=== PATIENT | male | born 1945 | race Caucasian/White ===

== ENCOUNTER → 2019-03-06 | Outpatient (CLI) | payer MEDICARE, OTHER ==
--- NOTE | 2019-03-06 10:05 | Diagnostic Imaging Report ---
INDICATION: Right lower quadrant pain. Exam compared 02/18/2015. FINDINGS: There is some gaseous dilatation of small bowel showing differential air-fluid levels in upright views. Air-containing small bowel caliber measuring 3.9 cm maximal. Much of the small bowel is airless, likely lumen is occupied by fluid. The colon is imperceptible and presumed decompressed. IMPRESSION: 1. Small bowel dilatation with differential air-fluid levels and absence of identifiable stool or air within the colon. Findings are suspicious for small bowel obstruction. If clinically indicated, abdominal pelvic CT may provide additional utility. 2. No free air. Dictated by: Dictated on workstation # [id number]
== END ==
LOC: RAD FS 09:24
PROVIDERS: ATTEND Family Medicine
DX: K63.89 Other specified diseases of intestine (principal); R10.31 Right lower quadrant pain
CPT/HCPCS: 74019

== ENCOUNTER → 2019-05-11 | Outpatient (CLI) | payer MEDICARE, OTHER ==
--- NOTE | 2019-05-11 14:11 | Diagnostic Imaging Report ---
PROCEDURE: CT thoracic and lumbar spine without contrast. TECHNIQUE: Multiple contiguous axial images were obtained through the thoracic and lumbar spine without the use of intravenous contrast. Sagittal and coronal reformations were then performed. INDICATION: Back pain. FINDINGS: There is some mild right convexity thoracic scoliosis. The vertebral body heights are well-maintained. There are confluent osteophytes along the anterior aspect of the thoracic spine throughout. There is no fracture or traumatic subluxation. No bony encroachment on the spinal canal. There are a few calcified granulomas in the lungs bilaterally. There are also calcified granulomas in the mediastinum, compatible with prior granulomatous disease. There is a small right pleural effusion. There are mild age indeterminate compression fractures of L4 and L5. There is no spondylolysis or spondylolisthesis. There is lower lumbar degenerative disc disease. There are nonobstructing stones in the right kidney. There is atherotic calcification which is nonaneurysmal. There is a filter in the IVC. IMPRESSION: Moderate diffuse thoracolumbar spondylosis. Age indeterminate compression fractures of L4 and L5. If there is high clinical concern these may be acute, further evaluation with MRI may be helpful. Old granulomatous disease in the lungs bilaterally as well as right pleural effusion. Nonobstructing right renal calculi Dictated by: Dictated on workstation # [id number]
== END ==
LOC: RAD FS 09:38
PROVIDERS: ATTEND Nurse Practitioner Family
DX: S22.040A Wedge compression fracture of fourth thoracic vertebra, initial encounter for closed fracture (principal); S22.050A Wedge compression fracture of T5-T6 vertebra, initial encounter for closed fracture; J90 Pleural effusion, not elsewhere classified; J84.10 Pulmonary fibrosis, unspecified; N20.0 Calculus of kidney; M47.815 Spondylosis without myelopathy or radiculopathy, thoracolumbar region
CPT/HCPCS: 72128; 72131

== ENCOUNTER → 2019-05-25 | Outpatient (CLI) | payer MEDICARE, OTHER ==
--- NOTE | 2019-05-25 10:17 | Diagnostic Imaging Report ---
PROCEDURE: CT abdomen and pelvis without contrast. TECHNIQUE: Multiple contiguous axial images were obtained through the abdomen and pelvis without the use of intravenous contrast. Auto Exposure Controls were utilized during the CT exam to meet ALARA standards for radiation dose reduction. INDICATION: Bilateral flank pain for 3 weeks with microhematuria. Patient does have a history of right renal cell carcinoma and metastatic lung cancer. No prior CT studies available for comparison. FINDINGS: There are calcified nodules in the left lower lobe suggestive of granulomas. There appeared to be areas of scarring in the right middle lobe and right lower lobe with associated pleural thickening/minimal right pleural fluid. No discrete liver mass is seen. Gallbladder is surgically absent. No biliary ductal dilatation is seen. Pancreas is unremarkable. Spleen contains multiple calcified granulomas. No adrenal mass is seen. There appeared to be postsurgical changes involving the upper pole of the right kidney. No discrete renal mass is seen. There is no calculi or hydronephrosis. Aorta is nonaneurysmal. There is a filter in the inferior vena cava. No definite central retroperitoneal or mesenteric lymphadenopathy is seen. The bowel loops appear to be normal caliber. There is an ostomy in the right lower quadrant. No obstruction is seen. There is no free fluid. There is a large amount of streak artifact through the pelvis from patient's bilateral hip prostheses. This does limit evaluation of the pelvis. Bony structures are unremarkable. IMPRESSION: 1. Right-sided pleural thickening/minimal pleural fluid with associated right basilar scarring. 2. Postsurgical changes involving the upper pole of the right kidney. No definite discrete renal mass or hydronephrosis is seen. 3. No evidence of abdominal or pelvic lymphadenopathy. No acute feature is identified. Dictated by: Dictated on workstation # [id number]
== END ==
LOC: RAD FS 09:07
PROVIDERS: ATTEND Urology
DX: R10.9 Unspecified abdominal pain (principal); R31.29 Other microscopic hematuria; Z90.49 Acquired absence of other specified parts of digestive tract; Z85.53 Personal history of malignant neoplasm of renal pelvis; Z85.118 Personal history of other malignant neoplasm of bronchus and lung; Z87.442 Personal history of urinary calculi
CPT/HCPCS: 74176

== ENCOUNTER → 2019-12-24 | Outpatient (CLI) | payer MEDICARE, OTHER ==
[~2019-12-24] MED LIST: ACET-2267 PO; AMLO10TA7 PO; ENOX80DI7 SC; FERR325T18 PO; HYDR-3820 PO; HYDR200T46 PO; MELA10TA2 PO; MULT1TAB69 PO; PRED5TAB PO; SODI650T PO; TEMA15CA PO; WARF3TAB56 PO; WARF5TAB PO
[2019-12-24 18:36] LABS: INR 1.9 (0.8-1.4); PROTHROMBIN TIME PATIENT 22.3 SEC (12.2-14.7)
== END ==
LOC: LAB FS 18:07
PROVIDERS: ATTEND Family Medicine
DX: Z51.81 Encounter for therapeutic drug level monitoring (principal); Z79.01 Long term (current) use of anticoagulants
CPT/HCPCS: 36415; 85610

== ENCOUNTER 2020-01-05 03:33 | Emergency (ER) | payer MEDICARE, OTHER ==
[~2020-01-05] VITALS: Ht 185.4 cm; Wt 79.0 kg
--- NOTE | 2020-01-05 04:03 | NUR ---
AFTER THE DRESSING WAS REMOVED THE PT STATED HIS SKIN TEAR FELT BETTER.
--- NOTE | 2020-01-05 04:15 | ED Integumentary General ---
General Chief Complaint: Skin/Wound Problems Stated Complaint: SKIN TEAR INFECTION Nursing Triage Note: PT. HAS A SKIN TEAR ON THE RIGHT CHEST THAT WAS COVERED WITH A DRESSING THAT HAD A VERY SMALL AMOUNT OF SS DRAINAGE. PT. CONCERNED HE HAD AN INFECTION AND THE SITE WAS ITCHING SO HE CAME TO THE ER TO GET CHECKED OUT. HOME HEALTH NURSE TOLD THE PT TO COME TO THE ER. Source: patient History of Present Illness Date Seen by Provider: Jan 05, 2020 Time Seen by Provider: 04:14 Initial Comments 74-year-old male presenting with irritation to wound on the right chest wall. He had a skin tear with infection on the right chest wall after spinal surgery in November. This was healing but after the dressing change with home health yesterday he had a lot of itching and drainage from it. The home health nurse was to call Dr. Ferguson about getting antibiotics for the patient but he states that nothing had been called to [facility] when he checked last night. He was having a lot of itching and some drainage from the wound last night. He denies any fever or chills. He's had no pus draining from the wound. Allergies and Home Medications Allergies Coded Allergies: Penicillins (Verified Allergy, Intermediate, 12/15/19) EYES SWELLED SHUT Home Medications Acetaminophen 500 Mg Tablet, 500 MG PO Q6H PRN for PAIN-MILD (1-4), (Reported) Amlodipine Besylate 10 Mg Tablet, 10 MG PO HS, (Reported) Enoxaparin Sodium 80 Mg/0.8 Ml Syringe, 80 MG SC BID@0630,1830 Prescribed by: RUBI VASQUEZ on 12/16/19937 Ferrous Sulfate 325 Mg Tablet, 325 MG PO BID, (Reported) Hydrocodone/Acetaminophen 1 Each Tablet, 2 EA PO Q4H PRN for PAIN-MODERATE (5-7) Prescribed by: RUBI VASQUEZ on 12/16/19937 Hydroxychloroquine Sulfate 200 Mg Tablet, 200 MG PO BID, (Reported) Melatonin 10 Mg Tablet, 10 MG PO HS PRN for SLEEP, (Reported) Multivitamin 1 Each Tablet, 1 TAB PO DAILY, (Reported) Prednisone 5 Mg Tablet, 15 MG PO Q48H, (Reported) TAKES 3 (5MG) TABLETS Sodium Bicarbonate 650 Mg Tablet, 650 MG PO HS PRN for LOOSE STOOLS, (Reported) Temazepam 15 Mg Capsule, 15 MG PO HS PRN for SLEEP, (Reported) Warfarin Sodium 5 Mg Tablet, 5 MG PO DAILY@1800 Prescribed by: RUBI VASQUEZ on 12/16/19 9703 Patient Home Medication List Home Medication List Reviewed: Yes Review of Systems Review of Systems Constitutional: No chills, No fever EENTM: no symptoms reported Respiratory: no symptoms reported Cardiovascular: no symptoms reported Gastrointestinal: no symptoms reported Genitourinary: no symptoms reported Musculoskeletal: no symptoms reported Skin: change in color (erythema around the skin tear on the right anterior chest); No rash; other (healing skin tear to the right anterior chest wall no purulent drainage noted.) Past Aivrebe-Hzjadh-Atjmgf Hx Past Med/Social Hx: Reviewed Nursing Past Med/Soc Hx Patient Social History Recent Foreign Travel: No Contact w/Someone Who Travel: No Recent Infectious Disease Expo: No Recent Hopitalizations: Yes (S/P SPINAL FUSION) Physical Abuse: No Sexual Abuse: No Mistreated: No Fear: No Immunizations Up To Date Date of Influenza Vaccine: Sep 09, 2019 Seasonal Allergies Seasonal Allergies: No Past Medical History Surgeries: Yes (COLECTOMY WITH ILEOSTOMY 1973) Respiratory: Yes Pulmonary Embolism Cardiac: Yes Deep Vein Thrombosis Neurological: Yes Neuropathy Sexually Transmitted Disease: No HIV/AIDS: No Genitourinary: Yes (RENAL INSUFF.) Benign Prostatic Hyperpl, Renal Failure Gastrointestinal: Yes (COLECTOMY WITH ILEOSTOMY) Polyps Musculoskeletal: Yes Degenerate Disk Disease, Rheumatoid Arthritis, Chronic Back Pain Endocrine: No HEENT: Yes Loss of Vision: Denies Hearing Impairment: Hard of Hearing Cancer: Yes Lung, Colon, Kidney Did You Recieve Any Treatments: Yes What Type of Treatment Did You: Chemotherapy Psychosocial: No Blood Disorders: No Adverse Reaction/Blood Tranf: No Family Medical History Patient reports no known family medical history. Physical Exam Vital Signs Vital Signs - First Documented 01/05/20 03:47 Temp 36.8 Pulse 80 Resp 16 B/P (MAP) 147/84 (105) Pulse Ox 99 O2 Delivery Room Air Capillary Refill : Less Than 3 Seconds General Appearance: WD/WN, no apparent distress Neck: non-tender, full range of motion, supple, normal inspection Cardiovascular: normal peripheral pulses, regular rate, rhythm Respiratory: chest non-tender, lungs clear, normal breath sounds Skin: warm/dry, other (erythema around the healing skin tear on the right anterior chest wall. There is some increased warmth. No purulent drainage noted there is no fluctuance.) Progress/Results/Core Measures Results/Orders Vital Signs/I&O 01/05/20 01/05/20 03:47 05:04 Temp 36.8 36.8 Pulse 80 80 Resp 16 16 B/P (MAP) 147/84 (105) 147/84 (105) Pulse Ox 99 99 O2 Delivery Room Air Room Air Blood Pressure Mean: 105 Progress Progress Note : Progress Note Will treat topically with antibiotic ointment and have patient check with Dr. Ferguson at least over the phone to see if they will call him in oral antibiotics or not. If he is having oral antibiotic treatment didn't at least the clinic with no and get help manage his pro time and Coumadin dosing. Departure Impression Primary Impression: Cellulitis of chest wall Additional Impression: Allergic contact dermatitis Qualified Codes: L23.1 - Allergic contact dermatitis due to adhesives Disposition: HOME, SELF-CARE Condition: Stable Departure-Patient Inst. Decision time for Depature: 05:04 Referrals: ALIRIO FERGUSON MD (PCP/Family) Primary Care Physician Patient Instructions: Contact Dermatitis (DC), Cellulitis (Skin Infection), Adult (DC) Add. Discharge Instructions: Check with Dr. Ferguson's office about the wound on your chest. See if he wants to have you take an antibiotic by mouth or just use antibiotic ointment and change dressings to one that does not have as much adhesive. All discharge instructions reviewed with patient and/or family. Voiced understanding. Images Torso/Trunk 1 - Cellulitis (redness and increased warmth around healing skin tear) BETO CALI MD Jan 05, 2020 04:15
[2020-01-05 05:04] VITALS: BP 147/84
== END 2020-01-05 05:06 | disposition home or self-care (01) ==
LOC: EDUNIT# 03:33 → ER FS 03:35
DX: L03.313 Cellulitis of chest wall (principal); L23.1 Allergic contact dermatitis due to adhesives; Z88.0 Allergy status to penicillin; Z79.52 Long term (current) use of systemic steroids; Z79.01 Long term (current) use of anticoagulants; Z86.711 Personal history of pulmonary embolism; Z85.118 Personal history of other malignant neoplasm of bronchus and lung; Z85.528 Personal history of other malignant neoplasm of kidney; Z85.038 Personal history of other malignant neoplasm of large intestine; Z86.718 Personal history of other venous thrombosis and embolism

== ENCOUNTER 2020-01-26 14:45 | Emergency (ER) | payer MEDICARE, OTHER ==
[~2020-01-26] VITALS: Ht 185.4 cm; Wt 82.8 kg
[~2020-01-26 14:45] MED LIST changes: +ACHYD1T PO; -HYDR-3820 PO
--- NOTE | 2020-01-26 15:08 | ED General ---
General Stated Complaint: HEMATURIA; BACK PAIN History of Present Illness Date Seen by Provider: Jan 26, 2020 Time Seen by Provider: 15:08 Initial Comments Patient presenting to emergency department for evaluation of right flank pain that started yesterday and has persisted. Patient says that he has a history of kidney stones and this feels exactly the same as prior kidney stones. He was initially very upset with me and did not want to have any tests done rather he wanted to be sent with antibiotics and pain medicines but I told him I recommended getting further tests as he sounds as if he is explaining that he had prior kidney cancer on the right and he has decreased renal function. He says he has followed with the urologist Dr. Aguirre but has always passed his stones on his own and has not required intervention. He said he is prescribed a dilating medicine that I assume is Flomax but he did not remember the name. He denies fevers chills vomiting but he does have some nausea. He appears uncomfortable but is nontoxic with normal vital signs. Allergies and Home Medications Allergies Coded Allergies: Penicillins (Verified Allergy, Intermediate, 12/15/19) EYES SWELLED SHUT Home Medications Acetaminophen 500 Mg Tablet, 500 MG PO Q6H PRN for PAIN-MILD (1-4), (Reported) Amlodipine Besylate 10 Mg Tablet, 10 MG PO HS, (Reported) Enoxaparin Sodium 80 Mg/0.8 Ml Syringe, 80 MG SC BID@0630,1830 Prescribed by: RUBI VASQUEZ on 12/16/19 09 Ferrous Sulfate 325 Mg Tablet, 325 MG PO BID, (Reported) Hydrocodone Bit/Acetaminophen 1 Each Tablet, 2 EA PO Q4H PRN for PAIN-MODERATE (5-7) Prescribed by: RUBI VASQUEZ on 12/16/19 09 Hydroxychloroquine Sulfate 200 Mg Tablet, 200 MG PO BID, (Reported) Melatonin 10 Mg Tablet, 10 MG PO HS PRN for SLEEP, (Reported) Multivitamin 1 Each Tablet, 1 TAB PO DAILY, (Reported) Prednisone 5 Mg Tablet, 15 MG PO Q48H, (Reported) TAKES 3 (5MG) TABLETS Sodium Bicarbonate 650 Mg Tablet, 650 MG PO HS PRN for LOOSE STOOLS, (Reported) Temazepam 15 Mg Capsule, 15 MG PO HS PRN for SLEEP, (Reported) Warfarin Sodium 5 Mg Tablet, 5 MG PO DAILY@1800 Prescribed by: RUBI VASQUEZ on 12/16/19 0938 Patient Home Medication List Home Medication List Reviewed: Yes Review of Systems Review of Systems Constitutional: no symptoms reported EENTM: no symptoms reported Respiratory: no symptoms reported Cardiovascular: no symptoms reported Gastrointestinal: nausea Genitourinary: no symptoms reported Musculoskeletal: back pain Skin: no symptoms reported Psychiatric/Neurological: No Symptoms Reported All Other Systems Reviewed Negative Unless Noted: Yes Past Izhtllk-Gufejv-Dkrski Hx Patient Social History Recent Foreign Travel: No Contact w/Someone Who Travel: No Recent Hopitalizations: Yes (S/P SPINAL FUSION) Immunizations Up To Date Date of Influenza Vaccine: Sep 09, 2019 Seasonal Allergies Seasonal Allergies: No Past Medical History Surgeries: Yes (COLECTOMY WITH ILEOSTOMY 1973) Respiratory: Yes Pulmonary Embolism Cardiac: Yes Deep Vein Thrombosis Neurological: Yes Neuropathy Sexually Transmitted Disease: No HIV/AIDS: No Genitourinary: Yes (RENAL INSUFF.) Benign Prostatic Hyperpl, Renal Failure Gastrointestinal: Yes (COLECTOMY WITH ILEOSTOMY) Polyps Musculoskeletal: Yes Degenerate Disk Disease, Rheumatoid Arthritis, Chronic Back Pain Endocrine: No HEENT: Yes Loss of Vision: Denies Hearing Impairment: Hard of Hearing Cancer: Yes Lung, Colon, Kidney Did You Recieve Any Treatments: Yes What Type of Treatment Did You: Chemotherapy Psychosocial: No Blood Disorders: No Adverse Reaction/Blood Tranf: No Family Medical History Patient reports no known family medical history. Physical Exam Vital Signs Vital Signs - First Documented 01/26/20 15:00 Temp 36.3 Pulse 69 Resp 16 B/P (MAP) 165/77 (106) Pulse Ox 69 O2 Delivery Room Air Capillary Refill : Height, Weight, BMI Height: '" Weight: lbs. oz. kg; 22.00 BMI Method: General Appearance: No Apparent Distress, WD/WN HEENT: PERRL/EOMI Neck: Supple Respiratory: Lungs Clear, No Respiratory Distress Cardiovascular: Regular Rate, Rhythm Gastrointestinal: Non Tender, Soft Back: CVA Tenderness (R) Extremity: Normal Capillary Refill Neurologic/Psychiatric: Alert, Oriented x3 Skin: Warm/Dry Progress/Results/Core Measures Suspected Sepsis SIRS Temperature: Pulse: Respiratory Rate: Laboratory Tests 01/26/20 16:48: Blood Pressure / Mean: Laboratory Tests 01/26/20 16:48: Creatinine 2.13H, INR Comment 1.8H, Total Bilirubin 0.3 Results/Orders Lab Results Laboratory Tests Test 01/26/20 16:48 Range/Units Prothrombin Time 21.2 H 12.2-14.7 SEC INR Comment 1.8 H 0.8-1.4 Activated Partial Thromboplast Time 34 24-35 SEC Sodium Level 141 135-145 MMOL/L Potassium Level 5.0 3.6-5.0 MMOL/L Chloride Level 110 H 98-107 MMOL/L Carbon Dioxide Level 16 L 21-32 MMOL/L Anion Gap 15 H 5-14 MMOL/L Blood Urea Nitrogen 32 H 7-18 MG/DL Creatinine 2.13 H 0.60-1.30 MG/DL Estimat Glomerular Filtration Rate 30 BUN/Creatinine Ratio 15 Glucose Level 112 H 70-105 MG/DL Calcium Level 8.7 8.5-10.1 MG/DL Corrected Calcium 8.9 8.5-10.1 MG/DL Total Bilirubin 0.3 0.1-1.0 MG/DL Aspartate Amino Transf (AST/SGOT) 32 5-34 U/L Alanine Aminotransferase (ALT/SGPT) 23 0-55 U/L Alkaline Phosphatase 158 H 40-136 U/L Total Protein 6.3 L 6.4-8.2 GM/DL Albumin 3.8 3.2-4.5 GM/DL My Orders Orders - MATILDA KNIGHT DO Comprehensive Metabolic Panel (01/26/20 15:11) Drug Screen Stat (Urine) (01/26/20 15:11) Ua Culture If Indicated (01/26/20 15:11) Ketorolac Injection (Toradol Injection) (01/26/20 15:15) Ns Iv 1000 Ml (Sodium Chloride 0.9%) (01/26/20 15:15) Fentanyl Injection (Sublimaze Injection (01/26/20 15:15) Ondansetron Injection (Zofran Injectio (01/26/20 15:15) Ct Abdomen/Pelvis Wo (01/26/20 15:11) Partial Thromboplastin Time (01/26/20 17:07) Protime With Inr (01/26/20 17:07) Cbc With Automated Diff (01/26/20 17:09) Medications Given in ED Current Medications Medications Dose Ordered Sig/Darin Route Start Time Stop Time Status Last Admin Dose Admin Fentanyl Citrate 50 mcg ONCE ONCE IVP 01/26/20 15:15 01/26/20 15:16 DC 01/26/20 16:53 50 MCG Ondansetron HCl 4 mg ONCE ONCE IVP 01/26/20 15:15 01/26/20 15:16 DC 01/26/20 16:52 4 MG Vital Signs/I&O 01/26/20 15:00 Temp 36.3 Pulse 69 Resp 16 B/P (MAP) 165/77 (106) Pulse Ox 69 O2 Delivery Room Air Capillary Refill : Progress Note : Progress Note Patient has 6 mm proximal stone with [id number] hydronephrosis. I told him based off the location and size there is a greater than 50% chance this will not pass however he is welcome to try and pass at home but I recommended admission to the hospital so we could try and his creatinine and treat his likely further pain that is to come in to have him be seen by the urologist. Patient is waiting his options at this time as he said due to the coronavirus he really does not want to stay in the hospital if possible and I told them that that is a legitimate concern and discussed the risks and benefits of outpatient versus inpatient treatment but the final decision will have to be made by him. His renal insufficiency is not worse than his baseline but given his already declining renal function I reiterated to him that I would recommend staying in the hospital but he refused stating that he really wants to try and pass the stone at home on its own. I told him he can try that he needs a follow with his urologist either tomorrow or the next day and he has to come back to emergency [facility] immediately. I told him to drink plenty of fluids take the Flomax before he goes to sleep at night as it can make him very dizzy and passed out. He is asking for a prescription for antibiotics and asked why and he says he was getting antibiotics for his kidney stones by told there is no evidence of infection but he insisted on getting antibiotics. He had a urinalysis done at the urgent care by do not have those results and he said he did not want to wait to give a urine sample here and wait for the results. Patient will be discharged in stable condition and told to return as above and patient and daughter are aware and agreeable with plan for discharge and verbalized understanding of the need for short-term follow-up and strict ED return precautions discussed as above. Departure Impression Primary Impression: Right ureteral calculus Additional Impressions: Hydronephrosis of right kidney Renal insufficiency Subtherapeutic international normalized ratio (INR) Disposition: 01 HOME, SELF-CARE Condition: Stable Departure-Patient Inst. Referrals: ALIRIO CACERES MD (PCP/Family) Primary Care Physician Patient Instructions: Kidney Stones (DC) Add. Discharge Instructions: Drink plenty of fluids and follow with Dr. Harris as soon as possible. Come back to the emergency department with worsening pain fevers vomiting or other general concerns. Scripts Tamsulosin HCl (Flomax) 0.4 Mg Cap 0.4 MG PO qhs, #10 CAP Prov: MATILDA KNIGHT DO 01/26/20 Nitrofurantoin Monohyd/M-Cryst (Macrobid 100 mg Capsule) 100 Mg Capsule 1 TAB PO BID, #14 CAP Prov: MATILDA KNIGHT DO 01/26/20 Ondansetron (Ondansetron Odt) 4 Mg Tab.rapdis 4 MG PO Q6H PRN for NAUSEA/VOMITING-1ST LINE, #14 TAB Prov: MATILDA KNIGHT DO 01/26/20 Hydrocodone/Acetaminophen (Hydrocodone/Acetaminophen 5 MG/325 MG TAB) 1 Each Tablet 1 TAB PO Q6H for Pain MDD 10 TABS for 7 Days, #20 TAB Prov: MATILDA KNIGHT DO 01/26/20 MATILDA KNIGHT DO Jan 26, 2020 15:08
[2020-01-26] MEDS ORDERED: ONDANSETRON 4 MG/2 ML (SDV) Z0FRAN IVP ONE (15:15)
[2020-01-26] MEDS ORDERED: NS IV 1000 ML 1,000 ML IV SCH (15:15)
[2020-01-26] MEDS ORDERED: KETOROLAC 30 MG/ML VIAL IVP ONE (15:15)
[2020-01-26] MEDS ORDERED: fentaNYL INJECTION 100 MCG/2 ML AMP IVP ONE (15:15)
--- NOTE | 2020-01-26 16:54 | Diagnostic Imaging Report ---
PROCEDURE: CT abdomen and pelvis without contrast. TECHNIQUE: Multiple contiguous axial images were obtained through the abdomen and pelvis without the use of intravenous contrast. Auto Exposure Controls were utilized during the CT exam to meet ALARA standards for radiation dose reduction. DATE: January 26, 2020. COMPARISON: CT abdomen/pelvis May 25, 2019. INDICATION: 74-year-old male, abdominal pain. FINDINGS: There are limitations for evaluation of the abdominal organs, neoplastic processes, abscess, and limited evaluation of the vasculature relating to the lack of intravenous contrast. There are benign calcified left lower lobe granulomas. There is a trace right pleural effusion. There is very mild right lower lobe atelectasis and/or scarring. The heart is not enlarged. There is no pericardial effusion. The liver is normal in size and contour. The gallbladder is surgically absent. There is no intrahepatic or extrahepatic bile duct dilation. The main pancreatic duct is not grossly dilated. Limited noncontrast evaluation of the pancreatic parenchyma is unremarkable. Multiple small splenic calcifications are most consistent with sequela of prior granulomatous disease. There is no splenomegaly. The adrenal glands are unremarkable. There are areas of abnormal fat attenuation adjacent to the right kidney. These are unchanged since May 25, 2019. There is [id number] right hydronephrosis. There is a stone in the right proximal ureter on axial image 56 measuring 6 mm in size. There is limited evaluation of the distal ureters and pelvis given streak artifact from bilateral hip prostheses. There is no left hydronephrosis. There is no identified left renal or ureteral stone. The urinary bladder is not well evaluated. There is a right lower quadrant ostomy. The colon appears surgically absent. There is some fecalization of contents within bowel, compatible with slow intestinal transit. There is no abnormal bowel distention. There is no free intraperitoneal air. There is no drainable fluid collection. There is no free pelvic fluid. There is an inferior vena cava filter. There are atherosclerotic calcifications. There is no identified abnormally enlarged lymph node in the abdomen or pelvis which meets CT size criteria for adenopathy. There are bilateral total hip prostheses. There are procedural-related changes of the lumbar spine. There are multilevel degenerative changes of the spine. There is no identified acute bony abnormality. IMPRESSION: 1. There is a 6 mm stone in the right proximal ureter with mild to moderate right hydronephrosis. 2. Unchanged fat attenuation lesions adjacent to the right kidney since the comparison exam. 3. Trace right pleural effusion. Dictated by: Dictated on workstation # [id number]
[2020-01-26 17:15] LABS: ALBUMIN 3.8 GM/DL (3.2-4.5); BILIRUBIN,TOTAL 0.3 MG/DL (0.1-1.0); CALCIUM 8.7 MG/DL (8.5-10.1); CREATININE SERUM 2.13 MG/DL (0.60-1.30); TOTAL PROTEIN 6.3 GM/DL (6.4-8.2)
[2020-01-26 17:20] LABS: INR 1.8 (0.8-1.4); PROTHROMBIN TIME PATIENT 21.2 SEC (12.2-14.7)
[2020-01-26 17:27] LABS: BASOPHILS % (AUTO) 0 % (0-10); EOSINOPHILS % (AUTO) 0 % (0-10); HEMATOCRIT 32 % (40-54); HEMOGLOBIN 10.1 G/DL (13.3-17.7); LYMPHOCYTES # (AUTO) 0.4 X 10^3 (1.0-4.0); LYMPHOCYTES % (AUTO) 8 % (12-44); MEAN CORPUSCULAR HEMOGLOBIN 30 PG (25-34); MEAN CORPUSCULAR HGB CONC 32 G/DL (32-36); MEAN CORPUSCULAR VOLUME 93 FL (80-99); MEAN PLATELET VOLUME 10.3 FL (7.4-10.4); MONOCYTES # (AUTO) 0.1 X 10^3 (0.0-1.0); MONOCYTES % (AUTO) 2 % (0-12); NEUTROPHILS # (AUTO) 4.6 X 10^3 (1.8-7.8); NEUTROPHILS % (AUTO) 89 % (42-75); PLATELET COUNT 95 10^3/uL (130-400); RED CELL DISTRIBUTION WIDTH 14.8 % (10.0-14.5); WHITE BLOOD COUNT 5.1 10^3/uL (4.3-11.0)
[2020-01-26] MEDS ORDERED: ONDA4TAB11 PO (17:31)
[2020-01-26] MEDS ORDERED: NITR-65 PO (17:31)
[2020-01-26] MEDS ORDERED: TMSL.4C PO (17:31)
[2020-01-26] MEDS ORDERED: HYDR-4226 PO (17:31)
--- OUTSIDE RECORDS SUMMARY | 2020-01-26 17:44 | XMS REPORT | Continuity of Care Document ---
Author Organization Unknown Address Unknown Phone Unavailable Allergies Active Description Code Type Severity Reaction Onset Reported/Identified Relationship to Patient Clinical Status Yes No Allergy Information Available [id number] Drug Allergy Unknown N/A 020 Yes Penicillins [id number] Drug Aller gy Moderate N/A 12/15/2019 Medications There is no data. 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 05/12/2019 YOVANI CALDWELL Ot N20.0 CALCULUS OF KIDNEY 05/12/2019 YOVANI CALDWELL Ot S22.04 0A WEDGE COMPRESSION FRACTURE OF FOURTH THO 05/12/2019 YOVANI CALDWELL Ot S22.05 0A WEDGE COMPRESSION FRACTURE OF T5-T6 VERT 05/28/2019 NAHUM ROMERO MD Ot R10.9 UNSPECIFIED ABDOMINAL PAIN 05/28/2019 NAHUM ROMERO MD Ot R31.2 9 OTHER MICROSCOPIC HEMATURIA 05/28/2019 NAHUM ROMERO MD, Ot Z85.1 18 PERSONAL HISTORY OF MALIGNANT NEOPLASM O 05/28/2019 NAHUM ROMERO MD Ot Z85.5 3 PERSONAL HISTORY OF MALIGNANT NEOPLASM O 05/28/2019 NAHUM ROMERO MD, Ot Z87.4 42 PERSONAL HISTORY OF URINARY CALCULI 05/28/2019 NAHUM ROMERO MD, Ot Z90.4 9 ACQUIRED ABSENCE OF OTHER SPECIFIED PART 06/04/2019 PAULETTE YOVANI FAMILY AND CONSUMER EDUCATION TEACHER Ot J84.10 PULMONARY FIBROSIS, UNSPECIFIED 06/04/2019 PAULETTE, YOVANI FAMILY [employer] CONSUMER EDUCATION TEACHER Ot J90 PLEURAL EFFUSION, NOT ELSEWHERE CLASSIFI 06/04/2019 PAULETTE, YOVANI FAMILY AND CONSUMER EDUCATION TEACHER Ot 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 06/04/2019 PAULETTE, YOVANI FAMILY AND CONSUMER EDUCATION TEACHER Ot N20.0 CALCULUS OF KIDNEY 06/04/2019 PAULETTE, YOVANI FAMILY AND CONSUMER EDUCATION TEACHER Ot S22.04 0A WEDGE COMPRESSION FRACTURE OF FOURTH THO 06/04/2019 PAULETTE, YOVANI FAMILY AND CONSUMER EDUCATION TEACHER Ot S22.05 0A WEDGE COMPRESSION FRACTURE OF T5-T6 VERT 06/05/2019 PAULETTE YOVANI FAMILY AND CONSUMER EDUCATION TEACHER Ot J84.10 PULMONARY FIBROSIS, UNSPECIFIED 06/05/2019 PAULETTE, YOVANI FAMILY AND CONSUMER EDUCATION TEACHER Ot J90 PLEURAL EFFUSION, NOT ELSEWHERE CLASSIFI 06/05/2019 PAULETTE YOVANI FAMILY AND CONSUMER EDUCATION TEACHER Ot 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 06/05/2019 PAULETTE, YOVANI FAMILY AND CONSUMER EDUCATION TEACHER Ot N20.0 CALCULUS OF KIDNEY 06/05/2019 PAULETTE YOVANI FAMILY AND CONSUMER EDUCATION TEACHER Ot S22.04 0A WEDGE COMPRESSION FRACTURE OF FOURTH THO 06/05/2019 PAULETTE, YOVANI FAMILY AND CONSUMER EDUCATION TEACHER Ot S22.05 0A WEDGE COMPRESSION FRACTURE OF T5-T6 VERT 06/19/2019 NAHUM ROMERO MD Ot R10.9 UNSPECIFIED ABDOMINAL PAIN 06/19/2019 NAHUM ROMERO MD Ot R31.2 9 OTHER MICROSCOPIC HEMATURIA 06/19/2019 NAHUM ROMERO MD, Ot Z85.1 18 PERSONAL HISTORY OF MALIGNANT NEOPLASM O 06/19/2019 NAHUM ROMERO MD, Ot Z85.5 3 PERSONAL HISTORY OF MALIGNANT NEOPLASM O 06/19/2019 NAHUM ROMERO MD, Ot Z87.4 42 PERSONAL HISTORY OF URINARY CALCULI 06/19/2019 NAHUM ROMERO MD, Ot Z90.4 9 ACQUIRED ABSENCE OF OTHER SPECIFIED PART 06/22/2019 NAHUM ROMERO MD Ot R10.9 UNSPECIFIED ABDOMINAL PAIN 06/22/2019 NAHUM ROMERO MD Ot R31.2 9 OTHER MICROSCOPIC HEMATURIA 06/22/2019 NAHUM ROMERO MD Ot Z85.1 18 PERSONAL HISTORY OF MALIGNANT NEOPLASM O 06/22/2019 NAHUM ROMERO MD Ot Z85.5 3 PERSONAL HISTORY OF MALIGNANT NEOPLASM O 06/22/2019 NAHUM ROMERO MD Ot Z87.4 42 PERSONAL HISTORY OF URINARY CALCULI 06/22/2019 NAHUM ROMERO MD Ot Z90.4 9 ACQUIRED ABSENCE OF OTHER SPECIFIED PART 12/15/2019 CHRISTINA PRASAD RUBI Ot 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 12/15/2019 RUBI VASQUEZ DO Ot G62.9 POLYNEUROPATHY, UNSPECIFIED 12/15/2019 CHRISTINA PRASAD RUBI Ot J44.9 CHRONIC OBSTRUCTIVE PULMONARY DISEASE, U 12/15/2019 CHRISTINA PRASAD RUBI Ot M06.9 RHEUMATOID ARTHRITIS, UNSPECIFIED 12/15/2019 CHRISTINA PRASAD RUBI Ot N18.9 CHRONIC KIDNEY DISEASE, UNSPECIFIED 12/15/2019 CHRISTINA PRASAD RUBI Ot N40.0 BENIGN PROSTATIC HYPERPLASIA WITHOUT LOW 12/15/2019 CHRISTINA PRASAD RUBI Ot S21.11 1A LAC W/O FB OF R FRNT WL OF THORAX W/O PE 12/15/2019 CHRISTINA PRASAD RUBI Ot S21.11 2A LAC W/O FB OF L FRNT WL OF THORAX W/O PE 12/15/2019 CHRISTINA PRASAD RUBI Ot Z47.89 ENCOUNTER FOR OTHER ORTHOPEDIC AFTERCARE 12/15/2019 FARSHAD VASQUEZ DOI Ot Z66 DO NOT RESUSCITATE 12/15/2019 CHRISTINA PRASAD RUBI Ot Z85.03 8 PERSONAL HISTORY OF MALIGNANT NEOPLASM O 12/15/2019 CHRISTINA PRASAD RUBI Ot Z85.52 8 PERSONAL HISTORY OF OTHER MALIGNANT NEOP 12/15/2019 CHRISTINA PRASAD RUBI Ot Z86.71 1 PERSONAL HISTORY OF PULMONARY EMBOLISM 12/15/2019 CHRISTINA PRASAD RUBI Ot Z86.71 8 PERSONAL HISTORY OF OTHER VENOUS THROMBO 12/15/2019 FARSHAD VASQUEZ DOI Ot Z93.2 ILEOSTOMY STATUS 12/16/2019 CHRISTINA PRASAD RUBI Ot 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 12/16/2019 CHRISTINA PRASAD RUBI Ot G62.9 POLYNEUROPATHY, UNSPECIFIED 12/16/2019 RUBI VASQUEZ DO Ot J44.9 CHRONIC OBSTRUCTIVE PULMONARY DISEASE, U 12/16/2019 RUBI VASQUEZ DO Ot M06.9 RHEUMATOID ARTHRITIS, UNSPECIFIED 12/16/2019 CHRISTINA PRASAD RUBI Ot N18.9 CHRONIC KIDNEY DISEASE, UNSPECIFIED 12/16/2019 RUBI VASQUEZ DO Ot N40.0 BENIGN PROSTATIC HYPERPLASIA WITHOUT LOW 12/16/2019 CHRISTINA PRASAD RUBI Ot S21.11 1A LAC W/O FB OF R FRNT WL OF THORAX W/O PE 12/16/2019 CHRISTINA PRASAD RUBI Ot S21.11 2A LAC W/O FB OF L FRNT WL OF THORAX W/O PE 12/16/2019 CHRISTINA PRASAD RUBI Ot Z47.89 ENCOUNTER FOR OTHER ORTHOPEDIC AFTERCARE 12/16/2019 FARSHAD VASQUEZ DOI Ot Z66 DO NOT RESUSCITATE 12/16/2019 RUBI VASQUEZ DO Ot Z85.03 8 PERSONAL HISTORY OF MALIGNANT NEOPLASM O 12/16/2019 CHRISTINA PRASAD RUBI Ot Z85.52 8 PERSONAL HISTORY OF OTHER MALIGNANT NEOP 12/16/2019 CHRISTINA PRASAD RUBI Ot Z86.71 1 PERSONAL HISTORY OF PULMONARY EMBOLISM 12/16/2019 RUBI VASQUEZ DO Ot Z86.71 8 PERSONAL HISTORY OF OTHER VENOUS THROMBO 12/16/2019 FARSHAD VASQUEZ DOI Ot Z93.2 ILEOSTOMY STATUS 12/25/2019 ALIRIO CACERES MD Ot Z51.81 ENCOUNTER FOR THERAPEUTIC DRUG LEVEL MON 12/25/2019 ALIRIO CACERES MD Ot Z79.01 CLEAN RICE GRADER AND REEL TENDER (CURRENT) USE OF ANTICOAGULANT 12/25/2019 ALIRIO CACERES MD Ot Z51.81 ENCOUNTER FOR THERAPEUTIC DRUG LEVEL MON 12/25/2019 ALIRIO CACERES MD Ot Z79.01 NURSING HOME (CURRENT) USE OF ANTICOAGULANT 01/05/2020 BETO CALI MD Ot L03.3 13 CELLULITIS OF CHEST WALL 01/05/2020 BETO CALI MD Ot L23.1 ALLERGIC CONTACT DERMATITIS DUE TO ADHES 01/05/2020 BETO CALI MD Ot Z79.0 1 CLE[employer] RICE GRADER AND REEL TENDER (CURRENT) USE OF ANTICOAGULANT 01/05/2020 BETO CALI MD Ot Z79.5 2 CLE[employer] RICE GRADER AND REEL TENDER (CURRENT) USE OF SYSTEMIC STER 01/05/2020 BETO CALI MD, Ot Z85.0 38 PERSONAL HISTORY OF MALIGNANT NEOPLASM O 01/05/2020 BETO CALI MD Ot Z85.1 18 PERSONAL HISTORY OF MALIGNANT NEOPLASM O 01/05/2020 BETO CALI MD, Ot Z85.5 28 PERSONAL HISTORY OF OTHER MALIGNANT NEOP 01/05/2020 BETO CALI MD Ot Z86.7 11 PERSONAL HISTORY OF PULMONARY EMBOLISM 01/05/2020 BETO CALI MD, Ot Z86.7 18 PERSONAL HISTORY OF OTHER VENOUS THROMBO 01/05/2020 BETO CALI MD Ot Z88.0 ALLERGY STATUS TO PENICILLIN 01/05/2020 NICKI FELTON, ALIRIO Dominguez Ot K63.89 OTHER SPECIFIED DISEASES OF INTESTINE 01/05/2020 ALIRIO CACERES MD Ot R10.31 RIGHT LOWER QUADRANT PAIN 01/05/2020 PAULETTE, YOVANI FAMILY AND CONSUMER EDUCATION TEACHER Ot J84.10 PULMONARY FIBROSIS, UNSPECIFIED 01/05/2020 PAULETTE, YOVANI FAMILY AND CONSUMER EDUCATION TEACHER Ot J90 PLEURAL EFFUSION, NOT ELSEWHERE CLASSIFI 01/05/2020 PAULETTE, YOVANI FAMILY AND CONSUMER EDUCATION TEACHER Ot 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 01/05/2020 PAULETTE, YOVANI FAMILY AND CONSUMER EDUCATION TEACHER Ot N20.0 CALCULUS OF KIDNEY 01/05/2020 PAULETTE, YOVANI FAMILY AND CONSUMER EDUCATION TEACHER Ot S22.04 0A WEDGE COMPRESSION FRACTURE OF FOURTH THO 01/05/2020 PAULETTE, YOVANI FAMILY AND CONSUMER EDUCATION TEACHER Ot S22.05 0A WEDGE COMPRESSION FRACTURE OF T5-T6 VERT 01/05/2020 NAHUM ROMERO MD Ot R10.9 UNSPECIFIED ABDOMINAL PAIN 01/05/2020 NAHUM ROMERO MD Ot R31.2 9 OTHER MICROSCOPIC HEMATURIA 01/05/2020 NAHUM ROMERO MD Ot Z85.1 18 PERSONAL HISTORY OF MALIGNANT NEOPLASM O 01/05/2020 NAHUM ROMERO MD Ot Z85.5 3 PERSONAL HISTORY OF MALIGNANT NEOPLASM O 01/05/2020 NAHUM ROMERO MD Ot Z87.4 42 PERSONAL HISTORY OF URINARY CALCULI 01/05/2020 NAHUM ROMERO MD Ot Z90.4 9 ACQUIRED ABSENCE OF OTHER SPECIFIED PART 01/05/2020 ALIRIO CACERES MD Ot Z51.81 ENCOUNTER FOR THERAPEUTIC DRUG LEVEL MON 01/05/2020 ALIRIO CACERES MD Ot Z79.01 CLE[employer] RICE GRADER AND REEL TENDER (CURRENT) USE OF ANTICOAGULANT 01/18/2020 ALIRIO CACERES MD Ot Z51.81 ENCOUNTER FOR THERAPEUTIC DRUG LEVEL MON 01/18/2020 ALIRIO CAECRES MD, Ot Z79.01 CLE[employer] R[employer] GRADER AND REEL TENDER (CURRENT) USE OF ANTICOAGULANT 01/26/2020 ALIRIO CACERES MD Ot K63.89 OTHER SPECIFIED DISEASES OF INTESTINE 01/26/2020 ALIRIO CACERES MD Ot R10.31 RIGHT LOWER QUADRANT PAIN 01/26/2020 PAULETTE, YOVANI FAMILY AND CONSUMER EDUCATION TEACHER Ot J84.10 PULMONARY FIBROSIS, UNSPECIFIED 01/26/2020 PAULETTE, YOVANI FAMILY AND CONSUMER EDUCATION TEACHER Ot J90 PLEURAL EFFUSION, NOT ELSEWHERE CLASSIFI 01/26/2020 PAULETTE YOVANI FAMILY AND CONSUMER EDUCATION TEACHER Ot 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 01/26/2020 PAULETTE, YOVANI FAMILY AND CONSUMER EDUCATION TEACHER Ot N20.0 CALCULUS OF KIDNEY 01/26/2020 PAULETTE, YOVANI FAMILY AND CONSUMER EDUCATION TEACHER Ot S22.04 0A WEDGE COMPRESSION FRACTURE OF FOURTH THO 01/26/2020 PAULETTE, YOVANI FAMILY AND CONSUMER EDUCATION TEACHER Ot S22.05 0A WEDGE COMPRESSION FRACTURE OF T5-T6 VERT 01/26/2020 NAHUM ROMERO MD Ot R10.9 UNSPECIFIED ABDOMINAL PAIN 01/26/2020 NAHUM ROMERO MD Ot R31.2 9 OTHER MICROSCOPIC HEMATURIA 01/26/2020 NAHUM ROMERO MD Ot Z85.1 18 PERSONAL HISTORY OF MALIGNANT NEOPLASM O 01/26/2020 NAHUM ROMERO MD Ot Z85.5 3 PERSONAL HISTORY OF MALIGNANT NEOPLASM O 01/26/2020 NAHUM ROMERO MD Ot Z87.4 42 PERSONAL HISTORY OF URINARY CALCULI 01/26/2020 NAHUM ROMERO MD Ot Z90.4 9 ACQUIRED ABSENCE OF OTHER SPECIFIED PART 01/26/2020 ALIRIO CACERES MD Ot Z51.81 ENCOUNTER FOR THERAPEUTIC DRUG LEVEL MON 01/26/2020 ALIRIO CACERES MD Ot Z79.01 NURSING HOME (CURRENT) USE OF ANTICOAGULANT 01/26/2020 ALIRIO CACERES MD Ot K63.89 OTHER SPECIFIED DISEASES OF INTESTINE 01/26/2020 ALIRIO CACERES MD Ot R10.31 RIGHT LOWER QUADRANT PAIN 01/26/2020 PAULETTE, YOVANI ROMERO Ot J84.10 PULMONARY FIBROSIS, UNSPECIFIED 01/26/2020 PAULETTE, YOVANI FAMILY AND CON[employer]ER EDUCATION TEACHER Ot J90 PLEURAL EFFUSION, NOT ELSEWHERE CLASSIFI 01/26/2020 PAULETTE, YOVANI FAMILY AND CONSUMER EDUCATION TEACHER Ot 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 01/26/2020 PAULETTE, YOVANI FAMILY AND CONSUMER EDUCATION TEACHER Ot N20.0 CALCULUS OF KIDNEY 01/26/2020 PAULETTE, YOVANI MATTHEWSP Ot S22.04 0A WEDGE COMPRESSION FRACTURE OF FOURTH THO 01/26/2020 PAULETTE, YOVANI MATTHEWSP Ot S22.05 0A WEDGE COMPRESSION FRACTURE OF T5-T6 VERT 01/26/2020 NAHUM ROMERO MD Ot R10.9 UNSPECIFIED ABDOMINAL PAIN 01/26/2020 NAHUM ROMERO MD Ot R31.2 9 OTHER MICROSCOPIC HEMATURIA 01/26/2020 NAHUM ROMERO MD, Ot Z85.1 18 PERSONAL HISTORY OF MALIGNANT NEOPLASM O 01/26/2020 NAHUM ROMERO MD, Ot Z85.5 3 PERSONAL HISTORY OF MALIGNANT NEOPLASM O 01/26/2020 NAHUM ROMERO MD, Ot Z87.4 42 PERSONAL HISTORY OF URINARY CALCULI 01/26/2020 NAHUM ROMERO MD, Ot Z90.4 9 ACQUIRED ABSENCE OF OTHER SPECIFIED PART 01/26/2020 ALIRIO CACERES MD Ot Z51.81 ENCOUNTER FOR THERAPEUTIC DRUG LEVEL MON 01/26/2020 ALIRIO CACERES MD, Ot Z79.01 CLE[employer]ICE GRADER AND REEL TENDER (CURRENT) USE OF ANTICOAGULANT Procedures There is no data. Results Test Result Range CBC - 01/09/19 09:10 WHITE BLOOD CELL COUNT 4.4 Thousand/uL 3 .8-10.8 RED BLOOD CELL COUNT 3.50 Million/uL 4.2 0-5.80 HEMOGLOBIN 10.4 g/dL 13.2-17.1 HEMATOCRIT 30.9 % 38.5-50.0 MCV 88.3 fL 80.0-100.0 MCH 29.7 pg 27.0-33.0 MCHC 33.7 g/dL 32.0-36.0 RDW 14.3 % 11.0-15.0 PLATELET COUNT 87 Thousand/uL 140-400 MPV 9.4 fL 7.5-12.5 ABSOLUTE NEUTROPHILS 2680 cells/uL 1500- 7800 ABSOLUTE LYMPHOCYTES 1060 cells/uL 850-3 900 ABSOLUTE MONOCYTES 444 cells/uL 200-950 ABSOLUTE EOSINOPHILS 194 cells/uL 15-500 ABSOLUTE BASOPHILS 22 cells/uL 0-200 NEUTROPHILS 60.9 % NRG LYMPHOCYTES 24.1 % NRG MONOCYTES 10.1 % NRG EOSINOPHILS 4.4 % NRG BASOPHILS 0.5 % NRG PT/INR - 01/09/19 09:10 INR 2.4 NRG PT 23.7 sec 9.0-11.5 CMP - 02/06/19 09:30 GLUCOSE 90 mg/dL 65-99 UREA NITROGEN (BUN) 52 mg/dL 7-25 CREATININE 2.14 mg/dL 0.70-1.18 eGFR NON-AFR. TUVALUAN 29 mL/min/1.73m2 > OR = 60 eGFR 34 mL/min/1.73m2 > OR = 60 BUN/CREATININE RATIO 24 (calc) 6-22 SODIUM 137 mmol/L 135-146 POTASSIUM 4.3 mmol/L 3.5-5.3 CHLORIDE 112 mmol/L 98-110 CARBON DIOXIDE 18 mmol/L 20-32 CALCIUM 8.2 mg/dL 8.6-10.3 PROTEIN, TOTAL 5.4 g/dL 6.1-8.1 ALBUMIN 3.5 g/dL 3.6-5.1 GLOBULIN 1.9 g/dL (calc) 1.9-3.7 ALBUMIN/GLOBULIN RATIO 1.8 (calc) 1.0-2. 5 BILIRUBIN, TOTAL 0.4 mg/dL 0.2-1.2 ALKALINE PHOSPHATASE 108 U/L 40-115 AST 17 U/L 10-35 ALT 15 U/L 9-46 CBC - 02/06/19 09:30 WHITE BLOOD CELL COUNT 4.7 Thousand/uL 3 .8-10.8 RED BLOOD CELL COUNT 3.37 Million/uL 4.2 0-5.80 HEMOGLOBIN 10.0 g/dL 13.2-17.1 HEMATOCRIT 29.8 % 38.5-50.0 MCV 88.4 fL 80.0-100.0 MCH 29.7 pg 27.0-33.0 MCHC 33.6 g/dL 32.0-36.0 RDW 13.9 % 11.0-15.0 PLATELET COUNT 100 Thousand/uL 140-400 MPV 9.8 fL 7.5-12.5 ABSOLUTE NEUTROPHILS 2966 cells/uL 1500- 7800 ABSOLUTE LYMPHOCYTES 1100 cells/uL 850-3 900 ABSOLUTE MONOCYTES 503 cells/uL 200-950 ABSOLUTE EOSINOPHILS 113 cells/uL 15-500 ABSOLUTE BASOPHILS 19 cells/uL 0-200 NEUTROPHILS 63.1 % NRG LYMPHOCYTES 23.4 % NRG MONOCYTES 10.7 % NRG EOSINOPHILS 2.4 % NRG BASOPHILS 0.4 % NRG PT/INR - 08/03/19 10:22 INR 2.6 NRG PT 25.0 sec 9.0-11.5 LIPID PANEL - 10/26/19 12:02 CHOLESTEROL, TOTAL 185 mg/dL <200 HDL CHOLESTEROL 48 mg/dL >40 TRIGLYCERIDES 170 mg/dL <150 LDL-CHOLESTEROL 108 mg/dL (calc) NRG CHOL/HDLC RATIO 3.9 (calc) <5.0 NON HDL CHOLESTEROL 137 mg/dL (calc) <13 0 CMP - 10/26/19 12:02 GLUCOSE 85 mg/dL 65-99 UREA NITROGEN (BUN) 37 mg/dL 7-25 CREATININE 2.14 mg/dL 0.70-1.18 eGFR NON-AFR. TUVALUAN 29 mL/min/1.73m2 > OR = 60 eGFR 34 mL/min/1.73m2 > OR = 60 BUN/CREATININE RATIO 17 (calc) 6-22 SODIUM 144 mmol/L 135-146 POTASSIUM 4.2 mmol/L 3.5-5.3 CHLORIDE 116 mmol/L 98-110 CARBON DIOXIDE 19 mmol/L 20-32 CALCIUM 8.3 mg/dL 8.6-10.3 PROTEIN, TOTAL 5.6 g/dL 6.1-8.1 ALBUMIN 3.6 g/dL 3.6-5.1 GLOBULIN 2.0 g/dL (calc) 1.9-3.7 ALBUMIN/GLOBULIN RATIO 1.8 (calc) 1.0-2. 5 BILIRUBIN, TOTAL 0.5 mg/dL 0.2-1.2 ALKALINE PHOSPHATASE 110 U/L 40-115 AST 22 U/L 10-35 ALT 22 U/L 9-46 CBC w/MANUAL DIFF - 10/26/19 12:02 WHITE BLOOD CELL COUNT TNP Thousand/uL N RG Complete blood count (CBC) with automate d white blood cell (WBC) differential - 12/11/19 07:30 Blood leukocytes automated count (number/volume) 9.1 10*3/uL 4.3-11.0 Blood erythrocytes automated count (number/volume) 3.10 10*6/uL 4.35-5.85 Venous blood hemoglobin measurement (mass/volume) 9.1 g/dL 13.3-17.7 Blood hematocrit (volume fraction) 29 % 40-54 Automated erythrocyte mean corpuscular volume 94 [ foz_us] 80-99 Automated erythrocyte mean corpuscular h emoglobin (mass per erythrocyte) 29 pg 25-34 Automated erythrocyte mean corpuscular h emoglobin concentration measurement (mass/volume) 31 g/dL 32-36 Automated erythrocyte distribution width ratio 15. 2 % 10.0- 14.5 Automated blood platelet count (count/volume) 107 10*3/uL 130-400 Automated blood platelet mean volume measurement 8.9 [foz_us] 7.4-10.4 Automated blood neutrophils/100 leukocytes 73 % 42-75 Automated blood lymphocytes/100 leukocytes 18 % 12-44 Blood monocytes/100 leukocytes 8 % 0-12 Automated blood eosinophils/100 leukocytes 1 % 0-10 Automated blood basophils/100 leukocytes 0 % 0-10 Blood neutrophils automated count (number/volume) 6.6 10*3 1.8-7.8 Blood lymphocytes automated count (number/volume) 1.7 10*3 1.0-4.0 Blood monocytes automated count (number/volume) 0. 8 10*3 0.0-1.0 Automated eosinophil count 0.1 10*3/uL 0 .0-0.3 Automated blood basophil count (count/volume) 0.0 10*3/uL 0.0-0.1 Comprehensive metabolic panel - 12/11/19 07:30 Serum or plasma sodium measurement (moles/volume) 141 mmol/L 135-145 Serum or plasma potassium measurement (moles/volume) 4.1 mmol/L 3.6-5.0 Serum or plasma chloride measurement (moles/volume) 115 mmol/L 98-107 Carbon dioxide 19 mmol/L 21-32 Serum or plasma anion gap determination (moles/volume) 7 mmol/L 5-14 Serum or plasma urea nitrogen measurement (mass/volume ) 43 mg/dL 7-18 Serum or plasma creatinine measurement (mass/volume) 2.39 mg/dL 0.60-1.30 Serum or plasma urea nitrogen/creatinine mass ratio 18 NRG Serum or plasma creatinine measurement w ith calculation of estimated glomerular filtration rate 27 NRG Serum or plasma glucose measurement (mass/volume) 122 mg/dL 70-105 Serum or plasma calcium measurement (mass/volume) 8.2 mg/dL 8.5-10.1 Serum or plasma total bilirubin measurement (mass/volu me) 0.8 mg/dL 0.1-1.0 Serum or plasma alkaline phosphatase bety surement (enzymatic activity/volume) 99 U/L 40-136 Serum or plasma aspartate aminotransfera se measurement (enzymatic activity/volume) 29 U/L 5-34 Serum or plasma alanine aminotransferase measurement (enzymatic activity/volume) 28 U/L 0-55 Serum or plasma protein measurement (mass/volume) 5.8 g/dL 6.4-8.2 Serum or plasma albumin measurement (mass/volume) 3.5 g/dL 3.2-4.5 CALCIUM CORRECTED 8.6 mg/dL 8.5-10.1 Complete blood count (CBC) with automate d white blood cell (WBC) differential - 12/14/19 05:45 Blood leukocytes automated count (number/volume) 5.2 10*3/uL 4.3-11.0 Blood erythrocytes automated count (number/volume) 2.48 10*6/uL 4.35-5.85 Venous blood hemoglobin measurement (mass/volume) 7.5 g/dL 13.3-17.7 Blood hematocrit (volume fraction) 23 % 40-54 Automated erythrocyte mean corpuscular volume 93 [ foz_us] 80-99 Automated erythrocyte mean corpuscular h emoglobin (mass per erythrocyte) 30 pg 25-34 Automated erythrocyte mean corpuscular h emoglobin concentration measurement (mass/volume) 33 g/dL 32-36 Automated erythrocyte distribution width ratio 14. 6 % 10.0- 14.5 Automated blood platelet count (count/volume) 105 10*3/uL 130-400 Automated blood platelet mean volume measurement 10.1 [foz_us] 7.4-10.4 Automated blood neutrophils/100 leukocytes 73 % 42-75 Automated blood lymphocytes/100 leukocytes 15 % 12-44 Blood monocytes/100 leukocytes 9 % 0-12 Automated blood eosinophils/100 leukocytes 2 % 0-10 Automated blood basophils/100 leukocytes 0 % 0-10 Blood neutrophils automated count (number/volume) 3.8 10*3 1.8-7.8 Blood lymphocytes automated count (number/volume) 0.8 10*3 1.0-4.0 Blood monocytes automated count (number/volume) 0. 5 10*3 0.0-1.0 Automated eosinophil count 0.1 10*3/uL 0 .0-0.3 Automated blood basophil count (count/volume) 0.0 10*3/uL 0.0-0.1 PT panel in platelet poor plasma by coag ulation assay - 12/14/19 05:45 Prothrombin time (PT) in platelet poor plasma by coagu lation assay 13.8 s 12.2-14.7 INR in platelet poor plasma or blood by coagulation as say 1.0 0.8-1.4 Comprehensive metabolic panel - 12/14/19 05:45 Serum or plasma sodium measurement (moles/volume) 140 mmol/L 135-145 Serum or plasma potassium measurement (moles/volume) 3.9 mmol/L 3.6-5.0 Serum or plasma chloride measurement (moles/volume) 115 mmol/L 98-107 Carbon dioxide 15 mmol/L 21-32 Serum or plasma anion gap determination (moles/volume) 10 mmol/L 5-14 Serum or plasma urea nitrogen measurement (mass/volume ) 56 mg/dL 7-18 Serum or plasma creatinine measurement (mass/volume) 2.80 mg/dL 0.60-1.30 Serum or plasma urea nitrogen/creatinine mass ratio 20 NRG Serum or plasma creatinine measurement w ith calculation of estimated glomerular filtration rate 22 NRG Serum or plasma glucose measurement (mass/volume) 103 mg/dL 70-105 Serum or plasma calcium measurement (mass/volume) 8.1 mg/dL 8.5-10.1 Serum or plasma total bilirubin measurement (mass/volu me) 0.3 mg/dL 0.1-1.0 Serum or plasma alkaline phosphatase bety surement (enzymatic activity/volume) 101 U/L 40-136 Serum or plasma aspartate aminotransfera se measurement (enzymatic activity/volume) 29 U/L 5-34 Serum or plasma alanine aminotransferase measurement (enzymatic activity/volume) 28 U/L 0-55 Serum or plasma protein measurement (mass/volume) 5.5 g/dL 6.4-8.2 Serum or plasma albumin measurement (mass/volume) 3.3 g/dL 3.2-4.5 CALCIUM CORRECTED 8.7 mg/dL 8.5-10.1 Complete blood count (CBC) with automate d white blood cell (WBC) differential - 12/16/19 05:19 Blood leukocytes automated count (number/volume) 4.8 10*3/uL 4.3-11.0 Blood erythrocytes automated count (number/volume) 2.61 10*6/uL 4.35-5.85 Venous blood hemoglobin measurement (mass/volume) 7.8 g/dL 13.3-17.7 Blood hematocrit (volume fraction) 24 % 40-54 Automated erythrocyte mean corpuscular volume 93 [ foz_us] 80-99 Automated erythrocyte mean corpuscular h emoglobin (mass per erythrocyte) 30 pg 25-34 Automated erythrocyte mean corpuscular h emoglobin concentration measurement (mass/volume) 32 g/dL 32-36 Automated erythrocyte distribution width ratio 14. 7 % 10.0- 14.5 Automated blood platelet count (count/volume) 130 10*3/uL 130-400 Automated blood platelet mean volume measurement 9.2 [foz_us] 7.4-10.4 Automated blood neutrophils/100 leukocytes 70 % 42-75 Automated blood lymphocytes/100 leukocytes 19 % 12-44 Blood monocytes/100 leukocytes 10 % 0-12 Automated blood eosinophils/100 leukocytes 2 % 0-10 Automated blood basophils/100 leukocytes 0 % 0-10 Blood neutrophils automated count (number/volume) 3.3 10*3 1.8-7.8 Blood lymphocytes automated count (number/volume) 0.9 10*3 1.0-4.0 Blood monocytes automated count (number/volume) 0. 5 10*3 0.0-1.0 Automated eosinophil count 0.1 10*3/uL 0 .0-0.3 Automated blood basophil count (count/volume) 0.0 10*3/uL 0.0-0.1 PT panel in platelet poor plasma by coag ulation assay - 12/16/19 05:19 Prothrombin time (PT) in platelet poor plasma by coagu lation assay 14.5 s 12.2-14.7 INR in platelet poor plasma or blood by coagulation as say 1.1 0.8-1.4 Comprehensive metabolic panel - 12/16/19 05:19 Serum or plasma sodium measurement (moles/volume) 142 mmol/L 135-145 Serum or plasma potassium measurement (moles/volume) 3.9 mmol/L 3.6-5.0 Serum or plasma chloride measurement (moles/volume) 117 mmol/L 98-107 Carbon dioxide 18 mmol/L 21-32 Serum or plasma anion gap determination (moles/volume) 7 mmol/L 5-14 Serum or plasma urea nitrogen measurement (mass/volume ) 42 mg/dL 7-18 Serum or plasma creatinine measurement (mass/volume) 2.25 mg/dL 0.60-1.30 Serum or plasma urea nitrogen/creatinine mass ratio 19 NRG Serum or plasma creatinine measurement w ith calculation of estimated glomerular filtration rate 28 NRG Serum or plasma glucose measurement (mass/volume) 100 mg/dL 70-105 Serum or plasma calcium measurement (mass/volume) 8.2 mg/dL 8.5-10.1 Serum or plasma total bilirubin measurement (mass/volu me) 0.4 mg/dL 0.1-1.0 Serum or plasma alkaline phosphatase bety surement (enzymatic activity/volume) 95 U/L 40-136 Serum or plasma aspartate aminotransfera se measurement (enzymatic activity/volume) 28 U/L 5-34 Serum or plasma alanine aminotransferase measurement (enzymatic activity/volume) 34 U/L 0-55 Serum or plasma protein measurement (mass/volume) 5.6 g/dL 6.4-8.2 Serum or plasma albumin measurement (mass/volume) 3.3 g/dL 3.2-4.5 CALCIUM CORRECTED 8.8 mg/dL 8.5-10.1 PT panel in platelet poor plasma by coag ulation assay - 12/24/19 16:22 Prothrombin time (PT) in platelet poor plasma by coagu lation assay 22.3 s 12.2-14.7 INR in platelet poor plasma or blood by coagulation as say 1.9 0.8-1.4 CULTURE, ANAEROBIC AND AEROBIC - 0 14:23 CULTURE, ANAEROBIC BACTERIA W/GRAM STAIN SEE NOTE NRG CULTURE, AEROBIC BACTERIA SEE NOTE NRG Encounters ACCT No. Visit Date/Time Discharge Status Pt. Type Provider Facility Loc./Unit Complaint [id number] 01/05/2020 15:30:00 01/05/2020 23:59: 59 CLS Outpatient ALIRIO CACERES [facility] [id number] 01/05/2020 15:30:00 Document Registration [id number] 10/26/2019 13:15:00 Document Registration [id number] 08/03/2019 09:00:00 Document Registration [id number] 02/06/2019 09:15:00 Document Registration [id number] 01/09/2019 09:00:00 Document Registration [id number] 01/05/2020 03:35:00 05:06:00 DIS Emergency KARELY FELTON, BETO Tabor [facility] ER FS SKIN TEAR INFECTION [id number] 12/24/2019 18:07:00 23:59:59 CLS Outpatient ALIRIO CACERES MD [facility] LAB FS Z79.01 [id number] 12/10/2019 13:35:00 15:00:00 DIS Inpatient RUBI VASQUEZ DO, [facility] IRF SPINAL STENOSIS [id number] 05/25/2019 09:07:00 23:59:59 CLS Outpatient NAHUM ROMERO MD [facility] RAD FS MICROHEMATURIA [id number] 05/11/2019 09:38:00 019 23:59:59 CLS Outpatient YOVANI CALDWELL [facility] RAD FS BILATERAL LOW BACK PAIN WITHOUT SCIATICA [id number] 03/06/2019 09:24:00 019 23:59:59 CLS Outpatient ALIRIO CACERES MD [facility] RAD FS R10.31 [id number] 02/18/2014 13:49:00 014 23:59:59 CLS Outpatient NAHUM ROMERO MD [facility] RAD STONE [id number] 02/08/2014 15:04:00 014 23:59:59 CLS Outpatient HEATHER FELTON, NAHUM Williamson [facility] RAD STONE [id number] 01/26/2020 14:47:[address] Emergency MATILDA KNIGHT DO [facility] ER FS HEMATURIA; BACK PAIN
[2020-01-26 18:00] VITALS: BP 148/72
== END 2020-01-26 18:00 | disposition home or self-care (01) ==
LOC: EDUNIT# 14:45 → ER FS 14:47
DX: N13.2 Hydronephrosis with renal and ureteral calculous obstruction (principal); N28.9 Disorder of kidney and ureter, unspecified; R79.1 Abnormal coagulation profile; Z88.0 Allergy status to penicillin; Z79.52 Long term (current) use of systemic steroids; Z79.01 Long term (current) use of anticoagulants; Z86.711 Personal history of pulmonary embolism; Z86.718 Personal history of other venous thrombosis and embolism; Z85.038 Personal history of other malignant neoplasm of large intestine; Z85.528 Personal history of other malignant neoplasm of kidney; Z85.118 Personal history of other malignant neoplasm of bronchus and lung
CPT/HCPCS: 36415; 74176; 80053; 85025; 85610; 85730

== ENCOUNTER → 2020-01-28 | Outpatient (CLI) | payer MEDICARE, OTHER ==
[~2020-01-28] MED LIST changes: +HYDR-4226 PO; +NITR-65 PO; +ONDA4TAB11 PO; +TMSL.4C PO
--- NOTE | 2020-01-28 15:46 | Diagnostic Imaging Report ---
EXAM: Abdomen/KUB 1view. INDICATION: Right ureteral stone. COMPARISON: CT abdomen and pelvis 01/26/2020. FINDINGS: The 6 mm calcification corresponding to the previously seen renal stone has progressed less than 1 cm compared to the prior exam. Surgical clips. Postoperative findings at L5-S1 and both hips. No acute osseous findings. Nonspecific bowel gas pattern. IMPRESSION: A 6 mm calcification in the right ureter appears to have progressed less than 1 cm compared to the prior outside CT. Dictated by: Dictated on workstation # [id number]
== END ==
LOC: RAD 14:33
PROVIDERS: ATTEND Urology
DX: N20.1 Calculus of ureter (principal)
CPT/HCPCS: 74018

== ENCOUNTER → 2020-02-01 | Outpatient (CLI) | payer MEDICARE, OTHER ==
--- NOTE | 2020-02-01 16:03 | Diagnostic Imaging Report ---
CLINICAL INDICATION: Followup right ureteral stone. EXAM: KUB x-ray. COMPARISON: KUB x-ray dated 01/28/2020. FINDINGS/ IMPRESSION: 1. The previously seen subtle amorphous calcification to the right of the L4 vertebra is not visualized on this exam and possibly resolved. There are no other definite renal stones seen. If necessary, a CT scan would better evaluate. 2. A nonobstructed bowel gas pattern is noted. Surgical clips are seen overlying the right upper quadrant which could be related to cholecystectomy changes. 3. There are hypertrophic spurs involving the lumbar spine again noted. There is L5-S1 posterior spinal fusion hardware again seen. Bilateral hip arthroplasties are noted. Dictated by: Dictated on workstation # [id number]
== END ==
LOC: RAD FS 15:23
PROVIDERS: ATTEND Urology
DX: N20.1 Calculus of ureter (principal); M46.06 Spinal enthesopathy, lumbar region; Z98.1 Arthrodesis status; Z96.643 Presence of artificial hip joint, bilateral
CPT/HCPCS: 74018

== ENCOUNTER → 2020-02-01 | Outpatient (CLI) | payer MEDICARE, OTHER | END | disposition home or self-care (01) | LOC: PREOP 05:37 | PROVIDERS: ATTEND Urology | DX: Z01.818 Encounter for other preprocedural examination (principal) ==

== ENCOUNTER → 2020-04-08 | Outpatient (CLI) | payer MEDICARE, OTHER ==
--- NOTE | 2020-04-08 13:11 | Diagnostic Imaging Report ---
INDICATION: Right-sided abdominal pain. Patient does have history of kidney stones. TIME OF EXAM: 12:27 p.m. FINDINGS: There are surgical clips in the right upper quadrant. There is an IVC filter in place. Postoperative changes in lower lumbar spine are noted. There are numerous calcified granulomas within the spleen. No definite radiopaque urinary tract calculi are seen. There are vascular calcifications in the pelvis. There are postoperative changes involving bilateral hips. Bowel gas pattern is unremarkable. IMPRESSION: No acute feature. No definite radiopaque urinary tract calculi are detected. Dictated by: Dictated on workstation # [id number]
--- NOTE | 2020-04-08 14:16 | Diagnostic Imaging Report ---
PROCEDURE: CT urinary tract, rule out kidney stone. TECHNIQUE: Multiple contiguous axial images were obtained through the abdomen and pelvis without the use of intravenous contrast. Auto Exposure Controls were utilized during the CT exam to meet ALARA standards for radiation dose reduction. INDICATION: Right-sided abdominal pain for one month. Patient does have history of kidney stones. Correlation is made with prior CT from 01/26/2020. Lung bases are clear of acute infiltrates. No discrete liver mass is detected. Gallbladder is surgically absent. No biliary duct dilatation is seen. Pancreas unremarkable. Spleen contains multiple calcified granulomas. No adrenal mass is identified. Fat attenuation lesions along the upper aspect of the right kidney as well as lateral to the right kidney appears stable. There is a stone in the right renal pelvis measuring approximately 6-7 mm in diameter. No significant hydronephrosis is identified. Remainder of the right ureter is unremarkable. No left-sided renal calculi are seen. Aorta is calcified but non-aneurysmal. There is a filter within the inferior vena cava. There are postsurgical changes of colectomy. An ostomy in the right lower quadrant is seen. Small bowel loops appear to be normal caliber. There is no ascites. There is a large amount of streak artifact through the pelvis from patient's bilateral hip prostheses. This obscures the urinary bladder. Bony structures demonstrate postoperative changes in the lower lumbar spine. IMPRESSION: 1. A 7 mm calculus right renal pelvis. No hydronephrosis is seen. No other additional urinary tract calculi are detected. Dictated by: Dictated on workstation # [id number]
== END ==
LOC: RAD FS 11:58
PROVIDERS: ATTEND Urology
DX: N20.0 Calculus of kidney (principal)
CPT/HCPCS: 74018; 74176

== ENCOUNTER → 2020-04-15 | Outpatient (CLI) | payer MEDICARE, OTHER ==
[~2020-04-15] MED LIST changes: +WARF3TAB PO; +WARF6TAB PO
--- NOTE | 2020-04-15 10:50 | Diagnostic Imaging Report ---
INDICATION: Right renal stone. COMPARISON: 04/08/2020 TECHNIQUE: Single radiograph of the abdomen dated 04/15/2020. FINDINGS: Inferior vena cava filter is again noted. Post surgical changes within the lower lumbar spine, bilateral hips, and right upper quadrant abdomen are again identified. Multiple splenic calcified granuloma. Previously identified stone within the right renal pelvis on recent CT examination is not definitively identified, however it was also not definitively identified on radiographs of abdomen on 04/08/2020 either. No new calcifications overlying the left renal shadow or extensive course of the bilateral ureters. Nonobstructive bowel gas pattern. Mild vascular calcifications. Scattered osseous degenerative changes without acute osseous abnormality. IMPRESSION: No definite renal or ureteral calculi identified on this examination. However, previously noted right renal pelvis calculus was also not seen on the prior radiographs of abdomen when the subsequent CT demonstrated calculus present. Therefore, if there remains clinical concern, further evaluation with either CT or ultrasound could be obtained. Evidence of chronic granulomatous disease. Postsurgical changes as above. Dictated by: Dictated on workstation # [id number]
== END ==
LOC: RAD 10:14
PROVIDERS: ATTEND Urology
DX: N20.0 Calculus of kidney (principal); D71 Functional disorders of polymorphonuclear neutrophils; D73.89 Other diseases of spleen; I99.8 Other disorder of circulatory system; M19.90 Unspecified osteoarthritis, unspecified site; Z98.890 Other specified postprocedural states
CPT/HCPCS: 74018

== ENCOUNTER 2020-04-20 05:31 | Outpatient (RCR) | payer MEDICARE, OTHER ==
[~2020-04-20] VITALS: Ht 185 cm; Wt 78.0 kg
[~2020-04-20 05:31] MED LIST changes: -WARF3TAB PO; -WARF6TAB PO
[2020-04-20] MEDS ORDERED: WARF6TAB PO (13:21)
[2020-04-20] MEDS ORDERED: WARF3TAB PO (13:21)
== END 2020-04-20 13:27 | disposition home or self-care (01) ==
LOC: PREOP 05:31
PROVIDERS: ATTEND Urology
DX: Z01.818 Encounter for other preprocedural examination (principal)

== ENCOUNTER → 2020-04-25 | Outpatient (CLI) | payer MEDICARE, OTHER ==
[~2020-04-25] MED LIST changes: +WARF3TAB PO; +WARF6TAB PO
== END ==
LOC: LAB FS 08:11
PROVIDERS: ATTEND Urology
DX: Z01.818 Encounter for other preprocedural examination (principal)
CPT/HCPCS: 87635

== ENCOUNTER 2020-04-27 08:42 | Day surgery (SDC) | payer MEDICARE, OTHER ==
[~2020-04-27] VITALS: Ht 185 cm; Wt 78.0 kg
[2020-04-27] VITALS (9 sets, daily range): BP systolic 129–159; BP diastolic 65–74
--- NOTE | 2020-04-27 07:40 | Progress Note-Pre Operative ---
Pre-Operative Progress Note H&P Reviewed The H&P was reviewed, patient examined and no changes noted. Date Seen by Provider: Apr 27, 2020 Time Seen by Provider: 08:49 Date H&P Reviewed: Apr 27, 2020 Time H&P Reviewed: 08:49 Pre-Operative Diagnosis: RT URETERAL STONE NAHUM ROMERO MD Apr 27, 2020 07:40
[2020-04-27] MEDS ORDERED: LACTATED RINGERS 1,000 ML IV PRN (08:47)
[2020-04-27] MEDS ORDERED: LEVOFLOXACIN 250 MG/50 ML IVPB 50 ML IV ONE (09:00)
[2020-04-27] MEDS ORDERED: CATHETER FLUSH 10 ML SYR IV PRN (09:00)
--- OUTSIDE RECORDS SUMMARY | 2020-04-27 09:22 | XMS REPORT ---
Author Author Cuauhtemoc CACERES Organization [facility] Address [address] [place] [address] Care Team Providers Care Certified Medical Technician Name Role Phone ALIRIO CACERES Unavailable PROBLEMS Type Condition ICD9-CM Code UTH06-UM Code Onset Dates Condition S tatus SNOMED Code Problem Renal cell carcinoma of right kidney C64.1 Jul, Active 496890163 Problem Chronic deep vein thrombosis (DVT) of femoral vein of both lower extremities I82.513 Active 840971576334730 Problem FDC current use of anticoagulant Z79.01 Active 600953809 Problem Malignant neoplasm of colon, unspecified part of colon C18.9 Active 379616848 Problem Ileostomy in place Z93.2 Active 3 95154144 Problem Seasonal allergic rhinitis due to pollen J30.1 Active 08477899 Problem Rheumatoid arthritis, involv ing unspecified site, unspecified rheumatoid factor presence M06.9 Active 59367231 Problem Malignant neoplasm of lung, unspecified laterality, unspecified part of lung C34.90 Active 186412508 Problem Chronic kidney disease, stage 4 (severe) N18.4 Active 844314200 Problem HTN (hypertension), benign I10 Act felix 08001392 Problem Chronic obstructive pulmonary disease, unspecified COPD ty pe J44.9 Active 14797630 Problem 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 Active 302911117 Problem Other pancytopenia D61.818 Active 1 59827719 Problem manager terminal (current) use of anticoagulants Z79.01 Active 505334219 ALLERGIES No Information ENCOUNTERS Encounter Location Date Diagnosis [address] [id number], [place] [address] Jan, FDC (current) use of a nticoagulants Z79.[address] [id number] [place] [address] Jan, [address] [id number] [place] [address] Jan, manager terminal (current) use of a nticoagulants Z79.[address] [id number] [place] [address] Jan, Dressing change Z48.00 [facility] [address] [facility] [id number] [address] [place] [address] Jan, [facility] [address] [id number] [place] [address] 17 Jan, 2020 Lower back pain M54.5 and UT I symptoms R39.[address] [id number], [place] [address] 05 Jan, 2020 manager terminal (current) use of a nticoagulants Z79.[address] [id number], [place] [address] Jan, Dressing change Z48.[address] [id number], [place] [address] Dec, Dressing change Z48.[address] [id number], [place] [address] Dec, Cellulitis of trunk, unspeci fied site of trunk L03.[address] [id number], [place] [address] Dec, [address] [id number], [place] [address] Dec, [address] [id number], [place] [address] Dec, manager terminal (current) use of a nticoagulants Z79.[address] [id number], [place] [address] Dec, FDC current use of ant icoagulant Z79.[address] [id number] [place] [address] 14 Dec, 2019 Herpes zoster without compli cation B02.9 ; manager terminal current use of anticoagulant Z79.01 ; Ileostomy in place Z93.2 ; Malignant neoplasm of colon, unspecified part of colon C18.9 and Chronic kidney disease, stage 4 (severe) N18.[address] [id number] [place] [address] 13 Dec, [address] [id number] [place] [address] 11 Dec, 2019 manager terminal (current) use of a nticoagulants Z79.[address] [id number] [place] [address] 10 Dec, [address] [id number], [place] [address] 07 Dec, 2019 [facility] [address] [facility] [id number] [address] [place] [address] 07 Dec, [address] [id number], [place] [address] 06 Dec, [address] [id number] [place] [address] Dec, [address] [id number], [place] [address] Nov, [address] [id number] [place] [address] Nov, [address] [id number], [place] [address] Nov, manager terminal (current) use of a nticoagulants Z79.[address] [id number] [place] [address] 14 Nov, 2019 Other pancytopenia D61.[address] [id number] [place] [address] Nov, Other pancytopenia D61.818 ; 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 ; Ileostomy in place Z93.2 ; Rheumatoid arthritis, involving unspecified site, unspecified rheumatoid factor presence M06.9 ; Chronic obstructive pulmonary disease, unspecified COPD type J44.9 and Chronic deep vein thrombosis (DVT) of femoral vein of both lower extremities I82.[address] [id number] [place] [address] Nov, FDC (current) use of a nticoagulants Z79.[address] [id number] [place] [address] Nov, [address] [id number] [place] [address] Nov, manager terminal current use of ant icoagulant Z79.01 ; Chronic deep vein thrombosis (DVT) of femoral vein of both lower extremities I82.513 and A-fib I48.[address] [id number] [place] [address] Oct, [address] [id number] [place] [address] Oct, [address] [id number] [place] [address] Oct, FDC current use of ant icoagulant Z79.[address] [id number] [place] [address] Oct, Chronic obstructive pulmonar y disease, unspecified COPD type J44.9 ; 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 ; Other pancytopenia D61.818 ; Acute right-sided low back pain without sciatica M54.5 ; HTN (hypertension), benign I10 and manager terminal current use of anticoagulant Z79.[address] [id number] [place] [address] Oct, manager terminal current use of ant icoagulant Z79.01 and A-fib I48.91 [facility] [address] [id number] [place] [address] Oct, HTN (hypertension), benign I 10 and manager terminal current use of anticoagulant Z79.01 [facility] [address] [id number] [place] [address] Oct, [facility]DC (current) use of a nticoagulants Z79.01 [facility] [address] [id number] [place] [address] Sep, [facility] [place] [address] [id number] [place] [address] Sep, [facility]DC (current) use of a nticoagulants Z79.01 [facility] [address] [id number] [place] [address] Sep, [facility] [place] [address] [id number] [place] [address] Sep, manager terminal (current) use of a nticoagulants Z79.01 [facility] [place] [address] [id number] [place] [address] Aug, [facility] [place] [address] [id number] [place] [address] Aug, [facility] [address] [id number] [place] [address] Aug, [facility] [place] [address] [id number] [place] [address] Aug, manager terminal (current) use of a nticoagulants Z79.01 [facility] [place] [address] [id number] [place] [address] Aug, [facility] [place] [address] [id number] [place] [address] Aug, FDC (current) use of a nticoagulants Z79.01 [facility] [place] [address] [id number] [place] [address] Aug, FDC (current) use of a nticoagulants Z79.01 [facility] [place] [address] [id number] [place] [address] 15 Aug, 2019 Back pain M54.9 [facility] [address] [id number] [place] [address] 30 Jul, 2019 Seasonal allergic rhinitis d ue to pollen J30.1 [facility] [address] [id number] [place] [address] Jul, [facility] [place] [address] [id number] [place] [address] Jul, [facility] [address] [id number] [place] [address] Jul, manager terminal (current) use of a nticoagulants Z79.01 [facility] [place] [address] [id number] [place] [address] Jun, manager terminal (current) use of a nticoagulants Z79.01 [facility] [address] [id number] [place] [address] Jun, manager terminal (current) use of a nticoagulants Z79.01 [facility] [address] [id number] [place] [address] Jun, [facility] [place] [address] [id number] [place] [address] Jun, [facility] [place] [address] [id number] [place] [address] Jun, [facility]DC (current) use of a nticoagulants Z79.01 [facility] [address] [id number] [place] [address] Jun, HTN (hypertension), benign I 10 ; Encounter for Medicare annual wellness exam Z00.00 ; FDC (current) use of anticoagulants Z79.01 ; Ileostomy in place Z93.2 and Back pain at L4-L5 level M54.5 [facility] [address] [id number] [place] [address] May, Encounter for Medicare annua l wellness exam Z00.00 ; HTN (hypertension), benign I10 ; manager terminal (current) use of anticoagulants Z79.01 ; Ileostomy in place Z93.2 and Back pain at L4-L5 level M54.5 [facility] [address] [id number] [place] [address] May, FDC (current) use of a nticoagulants Z79.01 [facility] [address] [id number] [place] [address] May, FDC (current) use of a nticoagulants Z79.01 [facility] [address] [id number] [place] [address] May, Back pain M54.9 [facility] O[facility] [address] [id number] [place] [address] May, FDC (current) use of a nticoagulants Z79.01 [facility] [address] [id number] [place] [address] May, [facility] OBEI [address] [id number] [place] [address] May, Acute bilateral thoracic ginny k pain M54.6 and Back pain M54.9 [facility] [address] [facility] [id number] [address] [place] [address] Apr, Back pain, unspecified back location, unspecified back pain laterality, unspecified chronicity M54.9 [facility] [address] [id number] [address] [place] [address] Apr, [facility] O[place] [address] [id number] [place] [address] Apr, Bilateral low back pain with out sciatica, unspecified chronicity M54.5 [facility] [address] [id number] [place] [address] Apr, [place] [address] [id number] [place] [address] Apr, [facility]DC (current) use of a nticoagulants Z79.01 [facility] [address] [facility] [address] [id number] [place] [address] Apr, Back pain M54.9 [facility] [address] [id number] [place] [address] Apr, Back pain M54.9 [facility] [address] [id number] [place] [address] March, [facility] [address] [id number] [place] [address] March, Back pain M54.9 ; Chronic de ep vein thrombosis (DVT) of femoral vein of both lower extremities I82.513 ; Malignant neoplasm of colon, unspecified part of colon C18.9 ; Malignant neoplasm of lung, unspecified laterality, unspecified part of lung C34.[address] Z93.2 [facility] [address] [id number] [place] [address] March, [facility] [address] [id number] [place] [address] March, FDC (current) use of a nticoagulants Z79.01 [facility] [address] [id number] [place] [address] March, [facility] [address] [id number] [place] [address] March, manager terminal (current) use of a nticoagulants Z79.01 [facility] [address] [id number] [place] [address] Feb, [address] 340 [id number] [place] [address] Feb, Malignant neoplasm of colon, unspecified part of colon C18.9 ; Right lower quadrant abdominal pain R10.31 ; Ileostomy in place Z93.2 ; Chronic deep vein thrombosis (DVT) of femoral vein of both lower extremities I82.513 and Malignant neoplasm of lung, unspecified laterality, unspecified part of lung C34.[address] 340 [id number] [place] [address] Feb, manager terminal (current) use of a nticoagulants Z79.[address] [id number] [place] [address] Feb, manager terminal (current) use of a nticoagulants Z79.[address] [id number] [place] [address] Feb, [address] [id number] [place] [address] Feb, manager terminal (current) use of a nticoagulants Z79.[address] [id number] [place] [address] Feb, [facility]DC (current) use of a nticoagulants Z79.[address] [id number] [place] [address] Feb, [address] [id number] [place] [address] Jan, HTN (hypertension), benign I 10 [facility] O[facility] [address] [id number] [place] [address] Jan, FDC (current) use of a nticoagulants Z79.01 ; HTN (hypertension), benign I10 ; Chronic deep vein thrombosis (DVT) of femoral vein of both lower extremities I82.513 ; Malignant neoplasm of colon, unspecified part of colon C18.9 and Malignant neoplasm of lung, unspecified laterality, unspecified part of lung C34.[address] 340 [id number] [place] [address] Jan, FDC (current) use of a nticoagulants Z79.01 [facility] [address] [facility] [id number] [address] [place] [address] Jan, HTN (hypertension), benign I [address] 340 [id number], [place] [address] Jan, HTN (hypertension), benign I 10 and FDC (current) use of anticoagulants Z79.[address] [id number], [place] [address] Dec, manager terminal current use of ant icoagulant Z79.01 [place] [address] [facility] [id number] [address] [place] [address] 14 Dec, 2018 manager terminal current use of ant icoagulant Z79.[address] [id number], [place] [address] Dec, manager terminal (current) use of a nticoagulants Z79.01 [place] [address] [facility] [id number] [address] [place] [address] 13 Dec, 2018 [facility] (current) use of a nticoagulants Z79.[address] [id number], [place] [address] Dec, manager terminal current use of ant icoagulant Z79.01 ; HTN (hypertension), benign I10 ; Chronic deep vein thrombosis (DVT) of femoral vein of both lower extremities I82.513 ; Malignant neoplasm of colon, unspecified part of colon C18.9 and Malignant neoplasm of lung, unspecified laterality, unspecified part of lung C34.[address] 340 [id number], [place] [address] Dec, [facility] [address] [id number] [place] [address] Dec, [facility]DC current use of ant icoagulant Z79.01 IMMUNIZATIONS No Known Immunizations SOCIAL HISTORY Never Assessed REASON FOR VISIT INR appt? PLAN OF CARE VITAL SIGNS MEDICATIONS Unknown Medications RESULTS No Results PROCEDURES No Known procedures INSTRUCTIONS MEDICATIONS ADMINISTERED No Known Medications MEDICAL (GENERAL) HISTORY Type Description Date Medical History DVT chronic 1970s Medical History Colon CA Medical History Anemia Medical History Rheumatoid Arthritis Medical History Insomnia Medical History Kidney Cancer Medical History Lung Cancer Medical History Pulmonary emboli Surgical History Colon CA 11/1973 Surgical History Hip Replacement 09/1997 Surgical History Kidney Surgery-Cancer Removal 12/2014 Surgical History Lap Nahomy 11/1979 Surgical History Laminectomy-Dr Cedillo at [facility] 12/09/2019 Hospitalization History Hip Replacement 11/2014
--- OUTSIDE RECORDS SUMMARY | 2020-04-27 09:23 | XMS REPORT | Continuity of Care Document ---
Author Organization Unknown Address Unknown Phone Unavailable Allergies Active Description Code Type Severity Reaction Onset Reported/Identified Relationship to Patient Clinical Status Yes No Allergy Information Available [id number] Drug Allergy Unknown N/A 020 Yes Penicillins [id number] Drug Aller gy Moderate N/A 04/20/2020 Medications There is no data. Problems Date Dx Coded Attending Type Code Diagnosis Diagnosed By 10/10/1326 NAHUM ROMERO MD, Ot Z01.8 18 ENCOUNTER FOR OTHER PREPROCEDURAL EXAMIN 03/06/2019 NAHUM ROMERO MD Ot 592.0 CALCULUS OF KIDNEY 03/06/2019 NAHUM ROMERO MD, Ot 592.1 CALCULUS OF URETER 03/30/2019 NICKI FELTON, ALIRIO Dominguez Ot K63.89 OTHER [...] NEOPLASM O 05/28/2019 NAHUM ROMERO MD Ot Z87.4 42 PERSONAL HISTORY OF URINARY CALCULI 05/28/2019 NAHUM ROMERO MD Ot Z90.4 9 ACQUIRED ABSENCE OF OTHER SPECIFIED PART 06/04/2019 PAULETTE YOVANI BLACK BELT Ot J84.10 PULMONARY FIBROSIS, UNSPECIFIED 06/04/2019 PAULETTE, YOVANI BLACK BELT Ot J90 PLEURAL EFFUSION, NOT ELSEWHERE CLASSIFI 06/04/2019 PAULETTE, YOVANI BLACK BELT Ot 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 06/04/2019 PAULETTE, YOVANI BLACK BELT Ot N20.0 CALCULUS OF KIDNEY 06/04/2019 PAULETTE, YOVANI BLACK BELT Ot S22.04 0A WEDGE COMPRESSION FRACTURE OF FOURTH THO 06/04/2019 PAULETTE, YOVANI BLACK BELT Ot S22.05 0A WEDGE COMPRESSION FRACTURE OF T5-T6 VERT 06/05/2019 PAULETTE YOVANI BLACK BELT Ot J84.10 PULMONARY FIBROSIS, UNSPECIFIED 06/05/2019 PALUETTE, YOAVNI BLACK BELT Ot J90 PLEURAL EFFUSION, NOT ELSEWHERE CLASSIFI 06/05/2019 PAULETTE, YOVANI BLACK BELT Ot 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 06/05/2019 PAULETTE, YOVANI BLACK BELT Ot N20.0 CALCULUS OF KIDNEY 06/05/2019 PAULETTE, YOVANI BLACK BELT Ot S22.04 0A WEDGE COMPRESSION FRACTURE OF FOURTH THO 06/05/2019 PAULETTE, YOVANI BLACK BELT Ot S22.05 0A WEDGE COMPRESSION FRACTURE OF T5-T6 VERT 06/19/2019 NAHUM ROMERO MD Ot R10.9 UNSPECIFIED ABDOMINAL PAIN 06/19/2019 NAHUM ROMERO MD Ot R31.2 9 OTHER MICROSCOPIC HEMATURIA 06/19/2019 NAHUM ROMERO MD Ot Z85.1 18 PERSONAL HISTORY OF MALIGNANT NEOPLASM O 06/19/2019 NAHUM ROMERO MD Ot Z85.5 3 PERSONAL HISTORY OF MALIGNANT NEOPLASM O 06/19/2019 NAHUM ROMERO MD Ot Z87.4 42 PERSONAL [...] HISTORY OF URINARY CALCULI 06/22/2019 NAHUM ROMERO MD, Ot Z90.4 9 ACQUIRED ABSENCE OF OTHER SPECIFIED PART 12/15/2019 RUBI VASQUEZ DO Ot 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 12/15/2019 RUBI VASQUEZ DO Ot G62.9 POLYNEUROPATHY, UNSPECIFIED 12/15/2019 RUBI VASQUEZ DO Ot J44.9 CHRONIC OBSTRUCTIVE PULMONARY DISEASE, U 12/15/2019 RUBI VASQUEZ DO Ot M06.9 RHEUMATOID ARTHRITIS, UNSPECIFIED 12/15/2019 FARSHAD VASQUEZ DOI Ot N18.9 CHRONIC KIDNEY DISEASE, UNSPECIFIED 12/15/2019 FARSHAD VASQUEZ DOI Ot N40.0 BENIGN PROSTATIC HYPERPLASIA WITHOUT LOW 12/15/2019 CHRISTINA PRASAD RUBI Ot S21.11 1A LAC W/O FB OF R FRNT WL OF THORAX W/O PE 12/15/2019 CHRISTINA PRASAD RUBI Ot S21.11 2A LAC W/O FB OF L FRNT WL OF THORAX W/O PE 12/15/2019 RUBI VASQUEZ DO Ot Z47.89 ENCOUNTER FOR OTHER ORTHOPEDIC AFTERCARE 12/15/2019 FARSHAD VASQUEZ DOI Ot Z66 DO NOT RESUSCITATE 12/15/2019 RUBI VASQUEZ DO Ot Z85.03 8 PERSONAL HISTORY OF MALIGNANT NEOPLASM O 12/15/2019 RUBI VASQUEZ DO Ot Z85.52 8 PERSONAL HISTORY OF OTHER MALIGNANT NEOP 12/15/2019 RUBI VASQUEZ DO Ot Z86.71 1 PERSONAL HISTORY OF PULMONARY EMBOLISM 12/15/2019 RUBI VASQUEZ DO Ot Z86.71 8 PERSONAL HISTORY OF OTHER VENOUS THROMBO 12/15/2019 RUBI VASQUEZ DO Ot Z93.2 ILEOSTOMY STATUS 12/16/2019 RUBI VASQUEZ DO Ot 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 12/16/2019 RUBI VASQUEZ DO Ot G62.9 POLYNEUROPATHY, UNSPECIFIED 12/16/2019 RUBI VASQUEZ DO Ot J44.9 CHRONIC OBSTRUCTIVE PULMONARY DISEASE, U 12/16/2019 RUBI VASQUEZ DO Ot M06.9 RHEUMATOID ARTHRITIS, UNSPECIFIED 12/16/2019 RUBI VASQUEZ DO Ot N18.9 CHRONIC KIDNEY DISEASE, UNSPECIFIED 12/16/2019 RUBI VASQUEZ DO Ot N40.0 BENIGN PROSTATIC HYPERPLASIA WITHOUT LOW 12/16/2019 CHRISTINA PRASAD RUBI Ot S21.11 1A LAC W/O FB OF R FRNT WL OF THORAX W/O PE 12/16/2019 RUBI VASQUEZ DO Ot S21.11 2A LAC W/O FB OF L FRNT WL OF THORAX W/O PE 12/16/2019 RUBI VASQUEZ DO Ot Z47.89 ENCOUNTER FOR OTHER ORTHOPEDIC AFTERCARE 12/16/2019 RUBI VASQUEZ DO Ot Z66 DO NOT RESUSCITATE 12/16/2019 RUBI VASQUEZ DO Ot Z85.03 8 PERSONAL HISTORY OF MALIGNANT NEOPLASM O 12/16/2019 RUBI VASQUEZ DO Ot Z85.52 8 PERSONAL HISTORY OF OTHER MALIGNANT NEOP 12/16/2019 RUBI VASQUEZ DO Ot Z86.71 1 PERSONAL HISTORY OF PULMONARY EMBOLISM 12/16/2019 RUBI VASQUEZ DO Ot Z86.71 8 PERSONAL HISTORY OF OTHER VENOUS THROMBO 12/16/2019 RUBI VASQUEZ DO Ot Z93.2 ILEOSTOMY STATUS 12/25/2019 ALIRIO CACERES MD Ot Z51.81 ENCOUNTER FOR THERAPEUTIC DRUG LEVEL MON 12/25/2019 ALIRIO CACERES MD Ot Z79.01 CURATORIAL SPECIALIST (CURRENT) USE OF ANTICOAGULANT 12/25/2019 ALIRIO CACERES MD Ot Z51.81 ENCOUNTER FOR THERAPEUTIC DRUG LEVEL MON 12/25/2019 ALIRIO CACERES MD Ot Z79.01 SENIOR LIVING (CURRENT) USE OF ANTICOAGULANT 01/05/2020 BETO CALI MD Ot L03.3 13 CELLULITIS OF CHEST WALL 01/05/2020 BETO CALI MD Ot L23.1 ALLERGIC CONTACT DERMATITIS DUE TO ADHES 01/05/2020 BETO CALI MD Ot Z79.0 1 SENIOR LIVING (CURRENT) USE OF ANTICOAGULANT 01/05/2020 BETO CALI MD Ot Z79.5 2 SENIOR LIVING (CURRENT) USE OF SYSTEMIC STER 01/05/2020 BETO CALI MD Ot Z85.0 38 PERSONAL HISTORY OF MALIGNANT NEOPLASM O 01/05/2020 BETO CALI MD Ot Z85.1 18 PERSONAL HISTORY OF MALIGNANT NEOPLASM O 01/05/2020 BETO CALI MD Ot Z85.5 28 PERSONAL HISTORY OF OTHER MALIGNANT NEOP 01/05/2020 BETO CALI MD Ot Z86.7 11 PERSONAL HISTORY OF PULMONARY EMBOLISM 01/05/2020 BETO CALI MD Ot Z86.7 18 PERSONAL HISTORY OF OTHER VENOUS THROMBO 01/05/2020 BETO CALI MD Ot Z88.0 ALLERGY STATUS TO PENICILLIN 01/05/2020 ALIRIO CACERES MD Ot K63.89 OTHER SPECIFIED DISEASES OF INTESTINE 01/05/2020 ALIRIO CACERES MD Ot R10.31 RIGHT LOWER QUADRANT PAIN 01/05/2020 PAULETTE, YOVANI BLACK BELT Ot J84.10 PULMONARY FIBROSIS, UNSPECIFIED 01/05/2020 PAULETTE, YOVANI BLACK BELT Ot J90 PLEURAL EFFUSION, NOT ELSEWHERE CLASSIFI 01/05/2020 PAULETTE, YOVANI BLACK BELT Ot 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 01/05/2020 PAULETTE, YOVANI BLACK BELT Ot N20.0 CALCULUS OF KIDNEY 01/05/2020 PAULETTE, YOVANI BLACK BELT Ot S22.04 0A WEDGE COMPRESSION FRACTURE OF FOURTH THO 01/05/2020 PAULETTE, YOVANI BLACK BELT Ot S22.05 0A WEDGE COMPRESSION FRACTURE OF T5-T6 VERT 01/05/2020 NAHUM ROMERO MD Ot R10.9 UNSPECIFIED ABDOMINAL PAIN 01/05/2020 NAHUM ROMERO MD Ot R31.2 9 OTHER MICROSCOPIC HEMATURIA 01/05/2020 NAHUM ROMERO MD Ot Z85.1 18 PERSONAL HISTORY OF MALIGNANT NEOPLASM O 01/05/2020 NAHUM ROMERO MD Ot Z85.5 3 PERSONAL HISTORY OF MALIGNANT NEOPLASM O 01/05/2020 HEATHERNAHUM SUN MD, Ot Z87.4 42 PERSONAL HISTORY OF URINARY CALCULI 01/05/2020 NAHUM ROMERO MD, Ot Z90.4 9 ACQUIRED ABSENCE OF OTHER SPECIFIED PART 01/05/2020 ALIRIO CACERES MD, Ot Z51.81 ENCOUNTER FOR THERAPEUTIC DRUG LEVEL MON 01/05/2020 ALIRIO CACERES MD, Ot Z79.01 SENIOR LIVING (CURRENT) USE OF ANTICOAGULANT 01/18/2020 ALIRIO CACERES MD, Ot Z51.81 ENCOUNTER FOR THERAPEUTIC DRUG LEVEL MON 01/18/2020 ALIRIO CACERES MD, Ot Z79.01 SENIOR LIVING (CURRENT) USE OF ANTICOAGULANT 01/26/2020 ALIRIO CACERES MD Ot K63.89 OTHER SPECIFIED DISEASES OF INTESTINE 01/26/2020 ALIRIO CACERES MD Ot R10.31 RIGHT LOWER QUADRANT PAIN 01/26/2020 PAULETTE YOVANI BLACK BELT Ot J84.10 PULMONARY FIBROSIS, UNSPECIFIED 01/26/2020 PAULETTE YOVANI BLACK BELT Ot J90 PLEURAL EFFUSION, NOT ELSEWHERE CLASSIFI 01/26/2020 PAULETTE, YOVANI BLACK BELT Ot 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 01/26/2020 PAULETTE YOVANI BLACK BELT Ot N20.0 CALCULUS OF KIDNEY 01/26/2020 PAULETTE YOVANI BLACK BELT Ot S22.04 0A WEDGE COMPRESSION FRACTURE OF FOURTH THO 01/26/2020 PAULETTE, YOVANI BLACK BELT Ot S22.05 0A WEDGE COMPRESSION FRACTURE OF [...] ABSENCE OF OTHER SPECIFIED PART 01/26/2020 ALIRIO CACREES MD Ot Z51.81 ENCOUNTER FOR THERAPEUTIC DRUG LEVEL MON 01/26/2020 ALIRIO CACERES MD, Ot Z79.01 SENIOR LIVING (CURRENT) USE OF ANTICOAGULANT 01/26/2020 ALIRIO CACERES MD Ot K63.89 OTHER SPECIFIED DISEASES OF INTESTINE 01/26/2020 ALIRIO CACERES MD Ot R10.31 RIGHT LOWER QUADRANT PAIN 01/26/2020 PAULETTE, YOVANI BLACK BELT Ot J84.10 PULMONARY FIBROSIS, UNSPECIFIED 01/26/2020 PAULETTE, YOVANI BLACK BELT Ot J90 PLEURAL EFFUSION, NOT ELSEWHERE CLASSIFI 01/26/2020 PAULETTE, YOVANI BLACK BELT Ot 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 01/26/2020 PAULETTE, YOVANI BLACK BELT Ot N20.0 CALCULUS OF KIDNEY 01/26/2020 PAULETTE, YOVANI BLACK BELT Ot S22.04 0A WEDGE COMPRESSION FRACTURE OF FOURTH THO 01/26/2020 PAULETTE, YOVANI BLACK BELT Ot S22.05 0A WEDGE COMPRESSION FRACTURE OF [...] OF OTHER SPECIFIED PART 01/26/2020 ALIRIO CACERES MD, Ot Z51.81 ENCOUNTER FOR THERAPEUTIC DRUG LEVEL MON 01/26/2020 ALIRIO CACERES MD, Ot Z79.01 CURATORIAL SPECIALIST (CURRENT) USE OF ANTICOAGULANT 01/26/2020 ALIRIO CACERES MD, Ot K63.89 OTHER SPECIFIED DISEASES OF INTESTINE 01/26/2020 ALIRIO CACERES MD Ot R10.31 RIGHT LOWER QUADRANT PAIN 01/26/2020 PAULETTE, YOVANI BLACK BELT Ot J84.10 PULMONARY FIBROSIS, UNSPECIFIED 01/26/2020 PAULETTE, YOVANI ROMERO Ot J90 PLEURAL EFFUSION, NOT ELSEWHERE CLASSIFI 01/26/2020 PAULETTE, YOVANI MATTHEWSP Ot 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 01/26/2020 YOVANI CALDWELL BLACK BELT Ot N20.0 CALCULUS OF KIDNEY 01/26/2020 PAULETTE, YOVANI BLACK BELT Ot S22.04 0A WEDGE COMPRESSION FRACTURE OF FOURTH THO 01/26/2020 PAULETTE, YOVANI BLACK BELT Ot S22.05 0A WEDGE COMPRESSION FRACTURE OF T5-T6 VERT 01/26/2020 HEATHER FELTON, NAHUM Williamson Ot R10.9 UNSPECIFIED ABDOMINAL PAIN 01/26/2020 NAHUM [...] ACQUIRED ABSENCE OF OTHER SPECIFIED PART 01/26/2020 NICKI FELTON, ALIRIO Dominguez Ot Z51.81 ENCOUNTER FOR THERAPEUTIC DRUG LEVEL MON 01/26/2020 NICKI FELTON, ALIRIO Dominguez Ot Z79.01 CURATORIAL SPECIALIST (CURRENT) USE OF ANTICOAGULANT 01/26/2020 MATILDA KNIGHT DO Ot N13 .2 HYDRONEPHROSIS WITH RENAL AND URETERAL C 01/26/2020 MATILDA KNIGHT DO Ot N28 .9 DISORDER OF KIDNEY AND URETER, UNSPECIFI 01/26/2020 MATILDA KNIGHT DO Ot R79 .1 ABNORMAL COAGULATION PROFILE 01/26/2020 MATILDA KNIGHT DO, Ot Z79.01 CURATORIAL SPECIALIST (CURRENT) USE OF ANTICOAGULANT 01/26/2020 MATILDA KNIGHT DO, Ot Z79.52 CURATORIAL SPECIALIST (CURRENT) USE OF SYSTEMIC STER 01/26/2020 MATILDA KNIGHT DO, Ot Z85.038 PERSONAL HISTORY OF MALIGNANT NEOPLASM O 01/26/2020 MATILDA KNIGHT DO, Ot Z85.118 PERSONAL HISTORY OF MALIGNANT NEOPLASM O 01/26/2020 MATILDA KNIGHT DO, Ot Z85.528 PERSONAL HISTORY OF OTHER MALIGNANT NEOP 01/26/2020 MATILDA KNIGHT DO Ot Z86.711 PERSONAL HISTORY OF PULMONARY EMBOLISM 01/26/2020 MATILDA KNIGHT DO Ot Z86.718 PERSONAL HISTORY OF OTHER VENOUS THROMBO 01/26/2020 MATILDA KNIGHT DO Ot Z88 .0 ALLERGY STATUS TO PENICILLIN 01/26/2020 ALIRIO CACERES MD Ot K63.89 OTHER SPECIFIED DISEASES OF INTESTINE 01/26/2020 ALIRIO CACERES MD Ot R10.31 RIGHT LOWER QUADRANT PAIN 01/26/2020 PAULETTE, YOVANI BLACK BELT Ot J84.10 PULMONARY FIBROSIS, UNSPECIFIED 01/26/2020 PAULETTE, YOVANI BLACK BELT Ot J90 PLEURAL EFFUSION, NOT ELSEWHERE CLASSIFI 01/26/2020 PAULETTE, YOVANI BLACK BELT Ot 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 01/26/2020 PAULETTE, YOVANI BLACK BELT Ot N20.0 CALCULUS OF KIDNEY 01/26/2020 PAULETTE, YOVANI BLACK BELT Ot S22.04 0A WEDGE COMPRESSION FRACTURE OF FOURTH THO 01/26/2020 PAULETTE, YOVANI BLACK BELT Ot S22.05 0A WEDGE COMPRESSION FRACTURE OF [...] MON 01/26/2020 ALIRIO CACERES MD, Ot Z79.01 SENIOR LIVING (CURRENT) USE OF ANTICOAGULANT 01/28/2020 MATILDA KNIGHT DO Ot N13 .2 HYDRONEPHROSIS WITH RENAL AND URETERAL C 01/28/2020 MATILDA KNIGHT DO M Ot N28 .9 DISORDER OF KIDNEY AND URETER, UNSPECIFI 01/28/2020 [facility] ABNORMAL COAGULATION PROFILE 01/28/2020 [facility] Z79.01 [facility] (CURRENT) USE OF ANTICOAGULANT 01/28/2020 [facility] Z79.52 CURATORIAL SPECIALIST (CURRENT) USE OF SYSTEMIC STER 01/28/2020 [facility], MATILDA Hyatt Ot Z85.038 PERSONAL HISTORY OF MALIGNANT NEOPLASM O 01/28/2020 [facility], MATILDA Hyatt Ot Z85.118 PERSONAL HISTORY OF MALIGNANT NEOPLASM O 01/28/2020 [facility], MATILDA Hyatt Ot Z85.528 PERSONAL HISTORY OF OTHER MALIGNANT NEOP 01/28/2020 [facility] Ot Z86.711 PERSONAL HISTORY OF PULMONARY EMBOLISM 01/28/2020 [facility] Ot Z86.718 PERSONAL HISTORY OF OTHER VENOUS THROMBO 01/28/2020 [facility] Ot Z88 .0 ALLERGY STATUS TO PENICILLIN 01/28/2020 NICKI FELTON, ALIRIO Dominguez Ot K63.89 OTHER SPECIFIED DISEASES OF INTESTINE 01/28/2020 NICKI FELTON, ALIRIO Dominguez Ot R10.31 RIGHT LOWER QUADRANT PAIN 01/28/2020 YOVANI CALDWELLP Ot J84.10 PULMONARY FIBROSIS, UNSPECIFIED 01/28/2020 PAULETTE YOVANI BLACK BELT Ot J90 PLEURAL EFFUSION, NOT ELSEWHERE CLASSIFI 01/28/2020 PAULETTE YOVANI BLACK BELT Ot 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 01/28/2020 YOVANI CALDWELL BLACK BELT Ot N20.0 CALCULUS OF KIDNEY 01/28/2020 PAULETTE YOVANI BLACK BELT Ot S22.04 0A WEDGE COMPRESSION FRACTURE OF FOURTH THO 01/28/2020 PAULETTE YOVANI BLACK BELT Ot S22.05 0A WEDGE COMPRESSION FRACTURE OF T5-T6 VERT 01/28/2020 NAHUM ROMERO MD Ot R10.9 UNSPECIFIED ABDOMINAL PAIN 01/28/2020 NAHUM ROMERO MD Ot R31.2 9 OTHER MICROSCOPIC HEMATURIA 01/28/2020 NAHUM ROMERO MD Ot Z85.1 18 PERSONAL HISTORY OF MALIGNANT NEOPLASM O 01/28/2020 NAHUM ROMERO MD Ot Z85.5 3 PERSONAL HISTORY OF MALIGNANT NEOPLASM O 01/28/2020 NAHUM ROMERO MD Ot Z87.4 42 PERSONAL HISTORY OF URINARY CALCULI 01/28/2020 NAHUM ROMERO MD Ot Z90.4 9 ACQUIRED ABSENCE OF OTHER SPECIFIED PART 01/28/2020 ALIRIO CACERES MD Ot Z51.81 ENCOUNTER FOR THERAPEUTIC DRUG LEVEL MON 01/28/2020 ALIRIO CACERES MD Ot Z79.01 CURATORIAL SPECIALIST (CURRENT) USE OF ANTICOAGULANT 02/02/2020 NAHUM ROMERO MD Ot Z01.8 18 ENCOUNTER FOR OTHER PREPROCEDURAL EXAMIN 02/04/2020 NAHUM ROMERO MD Ot M46.0 6 SPINAL ENTHESOPATHY, LUMBAR REGION 02/04/2020 NAHUM ROMERO MD Ot N20.1 CALCULUS OF URETER 02/04/2020 NAHUM ROMERO MD Ot 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, BILATE 02/04/2020 NAHUM ROMERO MD Ot Z98.1 ARTHRODESIS STATUS 02/05/2020 NAHUM ROMERO MD Ot N20.1 CALCULUS OF URETER 02/06/2020 NAHUM ROMERO MD Ot N20.1 CALCULUS OF URETER 02/20/2020 NAHUM ROMERO MD Ot N20.1 CALCULUS OF URETER 02/25/2020 NAHUM ROMERO MD Ot M46.0 6 SPINAL ENTHESOPATHY, LUMBAR REGION 02/25/2020 NAHUM ROMERO MD Ot N20.1 CALCULUS OF URETER 02/25/2020 NAHUM ROMERO MD Ot 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, BILATE 02/25/2020 NAHUM ROMERO MD Ot Z98.1 ARTHRODESIS STATUS 02/25/2020 NAHUM ROMERO MD Ot N20.1 CALCULUS OF URETER 03/01/2020 NAHUM ROMERO MD Ot M46.0 6 SPINAL ENTHESOPATHY, LUMBAR REGION 03/01/2020 NAHUM ROMERO MD Ot N20.1 CALCULUS OF URETER 03/01/2020 NAHUM ROMERO MD Ot 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, BILATE 03/01/2020 NAHUM ROMERO MD Ot Z98.1 ARTHRODESIS STATUS 04/08/2020 ALIRIO CACERES MD Ot K63.89 OTHER SPECIFIED DISEASES OF INTESTINE 04/08/2020 AILRIO CACERES MD Ot R10.31 RIGHT LOWER QUADRANT PAIN 04/08/2020 PAULETTE, YOVANI MATTHEWSP Ot J84.10 PULMONARY FIBROSIS, UNSPECIFIED 04/08/2020 PAULETTE, YOVANI BLACK BELT Ot J90 PLEURAL EFFUSION, NOT ELSEWHERE CLASSIFI 04/08/2020 PAULETTE, YOVANI BLACK BELT Ot 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 04/08/2020 PAULETTE, YOVANI BLACK BELT Ot N20.0 CALCULUS OF KIDNEY 04/08/2020 PAULETTE, YOVANI MATTHEWSP Ot S22.04 0A WEDGE COMPRESSION FRACTURE OF FOURTH THO 04/08/2020 PAULETTE, YOVANI MATTHEWSP Ot S22.05 0A WEDGE COMPRESSION FRACTURE OF T5-T6 VERT 04/08/2020 NAHUM ROMERO MD Ot R10.9 UNSPECIFIED ABDOMINAL PAIN 04/08/2020 NAHUM ROMERO MD Ot R31.2 9 OTHER MICROSCOPIC HEMATURIA 04/08/2020 NAHUM ROMERO MD Ot Z85.1 18 PERSONAL HISTORY OF MALIGNANT NEOPLASM O 04/08/2020 NAHUM ROMERO MD Ot Z85.5 3 PERSONAL HISTORY OF MALIGNANT NEOPLASM O 04/08/2020 NAHUM ROMERO MD Ot Z87.4 42 PERSONAL HISTORY OF URINARY CALCULI 04/08/2020 NAHUM ROMERO MD Ot Z90.4 9 ACQUIRED ABSENCE OF OTHER SPECIFIED PART 04/08/2020 ALIRIO CACERES MD Ot Z51.81 ENCOUNTER FOR THERAPEUTIC DRUG LEVEL MON 04/08/2020 ALIRIO CACERES MD Ot Z79.01 SENIOR LIVING (CURRENT) USE OF ANTICOAGULANT 04/08/2020 NAHUM ROMERO MD Ot N20.1 CALCULUS OF URETER 04/08/2020 NAHUM ROMERO MD Ot Z01.8 18 ENCOUNTER FOR OTHER PREPROCEDURAL EXAMIN 04/08/2020 NAHUM ROMERO MD Ot M46.0 6 SPINAL ENTHESOPATHY, LUMBAR REGION 04/08/2020 NAHUM ROMERO MD Ot N20.1 CALCULUS OF URETER 04/08/2020 NAHUM ROMERO MD, Ot 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, BILATE 04/08/2020 NAHUM ROMERO MD Ot Z98.1 ARTHRODESIS STATUS 04/08/2020 ALIRIO CACERES MD Ot K63.89 OTHER SPECIFIED DISEASES OF INTESTINE 04/08/2020 ALIRIO CACERES MD Ot R10.31 RIGHT LOWER QUADRANT PAIN 04/08/2020 PAULETTE, YOVANI BLACK BELT Ot J84.10 PULMONARY FIBROSIS, UNSPECIFIED 04/08/2020 PAULETTE, YOVANI BLACK BELT Ot J90 PLEURAL EFFUSION, NOT ELSEWHERE CLASSIFI 04/08/2020 PAULETTE, YOVANI BLACK BELT Ot 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 04/08/2020 PAULETTE, YOVANI BLACK BELT Ot N20.0 CALCULUS OF KIDNEY 04/08/2020 PAULETTE, YOVANI BLACK BELT Ot S22.04 0A WEDGE COMPRESSION FRACTURE OF FOURTH THO 04/08/2020 PAULETTE, YOVANI BLACK BELT Ot S22.05 0A WEDGE COMPRESSION FRACTURE OF T5-T6 VERT 04/08/2020 NAHUM ROMERO MD Ot R10.9 UNSPECIFIED ABDOMINAL PAIN 04/08/2020 NAHUM ROMERO MD Ot R31.2 9 OTHER MICROSCOPIC HEMATURIA 04/08/2020 NAHUM ROMERO MD Ot Z85.1 18 PERSONAL HISTORY OF MALIGNANT NEOPLASM O 04/08/2020 NAHUM ROMERO MD Ot Z85.5 3 PERSONAL HISTORY OF MALIGNANT NEOPLASM O 04/08/2020 NAHUM ROMERO MD Ot Z87.4 42 PERSONAL HISTORY OF URINARY CALCULI 04/08/2020 NAHUM ROMERO MD Ot Z90.4 9 ACQUIRED ABSENCE OF OTHER SPECIFIED PART 04/08/2020 ALIRIO CACERES MD Ot Z51.81 ENCOUNTER FOR THERAPEUTIC DRUG LEVEL MON 04/08/2020 ALIRIO CACERES MD Ot Z79.01 SENIOR LIVING (CURRENT) USE OF ANTICOAGULANT 04/08/2020 NAHUM ROMERO MD Ot N20.1 CALCULUS OF URETER 04/08/2020 NAHUM ROMERO MD Ot Z01.8 18 ENCOUNTER FOR OTHER PREPROCEDURAL EXAMIN 04/08/2020 NAHUM ROMERO MD Ot M46.0 6 SPINAL ENTHESOPATHY, LUMBAR REGION 04/08/2020 NAHUM ROMERO MD Ot N20.1 CALCULUS OF URETER 04/08/2020 NAHUM ROMERO MD, Ot 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, BILATE 04/08/2020 NAHUM ROMERO MD, Ot Z98.1 ARTHRODESIS STATUS 04/11/2020 NAHUM ROMERO MD Ot N20.0 CALCULUS OF KIDNEY 04/11/2020 ALIRIO CACERES MD Ot K63.89 OTHER SPECIFIED DISEASES OF INTESTINE 04/11/2020 ALIRIO CACERES MD Ot R10.31 RIGHT LOWER QUADRANT PAIN 04/11/2020 PAULETTE, YOVANI BLACK BELT Ot J84.10 PULMONARY FIBROSIS, UNSPECIFIED 04/11/2020 PAULETTE, YOVANI BLACK BELT Ot J90 PLEURAL EFFUSION, NOT ELSEWHERE CLASSIFI 04/11/2020 PAULETTE, YOVANI BLACK BELT Ot 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 04/11/2020 PAULETTE, YOVANI BLACK BELT Ot N20.0 CALCULUS OF KIDNEY 04/11/2020 PAULETTE, YOVANI BLACK BELT Ot S22.04 0A WEDGE COMPRESSION FRACTURE OF FOURTH THO 04/11/2020 PAULETTE, YOVANI BLACK BELT Ot S22.05 0A WEDGE COMPRESSION FRACTURE OF T5-T6 VERT 04/11/2020 NAHUM ROMERO MD Ot R10.9 UNSPECIFIED ABDOMINAL PAIN 04/11/2020 NAHUM ROMERO MD Ot R31.2 9 OTHER MICROSCOPIC HEMATURIA 04/11/2020 NAHUM ROMERO MD, Ot Z85.1 18 PERSONAL HISTORY OF MALIGNANT NEOPLASM O 04/11/2020 NAHUM ROMERO MD, Ot Z85.5 3 PERSONAL HISTORY OF MALIGNANT NEOPLASM O 04/11/2020 NAHUM ROMERO MD, Ot Z87.4 42 PERSONAL HISTORY OF URINARY CALCULI 04/11/2020 NAHUM ROMERO MD, Ot Z90.4 9 ACQUIRED ABSENCE OF OTHER SPECIFIED PART 04/11/2020 ALIRIO CACERES MD Ot Z51.81 ENCOUNTER FOR THERAPEUTIC DRUG LEVEL MON 04/11/2020 ALIRIO CACERES MD Ot Z79.01 CURATORIAL SPECIALIST (CURRENT) USE OF ANTICOAGULANT 04/11/2020 NAHUM ROMERO MD Ot N20.1 CALCULUS OF URETER 04/11/2020 NAHUM ROMERO MD, Ot Z01.8 18 ENCOUNTER FOR OTHER PREPROCEDURAL EXAMIN 04/11/2020 NAHUM ROMERO MD, Ot M46.0 6 SPINAL ENTHESOPATHY, LUMBAR REGION 04/11/2020 NAHUM ROMERO MD, Ot N20.1 CALCULUS OF URETER 04/11/2020 NAHUM ROMERO MD, Ot 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, BILATE 04/11/2020 NAHUM ROMERO MD, Ot Z98.1 ARTHRODESIS STATUS 04/11/2020 NAHUM ROMERO MD, Ot N20.0 CALCULUS OF KIDNEY 04/15/2020 ALIRIO CACERES MD Ot K63.89 OTHER SPECIFIED DISEASES OF INTESTINE 04/15/2020 ALIRIO CACERES MD Ot R10.31 RIGHT LOWER QUADRANT PAIN 04/15/2020 PAULETTE, YOVANI BLACK BELT Ot J84.10 PULMONARY FIBROSIS, UNSPECIFIED 04/15/2020 PAULETTE, YOVANI BLACK BELT Ot J90 PLEURAL EFFUSION, NOT ELSEWHERE CLASSIFI 04/15/2020 PAULETTE, YOVANI BLACK BELT Ot 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 04/15/2020 PAULETTE, YOVANI BLACK BELT Ot N20.0 CALCULUS OF KIDNEY 04/15/2020 PAULETTEYOVANIP Ot S22.04 0A WEDGE COMPRESSION FRACTURE OF FOURTH THO 04/15/2020 PAULETTE, YOVANI BLACK BELT Ot S22.05 0A WEDGE COMPRESSION FRACTURE OF T5-T6 VERT 04/15/2020 NAHUM ROMERO MD Ot R10.9 UNSPECIFIED ABDOMINAL PAIN 04/15/2020 NAHUM ROMERO MD Ot R31.2 9 OTHER MICROSCOPIC HEMATURIA 04/15/2020 NAHUM ROMERO MD, Ot Z85.1 18 PERSONAL HISTORY OF MALIGNANT NEOPLASM O 04/15/2020 NAHUM ROMERO MD, Ot Z85.5 3 PERSONAL HISTORY OF MALIGNANT NEOPLASM O 04/15/2020 NAHUM ROMERO MD, Ot Z87.4 42 PERSONAL HISTORY OF URINARY CALCULI 04/15/2020 NAHUM ROMERO MD, Ot Z90.4 9 ACQUIRED ABSENCE OF OTHER SPECIFIED PART 04/15/2020 ALIRIO CACERES MD, Ot Z51.81 ENCOUNTER FOR THERAPEUTIC DRUG LEVEL MON 04/15/2020 ALIRIO CACERES MD, Ot Z79.01 SENIOR LIVING (CURRENT) USE OF ANTICOAGULANT 04/15/2020 NAHUM ROMERO MD, Ot N20.1 CALCULUS OF URETER 04/15/2020 NAHUM ROMERO MD, Ot Z01.8 18 ENCOUNTER FOR OTHER PREPROCEDURAL EXAMIN 04/15/2020 NAHUM ROMERO MD, Ot M46.0 6 SPINAL ENTHESOPATHY, LUMBAR REGION 04/15/2020 NAHUM ROMERO MD, Ot N20.1 CALCULUS OF URETER 04/15/2020 NAHUM ROMERO MD, Ot 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, BILATE 04/15/2020 NAHUM ROMERO MD, Ot Z98.1 ARTHRODESIS STATUS 04/15/2020 NAHUM ROMREO MD, Ot N20.0 CALCULUS OF KIDNEY 04/19/2020 ALIRIO CACERES MD Ot K63.89 OTHER SPECIFIED DISEASES OF INTESTINE 04/19/2020 ALIRIO CACERES MD Ot R10.31 RIGHT LOWER QUADRANT PAIN 04/19/2020 YOVANI CALDWELL Ot J84.10 PULMONARY FIBROSIS, UNSPECIFIED 04/19/2020 YOVANI CALDWELLP Ot J90 PLEURAL EFFUSION, NOT ELSEWHERE CLASSIFI 04/19/2020 YOVANI CALDWELL Ot 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 04/19/2020 YOVANI CALDWELL Ot N20.0 CALCULUS OF KIDNEY 04/19/2020 YOVANI CALDWELL Ot S22.04 0A WEDGE COMPRESSION FRACTURE OF FOURTH THO 04/19/2020 YOVANI CALDWELL Ot S22.05 0A WEDGE COMPRESSION FRACTURE OF T5-T6 VERT 04/19/2020 NAHUM ROMERO MD Ot R10.9 UNSPECIFIED ABDOMINAL PAIN 04/19/2020 NAHUM ROMERO MD, Ot R31.2 9 OTHER MICROSCOPIC HEMATURIA 04/19/2020 NAHUM ROMERO MD, Ot Z85.1 18 PERSONAL HISTORY OF MALIGNANT NEOPLASM O 04/19/2020 NAHUM ROMERO MD, Ot Z85.5 3 PERSONAL HISTORY OF MALIGNANT NEOPLASM O 04/19/2020 NAHUM ROMERO MD, Ot Z87.4 42 PERSONAL HISTORY OF URINARY CALCULI 04/19/2020 NAHUM ROMERO MD, Ot Z90.4 9 ACQUIRED ABSENCE OF OTHER SPECIFIED PART 04/19/2020 ALIRIO CACERES MD Ot Z51.81 ENCOUNTER FOR THERAPEUTIC DRUG LEVEL MON 04/19/2020 ALIRIO CACERES MD Ot Z79.01 SENIOR LIVING (CURRENT) USE OF ANTICOAGULANT 04/19/2020 NAHUM ROMERO MD, Ot N20.1 CALCULUS OF URETER 04/19/2020 NAHUM ROMERO MD, Ot Z01.8 18 ENCOUNTER FOR OTHER PREPROCEDURAL EXAMIN 04/19/2020 NAHUM ROMERO MD, Ot M46.0 6 SPINAL ENTHESOPATHY, LUMBAR REGION 04/19/2020 NAHUM ROMERO MD, Ot N20.1 CALCULUS OF URETER 04/19/2020 NAHUM ROMERO MD, Ot 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, BILATE 04/19/2020 NAHUM ROMERO MD, Ot Z98.1 ARTHRODESIS STATUS 04/19/2020 NAHUM ROMERO MD, Ot N20.0 CALCULUS OF KIDNEY 04/20/2020 ALIRIO CACERES MD Ot K63.89 OTHER SPECIFIED DISEASES OF INTESTINE 04/20/2020 ALIRIO CACERES MD Ot R10.31 RIGHT LOWER QUADRANT PAIN 04/20/2020 YOVANI CALDWELLP Ot J84.10 PULMONARY FIBROSIS, UNSPECIFIED 04/20/2020 PAULETTE YOVANI BLACK BELT Ot J90 PLEURAL EFFUSION, NOT ELSEWHERE CLASSIFI 04/20/2020 YOVANI CALDWELLP Ot 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 04/20/2020 YOVANI CALDWELL BLACK BELT Ot N20.0 CALCULUS OF KIDNEY 04/20/2020 YOVANI CALDWELL BLACK BELT Ot S22.04 0A WEDGE COMPRESSION FRACTURE OF FOURTH THO 04/20/2020 YOVANI CALDWELL BLACK BELT Ot S22.05 0A WEDGE COMPRESSION FRACTURE OF T5-T6 VERT 04/20/2020 NAHUM ROMERO MD Ot R10.9 UNSPECIFIED ABDOMINAL PAIN 04/20/2020 NAHUM ROMERO MD Ot R31.2 9 OTHER MICROSCOPIC HEMATURIA 04/20/2020 NAHUM ROMERO MD, Ot Z85.1 18 PERSONAL HISTORY OF MALIGNANT NEOPLASM O 04/20/2020 NAHUM ROMERO MD, Ot Z85.5 3 PERSONAL HISTORY OF MALIGNANT NEOPLASM O 04/20/2020 NAHUM ROMERO MD, Ot Z87.4 42 PERSONAL HISTORY OF URINARY CALCULI 04/20/2020 NAHUM ROMERO MD, Ot Z90.4 9 ACQUIRED ABSENCE OF OTHER SPECIFIED PART 04/20/2020 ALIRIO CACERES MD Ot Z51.81 ENCOUNTER FOR THERAPEUTIC DRUG LEVEL MON 04/20/2020 ALIRIO CACERES MD Ot Z79.01 CURATORIAL SPECIALIST (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) 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 OF ANTICOAGULANT 04/20/2020 NAHUM ROMERO MD Ot N20.1 CALCULUS OF URETER 04/20/2020 NAHUM ROMERO MD Ot Z01.8 18 ENCOUNTER FOR OTHER PREPROCEDURAL EXAMIN 04/20/2020 NAHUM ROMERO MD Ot M46.0 6 SPINAL ENTHESOPATHY, LUMBAR REGION 04/20/2020 NAHUM ROMERO MD, Ot N20.1 CALCULUS OF URETER 04/20/2020 NAHUM ROMERO MD Ot 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, BILATE 04/20/2020 NAHUM ROMERO MD Ot Z98.1 ARTHRODESIS STATUS 04/20/2020 NAHUM ROMERO MD, Ot N20.0 CALCULUS OF KIDNEY 04/20/2020 NAHUM ROMERO MD, Ot Z01.8 18 ENCOUNTER FOR OTHER PREPROCEDURAL EXAMIN 04/21/2020 NAHUM ROMERO MD Ot D71 FUNCTIONAL DISORDERS OF POLYMORPHONUCLEA 04/21/2020 NAHUM ROMERO MD, Ot D73.8 9 OTHER DISEASES OF SPLEEN 04/21/2020 NAHUM ROMERO MD Ot I99.8 OTHER DISORDER OF CIRCULATORY SYSTEM 04/21/2020 NAHUM ROMERO MD, Ot M19.9 0 UNSPECIFIED OSTEOARTHRITIS, UNSPECIFIED 04/21/2020 NAHUM ROMERO MD Ot N20.0 CALCULUS OF KIDNEY 04/21/2020 NAHUM ROMERO MD Ot Z98.8 90 OTHER SPECIFIED POSTPROCEDURAL STATES 04/23/2020 NAHUM ROMERO MD Ot D71 FUNCTIONAL DISORDERS OF POLYMORPHONUCLEA 04/23/2020 NAHUM ROMERO MD Ot D73.8 9 OTHER DISEASES OF SPLEEN 04/23/2020 NAHUM ROMERO MD Ot I99.8 OTHER DISORDER OF CIRCULATORY SYSTEM 04/23/2020 NAHUM ROMERO MD Ot M19.9 0 UNSPECIFIED OSTEOARTHRITIS, UNSPECIFIED 04/23/2020 NAHUM ROMERO MD Ot N20.0 CALCULUS OF KIDNEY 04/23/2020 NAHUM ROMERO MD Ot Z98.8 90 OTHER SPECIFIED POSTPROCEDURAL STATES 04/25/2020 ALIRIO CACERES MD Ot K63.89 OTHER SPECIFIED DISEASES OF INTESTINE 04/25/2020 ALIRIO CACERES MD Ot R10.31 RIGHT LOWER QUADRANT PAIN 04/25/2020 PAULETTE YOVANI BLACK BELT Ot J84.10 PULMONARY FIBROSIS, UNSPECIFIED 04/25/2020 PAULETTE, YOVANI BLACK BELT Ot J90 PLEURAL EFFUSION, NOT ELSEWHERE CLASSIFI 04/25/2020 PAULETTE, YOVANI BLACK BELT Ot 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 04/25/2020 PAULETTE YOVANI BLACK BELT Ot N20.0 CALCULUS OF KIDNEY 04/25/2020 PAULETTE YOVANI BLACK BELT Ot S22.04 0A WEDGE COMPRESSION FRACTURE OF FOURTH THO 04/25/2020 PAULETTE YOVANI BLACK BELT Ot S22.05 0A WEDGE COMPRESSION FRACTURE OF T5-T6 VERT 04/25/2020 NAHUM ROMERO MD Ot R10.9 UNSPECIFIED ABDOMINAL PAIN 04/25/2020 NAHUM ROMERO MD Ot R31.2 9 OTHER MICROSCOPIC HEMATURIA 04/25/2020 NAHUM ROMERO MD Ot Z85.1 18 PERSONAL HISTORY OF MALIGNANT NEOPLASM O 04/25/2020 NAHUM ROMERO MD Ot Z85.5 3 PERSONAL HISTORY OF MALIGNANT NEOPLASM O 04/25/2020 NAHUM ROMERO MD Ot Z87.4 42 PERSONAL HISTORY OF URINARY CALCULI 04/25/2020 NAHUM ROMERO MD Ot Z90.4 9 ACQUIRED ABSENCE OF OTHER SPECIFIED PART 04/25/2020 ALIRIO CACERES MD Ot Z51.81 ENCOUNTER FOR THERAPEUTIC DRUG LEVEL MON 04/25/2020 ALIRIO CACERES MD Ot Z79.01 CURATORIAL SPECIALIST (CURRENT) USE OF ANTICOAGULANT 04/25/2020 NAHUM ROMERO MD Ot N20.1 CALCULUS OF URETER 04/25/2020 NAHUM ROMERO MD Ot Z01.8 18 ENCOUNTER FOR OTHER PREPROCEDURAL EXAMIN 04/25/2020 NAHUM ROMERO MD Ot M46.0 6 SPINAL ENTHESOPATHY, LUMBAR REGION 04/25/2020 NAHUM ROMERO MD, Ot N20.1 CALCULUS OF URETER 04/25/2020 NAHUM ROMERO MD Ot 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, BILATE 04/25/2020 NAHUM ROMERO MD Ot Z98.1 ARTHRODESIS STATUS 04/25/2020 NAHUM ROMERO MD Ot N20.0 CALCULUS OF KIDNEY 04/25/2020 NAHUM ROMERO MD Ot D71 FUNCTIONAL DISORDERS OF POLYMORPHONUCLEA 04/25/2020 NAHUM ROMERO MD Ot D73.8 9 OTHER DISEASES OF SPLEEN 04/25/2020 NAHUM ROMERO MD Ot I99.8 OTHER DISORDER OF CIRCULATORY SYSTEM 04/25/2020 NAHUM ROMERO MD Ot M19.9 0 UNSPECIFIED OSTEOARTHRITIS, UNSPECIFIED 04/25/2020 NAHUM ROMERO MD Ot N20.0 CALCULUS OF KIDNEY 04/25/2020 NAHUM ROMERO MD Ot Z98.8 90 OTHER SPECIFIED POSTPROCEDURAL STATES 04/25/2020 ALIRIO CACERES MD Ot K63.89 OTHER SPECIFIED DISEASES OF INTESTINE 04/25/2020 ALIRIO CACERES MD Ot R10.31 RIGHT LOWER QUADRANT PAIN 04/25/2020 YOVANI CALDWELL Ot J84.10 PULMONARY FIBROSIS, UNSPECIFIED 04/25/2020 YOVANI CALDWELL Ot J90 PLEURAL EFFUSION, NOT ELSEWHERE CLASSIFI 04/25/2020 YOVANI CALDWELL Ot 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 04/25/2020 PAULETTEYOVANI FriedmanP Ot N20.0 CALCULUS OF KIDNEY 04/25/2020 PAULETTE, YOVANI MATTHEWSP Ot S22.04 0A WEDGE COMPRESSION FRACTURE OF FOURTH THO 04/25/2020 PAULETTE, YOVANI MATTHEWSP Ot S22.05 0A WEDGE COMPRESSION FRACTURE OF T5-T6 VERT 04/25/2020 NAHUM ROMERO MD, Ot R10.9 UNSPECIFIED ABDOMINAL PAIN 04/25/2020 NAHUM ROMERO MD, Ot R31.2 9 OTHER MICROSCOPIC HEMATURIA 04/25/2020 NAHUM ROMERO MD, Ot Z85.1 18 PERSONAL HISTORY OF MALIGNANT NEOPLASM O 04/25/2020 NAHUM ROMERO MD, Ot Z85.5 3 PERSONAL HISTORY OF MALIGNANT NEOPLASM O 04/25/2020 NAHUM ROMERO MD, Ot Z87.4 42 PERSONAL HISTORY OF URINARY CALCULI 04/25/2020 NAHUM ROMERO MD, Ot Z90.4 9 ACQUIRED ABSENCE OF OTHER SPECIFIED PART 04/25/2020 ALIRIO CACERES MD Ot Z51.81 ENCOUNTER FOR THERAPEUTIC DRUG LEVEL MON 04/25/2020 ALIRIO CACERES MD Ot Z79.01 SENIOR LIVING (CURRENT) USE OF ANTICOAGULANT 04/25/2020 NAHUM ROMERO MD Ot N20.1 CALCULUS OF URETER 04/25/2020 NAHUM ROMERO MD, Ot Z01.8 18 ENCOUNTER FOR OTHER PREPROCEDURAL EXAMIN 04/25/2020 NAHUM ROMERO MD, Ot M46.0 6 SPINAL ENTHESOPATHY, LUMBAR REGION 04/25/2020 NAHUM ROMERO MD, Ot N20.1 CALCULUS OF URETER 04/25/2020 NAHUM ROMERO MD, Ot 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, BILATE 04/25/2020 NAHUM ROMERO MD, Ot Z98.1 ARTHRODESIS STATUS 04/25/2020 NAHUM ROMERO MD, Ot N20.0 CALCULUS OF KIDNEY 04/25/2020 NAHUM ROMERO MD Ot D71 FUNCTIONAL DISORDERS OF POLYMORPHONUCLEA 04/25/2020 NAHUM ROMERO MD, Ot D73.8 9 OTHER DISEASES OF SPLEEN 04/25/2020 NAHUM ROMERO MD Ot I99.8 OTHER DISORDER OF CIRCULATORY SYSTEM 04/25/2020 NAHUM ROMERO MD Ot M19.9 0 UNSPECIFIED OSTEOARTHRITIS, UNSPECIFIED 04/25/2020 NAHUM ROMERO MD Ot N20.0 CALCULUS OF KIDNEY 04/25/2020 NAHUM ROMERO MD Ot Z98.8 90 OTHER SPECIFIED POSTPROCEDURAL STATES 04/25/2020 ALIRIO CACERES MD Ot K63.89 OTHER SPECIFIED DISEASES OF INTESTINE 04/25/2020 ALIRIO CACERES MD Ot R10.31 RIGHT LOWER QUADRANT PAIN 04/25/2020 PAULETTE, YOVANI BLACK BELT Ot J84.10 PULMONARY FIBROSIS, UNSPECIFIED 04/25/2020 PAULETTE, YOVANI BLACK BELT Ot J90 PLEURAL EFFUSION, NOT ELSEWHERE CLASSIFI 04/25/2020 PAULETTE, YOVANI BLACK BELT Ot 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 04/25/2020 PAULETTE, YOVANI BLACK BELT Ot N20.0 CALCULUS OF KIDNEY 04/25/2020 PAULETTE YOVANI BLACK BELT Ot S22.04 0A WEDGE COMPRESSION FRACTURE OF FOURTH THO 04/25/2020 PAULETTE, YOVANI BLACK BELT Ot S22.05 0A WEDGE COMPRESSION FRACTURE OF T5-T6 VERT 04/25/2020 NAHUM ROMERO MD Ot R10.9 UNSPECIFIED ABDOMINAL PAIN 04/25/2020 NAHUM ROMERO MD Ot R31.2 9 OTHER MICROSCOPIC HEMATURIA 04/25/2020 NAHUM ROMERO MD Ot Z85.1 18 PERSONAL HISTORY OF MALIGNANT NEOPLASM O 04/25/2020 NAHUM ROMERO MD Ot Z85.5 3 PERSONAL HISTORY OF MALIGNANT NEOPLASM O 04/25/2020 NAHUM ROMERO MD Ot Z87.4 42 PERSONAL HISTORY OF URINARY CALCULI 04/25/2020 NAHUM ROMERO MD Ot Z90.4 9 ACQUIRED ABSENCE OF OTHER SPECIFIED PART 04/25/2020 ALIRIO CACERES MD Ot Z51.81 ENCOUNTER FOR THERAPEUTIC DRUG LEVEL MON 04/25/2020 ALIRIO CACERES MD Ot Z79.01 SENIOR LIVING (CURRENT) USE OF ANTICOAGULANT 04/25/2020 NAHUM ROMERO MD, Ot N20.1 CALCULUS OF URETER 04/25/2020 NAHUM ROMERO MD Ot Z01.8 18 ENCOUNTER FOR OTHER PREPROCEDURAL EXAMIN 04/25/2020 NAHUM ROMERO MD Ot M46.0 6 SPINAL ENTHESOPATHY, LUMBAR REGION 04/25/2020 NAHUM ROMERO MD, Ot N20.1 CALCULUS OF URETER 04/25/2020 NAHUM ROMERO MD, Ot 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, BILATE 04/25/2020 NAHUM ROMERO MD, Ot Z98.1 ARTHRODESIS STATUS 04/25/2020 NAHUM ROMERO MD, Ot N20.0 CALCULUS OF KIDNEY 04/25/2020 NAHUM ROMERO MD, Ot D71 FUNCTIONAL DISORDERS OF POLYMORPHONUCLEA 04/25/2020 NAHUM ROMERO MD, Ot D73.8 9 OTHER DISEASES OF SPLEEN 04/25/2020 NAHUM ROMERO MD Ot I99.8 OTHER DISORDER OF CIRCULATORY SYSTEM 04/25/2020 NAHUM ROMERO MD Ot M19.9 0 UNSPECIFIED OSTEOARTHRITIS, UNSPECIFIED 04/25/2020 NAHUM ROMERO MD, Ot N20.0 CALCULUS OF KIDNEY 04/25/2020 NAHUM ROMERO MD, Ot Z98.8 90 OTHER SPECIFIED POSTPROCEDURAL STATES Procedures There is no data. Results Test [...] 7-25 CREATININE 2.14 mg/dL 0.70-1.18 eGFR NON-AFR. [place] 29 mL/min/1.73m2 > OR = 60 eGFR [...] 7-25 CREATININE 2.14 mg/dL 0.70-1.18 eGFR NON-AFR. [place] 29 mL/min/1.73m2 > OR = 60 eGFR [...] CULTURE, ANAEROBIC BACTERIA W/GRAM STAIN SEE NOTE [facility] CULTURE, AEROBIC BACTERIA SEE NOTE [facility] CULTURE, URINE - 01/26/20 00:00 CULTURE, URINE, ROUTINE SEE NOTE [facility] Comprehensive metabolic panel - 01/26/20 16:48 Serum or plasma sodium measurement (moles/volume) 141 mmol/L 135-145 Serum or plasma potassium measurement (moles/volume) 5.0 mmol/L 3.6-5.0 Serum or plasma chloride measurement (moles/volume) 110 mmol/L 98-107 Carbon dioxide 16 mmol/L 21-32 Serum or plasma anion gap determination (moles/volume) 15 mmol/L 5-14 Serum or plasma urea nitrogen measurement (mass/volume ) 32 mg/dL 7-18 Serum or plasma creatinine measurement (mass/volume) 2.13 mg/dL 0.60-1.30 Serum or plasma urea nitrogen/creatinine mass ratio 15 NRG Serum or plasma creatinine measurement w ith calculation of estimated glomerular filtration rate 30 NRG Serum or plasma glucose measurement (mass/volume) 112 mg/dL 70-105 Serum or plasma calcium measurement (mass/volume) 8.7 mg/dL 8.5-10.1 Serum or plasma total bilirubin measurement (mass/volu me) 0.3 mg/dL 0.1-1.0 Serum or plasma alkaline phosphatase bety surement (enzymatic activity/volume) 158 U/L 40-136 Serum or plasma aspartate aminotransfera se measurement (enzymatic activity/volume) 32 U/L 5-34 Serum or plasma alanine aminotransferase measurement (enzymatic activity/volume) 23 U/L 0-55 Serum or plasma protein measurement (mass/volume) 6.3 g/dL 6.4-8.2 Serum or plasma albumin measurement (mass/volume) 3.8 g/dL 3.2-4.5 CALCIUM CORRECTED 8.9 mg/dL 8.5-10.1 PT panel in platelet poor plasma by coag ulation assay - 01/26/20 16:48 Prothrombin time (PT) in platelet poor plasma by coagu lation assay 21.2 s 12.2-14.7 INR in platelet poor plasma or blood by coagulation as say 1.8 0.8-1.4 Activated partial thromboplastin time (a PTT) in platelet poor plasma bycoagulation assay - 01/26/20 16:48 Activated partial thromboplastin time (a PTT) in platelet poor plasma bycoagulation assay 34 s 24-35 Complete blood count (CBC) with automate d white blood cell (WBC) differential - 01/26/20 16:48 Blood leukocytes automated count (number/volume) 5.1 10*3/uL 4.3-11.0 Blood erythrocytes automated count (number/volume) 3.40 10*6/uL 4.35-5.85 Venous blood hemoglobin measurement (mass/volume) 10.1 g/dL 13.3-17.7 Blood hematocrit (volume fraction) 32 % 40-54 Automated erythrocyte mean corpuscular volume 93 [ foz_us] 80-99 Automated erythrocyte mean corpuscular h emoglobin (mass per erythrocyte) 30 pg 25-34 Automated erythrocyte mean corpuscular h emoglobin concentration measurement (mass/volume) 32 g/dL 32-36 Automated erythrocyte distribution width ratio 14. 8 % 10.0- 14.5 Automated blood platelet count (count/volume) 95 1 0*3/uL 130-400 Automated blood platelet mean volume measurement 10.3 [foz_us] 7.4-10.4 Automated blood neutrophils/100 leukocytes 89 % 42-75 Automated blood lymphocytes/100 leukocytes 8 % 12-44 Blood monocytes/100 leukocytes 2 % 0-12 Automated blood eosinophils/100 leukocytes 0 % 0-10 Automated blood basophils/100 leukocytes 0 % 0-10 Blood neutrophils automated count (number/volume) 4.6 10*3 1.8-7.8 Blood lymphocytes automated count (number/volume) 0.4 10*3 1.0-4.0 Blood monocytes automated count (number/volume) 0. 1 10*3 0.0-1.0 Automated eosinophil count 0.0 10*3/uL 0 .0-0.3 Automated blood basophil count (count/volume) 0.0 10*3/uL 0.0-0.1 Coronavirus SARS-CoV-2 SO 2018 0 08:22 Coronavirus Ab [Units/volume] in Serum Negative Negative Encounters ACCT No. Visit Date/Time Discharge Status Pt. Type Provider Facility Loc./Unit Complaint [id number] 03/21/2020 10:00:00 03/21/2020 23:59: 59 [facility] Out[facility] [id number] 01/26/2020 13:30:00 Document Registration [id number] 01/05/2020 15:30:00 Document Registration [id number] 10/26/2019 13:15:00 Document Registration [id number] 08/03/2019 09:00:00 Document Registration [id number] 02/06/2019 09:15:00 Document Registration [id number] 01/09/2019 09:00:00 Document Registration [id number] 04/20/2020 05:31:00 13:27:00 DIS Outpatient NAHUM ROMERO MD [facility] PREOP RIGHT RENAL STONE [id number] 04/15/2020 10:14:00 23:59:59 CLS Outpatient NAHUM ROMERO MD [facility] RAD RT RENAL STONES [id number] 04/08/2020 11:58:00 23:59:59 CLS Outpatient NAHUM ROMERO MD [facility] RAD FS Z87.442 R10.31 [id number] 02/03/2020 10:30:00 23:59:59 CLS Preadmit NAHUM ROMERO MD, V [facility] SDC RIGHT URETERAL STONE [id number] 02/01/2020 15:23:00 23:59:59 CLS Outpatient NAHUM ROMERO MD [facility] RAD FS RT ARETERAL STONE [id number] 02/01/2020 05:37:00 23:59:59 CLS Outpatient NAHUM ROMERO MD [facility] PREOP RIGHT URETERAL STONE [id number] 01/28/2020 14:33:00 23:59:59 CLS Outpatient NAHUM ROMERO MD [facility] RAD RT STONE [id number] 01/26/2020 14:47:00 18:00:00 DIS Emergency MATILDA KNIGHT DO [facility] ER FS HEMATURIA; BACK PAIN [id number] 01/05/2020 03:35:00 05:06:00 DIS Emergency BETO CALI MD [facility] ER FS SKIN TEAR INFECTION [id number] 12/24/2019 18:07:00 23:59:59 CLS Outpatient NICKI FELTON, ALIRIO Dominguez [facility] LAB FS Z79.01 [id number] 12/10/2019 13:35:00 15:00:00 DIS Inpatient CHRISTINA PRASAD, RUBI Fregoso [facility] IRF SPINAL STENOSIS [id number] 05/25/2019 09:07:00 23:59:59 CLS Outpatient NAHUM ROMERO MD [facility] RAD FS MICROHEMATURIA [id number] 05/11/2019 09:38:00 23:59:59 CLS Outpatient YOVANI CALDWELL [facility] RAD FS BILATERAL LOW BACK PAIN WITHOUT SCIATICA [id number] 03/06/2019 09:24:00 23:59:59 CLS Outpatient NICKI FELTON, ALIRIO Dominguez [facility] RAD FS R10.31 [id number] 02/18/2014 13:49:00 014 23:59:59 CLS Outpatient NAHUM ROMERO MD [facility] RAD STONE [id number] 02/08/2014 15:04:00 014 23:59:59 CLS Outpatient NAHUM ROMERO MD [facility] RAD STONE [id number] 04/27/2020 09:00:00 P EN NAHUM Duncan MD [facility] RIGHT RENAL STONE [id number] 04/25/2020 08:11:[address] Outpatient NAHUM ROMERO MD [facility] LAB FS PRE SURG REQUIREMENT
--- NOTE | 2020-04-27 09:24 | Diagnostic Imaging Report ---
EXAM: ABDOMEN/KUB 1VIEW. INDICATION: Right renal stone. COMPARISON: 04/15/2020. FINDINGS: No renal or ureteral stones are identified radiographically. Cholecystectomy clips. IVC filter. Post operative changes in the lower lumbar spine and both hips. Nonspecific bowel gas pattern. No acute osseous findings. IMPRESSION: No acute radiographic findings in the abdomen. No renal or ureteral stones are identified. Dictated by: Dictated on workstation # [id number]
[2020-04-27 09:48] LABS: INR 1.3 (0.8-1.4); PROTHROMBIN TIME PATIENT 17.1 SEC (12.2-14.7)
[2020-04-27] MEDS ORDERED: LACTATED RINGERS 1,000 ML IV ONE (09:58)
[2020-04-27] MEDS ORDERED: LIDOCAINE PF 2% 5 ML (XYLOCAINE) VIAL ONE (09:58)
[2020-04-27] MEDS ORDERED: ROCURONIUM 10 MG/ML 5 ML SYRINGE IV ONE (09:58)
[2020-04-27] MEDS ORDERED: ONDANSETRON 4 MG/2 ML (SDV) Z0FRAN ONE (09:58)
[2020-04-27] MEDS ORDERED: fentaNYL INJECTION 100 MCG/2 ML AMP ONE (09:58)
[2020-04-27] MEDS ORDERED: proPOfol 200 MG/20 ML (DIPRIVAN) VIAL IV ONE (09:58)
[2020-04-27] MEDS ORDERED: NEOSTIGMINE 3 MG/3 ML VIAL ONE ×2 (09:59→11:09)
[2020-04-27] MEDS ORDERED: DEXAMETHASONE 10 MG/ML (DECADRON) 1 ML VIAL ONE (09:59)
[2020-04-27] MEDS ORDERED: GLYCOPYRROLATE 0.2 MG/ML (ROBINUL) 2 ML VIAL ONE ×2 (09:59→11:09)
--- NOTE | 2020-04-27 10:05 | Progress Note-Post Operative ---
Post-Operative Progess Note Surgeon (s)/Waist Presser (s) Surgeon NAHUM ROMERO MD Waist Presser: NONE Pre-Operative Diagnosis RT URETERAL STONE Post-Operative Diagnosis SAME Procedure & Operative Findings Date of Procedure 04/27/20 Procedure Performed/Findings CYSTOSCOPY, RT RETROGRADE UROGRAM Anesthesia Type GENERAL Estimated Blood Loss Estimated blood loss (mL): NONE Specimens/Packing Specimens Removed NONE Packing: NONE NAHUM ROMERO MD Apr 27, 2020 10:05
--- NOTE | 2020-04-27 10:07 | Discharge Inst-Urology ---
Discharge Inst-Urology Reconcile Patient Problems Problems Reviewed?: Yes Final Diagnosis RT URETERAL STONE Patient Instructions/Follow Up Plan/Assessment/Instructions Please make appointment to been seen in office Wednesday 05/09. In 48 hours, if no bleeding, may resume warfarin Increase oral fluids for 48 hours and then as needed. Diet and Activity as tolerated. If questions or concerns contact your physician Or seek help at emergency department. NAHUM ROMERO MD Apr 27, 2020 10:07
[2020-04-27] MEDS ORDERED: SUGAMMADEX 500 MG/5 ML VIAL (BRIDION) IV ONE (11:23)
[2020-04-27] MEDS ORDERED: SEVOFLURANE (ULTANE) 15 ML INHAL SOLN ONE (11:27)
[2020-04-27] MEDS ORDERED: ONDANSETRON 4 MG/2 ML (SDV) Z0FRAN IVP PRN (11:30)
[2020-04-27] MEDS ORDERED: HYDROmorphone 2 MG/ML VIAL (DILAUDID) IV ONE (11:30)
--- NOTE | 2020-04-27 13:38 | OPERATIVE REPORT ---
DATE OF SERVICE: 04/27/2020 PREOPERATIVE DIAGNOSIS: Right ureteral stone. POSTOPERATIVE DIAGNOSIS: Right renal stone. OPERATION PERFORMED: Cystoscopy with right retrograde urogram. SURGEON: Tim Romero MD ANESTHESIA: General. COMPLICATIONS: None. DESCRIPTION OF PROCEDURE: Under satisfactory general anesthesia, the patient in lithotomy position, genitalia were prepped and draped in the usual sterile fashion. Cystoscope was introduced under vision. The anterior urethra was normal. The prostate was not really obstructing. The bladder neck was open. Bladder was inspected and was normal including the ureteral orifices. Using the foroblique lens, I passed a spiral tip 6-Czech ureteral catheter into the right ureteral orifice all the way up to the right kidney, guided fluoroscopically. I injected contrast and the only abnormality was a large filling defect in the renal pelvis as described by the CAT scan. I debated the next step. I emptied the bladder, removed the cystoscope, taped the ureteral catheter to the leg and then debated what to do next. The patient has only one functioning good kidney, which is the right side. He is on blood thinners. The stone is in the pelvis and is good size stone and is not going to drop down, may just cause intermittent discomfort as a ball valve mechanism. It is a radiolucent stone, cannot be seen by KUB, which make procedure tougher as well as later on if he passes fragments. I cannot put a stent now because I need the catheter to inject contrast to be able to see filling defect and that accordingly blasted. I decided not to perform and with the concern of lot of fragments and obstruction in a solitary kidney functioning. The patient will have one of two options that I will discuss with him and I had already discussed that with his daughter postoperatively either live with the stone as the stone is not going anywhere or send him to [facility] or else for percutaneous nephrolithotripsy. I will discuss that with him when he comes back at the office. Otherwise, the patient tolerated the procedure and anesthesia well and was sent to recovery room in stable condition. Job ID: [id number] DocumentID: [id number] Dictated Date: 04/27/2020 11:30:49 Production Supervisor Trainee Date: 04/27/2020 13:37:00 Dictated By: TIM ROMERO MD
--- NOTE | 2020-04-28 14:48 | Anesthesia-General Post-Op ---
General Patient Condition Mental Status/LOC: Same as Preop Cardiovascular: Satisfactory Nausea/Vomiting: Absent Respiratory: Satisfactory Pain: Controlled Complications: Absent Post Op Complications Complications None Follow Up Care/Instructions Patient Instructions None needed. Anesthesia/Patient Condition Patient Condition Patient is doing well, no complaints, stable vital signs, no apparent adverse anesthesia problems. No complications reported per nursing. D/C home per [facility] Criteria: Yes MELCHOR HUGHES CRNA Apr 28, 2020 14:48
== END 2020-04-27 13:00 | disposition home or self-care (01) ==
LOC: SDC 08:42
PROVIDERS: ATTEND Urology
DX: N20.2 Calculus of kidney with calculus of ureter (principal); M06.9 Rheumatoid arthritis, unspecified; Z88.0 Allergy status to penicillin; Z86.73 Personal history of transient ischemic attack (TIA), and cerebral infarction without residual deficits; Z86.718 Personal history of other venous thrombosis and embolism; Z85.038 Personal history of other malignant neoplasm of large intestine; Z79.899 Other long term (current) drug therapy; Z79.01 Long term (current) use of anticoagulants; Z87.891 Personal history of nicotine dependence; Z85.53 Personal history of malignant neoplasm of renal pelvis; Z90.49 Acquired absence of other specified parts of digestive tract
CPT/HCPCS: 36415; 74018; 76000; 85610; 87081

== ENCOUNTER 2020-05-20 16:24 | Emergency (ER) | payer MEDICARE, OTHER ==
[~2020-05-20 16:24] MED LIST changes: +MULT-567 PO; -MULT1TAB69 PO; +NF-SODBICA PO; -SODI650T PO; -WARF5TAB PO; +WARF5TAB2 PO
--- NOTE | 2020-05-20 16:33 | ED General ---
General Stated Complaint: VOMITING Source of Information: Patient History of Present Illness Date Seen by Provider: May 20, 2020 Time Seen by Provider: 16:28 Initial Comments 75-year-old male presents with vomiting. Patient reports started vomiting today and has vomited multiple times today. 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 Reports that his stools been a little looser than normal for the last couple weeks. He has some chills. He denies any cough, shortness of breath. He has some mild abdominal cramping. He also has a left great toe is very red and erythematous in which he took some pliers and pulled out part of the toenail. It does have an ulcer that has been there for a while he said. Patient denies any chest pain. Allergies and Home Medications Allergies Coded Allergies: Penicillins (Verified Allergy, Intermediate, 04/20/20) EYES SWELLED SHUT Home Medications Acetaminophen 500 Mg Tablet, 500 MG PO Q6H PRN for PAIN-MILD (1-4), (Reported) Amlodipine Besylate 10 Mg Tablet, 10 MG PO HS, (Reported) Ferrous Sulfate 325 Mg Tablet, 325 MG PO BID, (Reported) Hydroxychloroquine Sulfate 200 Mg Tablet, 200 MG PO BID, (Reported) Melatonin 10 Mg Tablet, 10 MG PO HS PRN for SLEEP, (Reported) Multivitamin 1 Each Tablet, 1 TAB PO DAILY, (Reported) Sodium Bicarbonate 650 Mg Tablet, 650 MG PO HS PRN for LOOSE STOOLS, (Reported) Temazepam 15 Mg Capsule, 15 MG PO HS PRN for SLEEP, (Reported) Patient Home Medication List Home Medication List Reviewed: Yes Review of Systems Review of Systems Constitutional: chills; No fever, No malaise, No weakness Respiratory: No cough, No short of breath Cardiovascular: No chest pain, No palpitations Gastrointestinal: abdominal pain, nausea, vomiting Genitourinary: No decreased output, No dysuria Musculoskeletal: No back pain Skin: see HPI Past Acwnclc-Mivfcc-Oyzajg Hx Past Med/Social Hx: Reviewed Nursing Past Med/Soc Hx Patient Social History Former Smoker, Quit: Apr 20, 2010 2nd Hand Smoke Exposure: Yes Recent Foreign Travel: No Contact w/Someone Who Travel: No Recent Hopitalizations: No Immunizations Up To Date Date of Influenza Vaccine: Sep 09, 2019 Seasonal Allergies Seasonal Allergies: No Past Medical History Surgeries: Yes (COLECTOMY WITH ILEOSTOMY 1973, SPINAL FUSION) Respiratory: Yes Pulmonary Embolism Cardiac: Yes Deep Vein Thrombosis Neurological: Yes Neuropathy Sexually Transmitted Disease: No HIV/AIDS: No Genitourinary: Yes (RENAL INSUFF.) Benign Prostatic Hyperpl, Renal Failure Gastrointestinal: Yes (COLECTOMY WITH ILEOSTOMY) Polyps Musculoskeletal: Yes Degenerate Disk Disease, Rheumatoid Arthritis, Chronic Back Pain Endocrine: No HEENT: Yes (GLASSES, DENTURES) Loss of Vision: Denies Hearing Impairment: Hard of Hearing Cancer: Yes Lung, Colon, Kidney Did You Recieve Any Treatments: Yes What Type of Treatment Did You: Chemotherapy Psychosocial: No Integumentary: Yes (VERY SENSITIVE SKIN) Blood Disorders: No Adverse Reaction/Blood Tranf: No (N/A) Family Medical History Patient reports no known family medical history. Physical Exam Vital Signs Vital Signs - First Documented 05/20/20 16:29 Temp 38.1 Pulse 90 Resp 18 B/P (MAP) 141/62 (88) Pulse Ox 96 Capillary Refill : Height, Weight, BMI Height: '" Weight: lbs. oz. kg; 22.79 BMI Method: General Appearance: No Apparent Distress HEENT: PERRL/EOMI Neck: Normal Inspection, Non Tender Respiratory: Lungs Clear, Normal Breath Sounds Cardiovascular: Regular Rate, Rhythm, No Edema Gastrointestinal: Soft; No Rebound; Tenderness (mild diffuse), Other (ileostomy ) Extremity: Swelling, Other (left great toe with some erythema, swelling, ulceration on the tip of the great toe) Neurologic/Psychiatric: Alert, Oriented x3, Normal Mood/Affect, compliance associate II-XII Norm as Tested Focused Exam Lactate Level 05/20/20 16:30: Lactic Acid Level 1.63 Lactic Acid Level Laboratory Tests Test 05/20/20 16:30 Lactic Acid Level 1.63 MMOL/L (0.50-2.00) Progress/Results/Core Measures Suspected Sepsis SIRS Temperature: Pulse: Respiratory Rate: Laboratory Tests 05/20/20 16:30: White Blood Count 10.8 Blood Pressure / Mean: 05/20/20 16:30: Lactic Acid Level 1.63 Laboratory Tests 05/20/20 16:30: Creatinine 2.31H, Platelet Count 99L, Total Bilirubin 0.7 Results/Orders Lab Results Laboratory Tests Test 05/20/20 16:30 Range/Units White Blood Count 10.8 4.3-11.0 10^3/uL Red Blood Count 3.10 L 4.35-5.85 10^6/uL Hemoglobin 9.2 L 13.3-17.7 G/DL Hematocrit 28 L 40-54 % Mean Corpuscular Volume 92 80-99 FL Mean Corpuscular Hemoglobin 30 25-34 PG Mean Corpuscular Hemoglobin Concent 32 32-36 G/DL Red Cell Distribution Width 14.3 10.0-14.5 % Platelet Count 99 L 130-400 10^3/uL Mean Platelet Volume 10.2 7.4-10.4 FL Neutrophils (%) (Auto) 91 H 42-75 % Lymphocytes (%) (Auto) 5 L 12-44 % Monocytes (%) (Auto) 4 0-12 % Eosinophils (%) (Auto) 0 0-10 % Basophils (%) (Auto) 0 0-10 % Neutrophils # (Auto) 9.8 H 1.8-7.8 X 10^3 Lymphocytes # (Auto) 0.5 L 1.0-4.0 X 10^3 Monocytes # (Auto) 0.4 0.0-1.0 X 10^3 Eosinophils # (Auto) 0.0 0.0-0.3 10^3/uL Basophils # (Auto) 0.0 0.0-0.1 10^3/uL Neutrophils % (Manual) 91 % Lymphocytes % (Manual) 3 % Monocytes % (Manual) 1 % Band Neutrophils 2 % Reactive Lymphocytes 3 % Sodium Level 137 135-145 MMOL/L Potassium Level 4.4 3.6-5.0 MMOL/L Chloride Level 107 98-107 MMOL/L Carbon Dioxide Level 18 L 21-32 MMOL/L Anion Gap 12 5-14 MMOL/L Blood Urea Nitrogen 41 H 7-18 MG/DL Creatinine 2.31 H 0.60-1.30 MG/DL Estimat Glomerular Filtration Rate 28 BUN/Creatinine Ratio 18 Glucose Level 135 H 70-105 MG/DL Lactic Acid Level 1.63 0.50-2.00 MMOL/L Calcium Level 8.4 L 8.5-10.1 MG/DL Corrected Calcium 9.0 8.5-10.1 MG/DL Magnesium Level 1.8 1.6-2.4 MG/DL Total Bilirubin 0.7 0.1-1.0 MG/DL Aspartate Amino Transf (AST/SGOT) 31 5-34 U/L Alanine Aminotransferase (ALT/SGPT) 27 0-55 U/L Alkaline Phosphatase 113 40-136 U/L Total Protein 5.8 L 6.4-8.2 GM/DL Albumin 3.3 3.2-4.5 GM/DL Lipase 19 8-78 U/L My Orders Orders - ASENCIO,ANGELA L DO Cbc With Automated Diff (05/20/20 16:35) Comprehensive Metabolic Panel (05/20/20 16:35) Lactic Acid Analyzer (05/20/20 16:35) Lipase (05/20/20 16:35) Magnesium (05/20/20 16:35) Ua Culture If Indicated (05/20/20 16:35) Ed Iv/Invasive Line Start (05/20/20 16:35) Ns Iv 500 Ml (Sodium Chloride 0.9%) (05/20/20 16:35) Ondansetron Injection (Zofran Injectio (05/20/20 16:45) Acute Abd Series (05/20/20 16:35) Manual Differential (05/20/20 16:30) Medications Given in ED Current Medications Medications Dose Ordered Sig/Darin Route Start Time Stop Time Status Last Admin Dose Admin Ondansetron HCl 4 mg ONCE ONCE IVP 05/20/20 16:45 05/20/20 16:46 DC 05/20/20 16:43 4 MG Sodium Chloride 500 ml @ 0 mls/hr Q0M ONCE IV 05/20/20 16:35 05/20/20 16:37 DC 05/20/20 16:42 999 MLS/HR Vital Signs/I&O 05/20/20 16:29 Temp 38.1 Pulse 90 Resp 18 B/P (MAP) 141/62 (88) Pulse Ox 96 Capillary Refill : Progress Note : Time: 17:43 Progress Note Patient reports that he is feeling great now. No more nausea patient has not vomited since he came to the ER. He does have a cellulitis of the left great toe. Patient was offered a CAT scan but at this time doesn't feel as needed. I will prescribe him some Zofran and Keflex. He has an appointment with his primary care provider in 3 days so we will have him keep that. Patient is stable and discharged home Diagnostic Imaging Diagonstic Imaging: Xray Plain Films/CT/US/NM/MRI: abdomen Comments NAME: [facility] REC#: [id number] PT STATUS: REG ER : 1945 PHYSICIAN: ANGELA ASENCIO DO ADMIT DATE: 05/20/20/ER FS Draft Date of Exam:05/20/20 ACUTE ABD SERIES HISTORY: Abdominal pain. COMPARISON: 04/27/2020. TECHNIQUE: Frontal view of the chest. Upright and supine frontal views of the abdomen. FINDINGS: Lung volumes are large. No focal consolidation is seen. The cardiac silhouette is mildly prominent. There is no pleural effusion or pneumothorax. Numerous calcified granulomas are seen in the lungs bilaterally and there are calcified lymph nodes in the tesha bilaterally, consistent with old granulomatous disease. No gaseous distention is seen of the bowel loops. No large collection of free air is seen. Overall, there is a paucity of bowel gas. 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 There is fusion at the lumbosacral junction. An IVC filter is noted. Surgical clips are noted in the right abdomen. There are degenerative changes in the spine. IMPRESSION: 1. No distended loops of small bowel are seen. There is no large collection of free air. 2. Large lung volumes with sequela from old granulomatous disease. No acute pulmonary abnormality is seen Departure Impression Primary Impression: Nausea and vomiting Qualified Codes: R11.2 - Nausea with vomiting, unspecified Additional Impression: Cellulitis of great toe, left Disposition: 01 HOME, SELF-CARE Condition: Stable Departure-Patient Inst. Referrals: ALIRIO CACERES MD (PCP/Family) Primary Care Physician Patient Instructions: Nausea and Vomiting, Adult, Cellulitis and Erysipelas (Skin Infections) Add. Discharge Instructions: Keep your appointment for next week with your primary care provider Return to the ER as needed Scripts Ondansetron (Ondansetron Odt) 4 Mg Tab.rapdis 4 MG PO Q6H PRN for NAUSEA/VOMITING, #20 TAB 0 Refills Prov: ANGELA ASENCIO DO 05/20/20 Cephalexin (Cephalexin) 500 Mg Tablet 500 MG PO QID, #20 TAB 0 Refills Prov: ANGELA ASENCIO DO 05/20/20 ANGELA ASENCIO DO May 20, 2020 16:33
[2020-05-20] MEDS ORDERED: NS IV 500 ML 500 ML IV ONE (16:35)
[2020-05-20] MEDS ORDERED: ONDANSETRON 4 MG/2 ML (SDV) Z0FRAN IVP ONE (16:45)
[2020-05-20 16:49] LABS: BASOPHILS % (AUTO) 0 % (0-10); EOSINOPHILS % (AUTO) 0 % (0-10); HEMATOCRIT 28 % (40-54); HEMOGLOBIN 9.2 G/DL (13.3-17.7); LYMPHOCYTES # (AUTO) 0.5 X 10^3 (1.0-4.0); LYMPHOCYTES % (AUTO) 5 % (12-44); MEAN CORPUSCULAR HEMOGLOBIN 30 PG (25-34); MEAN CORPUSCULAR HGB CONC 32 G/DL (32-36); MEAN CORPUSCULAR VOLUME 92 FL (80-99); MEAN PLATELET VOLUME 10.2 FL (7.4-10.4); MONOCYTES # (AUTO) 0.4 X 10^3 (0.0-1.0); MONOCYTES % (AUTO) 4 % (0-12); NEUTROPHILS # (AUTO) 9.8 X 10^3 (1.8-7.8); NEUTROPHILS % (AUTO) 91 % (42-75); PLATELET COUNT 99 10^3/uL (130-400); RED CELL DISTRIBUTION WIDTH 14.3 % (10.0-14.5); WHITE BLOOD COUNT 10.8 10^3/uL (4.3-11.0)
[2020-05-20 17:11] LABS: ALBUMIN 3.3 GM/DL (3.2-4.5); BILIRUBIN,TOTAL 0.7 MG/DL (0.1-1.0); CALCIUM 8.4 MG/DL (8.5-10.1); CREATININE SERUM 2.31 MG/DL (0.60-1.30); MAGNESIUM 1.8 MG/DL (1.6-2.4); POTASSIUM 4.4 MMOL/L (3.6-5.0); TOTAL PROTEIN 5.8 GM/DL (6.4-8.2)
--- NOTE | 2020-05-20 17:22 | Diagnostic Imaging Report ---
HISTORY: Abdominal pain. COMPARISON: 04/27/2020. TECHNIQUE: Frontal view of the chest. Upright and supine frontal views of the abdomen. FINDINGS: Lung volumes are large. No focal consolidation is seen. The cardiac silhouette is mildly prominent. There is no pleural effusion or pneumothorax. Numerous calcified granulomas are seen in the lungs bilaterally and there are calcified lymph nodes in the tesha bilaterally, consistent with old granulomatous disease. No gaseous distention is seen of the bowel loops. No large collection of free air is seen. Overall, there is a paucity of bowel gas. 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 There is fusion at the lumbosacral junction. An IVC filter is noted. Surgical clips are noted in the right abdomen. There are degenerative changes in the spine. IMPRESSION: 1. No distended loops of small bowel are seen. There is no large collection of free air. 2. Large lung volumes with sequela from old granulomatous disease. No acute pulmonary abnormality is seen. Dictated by: Dictated on workstation # [id number]
[2020-05-20 17:30] LABS: BAND NEUTROPHILS 2 %; LYMPHOCYTES % (MANUAL) 3 %; MONOCYTES % (MANUAL) 1 %; NEUTROPHILS % (MANUAL) 91 %; REACTIVE LYMPHOCYTES 3 %
[2020-05-20] MEDS ORDERED: ONDA4TAB11 PO (17:46)
[2020-05-20] MEDS ORDERED: CEPH500T PO (17:46)
[2020-05-20 17:48] VITALS: BP 108/44
--- OUTSIDE RECORDS SUMMARY | 2020-05-20 19:59 | XMS REPORT ---
Author Author Cuauhtemoc CACERES Organization [facility] Address [address] [place] [address] Care Team Providers Care Clinical Pharmacist Name Role Phone ALIRIO CACERES Unavailable PROBLEMS Type Condition ICD9-CM Code MWK52-ZF Code Onset Dates Condition S tatus SNOMED Code Problem Renal cell carcinoma of right kidney C64.1 Jul, Active 155201079 Problem Chronic deep vein thrombosis (DVT) of femoral vein of both lower extremities I82.513 Active 234134902315784 Problem skilled nursing current use of anticoagulant Z79.01 Active 304663728 Problem Malignant neoplasm of colon, unspecified part of colon C18.9 Active 540987356 Problem Ileostomy in place Z93.2 Active 3 29162940 Problem Seasonal allergic rhinitis due to pollen J30.1 Active 56226993 Problem Rheumatoid arthritis, involv ing unspecified site, unspecified rheumatoid factor presence M06.9 Active 24404926 Problem Malignant neoplasm of lung, unspecified laterality, unspecified part of lung C34.90 Active 589537538 Problem Chronic kidney disease, stage 4 (severe) N18.4 Active 254696798 Problem HTN (hypertension), benign I10 Act felix 91155867 Problem Chronic obstructive pulmonary disease, unspecified COPD ty pe J44.9 Active 10943846 Problem 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 Active 756089846 Problem Other pancytopenia D61.818 Active 1 14249773 Problem terminal gauger (current) use of anticoagulants Z79.01 Active 878211169 ALLERGIES Substance Reaction Event Type Date Status PCN Hives Non Drug Allergy Jan, Active ENCOUNTERS Encounter Location Date Diagnosis [address] 340[address] [id number] [place] [address] May, Encounter for Medicare annua l wellness exam Z00.[address] 340[address] [id number] [place] [address] Apr, skilled nursing (current) use of a nticoagulants Z79.01 [facility] [address] [id number] [place] [address] Apr, [facility] [address] 340B [id number] [place] [address] March, [facility] [address] [id number] [place] [address] March, skilled nursing (current) use of a nticoagulants Z79.01 [facility] [address] [id number] [place] [address] March, terminal gauger (current) use of a nticoagulants Z79.01 [facility] [address] [id number] [place] [address] March, skilled nursing (current) use of a nticoagulants Z79.01 [facility] [address] [id number] [place] [address] March, terminal gauger (current) use of a nticoagulants Z79.01 [facility] [address] [id number] [place] [address] Feb, terminal gauger (current) use of a nticoagulants Z79.01 [facility] [address] [id number] [place] [address] Feb, skilled nursing (current) use of a nticoagulants Z79.01 [facility] [address] 340B [id number] [place] [address] Feb, skilled nursing (current) use of a nticoagulants Z79.01 [facility] [address] 340B [id number] [place] [address] Feb, terminal gauger (current) use of a nticoagulants Z79.01 [facility] [address] [id number] [place] [address] Jan, skilled nursing (current) use of a nticoagulants Z79.01 [facility] [address] 340B [id number] [place] [address] Jan, [facility] [address] 340B [id number] [place] [address] Jan, skilled nursing (current) use of a nticoagulants Z79.01 [facility] [address] 340B [id number] [place] [address] Jan, Dressing change Z48.00 [facility] [address] [facility] [id number] [address] [place] [address] 18 Jan, 2020 [facility] [address] [id number] [place] [address] 17 Jan, 2020 Lower back pain M54.5 and UT I symptoms R39.9 [facility] [address] 340[address] [id number] [address] Jan, terminal gauger (current) use of a nticoagulants Z79.01 [facility] [address] 340B [id number] [place] [address] Jan, Dressing change Z48.[address] 340B [id number] [place] [address] Dec, Dressing change Z48.00 [facility] [address] 340B [id number] [place] [address] Dec, Cellulitis of trunk, unspeci fied site of trunk L03.319 [facility] [address] 340B [id number] [place] [address] Dec, [address] 340B [id number], [place] [address] Dec, [facility] [address] 340B [id number], [place] [address] Dec, skilled nursing (current) use of a nticoagulants Z79.01 [facility] [address] [id number] [place] [address] 20 Dec, 2019 terminal gauger current use of ant icoagulant Z79.01 [address] [id number] [place] [address] 14 Dec, 2019 Herpes zoster without compli cation B02.9 ; skilled nursing current use of anticoagulant Z79.01 ; Ileostomy in place Z93.2 ; Malignant neoplasm of colon, unspecified part of colon C18.9 and Chronic kidney disease, stage 4 (severe) N18.[address] 340B [id number] [place] [address] 13 Dec, [address] [id number] [place] [address] Dec, terminal gauger (current) use of a nticoagulants Z79.01 [address] [id number] [place] [address] 10 Dec, [address] 340B [id number] [place] [address] Dec, [facility] [address] [facility] [id number] [address] [place] [address] Dec, [address] 340B [id number] [place] [address] Dec, [address] [id number], [place] [address] Dec, [address] 340B [id number], [place] [address] Nov, [address] [id number] [place] [address] Nov, [address] [id number] [place] [address] Nov, terminal gauger (current) use of a nticoagulants Z79.[address] 340B [id number] [place] [address] 14 Nov, 2019 Other pancytopenia D61.[address] 340B [id number] [place] [address] 13 Nov, 2019 Other pancytopenia D61.818 ; 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 ; Ileostomy in place Z93.2 ; Rheumatoid arthritis, involving unspecified site, unspecified rheumatoid factor presence M06.9 ; Chronic obstructive pulmonary disease, unspecified COPD type J44.9 and Chronic deep vein thrombosis (DVT) of femoral vein of both lower extremities I82.[address] 340B [id number] [place] [address] 10 Nov, 2019 terminal gauger (current) use of a nticoagulants Z79.[address] 340B [id number] [place] [address] Nov, [address] 340B [id number] [place] [address] Nov, terminal gauger current use of ant icoagulant Z79.01 ; Chronic deep vein thrombosis (DVT) of femoral vein of both lower extremities I82.513 and A-fib I48.[address] 340B [id number] [place] [address] Oct, [address] 340B [id number] [place] [address] Oct, [address] 340B [id number] [place] [address] Oct, skilled nursing current use of ant icoagulant Z79.[address] 340B [id number] [place] [address] Oct, Chronic obstructive pulmonar y disease, unspecified COPD type J44.9 ; 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 ; Other pancytopenia D61.818 ; Acute right-sided low back pain without sciatica M54.5 ; HTN (hypertension), benign I10 and skilled nursing current use of anticoagulant Z79.01 [facility] [address] [id number] [place] [address] Oct, skilled nursing current use of ant icoagulant Z79.01 and A-fib I48.91 [facility] [address] [id number] [place] [address] Oct, HTN (hypertension), benign I 10 and skilled nursing current use of anticoagulant Z79.01 [facility] [address] [id number] [place] [address] Oct, terminal gauger (current) use of a nticoagulants Z79.01 [facility] [address] [id number] [place] [address] Sep, [facility] [address] [id number] [place] [address] Sep, skilled nursing (current) use of a nticoagulants Z79.01 [facility] [address] [id number] [place] [address] Sep, [facility] [address] [id number] [place] [address] Sep, skilled nursing (current) use of a nticoagulants Z79.01 [facility] [address] 340B [id number] [place] [address] Aug, [facility] [address] 340B [id number] [place] [address] Aug, [facility] [address] [id number] [place] [address] Aug, [facility] [address] 340B [id number] [place] [address] Aug, skilled nursing (current) use of a nticoagulants Z79.01 [facility] [address] [id number] [place] [address] Aug, [facility] [address] [id number] [place] [address] Aug, terminal gauger (current) use of a nticoagulants Z79.01 [facility] [address] [id number] [place] [address] Aug, skilled nursing (current) use of a nticoagulants Z79.01 [facility] [address] [id number] [place] [address] Aug, Back pain M54.9 [facility] [address] 340B [id number] [place] [address] Jul, Seasonal allergic rhinitis d ue to pollen J30.1 [facility] [address] [id number] [place] [address] Jul, [facility] [address] [id number] [place] [address] Jul, [facility] [address] [id number] [place] [address] Jul, skilled nursing (current) use of a nticoagulants Z79.01 [facility] [address] [id number] [place] [address] Jun, terminal gauger (current) use of a nticoagulants Z79.01 [facility] [address] [id number] [place] [address] Jun, skilled nursing (current) use of a nticoagulants Z79.01 [facility] [address] [id number] [place] [address] Jun, [facility] [address] [id number] [place] [address] Jun, [facility] [address] [id number] [place] [address] Jun, terminal gauger (current) use of a nticoagulants Z79.01 [facility] [address] 340B [id number] [place] [address] Jun, HTN (hypertension), benign I 10 ; Encounter for Medicare annual wellness exam Z00.00 ; skilled nursing (current) use of anticoagulants Z79.01 ; Ileostomy in place Z93.2 and Back pain at L4-L5 level M54.5 [facility] [address] 340B [id number] [place] [address] May, Encounter for Medicare annua l wellness exam Z00.00 ; HTN (hypertension), benign I10 ; skilled nursing (current) use of anticoagulants Z79.01 ; Ileostomy in place Z93.2 and Back pain at L4-L5 level M54.5 [facility] [address] 340B [id number] [place] [address] May, skilled nursing (current) use of a nticoagulants Z79.01 [facility] [address] 340B [id number], [place] [address] May, skilled nursing (current) use of a nticoagulants Z79.01 [facility] [address] 340B [id number] [place] [address] May, Back pain M54.9 [facility] [address] 340B [id number] [place] [address] May, skilled nursing (current) use of a nticoagulants Z79.01 [facility] [address] [id number] [address] May, [facility] [address] 340B [id number] [place] [address] May, Acute bilateral thoracic ginny k pain M54.6 and Back pain M54.9 [facility] [address] [id number] [address] [place] [address] Apr, Back pain, unspecified back location, unspecified back pain laterality, unspecified chronicity M54.9 [facility] [address] [facility] [id number] [address] [place] [address] Apr, [facility] [address] [id number] [place] [address] Apr, Bilateral low back pain with out sciatica, unspecified chronicity M54.5 [facility] [address] 340B [id number] [place] [address] Apr, [facility] [address] 340B [id number] [place] [address] Apr, skilled nursing (current) use of a nticoagulants Z79.01 [facility] [address] 340 [id number] [place] [address] Apr, Back pain M54.9 [facility] [address] 340B [id number] [place] [address] Apr, Back pain M54.9 [facility] [address] 340B [id number] [place] [address] March, [facility] [address] 340B [id number] [place] [address] March, Back pain M54.9 ; Chronic de ep vein thrombosis (DVT) of femoral vein of both lower extremities I82.513 ; Malignant neoplasm of colon, unspecified part of colon C18.9 ; Malignant neoplasm of lung, unspecified laterality, unspecified part of lung C34.[address] Z93.2 [facility] [address] 340B [id number] [place] [address] March, [facility] [address] 340B [id number] [place] [address] March, terminal gauger (current) use of a nticoagulants Z79.01 [facility] [address] [id number] [place] [address] March, [facility] [address] 340B [id number] [place] [address] March, terminal gauger (current) use of a nticoagulants Z79.01 [facility] [address] [id number] [place] [address] Feb, [facility] [address] 340B [id number] [place] [address] Feb, Malignant neoplasm of colon, unspecified part of colon C18.9 ; Right lower quadrant abdominal pain R10.31 ; Ileostomy in place Z93.2 ; Chronic deep vein thrombosis (DVT) of femoral vein of both lower extremities I82.513 and Malignant neoplasm of lung, unspecified laterality, unspecified part of lung C34.90 [facility] [address] 340B [id number] [place] [address] Feb, skilled nursing (current) use of a nticoagulants Z79.01 [facility] [address] [id number] [place] [address] Feb, terminal gauger (current) use of a nticoagulants Z79.01 [facility] [address] [id number] [place] [address] Feb, [facility] [address] [id number] [place] [address] Feb, terminal gauger (current) use of a nticoagulants Z79.01 [facility] [address] [id number] [place] [address] Feb, terminal gauger (current) use of a nticoagulants Z79.01 [facility] [address] [id number] [place] [address] Feb, [facility] [address] [id number] [place] [address] Jan, HTN (hypertension), benign I 10 [facility] [address] 340B [id number] [place] [address] Jan, terminal gauger (current) use of a nticoagulants Z79.01 ; HTN (hypertension), benign I10 ; Chronic deep vein thrombosis (DVT) of femoral vein of both lower extremities I82.513 ; Malignant neoplasm of colon, unspecified part of colon C18.9 and Malignant neoplasm of lung, unspecified laterality, unspecified part of lung C34.[address] 340 [id number] [place] [address] Jan, skilled nursing (current) use of a nticoagulants Z79.01 [facility] [address] [facility] [id number] [address] [place] [address] Jan, HTN (hypertension), benign I [address] 340[address] [id number], [place] [address] Jan, HTN (hypertension), benign I 10 and skilled nursing (current) use of anticoagulants Z79.[address] 340B [id number], [place] [address] Dec, skilled nursing current use of ant icoagulant Z79.01 [facility] [address] [facility] [id number] [address] [place] [address] 14 Dec, 2018 skilled nursing current use of ant icoagulant Z79.[address] 340[address] [id number] [place] [address] 13 Dec, 2018 skilled nursing (current) use of a nticoagulants Z79.01 [place] [address] [facility] [id number] [address] [place] [address] 13 Dec, 2018 skilled nursing (current) use of a nticoagulants Z79.[address] 340B [id number] [place] [address] 06 Dec, 2018 skilled nursing current use of ant icoagulant Z79.01 ; HTN (hypertension), benign I10 ; Chronic deep vein thrombosis (DVT) of femoral vein of both lower extremities I82.513 ; Malignant neoplasm of colon, unspecified part of colon C18.9 and Malignant neoplasm of lung, unspecified laterality, unspecified part of lung C34.[address] 340B [id number] [place] [address] Dec, [address] 340B [id number] [place] [address] Dec, terminal gauger current use of ant icoagulant Z79.01 IMMUNIZATIONS No Known Immunizations SOCIAL HISTORY Never Assessed REASON FOR VISIT 1 Month F/U- with Labs PLAN OF CARE VITAL SIGNS Height 6ft 1in in 2019-02-05 Weight 172 lbs 2019-02-05 BMI 22.69 kg/m2 2019-02-05 Blood pressure systolic 118 mmHg 2019-02-05 Blood pressure diastolic 64 mmHg 2019-02-05 MEDICATIONS Medication Instructions Dosage Frequency Start Date End Date Duration S tatus Amlodipine Besylate 10 MG Orally Once a day 1 tablet 24h 30 day(s) Active Melatonin 10 MG as directed Acti ve Hydroxychloroquine Sulfate 200 MG Orally 2 times a day 1 tab let with food or milk 12h 10 day(s) Active Temazepam 15 MG Orally Once a day 1 capsule at bedtime as needed 24h Active Iron (Ferrous Sulfate) 142 (45 Fe) MG Orally Once a day 1 tablet 24h 30 day(s) Active Coumadin 3 MG Orally Once a day 1 tablet 24h Dec, 30 day(s) Active Coumadin 3 MG Orally Once a day 1 tablet 24h 30 day( s) Active PredniSONE 10 MG Orally Every Other Day 1 tablet 30 day(s) Active Sodium Bicarbonate 650 MG as directed Active Multi Vitamin - Orally Once a day 1 tablet 24h 30 da y(s) Active RESULTS Name Result Date Reference Range INR (IN HOUSE) INR 1.8 1.10 - 3.30 PREVIOUS INR 3.2 CURRENT COUMADIN DOSE NEW COUMADIN DOSE Lot # [id number] Exp date 03/2020 PROCEDURES Procedure Date Ordered Result Body Site PROTHROMBIN TIME February 05, 2019 INSTRUCTIONS MEDICATIONS ADMINISTERED No Known Medications MEDICAL [...] Nahomy 11/1979 Surgical History Laminectomy-Dr Cedillo at [facility] 12/09/2019 Hospitalization History Hip Replacement 11/2014
--- OUTSIDE RECORDS SUMMARY | 2020-05-20 20:00 | XMS REPORT | Continuity of Care Document ---
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 06/04/2019 PAULETTE, YOVANI ORE TRIMMER Ot N20.0 CALCULUS OF KIDNEY 06/04/2019 PAULETTE, YOVANI ORE TRIMMER Ot S22.04 0A WEDGE COMPRESSION FRACTURE OF FOURTH THO 06/04/2019 PAULETTE, YOVANI ORE TRIMMER Ot S22.05 0A WEDGE COMPRESSION FRACTURE OF T5-T6 VERT 06/05/2019 PAULETTE YOVANI ORE TRIMMER Ot J84.10 PULMONARY FIBROSIS, UNSPECIFIED 06/05/2019 PAULETTE, YOVANI ORE TRIMMER Ot J90 PLEURAL EFFUSION, NOT ELSEWHERE CLASSIFI 06/05/2019 PAULETTE, YOVANI ORE TRIMMER Ot 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 06/05/2019 PAULETTE, YOVANI ORE TRIMMER Ot N20.0 CALCULUS OF KIDNEY 06/05/2019 PAULETTE, YOVANI ORE TRIMMER Ot S22.04 0A WEDGE COMPRESSION FRACTURE OF FOURTH THO 06/05/2019 PAULETTE, YOVANI ORE TRIMMER Ot S22.05 0A WEDGE COMPRESSION FRACTURE OF [...] MON 12/25/2019 ALIRIO CACERES MD Ot 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 12/25/2019 ALIRIO CACERES MD Ot Z51.81 ENCOUNTER FOR THERAPEUTIC DRUG LEVEL MON 12/25/2019 ALIRIO CACERES MD Ot Z79.01 ASSISTED (CURRENT) USE OF ANTICOAGULANT 01/05/2020 BETO CALI MD Ot L03.3 13 CELLULITIS OF CHEST WALL 01/05/2020 BETO CALI MD Ot L23.1 ALLERGIC CONTACT DERMATITIS DUE TO ADHES 01/05/2020 BETO CALI MD Ot Z79.0 1 ASSISTED (CURRENT) USE OF ANTICOAGULANT 01/05/2020 BETO CALI MD Ot Z79.5 2 ASSISTED (CURRENT) USE OF SYSTEMIC STER 01/05/2020 BETO [...] RIGHT LOWER QUADRANT PAIN 01/05/2020 PAULETTE, YOVANI ORE TRIMMER Ot J84.10 PULMONARY FIBROSIS, UNSPECIFIED 01/05/2020 PAULETTE, YOVANI ORE TRIMMER Ot J90 PLEURAL EFFUSION, NOT ELSEWHERE CLASSIFI 01/05/2020 PAULETTE, YOVANI ORE TRIMMER Ot 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 01/05/2020 PAULETTE, YOVANI ORE TRIMMER Ot N20.0 CALCULUS OF KIDNEY 01/05/2020 PAULETTE, YOVANI ORE TRIMMER Ot S22.04 0A WEDGE COMPRESSION FRACTURE OF FOURTH THO 01/05/2020 PAULETTE, YOVANI ORE TRIMMER Ot S22.05 0A WEDGE COMPRESSION FRACTURE OF [...] MON 01/05/2020 ALIRIO CACERES MD, Ot Z79.01 ASSISTED (CURRENT) USE OF ANTICOAGULANT 01/18/2020 ALIRIO CACERES MD, Ot Z51.81 ENCOUNTER FOR THERAPEUTIC DRUG LEVEL MON 01/18/2020 ALIRIO CACERES MD, Ot Z79.01 ASSISTED (CURRENT) USE OF ANTICOAGULANT 01/26/2020 ALIRIO CACERES MD Ot K63.89 OTHER SPECIFIED DISEASES OF INTESTINE 01/26/2020 ALIRIO CACERES MD Ot R10.31 RIGHT LOWER QUADRANT PAIN 01/26/2020 PAULETTE YOVANI ORE TRIMMER Ot J84.10 PULMONARY FIBROSIS, UNSPECIFIED 01/26/2020 PAULETTE YOVANI ORE TRIMMER Ot J90 PLEURAL EFFUSION, NOT ELSEWHERE CLASSIFI 01/26/2020 PAULETTE, YOVANI ORE TRIMMER Ot 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 01/26/2020 APULETTE YOVANI ORE TRIMMER Ot N20.0 CALCULUS OF KIDNEY 01/26/2020 PAULETTE YOVANI ORE TRIMMER Ot S22.04 0A WEDGE COMPRESSION FRACTURE OF FOURTH THO 01/26/2020 PAULETTE, YOVANI ORE TRIMMER Ot S22.05 0A WEDGE COMPRESSION FRACTURE OF [...] MON 01/26/2020 ALIRIO CACERES MD, Ot Z79.01 ASSISTED (CURRENT) USE OF ANTICOAGULANT 01/26/2020 ALIRIO CACERES MD Ot K63.89 OTHER SPECIFIED DISEASES OF INTESTINE 01/26/2020 ALIRIO CACERES MD Ot R10.31 RIGHT LOWER QUADRANT PAIN 01/26/2020 PAULETTE, YOVANI ORE TRIMMER Ot J84.10 PULMONARY FIBROSIS, UNSPECIFIED 01/26/2020 PAULETTE, YOVANI ORE TRIMMER Ot J90 PLEURAL EFFUSION, NOT ELSEWHERE CLASSIFI 01/26/2020 PAULETTE, YOVANI ORE TRIMMER Ot 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 01/26/2020 PAULETTE, YOVANI ORE TRIMMER Ot N20.0 CALCULUS OF KIDNEY 01/26/2020 PAULETTE, YOVANI ORE TRIMMER Ot S22.04 0A WEDGE COMPRESSION FRACTURE OF FOURTH THO 01/26/2020 PAULETTE, YOVANI ORE TRIMMER Ot S22.05 0A WEDGE COMPRESSION FRACTURE OF [...] MON 01/26/2020 ALIRIO CACERES MD, Ot 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 01/26/2020 ALIRIO CACERES MD, Ot K63.89 OTHER SPECIFIED DISEASES OF INTESTINE 01/26/2020 ALIRIO CACERES MD Ot R10.31 RIGHT LOWER QUADRANT PAIN 01/26/2020 PAULETTE, YOVANI ORE TRIMMER Ot J84.10 PULMONARY FIBROSIS, UNSPECIFIED 01/26/2020 PAULETTE, YVOANI ROMERO Ot J90 PLEURAL EFFUSION, NOT ELSEWHERE CLASSIFI 01/26/2020 PAULETTE, YOVANI MATTHEWSP Ot 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 01/26/2020 YOVANI CALDWELL ORE TRIMMER Ot N20.0 CALCULUS OF KIDNEY 01/26/2020 PAULETTE, YOVANI ORE TRIMMER Ot S22.04 0A WEDGE COMPRESSION FRACTURE OF FOURTH THO 01/26/2020 PAULETTE, YOVANI ORE TRIMMER Ot S22.05 0A WEDGE COMPRESSION FRACTURE OF [...] 01/26/2020 NICKI FELTON, ALIRIO Dominguez Ot 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 01/26/2020 MATILDA KNIGHT DO Ot N13 .2 HYDRONEPHROSIS WITH RENAL AND URETERAL C 01/26/2020 MATILDA KNIGHT DO Ot N28 .9 DISORDER OF KIDNEY AND URETER, UNSPECIFI 01/26/2020 MATILDA KNIGHT DO Ot R79 .1 ABNORMAL COAGULATION PROFILE 01/26/2020 MATILDA KNIGHT DO, Ot 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 01/26/2020 MATILDA KNIGHT DO, Ot Z79.52 BAR HOST/HOSTESS (CURRENT) USE OF SYSTEMIC STER 01/26/2020 MATILDA [...] RIGHT LOWER QUADRANT PAIN 01/26/2020 PAULETTE, YOVANI ORE TRIMMER Ot J84.10 PULMONARY FIBROSIS, UNSPECIFIED 01/26/2020 PAULETTE, YOVANI ORE TRIMMER Ot J90 PLEURAL EFFUSION, NOT ELSEWHERE CLASSIFI 01/26/2020 PAULETTE, YOVANI ORE TRIMMER Ot 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 01/26/2020 PAULETTE, YOVANI ORE TRIMMER Ot N20.0 CALCULUS OF KIDNEY 01/26/2020 PAULETTE, YOVANI ORE TRIMMER Ot S22.04 0A WEDGE COMPRESSION FRACTURE OF FOURTH THO 01/26/2020 PAULETTE, YOVANI ORE TRIMMER Ot S22.05 0A WEDGE COMPRESSION FRACTURE OF [...] MON 01/26/2020 ALIRIO CACERES MD, Ot Z79.01 ASSISTED (CURRENT) USE OF ANTICOAGULANT 01/28/2020 MATILDA KNIGHT DO Ot N13 .2 HYDRONEPHROSIS WITH RENAL AND URETERAL C 01/28/2020 MATILDA KNIGHT DO M Ot N28 .9 DISORDER OF KIDNEY AND URETER, UNSPECIFI 01/28/2020 [facility] .[facility] ABNORMAL COAGULATION PROFILE 01/28/2020 [facility] Z79.01 ASSISTED (CURRENT) USE OF ANTICOAGULANT 01/28/2020 [facility] Z79.52 BAR HOST/HOSTESS (CURRENT) USE OF SYSTEMIC STER 01/28/2020 [facility], MATILDA Hyatt Ot Z85.038 PERSONAL HISTORY OF MALIGNANT NEOPLASM O 01/28/2020 [facility], MATILDA Hyatt Ot Z85.118 PERSONAL HISTORY OF MALIGNANT NEOPLASM O 01/28/2020 [facility], MATILDA Hyatt Ot Z85.528 PERSONAL HISTORY OF OTHER MALIGNANT NEOP 01/28/2020 [facility] Ot Z86.711 PERSONAL HISTORY OF PULMONARY EMBOLISM 01/28/2020 [facility] Ot Z86.718 PERSONAL HISTORY OF OTHER VENOUS THROMBO 01/28/2020 [facility] Ot Z88 .0 ALLERGY STATUS TO PENICILLIN 01/28/2020 NICKI FELTON, ALIRIO Dominguez Ot K63.89 OTHER SPECIFIED DISEASES OF INTESTINE 01/28/2020 NICKI FELTON, ALIRIO Dominguez Ot R10.31 RIGHT LOWER QUADRANT PAIN 01/28/2020 YOVANI CALDWELLP Ot J84.10 PULMONARY FIBROSIS, UNSPECIFIED 01/28/2020 PAULETTE YOVANI ORE TRIMMER Ot J90 PLEURAL EFFUSION, NOT ELSEWHERE CLASSIFI 01/28/2020 PAULETTE YOVANI ORE TRIMMER Ot 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 01/28/2020 YOVANI CALDWELL ORE TRIMMER Ot N20.0 CALCULUS OF KIDNEY 01/28/2020 PAULETTE YOVANI ORE TRIMMER Ot S22.04 0A WEDGE COMPRESSION FRACTURE OF FOURTH THO 01/28/2020 PAULETTE YOVANI ORE TRIMMER Ot S22.05 0A WEDGE COMPRESSION FRACTURE OF [...] MON 01/28/2020 ALIRIO CACERES MD Ot 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 02/02/2020 NAHUM ROMERO [...] J84.10 PULMONARY FIBROSIS, UNSPECIFIED 04/08/2020 PAULETTE, YOVANI ORE TRIMMER Ot J90 PLEURAL EFFUSION, NOT ELSEWHERE CLASSIFI 04/08/2020 PAULETTE, YOVANI ORE TRIMMER Ot 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 04/08/2020 PAULETTE, YOVANI ORE TRIMMER Ot N20.0 CALCULUS OF KIDNEY 04/08/2020 PAULETTE, [...] MON 04/08/2020 ALIRIO CACERES MD Ot Z79.01 ASSISTED (CURRENT) USE OF ANTICOAGULANT 04/08/2020 NAHUM ROMERO [...] RIGHT LOWER QUADRANT PAIN 04/08/2020 PAULETTE, YOVANI ORE TRIMMER Ot J84.10 PULMONARY FIBROSIS, UNSPECIFIED 04/08/2020 PAULETTE, YOVANI ORE TRIMMER Ot J90 PLEURAL EFFUSION, NOT ELSEWHERE CLASSIFI 04/08/2020 PAULETTE, YOVANI ORE TRIMMER Ot 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 04/08/2020 PAULETTE, YOVANI ORE TRIMMER Ot N20.0 CALCULUS OF KIDNEY 04/08/2020 PAULETTE, YOVANI ORE TRIMMER Ot S22.04 0A WEDGE COMPRESSION FRACTURE OF FOURTH THO 04/08/2020 PAULETTE, YOVANI ORE TRIMMER Ot S22.05 0A WEDGE COMPRESSION FRACTURE OF [...] MON 04/08/2020 ALIRIO CACERES MD Ot Z79.01 ASSISTED (CURRENT) USE OF ANTICOAGULANT 04/08/2020 NAHUM ROMERO [...] RIGHT LOWER QUADRANT PAIN 04/11/2020 PAULETTE, YOVANI ORE TRIMMER Ot J84.10 PULMONARY FIBROSIS, UNSPECIFIED 04/11/2020 PAULETTE, YOVANI ORE TRIMMER Ot J90 PLEURAL EFFUSION, NOT ELSEWHERE CLASSIFI 04/11/2020 PAULETTE, YOVANI ORE TRIMMER Ot 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 04/11/2020 PAULETTE, YOVANI ORE TRIMMER Ot N20.0 CALCULUS OF KIDNEY 04/11/2020 PAULETTE, YOVANI ORE TRIMMER Ot S22.04 0A WEDGE COMPRESSION FRACTURE OF FOURTH THO 04/11/2020 PAULETTE, YOVANI ORE TRIMMER Ot S22.05 0A WEDGE COMPRESSION FRACTURE OF [...] MON 04/11/2020 ALIRIO CACERES MD Ot 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 04/11/2020 NAHUM ROMERO [...] RIGHT LOWER QUADRANT PAIN 04/15/2020 PAULETTE, YOVANI ORE TRIMMER Ot J84.10 PULMONARY FIBROSIS, UNSPECIFIED 04/15/2020 PAULETTE, YOVANI ORE TRIMMER Ot J90 PLEURAL EFFUSION, NOT ELSEWHERE CLASSIFI 04/15/2020 PAULETTE, YOVANI ORE TRIMMER Ot 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 04/15/2020 PAULETTE, YOVANI ORE TRIMMER Ot N20.0 CALCULUS OF KIDNEY 04/15/2020 PAULETTEYOVANIP Ot S22.04 0A WEDGE COMPRESSION FRACTURE OF FOURTH THO 04/15/2020 PAULETTE, YOVANI ORE TRIMMER Ot S22.05 0A WEDGE COMPRESSION FRACTURE OF [...] MON 04/15/2020 ALIRIO CACERES MD, Ot Z79.01 ASSISTED (CURRENT) USE OF ANTICOAGULANT 04/15/2020 NAHUM ROMERO [...] MD, Ot Z98.1 ARTHRODESIS STATUS 04/15/2020 NAHUM ROMERO MD, Ot N20.0 CALCULUS OF KIDNEY 04/19/2020 [...] Ot N20.0 CALCULUS OF KIDNEY 04/19/2020 YOVANI CADLWELL Ot S22.04 0A WEDGE COMPRESSION FRACTURE OF [...] MON 04/19/2020 ALIRIO CACERES MD Ot Z79.01 ASSISTED (CURRENT) USE OF ANTICOAGULANT 04/19/2020 NAHUM ROMERO [...] J84.10 PULMONARY FIBROSIS, UNSPECIFIED 04/20/2020 PAULETTE YOVANI ORE TRIMMER Ot J90 PLEURAL EFFUSION, NOT ELSEWHERE CLASSIFI 04/20/2020 YOVANI CALDWELLP Ot 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 04/20/2020 YOVANI CALDWELL ORE TRIMMER Ot N20.0 CALCULUS OF KIDNEY 04/20/2020 YOVANI CALDWELL ORE TRIMMER Ot S22.04 0A WEDGE COMPRESSION FRACTURE OF FOURTH THO 04/20/2020 YOVANI CALDWELL ORE TRIMMER Ot S22.05 0A WEDGE COMPRESSION FRACTURE OF [...] MON 04/20/2020 ALIRIO CACERES MD Ot 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 04/20/2020 NAHUM ROMERO [...] RIGHT LOWER QUADRANT PAIN 04/25/2020 PAULETTE YOVANI ORE TRIMMER Ot J84.10 PULMONARY FIBROSIS, UNSPECIFIED 04/25/2020 PAULETTE, YOVANI ORE TRIMMER Ot J90 PLEURAL EFFUSION, NOT ELSEWHERE CLASSIFI 04/25/2020 PAULETTE, YOVANI ORE TRIMMER Ot 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 04/25/2020 PAULETTE YOVANI ORE TRIMMER Ot N20.0 CALCULUS OF KIDNEY 04/25/2020 PAULETTE YOVANI ORE TRIMMER Ot S22.04 0A WEDGE COMPRESSION FRACTURE OF FOURTH THO 04/25/2020 PAULETTE YOVANI ORE TRIMMER Ot S22.05 0A WEDGE COMPRESSION FRACTURE OF [...] MON 04/25/2020 ALIRIO CACERES MD Ot 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 04/25/2020 NAHUM ROMERO [...] MON 04/25/2020 ALIRIO CACERES MD Ot Z79.01 ASSISTED (CURRENT) USE OF ANTICOAGULANT 04/25/2020 NAHUM ROMERO MD Ot N20.1 CALCULUS OF URETER 04/25/2020 NAHUM ROMERO MD, Ot Z01.8 18 ENCOUNTER FOR OTHER PREPROCEDURAL EXAMIN 04/25/2020 NAHUM ROMERO MD, Ot M46.0 6 SPINAL ENTHESOPATHY, LUMBAR REGION 04/25/2020 NAHUM ROMERO MD, Ot N20.1 CALCULUS OF URETER 04/25/2020 NAHUM ORMERO MD, Ot Z96.6 43 PRESENCE OF ARTIFICIAL [...] RIGHT LOWER QUADRANT PAIN 04/25/2020 PAULETTE, YOVANI ORE TRIMMER Ot J84.10 PULMONARY FIBROSIS, UNSPECIFIED 04/25/2020 PAULETTE, YOVANI ORE TRIMMER Ot J90 PLEURAL EFFUSION, NOT ELSEWHERE CLASSIFI 04/25/2020 PAULETTE, YOVANI ORE TRIMMER Ot 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 04/25/2020 PAULETTE, YOVANI ORE TRIMMER Ot N20.0 CALCULUS OF KIDNEY 04/25/2020 PAULETTE YOVANI ORE TRIMMER Ot S22.04 0A WEDGE COMPRESSION FRACTURE OF FOURTH THO 04/25/2020 PAULETTE, YOVANI ORE TRIMMER Ot S22.05 0A WEDGE COMPRESSION FRACTURE OF [...] MON 04/25/2020 ALIRIO CACERES MD Ot Z79.01 ASSISTED (CURRENT) USE OF ANTICOAGULANT 04/25/2020 NAHUM ROMERO [...] Ot Z98.8 90 OTHER SPECIFIED POSTPROCEDURAL STATES 04/27/2020 NAHUM ROMERO MD, Ot Z01.8 18 ENCOUNTER FOR OTHER PREPROCEDURAL EXAMIN 04/27/2020 ALIRIO CACERES MD Ot K63.89 OTHER SPECIFIED DISEASES OF INTESTINE 04/27/2020 ALIRIO CACERES MD Ot R10.31 RIGHT LOWER QUADRANT PAIN 04/27/2020 YOVANI CALDWELL Ot J84.10 PULMONARY FIBROSIS, UNSPECIFIED 04/27/2020 YOVANI CALDWELLP Ot J90 PLEURAL EFFUSION, NOT ELSEWHERE CLASSIFI 04/27/2020 YOVANI CALDWELL Ot 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 04/27/2020 YOVANI CALDWELLP Ot N20.0 CALCULUS OF KIDNEY 04/27/2020 YOVANI CALDWELL Ot S22.04 0A WEDGE COMPRESSION FRACTURE OF FOURTH THO 04/27/2020 YOVANI CALDWELL HEATHER Ot S22.05 0A WEDGE COMPRESSION FRACTURE OF T5-T6 VERT 04/27/2020 NAHUM ROMERO MD Ot R10.9 UNSPECIFIED ABDOMINAL PAIN 04/27/2020 NAHUM ROMERO MD, Ot R31.2 9 OTHER MICROSCOPIC HEMATURIA 04/27/2020 NAHUM ROMERO MD, Ot Z85.1 18 PERSONAL HISTORY OF MALIGNANT NEOPLASM O 04/27/2020 NAHUM ROMERO MD, Ot Z85.5 3 PERSONAL HISTORY OF MALIGNANT NEOPLASM O 04/27/2020 NAHUM ROMERO MD, Ot Z87.4 42 PERSONAL HISTORY OF URINARY CALCULI 04/27/2020 NAHUM ROMERO MD, Ot Z90.4 9 ACQUIRED ABSENCE OF OTHER SPECIFIED PART 04/27/2020 ALIRIO CACERES MD Ot Z51.81 ENCOUNTER FOR THERAPEUTIC DRUG LEVEL MON 04/27/2020 ALIRIO CACERES MD Ot 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 04/27/2020 NAHUM ROMERO MD Ot N20.1 CALCULUS OF URETER 04/27/2020 NAHUM ROMERO MD, Ot Z01.8 18 ENCOUNTER FOR OTHER PREPROCEDURAL EXAMIN 04/27/2020 NAHUM ROMERO MD, Ot M46.0 6 SPINAL ENTHESOPATHY, LUMBAR REGION 04/27/2020 NAHUM ROMERO MD, Ot N20.1 CALCULUS OF URETER 04/27/2020 NAHUM ROMERO MD, Ot 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, BILATE 04/27/2020 NAHUM ROMERO MD, Ot Z98.1 ARTHRODESIS STATUS 04/27/2020 NAHUM ROMERO MD, Ot N20.0 CALCULUS OF KIDNEY 04/27/2020 NAHUM ROMERO MD Ot D71 FUNCTIONAL DISORDERS OF POLYMORPHONUCLEA 04/27/2020 NAHUM ROMERO MD, Ot D73.8 9 OTHER DISEASES OF SPLEEN 04/27/2020 NAHUM ROMERO MD, Ot I99.8 OTHER DISORDER OF CIRCULATORY SYSTEM 04/27/2020 NAHUM ROMERO MD, Ot M19.9 0 UNSPECIFIED OSTEOARTHRITIS, UNSPECIFIED 04/27/2020 HEATHER MD, NAHUM A Ot N20.0 CALCULUS OF KIDNEY 04/27/2020 NAHUM ROMERO MD, Ot Z98.8 90 OTHER SPECIFIED POSTPROCEDURAL STATES 04/27/2020 NAHUM ROMERO MD, Ot Z01.8 18 ENCOUNTER FOR OTHER PREPROCEDURAL EXAMIN 04/27/2020 NAHUM ROMERO MD, Ot M06.9 RHEUMATOID ARTHRITIS, UNSPECIFIED 04/27/2020 NAHUM ROMERO MD, Ot N20.2 CALCULUS OF KIDNEY WITH CALCULUS OF URET 04/27/2020 NAHUM ROMERO MD, Ot Z79.0 1 BAR HOST/HOSTESS (CURRENT) USE OF ANTICOAGULANT 04/27/2020 NAHUM ROMERO MD, Ot Z79.8 99 OTHER ASSISTED (CURRENT) DRUG THERAPY 04/27/2020 NAHUM ROMERO MD, Ot Z85.0 38 PERSONAL HISTORY OF MALIGNANT NEOPLASM O 04/27/2020 NAHUM ROMERO MD, Ot Z85.5 3 PERSONAL HISTORY OF MALIGNANT NEOPLASM O 04/27/2020 NAHUM ROMERO MD, Ot Z86.7 18 PERSONAL HISTORY OF OTHER VENOUS THROMBO 04/27/2020 NAHUM ROMERO MD, Ot Z86.7 3 PRSNL HX OF TIA (TIA), AND CEREB INFRC W 04/27/2020 NAUHM ROMERO MD Ot Z87.8 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 04/27/2020 NAHUM ROMERO MD, Ot Z88.0 ALLERGY STATUS TO PENICILLIN 04/27/2020 NAHUM ROMERO MD, Ot Z90.4 9 ACQUIRED ABSENCE OF OTHER SPECIFIED PART 04/29/2020 NAHUM ROMERO MD, Ot M06.9 RHEUMATOID ARTHRITIS, UNSPECIFIED 04/29/2020 NAHUM ROMERO MD, Ot N20.2 CALCULUS OF KIDNEY WITH CALCULUS OF URET 04/29/2020 NAHUM ROMERO MD, Ot Z79.0 1 ASSISTED (CURRENT) USE OF ANTICOAGULANT 04/29/2020 NAHUM ROMERO MD, Ot Z79.8 99 OTHER BAR HOST/HOSTESS (CURRENT) DRUG THERAPY 04/29/2020 NAHUM ROMERO MD Ot Z85.0 38 PERSONAL HISTORY OF MALIGNANT NEOPLASM O 04/29/2020 NAHUM ROMERO MD Ot Z85.5 3 PERSONAL HISTORY OF MALIGNANT NEOPLASM O 04/29/2020 NAHUM ROMERO MD Ot Z86.7 18 PERSONAL HISTORY OF OTHER VENOUS THROMBO 04/29/2020 NAHUM ROMERO MD Ot Z86.7 3 PRSNL HX OF TIA (TIA), AND CEREB INFRC W 04/29/2020 NAHUM ROMERO MD Ot Z87.8 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 04/29/2020 NAHUM ROMERO MD Ot Z88.0 ALLERGY STATUS TO PENICILLIN 04/29/2020 NAHUM ROMERO MD Ot Z90.4 9 ACQUIRED ABSENCE OF OTHER SPECIFIED PART 05/01/2020 NAHUM ROMERO MD Ot Z01.8 18 ENCOUNTER FOR OTHER PREPROCEDURAL EXAMIN 05/04/2020 NAHUM ROMERO MD Ot N20.0 CALCULUS OF KIDNEY 05/04/2020 NAHUM ROMERO MD Ot N20.0 CALCULUS OF KIDNEY 05/10/2020 NAHUM ROMERO MD Ot D71 FUNCTIONAL DISORDERS OF POLYMORPHONUCLEA 05/10/2020 NAHUM ROMERO MD Ot D73.8 9 OTHER DISEASES OF SPLEEN 05/10/2020 NAHUM ROMERO MD Ot I99.8 OTHER DISORDER OF CIRCULATORY SYSTEM 05/10/2020 NAHUM ROMERO MD Ot M19.9 0 UNSPECIFIED OSTEOARTHRITIS, UNSPECIFIED 05/10/2020 NAHUM ROMERO MD Ot N20.0 CALCULUS OF KIDNEY 05/10/2020 NAHUM ROMERO MD Ot Z98.8 90 OTHER SPECIFIED POSTPROCEDURAL STATES 05/13/2020 NAHUM ROMERO MD Ot D71 FUNCTIONAL DISORDERS OF POLYMORPHONUCLEA 05/13/2020 NAHUM ROMERO MD Ot D73.8 9 OTHER DISEASES OF SPLEEN 05/13/2020 NAHUM ROMERO MD Ot I99.8 OTHER DISORDER OF CIRCULATORY SYSTEM 05/13/2020 NAHUM ROMERO MD Ot M19.9 0 UNSPECIFIED OSTEOARTHRITIS, UNSPECIFIED 05/13/2020 NAHUM ROMERO MD Ot N20.0 CALCULUS OF KIDNEY 05/13/2020 NAHUM ROMERO MD Ot Z98.8 90 OTHER SPECIFIED POSTPROCEDURAL STATES 05/20/2020 ALIRIO CACERES MD Ot K63.89 OTHER SPECIFIED DISEASES OF INTESTINE 05/20/2020 ALIRIO CACERES MD Ot R10.31 RIGHT LOWER QUADRANT PAIN 05/20/2020 PAULETTE, YOVANI ORE TRIMMER Ot J84.10 PULMONARY FIBROSIS, UNSPECIFIED 05/20/2020 PAULETTE, YOVANI ORE TRIMMER Ot J90 PLEURAL EFFUSION, NOT ELSEWHERE CLASSIFI 05/20/2020 PAULETTE, YOVANI ORE TRIMMER Ot 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 05/20/2020 PAULETTE, YOVANI ORE TRIMMER Ot N20.0 CALCULUS OF KIDNEY 05/20/2020 PAULETTE, YOVANI ORE TRIMMER Ot S22.04 0A WEDGE COMPRESSION FRACTURE OF FOURTH THO 05/20/2020 PAULETTE, YOVANI MATTHEWSP Ot S22.05 0A WEDGE COMPRESSION FRACTURE OF T5-T6 VERT 05/20/2020 NAHUM ROMERO MD Ot R10.9 UNSPECIFIED ABDOMINAL PAIN 05/20/2020 NAHUM ROMERO MD Ot R31.2 9 OTHER MICROSCOPIC HEMATURIA 05/20/2020 NAHUM ROMERO MD Ot Z85.1 18 PERSONAL HISTORY OF MALIGNANT NEOPLASM O 05/20/2020 NAHUM ROMERO MD, Ot Z85.5 3 PERSONAL HISTORY OF MALIGNANT NEOPLASM O 05/20/2020 NAHUM ROMERO MD, Ot Z87.4 42 PERSONAL HISTORY OF URINARY CALCULI 05/20/2020 NAHUM ROMERO MD, Ot Z90.4 9 ACQUIRED ABSENCE OF OTHER SPECIFIED PART 05/20/2020 ALIRIO CACERES MD Ot Z51.81 ENCOUNTER FOR THERAPEUTIC DRUG LEVEL MON 05/20/2020 ALIRIO CACERES MD Ot 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 05/20/2020 NAHUM ROMERO MD, Ot N20.1 CALCULUS OF URETER 05/20/2020 NAHUM ROMERO MD Ot Z01.8 18 ENCOUNTER FOR OTHER PREPROCEDURAL EXAMIN 05/20/2020 NAHUM ROMERO MD Ot M46.0 6 SPINAL ENTHESOPATHY, LUMBAR REGION 05/20/2020 NAHUM ROMERO MD, Ot N20.1 CALCULUS OF URETER 05/20/2020 NAHUM ROMERO MD Ot 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, BILATE 05/20/2020 NAHUM ROMERO MD Ot Z98.1 ARTHRODESIS STATUS 05/20/2020 NAHUM ROMERO MD Ot N20.0 CALCULUS OF KIDNEY 05/20/2020 HEATHER FELTON, NAHUM Williamson Ot D71 FUNCTIONAL DISORDERS OF POLYMORPHONUCLEA 05/20/2020 NAHUM ROMERO MD Ot D73.8 9 OTHER DISEASES OF SPLEEN 05/20/2020 NAHUM ROMERO MD Ot I99.8 OTHER DISORDER OF CIRCULATORY SYSTEM 05/20/2020 NAHUM ROMERO MD Ot M19.9 0 UNSPECIFIED OSTEOARTHRITIS, UNSPECIFIED 05/20/2020 HEATHER FELTON, NAHUM Williamson Ot N20.0 CALCULUS OF KIDNEY 05/20/2020 NAHUM ROMERO MD Ot Z98.8 90 OTHER SPECIFIED POSTPROCEDURAL STATES 05/20/2020 NAHUM ROMERO MD, Ot Z01.8 18 ENCOUNTER FOR OTHER PREPROCEDURAL EXAMIN 05/20/2020 ALIRIO CACERES MD Ot K63.89 OTHER SPECIFIED DISEASES OF INTESTINE 05/20/2020 ALIRIO CACERES MD Ot R10.31 RIGHT LOWER QUADRANT PAIN 05/20/2020 PAULETTE, YOVANI ORE TRIMMER Ot J84.10 PULMONARY FIBROSIS, UNSPECIFIED 05/20/2020 PAULETTE, YOVANI ORE TRIMMER Ot J90 PLEURAL EFFUSION, NOT ELSEWHERE CLASSIFI 05/20/2020 PAULETTE YOVANI [employer] TRIMMER Ot 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 05/20/2020 PAULETTE YOVANI O[employer] TRIMMER Ot N20.0 CALCULUS OF KIDNEY 05/20/2020 PAULETTE, YOVANI ORE TRIMMER Ot S22.04 0A WEDGE COMPRESSION FRACTURE OF FOURTH THO 05/20/2020 PAULETTE, YOVANI ORE TRIMMER Ot S22.05 0A WEDGE COMPRESSION FRACTURE OF T5-T6 VERT 05/20/2020 NAHUM ROMERO MD Ot R10.9 UNSPECIFIED ABDOMINAL PAIN 05/20/2020 NAHUM ROMERO MD Ot R31.2 9 OTHER MICROSCOPIC HEMATURIA 05/20/2020 NAHUM ROMERO MD Ot Z85.1 18 PERSONAL HISTORY OF MALIGNANT NEOPLASM O 05/20/2020 NAHUM ROMERO MD Ot Z85.5 3 PERSONAL HISTORY OF MALIGNANT NEOPLASM O 05/20/2020 NAHUM ROMERO MD Ot Z87.4 42 PERSONAL HISTORY OF URINARY CALCULI 05/20/2020 NAHUM ROMERO MD Ot Z90.4 9 ACQUIRED ABSENCE OF OTHER SPECIFIED PART 05/20/2020 ALIRIO CACERES MD Ot Z51.81 ENCOUNTER FOR THERAPEUTIC DRUG LEVEL MON 05/20/2020 ALIRIO CACERES MD Ot 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 05/20/2020 NAHUM ROMERO MD Ot N20.1 CALCULUS OF URETER 05/20/2020 NAHUM ROMERO MD Ot Z01.8 18 ENCOUNTER FOR OTHER PREPROCEDURAL EXAMIN 05/20/2020 NAHUM ROMERO MD Ot M46.0 6 SPINAL ENTHESOPATHY, LUMBAR REGION 05/20/2020 NAHUM ROMERO MD Ot N20.1 CALCULUS OF URETER 05/20/2020 NAHUM ROMERO MD Ot 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, BILATE 05/20/2020 NAHUM ROMERO MD Ot Z98.1 ARTHRODESIS STATUS 05/20/2020 NAHUM ROMERO MD Ot N20.0 CALCULUS OF KIDNEY 05/20/2020 NAHUM ROMERO MD Ot D71 FUNCTIONAL DISORDERS OF POLYMORPHONUCLEA 05/20/2020 NAHUM ROMERO MD, Ot D73.8 9 OTHER DISEASES OF SPLEEN 05/20/2020 NAHUM ROMERO MD Ot I99.8 OTHER DISORDER OF CIRCULATORY SYSTEM 05/20/2020 NAHUM ROMERO MD Ot M19.9 0 UNSPECIFIED OSTEOARTHRITIS, UNSPECIFIED 05/20/2020 NAHUM ROMERO MD Ot N20.0 CALCULUS OF KIDNEY 05/20/2020 NAHUM ROMERO MD Ot Z98.8 90 OTHER SPECIFIED POSTPROCEDURAL STATES 05/20/2020 NAHUM ROMERO MD Ot Z01.8 18 ENCOUNTER FOR OTHER PREPROCEDURAL EXAMIN 05/20/2020 ALIRIO CACERES MD Ot K63.89 OTHER SPECIFIED DISEASES OF INTESTINE 05/20/2020 ALIRIO CACERES MD Ot R10.31 RIGHT LOWER QUADRANT PAIN 05/20/2020 PAULETTE, YOVAIN ORE TRIMMER Ot J84.10 PULMONARY FIBROSIS, UNSPECIFIED 05/20/2020 PAULETTE, YOVANI O[employer] TRIMMER Ot J90 PLEURAL EFFUSION, NOT ELSEWHERE CLASSIFI 05/20/2020 PAULETTE, YOVANI O[employer] TRIMMER Ot 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 05/20/2020 PAULETTE, YOVANI ORE TRIMMER Ot N20.0 CALCULUS OF KIDNEY 05/20/2020 PAULETTE, YOVANI O[employer] TRIMMER Ot S22.04 0A WEDGE COMPRESSION FRACTURE OF FOURTH THO 05/20/2020 PAULETTE, YOVANI O[employer] TRIMMER Ot S22.05 0A WEDGE COMPRESSION FRACTURE OF T5-T6 VERT 05/20/2020 NAHUM ROMERO MD Ot R10.9 UNSPECIFIED ABDOMINAL PAIN 05/20/2020 NAHUM ROMERO MD Ot R31.2 9 OTHER MICROSCOPIC HEMATURIA 05/20/2020 NAHUM ROMERO MD, Ot Z85.1 18 PERSONAL HISTORY OF MALIGNANT NEOPLASM O 05/20/2020 NAHUM ROMERO MD, Ot Z85.5 3 PERSONAL HISTORY OF MALIGNANT NEOPLASM O 05/20/2020 NAHUM ROMERO MD, Ot Z87.4 42 PERSONAL HISTORY OF URINARY CALCULI 05/20/2020 NAHUM ROMERO MD, Ot Z90.4 9 ACQUIRED ABSENCE OF OTHER SPECIFIED PART 05/20/2020 ALIRIO CACERES MD Ot Z51.81 ENCOUNTER FOR THERAPEUTIC DRUG LEVEL MON 05/20/2020 ALIRIO CACERES MD Ot 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 05/20/2020 NAHUM ROMERO MD Ot N20.1 CALCULUS OF URETER 05/20/2020 NAHUM ROMERO MD, Ot Z01.8 18 ENCOUNTER FOR OTHER PREPROCEDURAL EXAMIN 05/20/2020 NAHUM ROMERO MD, Ot M46.0 6 SPINAL ENTHESOPATHY, LUMBAR REGION 05/20/2020 NAHUM ROMERO MD, Ot N20.1 CALCULUS OF URETER 05/20/2020 NAHUM ROMERO MD, Ot 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, BILATE 05/20/2020 NAHUM ROMERO MD Ot Z98.1 ARTHRODESIS STATUS 05/20/2020 HEATHER MD, NAHUM A Ot N20.0 CALCULUS OF KIDNEY 05/20/2020 NAHUM ROMERO MD Ot D71 FUNCTIONAL DISORDERS OF POLYMORPHONUCLEA 05/20/2020 NAHUM ROMERO MD, Ot D73.8 9 OTHER DISEASES OF SPLEEN 05/20/2020 NAHUM ROMERO MD Ot 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 Results Test [...] 7-25 CREATININE 2.14 mg/dL 0.70-1.18 eGFR NON-AFR. STATELESS 29 mL/min/1.73m2 > OR = 60 eGFR [...] 7-25 CREATININE 2.14 mg/dL 0.70-1.18 eGFR NON-AFR. STATELESS 29 mL/min/1.73m2 > OR = 60 eGFR [...] CULTURE, ANAEROBIC BACTERIA W/GRAM STAIN SEE NOTE [facility] CULTURE, AEROBIC BACTERIA SEE NOTE [facility] CULTURE, URINE - 01/26/20 00:00 CULTURE, URINE, ROUTINE SEE NOTE [facility] Comprehensive metabolic panel - 01/26/20 16:48 Serum [...] (count/volume) 0.0 10*3/uL 0.0-0.1 Coronavirus SARS-CoV-2 SO 2019 - 0 08:22 Coronavirus Ab [Units/volume] in Serum Negative Negative Methicillin resistant Staphylococcus aur eus (MRSA) screening culture - 04/27/20 09:12 Methicillin resistant Staphylococcus aureus (MRSA) scr eening culture NEG NRG Complete blood count (CBC) with automate d white blood cell (WBC) differential - 05/20/20 16:30 Blood leukocytes automated count (number/volume) 10.8 10*3/uL 4.3-11.0 Blood erythrocytes automated count (number/volume) 3.10 10*6/uL 4.35-5.85 Venous blood hemoglobin measurement (mass/volume) 9.2 g/dL 13.3-17.7 Blood hematocrit (volume fraction) 28 % 40-54 Automated erythrocyte mean corpuscular volume 92 [ foz_us] 80-99 Automated erythrocyte mean corpuscular h emoglobin (mass per erythrocyte) 30 pg 25-34 Automated erythrocyte mean corpuscular h emoglobin concentration measurement (mass/volume) 32 g/dL 32-36 Automated erythrocyte distribution width ratio 14. 3 % 10.0- 14.5 Automated blood platelet count (count/volume) 99 1 0*3/uL 130-400 Automated blood platelet mean volume measurement 10.2 [foz_us] 7.4-10.4 Automated blood neutrophils/100 leukocytes 91 % 42-75 Automated blood lymphocytes/100 leukocytes 5 % 12-44 Blood monocytes/100 leukocytes 4 % 0-12 Automated blood eosinophils/100 leukocytes 0 % 0-10 Automated blood basophils/100 leukocytes 0 % 0-10 Blood neutrophils automated count (number/volume) 9.8 10*3 1.8-7.8 Blood lymphocytes automated count (number/volume) 0.5 10*3 1.0-4.0 Blood monocytes automated count (number/volume) 0. 4 10*3 0.0-1.0 Automated eosinophil count 0.0 10*3/uL 0 .0-0.3 Automated blood basophil count (count/volume) 0.0 10*3/uL 0.0-0.1 Blood lactic acid measurement (moles/vol ume) - 05/20/20 16:30 Blood lactic acid measurement (moles/volume) 1.63 mmol/L 0.50-2.00 Comprehensive metabolic panel - 05/20/20 16:30 Serum or plasma sodium measurement (moles/volume) 137 mmol/L 135-145 Serum or plasma potassium measurement (moles/volume) 4.4 mmol/L 3.6-5.0 Serum or plasma chloride measurement (moles/volume) 107 mmol/L 98-107 Carbon dioxide 18 mmol/L 21-32 Serum or plasma anion gap determination (moles/volume) 12 mmol/L 5-14 Serum or plasma urea nitrogen measurement (mass/volume ) 41 mg/dL 7-18 Serum or plasma creatinine measurement (mass/volume) 2.31 mg/dL 0.60-1.30 Serum or plasma urea nitrogen/creatinine mass ratio 18 NRG Serum or plasma creatinine measurement w ith calculation of estimated glomerular filtration rate 28 NRG Serum or plasma glucose measurement (mass/volume) 135 mg/dL 70-105 Serum or plasma calcium measurement (mass/volume) 8.4 mg/dL 8.5-10.1 Serum or plasma total bilirubin measurement (mass/volu me) 0.7 mg/dL 0.1-1.0 Serum or plasma alkaline phosphatase bety surement (enzymatic activity/volume) 113 U/L 40-136 Serum or plasma aspartate aminotransfera se measurement (enzymatic activity/volume) 31 U/L 5-34 Serum or plasma alanine aminotransferase measurement (enzymatic activity/volume) 27 U/L 0-55 Serum or plasma protein measurement (mass/volume) 5.8 g/dL 6.4-8.2 Serum or plasma albumin measurement (mass/volume) 3.3 g/dL 3.2-4.5 CALCIUM CORRECTED 9.0 mg/dL 8.5-10.1 Magnesium - 05/20/20 16:30 Magnesium 1.8 mg/dL 1.6-2.4 Lipase - 05/20/20 16:30 Lipase 19 U/L 8-78 Manual absolute plasma cell count - 05/11 16:30 Blood monocytes/100 leukocytes 1 % NRG Manual blood segmented neutrophils/100 leukocytes 91 % NRG Blood band neutrophils/100 leukocytes 2 % NRG Manual blood lymphocytes/100 leukocytes 3 % NRG Blood lymphocytes variant/100 leukocytes 3 % NRG Encounters ACCT No. Visit Date/Time Discharge Status Pt. Type Provider Facility Loc./Unit Complaint [id number] 05/12/2020 10:15:00 05/12/2020 23:59: 59 CLS Outpatient ALIRIO CACERES [facility] [id number] 01/26/2020 13:30:00 Document Registration [id number] 01/05/2020 15:30:00 Document Registration [id number] 10/26/2019 13:15:00 Document Registration [id number] 08/03/2019 09:00:00 Document Registration [id number] 02/06/2019 09:15:00 Document Registration [id number] 01/09/2019 09:00:00 Document Registration [id number] 05/20/2020 16:25:00 17:54:00 DIS Emergency ASENCIO DO, ANGELA L [facility] ER FS VOMITING [id number] 04/27/2020 08:42:00 13:00:00 DIS Outpatient NAHUM ROMERO MD [facility] SDC RIGHT RENAL STONE [id number] 04/25/2020 08:11:00 23:59:59 CLS Outpatient NAHUM ROMERO MD [facility] LAB FS PRE SURG REQUIREMENT [id number] 04/20/2020 05:31:00 13:27:00 DIS Outpatient NAHUM ROMERO MD [facility] PREOP RIGHT RENAL STONE [id number] 04/15/2020 10:14:00 23:59:59 CLS Outpatient NAHUM ROMERO MD [facility] RAD RT RENAL STONES [id number] 04/08/2020 11:58:00 23:59:59 CLS Outpatient NAHUM ROMERO MD [facility] RAD FS Z87.442 R10.31 [id number] 02/03/2020 10:30:00 23:59:59 CLS Preadmit NAHUM ROMERO MD [facility] SDC RIGHT URETERAL STONE [id number] 02/01/2020 15:23:00 23:59:59 CLS Outpatient NAHUM ROMERO MD [facility] RAD FS RT ARETERAL STONE [id number] 02/01/2020 05:37:00 23:59:59 CLS Outpatient NAHUM ROMERO MD [facility] PREOP RIGHT URETERAL STONE [id number] 01/28/2020 14:33:00 23:59:59 CLS Outpatient NAHUM ROMERO MD [facility] RAD RT STONE [id number] 01/26/2020 14:47:00 18:00:00 DIS Emergency MATILDA KNIGHT DO [facility] ER FS HEMATURIA; BACK PAIN [id number] 01/05/2020 03:35:00 05:06:00 DIS Emergency BETO CALI MD [facility] ER FS SKIN TEAR INFECTION [id number] 12/24/2019 18:07:00 23:59:59 CLS Outpatient NICKI FELTON, ALIRIO Dominguez [facility] LAB FS Z79.01 [id number] 12/10/2019 13:35:00 15:00:00 DIS Inpatient RUBI VASQUEZ DO, V [facility] IRF SPINAL STENOSIS [id number] 05/25/2019 09:07:00 07/15/2 019 23:59:59 CLS Outpatient NAHUM ROMERO MD [facility] RAD FS MICROHEMATURIA [id number] 05/11/2019 09:38:00 019 23:59:59 CLS Outpatient YOVANI CALDWELL [facility] RAD FS BILATERAL LOW BACK PAIN WITHOUT SCIATICA [id number] 03/06/2019 09:24:00 019 23:59:59 CLS Outpatient NICKI FELTON, ALIRIO Dominguez [facility] RAD FS R10.31 [id number] 02/18/2014 13:49:00 014 23:59:59 CLS Outpatient NAHUM ROMERO MD [facility] RAD STONE [id number] 02/08/2014 15:04:00 014 23:59:59 CLS Outpatient NAHUM ROMERO MD [facility] RAD STONE
--- NOTE | 2020-05-22 12:36 | NUR ---
Blood culture result called by Dorina from [facility]. She states that patient's blood culture is growing group A beta strep and that there is no order for the blood culture. Patient was discharged to home on Keflex. Result given to Dr. Ibarra, he states the lab may order the blood culture under the physician who called the patient if they desire, also states the keflex should be effective against the organism. Dorina called and informed of physician's evaluation.
--- NOTE | 2020-05-22 12:46 | NUR ---
Called patient, he states he is feeling better, keeping foods and fluids down, denies any chills or fever today. He states he has a follow up appointment tomorrow morning at 10:00 am with his PCP, Dr. Ferguson.
== END 2020-05-20 17:54 | disposition home or self-care (01) ==
LOC: EDUNIT# 16:24 → ER FS 16:25
DX: R11.2 Nausea with vomiting, unspecified (principal); L03.012 Cellulitis of left finger; G62.9 Polyneuropathy, unspecified; M06.9 Rheumatoid arthritis, unspecified; G89.29 Other chronic pain; M54.9 Dorsalgia, unspecified; Z85.038 Personal history of other malignant neoplasm of large intestine; Z88.0 Allergy status to penicillin; Z85.528 Personal history of other malignant neoplasm of kidney; Z87.891 Personal history of nicotine dependence; Z77.22 Contact with and (suspected) exposure to environmental tobacco smoke (acute) (chronic); Z85.118 Personal history of other malignant neoplasm of bronchus and lung
CPT/HCPCS: 36415; 74022; 80053; 83605; 83690; 83735; 85007; 85027

== ENCOUNTER → 2020-06-10 | Outpatient (CLI) | payer MEDICARE, OTHER ==
[~2020-06-10] MED LIST changes: +CEPH500T PO
== END ==
LOC: LAB FS 10:00
PROVIDERS: ATTEND Urology
DX: Z20.828 Contact with and (suspected) exposure to other viral communicable diseases (principal)
CPT/HCPCS: 87635

== ENCOUNTER 2020-07-23 14:45 | Emergency (ER) | payer MEDICARE, OTHER ==
[~2020-07-23] VITALS: Ht 185.1 cm; Wt 78.0 kg
[2020-07-23 14:53] VITALS: BP 125/62
--- NOTE | 2020-07-23 15:14 | ED EENT ---
History of Present Illness General Chief Complaint: Ear Problems Stated Complaint: DIZZINESS; LT EAR PAIN Source: patient Exam Limitations: no limitations History of Present Illness Date Seen by Provider: Jul 23, 2020 Time Seen by Provider: 15:00 Initial Comments 75-year-old male presents with complaint of dizziness with onset this morning. Patient states he was home getting out of bed and when he looked at the [id number] was moving. States that it was worse when he turned his head or changes position. He gradually improved and now is nearly gone, however he still does get a slight dizzy sensation when turning his head from side to side. Previously does not have episodes of vertigo, no history of stroke. Denies any weakness, numbness tingling or paresthesias, speech or swallowing difficulty or any visual changes. Allergies and Home Medications Allergies Coded Allergies: Penicillins (Verified Allergy, Intermediate, 04/20/20) EYES SWELLED SHUT Home Medications Acetaminophen 500 Mg Tablet, 500 MG PO Q6H PRN for PAIN-MILD (1-4), (Reported) Amlodipine Besylate 10 Mg Tablet, 10 MG PO HS, (Reported) Cephalexin 500 Mg Tablet, 500 MG PO QID Prescribed by: ANGELA ASENCIO on 05/20/20 174 Ferrous Sulfate 325 Mg Tablet, 325 MG PO BID, (Reported) Hydroxychloroquine Sulfate 200 Mg Tablet, 200 MG PO BID, (Reported) Meclizine HCl 25 Mg Tablet, 25 MG PO Q8H Prescribed by: TOMMIE JARAMILLO on 07/23/20 1557 Melatonin 10 Mg Tablet, 10 MG PO HS PRN for SLEEP, (Reported) Multivitamin 1 Each Tablet, 1 TAB PO DAILY, (Reported) Ondansetron 4 Mg Tab.rapdis, 4 MG PO Q6H PRN for NAUSEA/VOMITING Prescribed by: ANGELA ASENCIO on 05/20/20 174 Sodium Bicarbonate 650 Mg Tablet, 650 MG PO HS PRN for LOOSE STOOLS, (Reported) Temazepam 15 Mg Capsule, 15 MG PO HS PRN for SLEEP, (Reported) Patient Home Medication List Home Medication List Reviewed: Yes Review of Systems Review of Systems Constitutional: see HPI, dizziness; No fever, No malaise, No weakness Eyes: Denies Blindness, Denies Blurred Vision, Denies Decreased Acuity, Denies Foreign Body Sensation, Denies Photophobia, Denies Shadows, Denies Tunnel Vision, Denies Vision Changes; Glasses Ears: Dizziness; Denies Pain, Denies Bloody Discharge, Denies Clear Discharge, Denies Purulent Discharge Nose: denies clots, denies congestion, denies bloody discharge, denies clear discharge Mouth: no symptoms reported Throat: no symptoms reported Respiratory: no symptoms reported Cardiovascular: no symptoms reported Musculoskeletal: No back pain, No joint pain Neurological: Denies Anxiety, Denies Depressed, Denies Emotional Problems, Denies Headache, Denies Numbness, Denies Paresthesia, Denies Pre-Existing Deficit, Denies Seizure, Denies Tingling, Denies Tremors, Denies Weakness Past Syofahx-Hqaysx-Rptkye Hx Past Med/Social Hx: Reviewed Nursing Past Med/Soc Hx Patient Social History Alcohol Use: Denies Use Recreational Drug Use: No Smoking Status: Former Smoker Former Smoker, Quit: Apr 20, 2010 2nd Hand Smoke Exposure: Yes Recent Hopitalizations: No Physical Abuse: No Sexual Abuse: No Mistreated: No Fear: No Immunizations Up To Date Date of Influenza Vaccine: Sep 09, 2019 Seasonal Allergies Seasonal Allergies: No Past Medical History Surgeries: Yes (COLECTOMY WITH ILEOSTOMY 1973, SPINAL FUSION) Respiratory: Yes Pulmonary Embolism Cardiac: Yes Deep Vein Thrombosis Neurological: Yes Neuropathy Sexually Transmitted Disease: No HIV/AIDS: No Genitourinary: Yes (RENAL INSUFF.) Benign Prostatic Hyperpl, Renal Failure Gastrointestinal: Yes (COLECTOMY WITH ILEOSTOMY) Polyps Musculoskeletal: Yes Degenerate Disk Disease, Rheumatoid Arthritis, Chronic Back Pain Endocrine: No HEENT: Yes (GLASSES, DENTURES) Loss of Vision: Denies Hearing Impairment: Hard of Hearing Cancer: Yes Lung, Colon, Kidney Did You Recieve Any Treatments: Yes What Type of Treatment Did You: Chemotherapy Psychosocial: No Integumentary: Yes (VERY SENSITIVE SKIN) Blood Disorders: No Adverse Reaction/Blood Tranf: No (N/A) Family Medical History Patient reports no known family medical history. Physical Exam Vital Signs Vital Signs - First Documented 07/23/20 14:53 Temp 36.6 Pulse 70 Resp 16 B/P (MAP) 125/62 (83) Pulse Ox 98 O2 Delivery Room Air Height, Weight, BMI Height: '" Weight: lbs. oz. 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, no motor/sensory deficits, alert, normal mood/affect, oriented x 3; No abnormal gait, No motor weakness, No sensory deficit, No depressed affect Skin: normal color, warm/dry Progress/Results/Core Measures Results/Orders My Orders Orders - TOMMIE JARAMILLO DO Meclizine Tablet (Antivert Tablet) (07/23/20 15:15) Medications Given in ED Current Medications Medications Dose Ordered Sig/Darin Route Start Time Stop Time Status Last Admin Dose Admin Meclizine HCl 25 mg ONCE ONCE PO 07/23/20 15:15 07/23/20 15:16 DC 07/23/20 15:27 25 MG Vital Signs/I&O 07/23/20 14:53 Temp 36.6 Pulse 70 Resp 16 B/P (MAP) 125/62 (83) Pulse Ox 98 O2 Delivery Room Air Progress Progress Note : Progress Note Trial of meclizine with modest improvement, patient able to stand without difficulty. Does have some very mild dizziness with turning his head [id number], but is quite tolerable and he feels fine. Discharged with prescription for meclizine and advised follow-up if symptoms progress or unrelieved with medication. Otherwise see his doctor in 1 week, ER sooner if worse Departure Impression Primary Impression: Vertigo Disposition: 01 HOME, SELF-CARE Condition: Improved Departure-Patient Inst. Decision time for Depature: 15:56 Referrals: ALIRIO CACERES MD (PCP/Family) Primary Care Physician Patient Instructions: Vertigo (a Type of Dizziness) (DC) Add. Discharge Instructions: See your Doctor in 1 week, ER sooner if worse and you are unable to see your doctor. All discharge instructions reviewed with patient and/or family. Voiced understanding. Scripts Meclizine HCl (Meclizine HCl) 25 Mg Tablet 25 MG PO Q8H for Dizziness, #20 TAB Prov: TOMMIE JARAMILLO DO 07/23/20 TOMMIE JARAMILLO DO Jul 23, 2020 15:14
[2020-07-23] MEDS ORDERED: MECLIZINE 25 MG (ANTIVERT) TAB PO ONE (15:15)
[2020-07-23] MEDS ORDERED: MECL-149 PO (15:57)
== END 2020-07-23 16:01 | disposition home or self-care (01) ==
LOC: EDUNIT# 14:45 → ER FS 14:47
DX: R42 Dizziness and giddiness (principal); G62.9 Polyneuropathy, unspecified; G89.29 Other chronic pain; M54.9 Dorsalgia, unspecified; Z88.0 Allergy status to penicillin; Z87.891 Personal history of nicotine dependence; Z85.118 Personal history of other malignant neoplasm of bronchus and lung; Z85.038 Personal history of other malignant neoplasm of large intestine; Z85.528 Personal history of other malignant neoplasm of kidney
CPT/HCPCS: 99283

== ENCOUNTER 2020-09-05 01:14 | Emergency (ER) | payer MEDICARE, OTHER ==
[~2020-09-05] VITALS: Ht 185.4 cm; Wt 77.1 kg
[~2020-09-05 01:14] MED LIST changes: +AMLO-251 PO; -AMLO10TA7 PO; +MECL-149 PO
--- NOTE | 2020-09-05 01:37 | ED Back Pain ---
General Chief Complaint: Back Problems Stated Complaint: LOW BACK PAIN Nursing Triage Note: Patient states that he began having left flank pain last night at 2130. Patient has had previous kidney stones and believes he has another one. Nursing Sepsis Screen: No Definite Risk Source of Information: Patient Exam Limitations: No Limitations History of Present Illness Date Seen by Provider: Sep 05, 2020 Time Seen by Provider: 01:26 Initial Comments Patient presents to the ER by private conveyance with chief complaint left flank pain starting about 9:30 last night while sitting on the couch watching a football game. He says the pain is reminiscent of a previous kidney stone he had on the right side about 6 months ago. Had to be removed at [facility] because of its size greater than 1 cm. 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 He is not noticed any blood in the urine, dysuria, fevers, nausea or vomiting. He did follow with Dr. Aguirre locally, as well as Dr. Caceres for primary care. His case supervisor is at . Allergies and Home Medications Allergies Coded Allergies: Penicillins (Verified Allergy, Intermediate, 04/20/20) EYES SWELLED SHUT Home Medications Acetaminophen 500 Mg Tablet, 500 MG PO Q6H PRN for PAIN-MILD (1-4), (Reported) Amlodipine Besylate 10 Mg Tablet, 10 MG PO HS, (Reported) Cephalexin 500 Mg Tablet, 500 MG PO QID Prescribed by: ANGELA ASENCIO on 05/20/201745 Ferrous Sulfate 325 Mg Tablet, 325 MG PO BID, (Reported) Hydroxychloroquine Sulfate 200 Mg Tablet, 200 MG PO BID, (Reported) Meclizine HCl 25 Mg Tablet, 25 MG PO Q8H Prescribed by: TOMMIE JARAMILLO on 07/23/20 1557 Melatonin 10 Mg Tablet, 10 MG PO HS PRN for SLEEP, (Reported) Multivitamin 1 Each Tablet, 1 TAB PO DAILY, (Reported) Ondansetron 4 Mg Tab.rapdis, 4 MG PO Q6H PRN for NAUSEA/VOMITING Prescribed by: ANGELA ASENCIO on 05/20/201745 Sodium Bicarbonate 650 Mg Tablet, 650 MG PO HS PRN for LOOSE STOOLS, (Reported) Temazepam 15 Mg Capsule, 15 MG PO HS PRN for SLEEP, (Reported) Patient Home Medication List Home Medication List Reviewed: Yes Review of Systems Constitutional: No chills, No fever EENTM: No ear discharge, No ear pain Respiratory: No cough, No short of breath Cardiovascular: No edema, No syncope Gastrointestinal: No abdominal pain, No constipation, No diarrhea Genitourinary: No decreased output, No discharge, No dysuria, No hematuria Musculoskeletal: see HPI, back pain; No joint pain All Other Systems Reviewed Negative Unless Noted: Yes Past Fvtaioi-Giisjz-Oyqvgm Hx Patient Social History Alcohol Use: Denies Use Recreational Drug Use: No Smoking Status: Never a Smoker Former Smoker, Quit: Apr 20, 2010 2nd Hand Smoke Exposure: Yes Recent Foreign Travel: No Contact w/Someone Who Travel: No Recent Infectious Disease Expo: No Recent Hopitalizations: No Physical Abuse: No Sexual Abuse: No Mistreated: No Fear: No Immunizations Up To Date Date of Influenza Vaccine: Sep 09, 2019 Seasonal Allergies Seasonal Allergies: No Past Medical History Surgeries: Yes (COLECTOMY WITH ILEOSTOMY 1973, SPINAL FUSION) Respiratory: Yes Pulmonary Embolism Cardiac: Yes Deep Vein Thrombosis Neurological: Yes Neuropathy Sexually Transmitted Disease: No HIV/AIDS: No Genitourinary: Yes (RENAL INSUFF.) Benign Prostatic Hyperpl, Kidney Stones, Renal Failure Gastrointestinal: Yes (COLECTOMY WITH ILEOSTOMY) Polyps Musculoskeletal: Yes Degenerate Disk Disease, Rheumatoid Arthritis, Chronic Back Pain Endocrine: No HEENT: Yes (GLASSES, DENTURES) Loss of Vision: Denies Hearing Impairment: Hard of Hearing Cancer: Yes Lung, Colon, Kidney Did You Recieve Any Treatments: Yes What Type of Treatment Did You: Chemotherapy Psychosocial: No Integumentary: Yes (VERY SENSITIVE SKIN) Blood Disorders: No Adverse Reaction/Blood Tranf: No (N/A) Family Medical History Patient reports no known family medical history. Physical Exam Vital Signs Vital Signs - First Documented 09/05/20 01:18 Temp 36.7 Pulse 86 Resp 18 B/P (MAP) 151/77 (101) Pulse Ox 97 O2 Delivery Room Air Capillary Refill : Less Than 3 Seconds Height, Weight, BMI Height: '" Weight: lbs. oz. kg; 22.00 BMI Method: General Appearance: WD/WN, Mild Distress HEENT: PERRL/EOMI, Pharynx Normal, Moist Mucous Membranes Neck: Full Range of Motion, Normal Inspection Cardiovascular: Regular Rate, Rhythm, Normal Peripheral Pulses Respiratory: No Accessory Muscle Use, No Respiratory Distress Gastrointestinal: Normal Bowel Sounds, Non Tender, Soft Back: CVA Tenderness (L) Extremity: Normal Capillary Refill, Non Tender, Pedal Edema Neurologic/Psychiatric: Alert, Oriented x3 Skin: Warm/Dry, Ecchymosis Progress/Results/Core Measures Results/Orders Lab Results Laboratory Tests Test 09/05/20 01:31 09/05/20 01:51 Range/Units White Blood Count 5.7 4.3-11.0 10^3/uL Red Blood Count 3.22 L 4.35-5.85 10^6/uL Hemoglobin 9.4 L 13.3-17.7 G/DL Hematocrit 31 L 40-54 % Mean Corpuscular Volume 95 80-99 FL Mean Corpuscular Hemoglobin 29 25-34 PG Mean Corpuscular Hemoglobin Concent 31 L 32-36 G/DL Red Cell Distribution Width 14.6 H 10.0-14.5 % Platelet Count 130 130-400 10^3/uL Mean Platelet Volume 9.4 7.4-10.4 FL Immature Granulocyte % (Auto) 1 % Neutrophils (%) (Auto) 73 42-75 % Lymphocytes (%) (Auto) 18 12-44 % Monocytes (%) (Auto) 6 0-12 % Eosinophils (%) (Auto) 2 0-10 % Basophils (%) (Auto) 1 0-10 % Neutrophils # (Auto) 4.2 1.8-7.8 X 10^3 Lymphocytes # (Auto) 1.0 1.0-4.0 X 10^3 Monocytes # (Auto) 0.4 0.0-1.0 X 10^3 Eosinophils # (Auto) 0.1 0.0-0.3 10^3/uL Basophils # (Auto) 0.0 0.0-0.1 10^3/uL Immature Granulocyte # (Auto) 0.0 0.0-0.1 10^3/uL Sodium Level 141 135-145 MMOL/L Potassium Level 4.8 3.6-5.0 MMOL/L Chloride Level 114 H 98-107 MMOL/L Carbon Dioxide Level 18 L 21-32 MMOL/L Anion Gap 9 5-14 MMOL/L Blood Urea Nitrogen 35 H 7-18 MG/DL Creatinine 2.09 H 0.60-1.30 MG/DL Estimat Glomerular Filtration Rate 31 BUN/Creatinine Ratio 17 Glucose Level 98 70-105 MG/DL Calcium Level 8.5 8.5-10.1 MG/DL Corrected Calcium 9.0 8.5-10.1 MG/DL Total Bilirubin 0.2 0.1-1.0 MG/DL Aspartate Amino Transf (AST/SGOT) 26 5-34 U/L Alanine Aminotransferase (ALT/SGPT) 28 0-55 U/L Alkaline Phosphatase 100 40-136 U/L Total Protein 6.0 L 6.4-8.2 GM/DL Albumin 3.4 3.2-4.5 GM/DL Urine Color YELLOW Urine Clarity SLIGHTLY CLOUDY Urine pH 5.5 5-9 Urine Specific [place] 1.025 H 1.016-1.022 Urine Protein 2+ H NEGATIVE Urine Glucose (UA) NEGATIVE NEGATIVE Urine Ketones NEGATIVE NEGATIVE Urine Nitrite NEGATIVE NEGATIVE Urine Bilirubin NEGATIVE NEGATIVE Urine Urobilinogen 0.2 < = 1.0 MG/DL Urine Leukocyte Esterase NEGATIVE NEGATIVE Urine RBC (Auto) 2+ H NEGATIVE Urine RBC TNTC H /HPF Urine WBC NONE /HPF Urine Squamous Epithelial Cells 2-5 /HPF Urine Crystals NONE /LPF Urine Bacteria NEGATIVE /HPF Urine Casts PRESENT /LPF Urine Granular Casts 2-5 H /LPF Urine Coarse Granular Casts 5-10 H /LPF Urine Mucus NEGATIVE /LPF Urine Culture Indicated NO My Orders Orders - FANNIE ASHTON Cbc With Automated Diff (09/05/20 01:31) Comprehensive Metabolic Panel (09/05/20 01:31) Ct Abd/Pelvis Wo(Kidney Stone) (09/05/20 01:31) Ua Culture If Indicated (09/05/20 01:31) Hydrocodone/Apap 5/325 Tablet (Lortab 5 (09/05/20 01:45) Medications Given in ED Current Medications Medications Dose Ordered Sig/Darin Route Start Time Stop Time Status Last Admin Dose Admin Acetaminophen/ Hydrocodone Bitart 1 tab ONCE ONCE PO 09/05/20 01:45 09/05/20 01:47 DC 09/05/20 01:35 1 TAB Vital Signs/I&O 09/05/20 01:18 Temp 36.7 Pulse 86 Resp 18 B/P (MAP) 151/77 (101) Pulse Ox 97 O2 Delivery Room Air Blood Pressure Mean: 101 Progress Progress Note : Time: 01:36 Progress Note Hydrocodone for his discomfort, plan to check some labs and kidney function as well as urinalysis and get a CT of his abdomen and pelvis without IV contrast looking for kidney stones. Aseptic vital signs. Diagnostic Imaging Diagonstic Imaging: CT Plain Films/CT/US/NM/MRI: abdomen, pelvis Comments Mild left hydronephrosis with left distal ureter stone. Perhaps 2 mm in size. A pproximate 47 m from the UVJ. Streak artifact from bilateral hip prosthesis. 2 capsular right renal fatty lesions as described above. Uncertain significance interval follow-up should be performed. Reviewed: Reviewed Night Hawk Study, Reviewed by Me Departure Impression Primary Impression: Left ureteral calculus Disposition: HOME, SELF-CARE Condition: Stable Departure-Patient Inst. Decision time for Depature: 02:14 Referrals: ALIRIO CACERES MD (PCP/Family) Primary Care Physician Patient Instructions: Kidney Stones (DC), How to Strain Your Urine Add. Discharge Instructions: Strain your urine to see if you can catch the stone. This stone should pass easily on its own. Start taking Keflex twice a day for the next 5 days to prevent bladder infection related to the stone. Flomax once a day until you pass the stone. Hydrocodone one tablet every 6 hours as necessary for breakthrough pain. Tylenol 650 mg every 8 hours as necessary for pain. Drink lots of fluids. Ondansetron one tablet every 6 hours as necessary for nausea or vomiting. All discharge instructions reviewed with patient and/or family. Voiced understanding. Scripts Tamsulosin HCl (Flomax) 0.4 Mg Cap 0.4 MG PO DAILY for 7 Days, #7 CAP 0 Refills Prov: FANNIE ASHTON 09/05/20 Cephalexin (Cephalexin) 500 Mg Tablet 500 MG PO BID for 5 Days, #10 TAB 0 Refills Prov: FANNIE ASHTON 09/05/20 Ondansetron (Ondansetron Odt) 4 Mg Tab.rapdis 4 MG PO Q6H PRN for NAUSEA/VOMITING, #8 TAB 0 Refills Prov: FANNIE ASHTON 09/05/20 FANNIE ASHTON Sep 05, 2020 01:36
[2020-09-05] MEDS ORDERED: HYDROcodone/APAP 5 MG/325 MG (LORTAB) TAB PO ONE (01:45)
[2020-09-05 01:47] LABS: BASOPHILS % (AUTO) 1 % (0-10); EOSINOPHILS # (AUTO) 0.1 10^3/uL (0.0-0.3); EOSINOPHILS % (AUTO) 2 % (0-10); HEMATOCRIT 31 % (40-54); HEMOGLOBIN 9.4 G/DL (13.3-17.7); LYMPHOCYTES % (AUTO) 18 % (12-44); MEAN CORPUSCULAR HEMOGLOBIN 29 PG (25-34); MEAN CORPUSCULAR HGB CONC 31 G/DL (32-36); MEAN CORPUSCULAR VOLUME 95 FL (80-99); MEAN PLATELET VOLUME 9.4 FL (7.4-10.4); MONOCYTES # (AUTO) 0.4 X 10^3 (0.0-1.0); MONOCYTES % (AUTO) 6 % (0-12); NEUTROPHILS # (AUTO) 4.2 X 10^3 (1.8-7.8); NEUTROPHILS % (AUTO) 73 % (42-75); PLATELET COUNT 130 10^3/uL (130-400); WHITE BLOOD COUNT 5.7 10^3/uL (4.3-11.0)
[2020-09-05 02:05] LABS: ALBUMIN 3.4 GM/DL (3.2-4.5); BILIRUBIN,TOTAL 0.2 MG/DL (0.1-1.0); CALCIUM 8.5 MG/DL (8.5-10.1); CREATININE SERUM 2.09 MG/DL (0.60-1.30); POTASSIUM 4.8 MMOL/L (3.6-5.0)
[2020-09-05 02:05] LABS: COLOR,URINE YELLOW
[2020-09-05 02:06] LABS: BACTERIA,URINE NEGATIVE /HPF; BILIRUBIN,URINE NEGATIVE (NEGATIVE); CLARITY,URINE SLIGHTLY CLOUDY; GLUCOSE, URINE (UA) NEGATIVE (NEGATIVE); KETONES,URINE NEGATIVE (NEGATIVE); LEUKOCYTE ESTERASE ,URINE NEGATIVE (NEGATIVE); NITRITE,URINE NEGATIVE (NEGATIVE); PH,URINE 5.5 (5-9); PROTEIN,URINE 2+ (NEGATIVE); RBC,URINE TNTC /HPF
[2020-09-05] MEDS ORDERED: ACHD5005 PO (02:18)
[2020-09-05] MEDS ORDERED: TMSL.4C PO (02:18)
[2020-09-05] MEDS ORDERED: CEPH500T PO (02:18)
[2020-09-05] MEDS ORDERED: ONDA4TAB11 PO (02:18)
[2020-09-05] MEDS ORDERED: RX-HYDROCODONE/APAP 5/325 MG #4 TAB PK PO PRN (02:30)
[2020-09-05 02:34] VITALS: BP 142/86
--- NOTE | 2020-09-05 06:02 | Diagnostic Imaging Report ---
EXAMINATION: CT Abdomen Pelvis without contrast. TECHNIQUE: Multiple contiguous axial images were obtained through the abdomen and pelvis without the use of intravenous contrast. All CT scans use one or more of the following dose optimizing techniques: automated exposure control, MA and/or KvP adjustment based on a patient size and exam type, or iterative reconstruction. HISTORY: left flank pain hx stone COMPARISON: CT abdomen/pelvis 04/08/2020 FINDINGS: Lung bases: Atelectasis and calcified granulomas within the lung bases. Solid organs: The liver is normal. The gallbladder is surgically absent. There is no biliary ductal dilation. Pancreas is normal. Calcified granulomas within the spleen. Adrenal glands are normal. There is a 0.3 cm calculus within the distal left ureter resulting in mild left hydronephrosis and hydroureter. There are 3 fat density lesions arising from the right kidney measuring up to 2.2 cm. The right kidney is otherwise unremarkable without hydronephrosis or hydroureter. The distal ureters are not visualized secondary to streak artifact. Bowel: Surgical changes from colectomy with right lower quadrant ileostomy. No bowel obstruction. Peritoneum: There is no intraperitoneal free fluid or free air. No suspicious lymphadenopathy. Vasculature: An IVC filter is present. Vascular calcifications without aneurysm. Musculoskeletal: Surgical changes of the abdominal wall. Surgical changes from bilateral hip arthroplasty. Diffuse osseous demineralization. Multilevel degenerative changes of the spine and surgical changes from L5-S1 spinal fusion. No suspicious osseous lesion. Pelvis: The pelvis is obscured by streak artifact from hip prosthesis. IMPRESSION: 1. A 0.3 cm calculus within the distal left ureter resulting in mild left hydronephrosis and hydroureter. 2. Indeterminate fat attenuation lesions arising from the right kidney. This could represent solid lesions such as angiomyolipoma, or fat necrosis from prior surgery. Recommend follow-up CT abdomen and pelvis with IV contrast renal mass protocol for better characterization as well as correlation with any history of surgery to this location. 3. Agree with preliminary interpretation. Dictated by: Dictated on workstation # [id number]
== END 2020-09-05 02:34 | disposition home or self-care (01) ==
LOC: EDUNIT# 01:14 → ER FS 01:17
DX: N13.2 Hydronephrosis with renal and ureteral calculous obstruction (principal); Z85.118 Personal history of other malignant neoplasm of bronchus and lung; Z85.038 Personal history of other malignant neoplasm of large intestine; Z85.528 Personal history of other malignant neoplasm of kidney; Z87.891 Personal history of nicotine dependence; Z88.0 Allergy status to penicillin
CPT/HCPCS: 36415; 74176; 80053; 81000; 85025

== ENCOUNTER 2020-10-09 19:56 | Emergency (ER) | payer MEDICARE, OTHER ==
[~2020-10-09] VITALS: Ht 185.5 cm; Wt 77.7 kg
[~2020-10-09 19:56] MED LIST changes: +ACHD5005 PO
--- NOTE | 2020-10-09 20:24 | ED General ---
General Chief Complaint: Fever-Adult/Adol Stated Complaint: FEVER Nursing Triage Note: pt reports fever starting tonight, took tylenol 1 hr ago, pt noted to have a puncture wound to left great toe where he kicked bed several days ago and since left leg has continued to swell more than normal. pt states he normally has leg swelling comparable with right leg. left leg 3+, right leg 2 + Nursing Sepsis Screen: Possible Severe Sepsis Risk Source of Information: Patient History of Present Illness Date Seen by Provider: Oct 09, 2020 Time Seen by Provider: 20:24 Initial Comments 75-year-old male presenting with fever and chills at home. He also has increased swelling and warmth with redness to his left lower leg. Over the last few months he has had a callus and slowly healing wound to his left great toe. He had initi ally caught it on a screw that was sticking out of the bedframe. When he stubbed his toe on the screw he had hit it hard enough that he had actually split his toenail and it was bleeding. He had then took a pair of pliers and ripped the toenail off the rest of the way. The wound took a long time to heal and stop bleeding. It still has a callous on the toe. Now in the last few weeks he has noticed increased redness and swelling with warmth to his left lower leg. He had chills with rigors a week or two ago and took tylenol and went to bed with several blankets on him. The next morning he woke up and was sweaty and no longer cold. He tonight was also having chills with rigors but when his daughter checked his temperature he was 102.2 F. He took tylenol but after 10 minutes it had not brought his temperature down so he came to the ED. After arriving to the ED his temperature broke and he felt normal. Allergies and Home Medications Allergies Coded Allergies: Penicillins (Verified Allergy, Intermediate, 04/20/20) EYES SWELLED SHUT Home Medications Acetaminophen 500 Mg Tablet, 500 MG PO Q6H PRN for PAIN-MILD (1-4), (Reported) Amlodipine Besylate 10 Mg Tablet, 10 MG PO HS, (Reported) Cephalexin 500 Mg Tablet, 500 MG PO QID Prescribed by: ANGELA ASENCIO on 05/20/201745 Cephalexin 500 Mg Tablet, 500 MG PO BID Prescribed by: FANNIE ASHTON on 09/05/20217 Cephalexin 500 Mg Tablet, 500 MG PO TID Prescribed by: BETO CALI on 10/09/202118 Ferrous Sulfate 325 Mg Tablet, 325 MG PO BID, (Reported) Hydrocodone/Acetaminophen 1 Each Tablet, 1 EACH PO Q6H PRN for PAIN-BREAKTHROUGH Prescribed by: FANNIE ASHTON on 09/05/20217 Hydroxychloroquine Sulfate 200 Mg Tablet, 200 MG PO BID, (Reported) Meclizine HCl 25 Mg Tablet, 25 MG PO Q8H Prescribed by: TOMMIE JARAMILLO on 07/23/20 155 Melatonin 10 Mg Tablet, 10 MG PO HS PRN for SLEEP, (Reported) Multivitamin 1 Each Tablet, 1 TAB PO DAILY, (Reported) Ondansetron 4 Mg Tab.rapdis, 4 MG PO Q6H PRN for NAUSEA/VOMITING Prescribed by: ANGELA ASENCIO on 05/20/20 174 Ondansetron 4 Mg Tab.rapdis, 4 MG PO Q6H PRN for NAUSEA/VOMITING Prescribed by: FANNIE ASHTON on 09/05/20217 Sodium Bicarbonate 650 Mg Tablet, 650 MG PO HS PRN for LOOSE STOOLS, (Reported) Tamsulosin HCl 0.4 Mg Cap, 0.4 MG PO DAILY Prescribed by: FANNIE ASHTON on 09/05/20217 Temazepam 15 Mg Capsule, 15 MG PO HS PRN for SLEEP, (Reported) Patient Home Medication List Home Medication List Reviewed: Yes Review of Systems Review of Systems Constitutional: chills, fever EENTM: no symptoms reported Respiratory: no symptoms reported Cardiovascular: no symptoms reported Gastrointestinal: no symptoms reported Genitourinary: hematuria (chronic, intermittent) Musculoskeletal: see HPI Skin: see HPI Hematologic/Lymphatic: Blood Clots (taking blood thinners), Easy Bleeding (on blood thinner), Easy Bruising (on blood thinner) Past Taregnp-Hapkkz-Ayrtdg Hx Past Med/Social Hx: Reviewed Nursing Past Med/Soc Hx Patient Social History Alcohol Use: Denies Use Recreational Drug Use: No Smoking Status: Former Smoker Former Smoker, Quit: Apr 20, 2010 2nd Hand Smoke Exposure: Yes Recent Foreign Travel: No Contact w/Someone Who Travel: No Recent Infectious Disease Expo: No Recent Hopitalizations: No Physical Abuse: No Sexual Abuse: No Mistreated: No Fear: No Immunizations Up To Date Date of Influenza Vaccine: Sep 09, 2019 Seasonal Allergies Seasonal Allergies: No Past Medical History Surgeries: Yes (COLECTOMY WITH ILEOSTOMY 1973, SPINAL FUSION) Respiratory: Yes Pulmonary Embolism Cardiac: Yes Deep Vein Thrombosis Neurological: Yes Neuropathy Sexually Transmitted Disease: No HIV/AIDS: No Genitourinary: Yes (RENAL INSUFF.) Benign Prostatic Hyperpl, Kidney Stones, Renal Failure Gastrointestinal: Yes (COLECTOMY WITH ILEOSTOMY) Polyps Musculoskeletal: Yes Degenerate Disk Disease, Rheumatoid Arthritis, Chronic Back Pain Endocrine: No HEENT: Yes (GLASSES, DENTURES) Loss of Vision: Denies Hearing Impairment: Hard of Hearing Cancer: Yes Lung, Colon, Kidney Did You Recieve Any Treatments: Yes What Type of Treatment Did You: Chemotherapy Psychosocial: No Integumentary: Yes (VERY SENSITIVE SKIN) Blood Disorders: No Adverse Reaction/Blood Tranf: No (N/A) Family Medical History Patient reports no known family medical history. Physical Exam Vital Signs Vital Signs - First Documented 10/09/20 20:13 Temp 39.0 Pulse 100 Resp 16 B/P (MAP) 116/55 (75) Pulse Ox 95 O2 Delivery Room Air Capillary Refill : Less Than 3 Seconds Height, Weight, BMI Height: '" Weight: lbs. oz. kg; 22.00 BMI Method: General Appearance: No Apparent Distress, WD/WN Neck: Non Tender, Supple Respiratory: Chest Non Tender, Lungs Clear, Normal Breath Sounds, No Accessory Muscle Use, No Respiratory Distress Cardiovascular: Regular Rate, Rhythm, Normal Peripheral Pulses Extremity: Normal Range of Motion, Calf Tenderness (bilateral but left greater than right), Pedal Edema (3+ on LLE to knee and 2+ on RLE to knee. 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 LLE warmer to touch than RLE) Focused Exam Lactate Level 10/09/20 20:10: Lactic Acid Level 2.18*H Lactic Acid Level Progress/Results/Core Measures Suspected Sepsis Recent Fever Within 48 Hours: Yes Infection Criteria Present: Suspected New Infection New/Unexplained Altered Menta: No Sepsis Screen: Possible Severe Sepsis Risk SIRS Temperature: Pulse: 100 Respiratory Rate: 16 Laboratory Tests 10/09/20 20:10: White Blood Count 9.5 Blood Pressure 116 /55 Mean: 75 10/09/20 20:10: Lactic Acid Level 2.18*H Laboratory Tests 10/09/20 20:10: Creatinine 2.07H, Platelet Count 112L, Total Bilirubin 0.5 Results/Orders Lab Results Laboratory Tests Test 10/09/20 20:10 10/09/20 20:28 Range/Units White Blood Count 9.5 4.3-11.0 10^3/uL Red Blood Count 3.50 L 4.35-5.85 10^6/uL Hemoglobin 10.2 L 13.3-17.7 G/DL Hematocrit 32 L 40-54 % Mean Corpuscular Volume 93 80-99 FL Mean Corpuscular Hemoglobin 29 25-34 PG Mean Corpuscular Hemoglobin Concent 32 32-36 G/DL Red Cell Distribution Width 14.1 10.0-14.5 % Platelet Count 112 L 130-400 10^3/uL Mean Platelet Volume 9.8 7.4-10.4 FL Immature Granulocyte % (Auto) 0 % Neutrophils (%) (Auto) 90 H 42-75 % Lymphocytes (%) (Auto) 7 L 12-44 % Monocytes (%) (Auto) 2 0-12 % Eosinophils (%) (Auto) 1 0-10 % Basophils (%) (Auto) 0 0-10 % Neutrophils # (Auto) 8.6 H 1.8-7.8 X 10^3 Lymphocytes # (Auto) 0.6 L 1.0-4.0 X 10^3 Monocytes # (Auto) 0.2 0.0-1.0 X 10^3 Eosinophils # (Auto) 0.1 0.0-0.3 10^3/uL Basophils # (Auto) 0.0 0.0-0.1 10^3/uL Immature Granulocyte # (Auto) 0.0 0.0-0.1 10^3/uL Neutrophils % (Manual) 87 % Lymphocytes % (Manual) 11 % Monocytes % (Manual) 1 % Eosinophils % (Manual) 1 % Sodium Level 140 135-145 MMOL/L Potassium Level 4.5 3.6-5.0 MMOL/L Chloride Level 107 98-107 MMOL/L Carbon Dioxide Level 22 21-32 MMOL/L Anion Gap 11 5-14 MMOL/L Blood Urea Nitrogen 30 H 7-18 MG/DL Creatinine 2.07 H 0.60-1.30 MG/DL Estimat Glomerular Filtration Rate 31 BUN/Creatinine Ratio 14 Glucose Level 108 H 70-105 MG/DL Lactic Acid Level 2.18 *H 0.50-2.00 MMOL/L Calcium Level 8.2 L 8.5-10.1 MG/DL Corrected Calcium 8.4 L 8.5-10.1 MG/DL Total Bilirubin 0.5 0.1-1.0 MG/DL Aspartate Amino Transf (AST/SGOT) 21 5-34 U/L Alanine Aminotransferase (ALT/SGPT) 14 0-55 U/L Alkaline Phosphatase 107 40-136 U/L C-Reactive Protein 2.74 H <0.50 MG/DL Total Protein 6.2 L 6.4-8.2 GM/DL Albumin 3.7 3.2-4.5 GM/DL Urine Color YELLOW Urine Clarity CLEAR Urine pH 5.5 5-9 Urine Specific [place] >=1.030 1.016-1.022 Urine Protein 2+ H NEGATIVE Urine Glucose (UA) NEGATIVE NEGATIVE Urine Ketones NEGATIVE NEGATIVE Urine Nitrite NEGATIVE NEGATIVE Urine Bilirubin NEGATIVE NEGATIVE Urine Urobilinogen 0.2 < = 1.0 MG/DL Urine Leukocyte Esterase NEGATIVE NEGATIVE Urine RBC (Auto) 2+ H NEGATIVE Urine RBC 2-5 H /HPF Urine WBC 0-2 /HPF Urine Squamous Epithelial Cells NONE /HPF Urine Crystals PRESENT H /LPF Urine Amorphous Sediment LARGE TABBY URATES H /LPF Urine Bacteria NEGATIVE /HPF Urine Casts PRESENT /LPF Urine Hyaline Casts 0-2 H /LPF Urine Granular Casts 0-2 H /LPF Urine Mucus NEGATIVE /LPF Urine Culture Indicated NO My Orders Orders - BETO CALI MD Cbc With Automated Diff (10/09/20 20:19) Comprehensive Metabolic Panel (10/09/20 20:19) Blood Culture (10/09/20 20:19) Ua Culture If Indicated (10/09/20 20:19) Ed Iv/Invasive Line Start (10/09/20 20:19) Crp Fs (10/09/20 20:19) Lactic Acid Analyzer (10/09/20 20:19) Manual Differential (10/09/20 20:10) Foot 3 View Left (10/09/20 20:50) Ceftriaxone For Iv Use (Rocephin For I (10/09/20 21:14) Vital Signs/I&O 10/09/20 10/09/20 20:13 21:30 Temp 39.0 36.8 Pulse 100 76 Resp 16 15 B/P (MAP) 116/55 (75) 121/51 Pulse Ox 95 97 O2 Delivery Room Air Room Air Capillary Refill : Less Than 3 Seconds Blood Pressure Mean: 75 Progress Note #1: Progress Note check labs and blood cultures with lactic acid to evaluate for infection with him having redness, swelling and increased heat to LLE as well as overall fever. He reports he has appt at 1115 am with his PCP, Dr. Caceres, to review labs and basic test results. Will order xray of the left foot to evaluate for osteomyelitis or bony breakdown of the left great toe since this is been several month long process. Progress Note #2: Time: 20:51 Progress Note labs do not show any acute elevation of his white blood cell count. His chemistry appear stable for him with chronic renal insufficiency. His lactic acid is just slightly above normal at 2.18. Will treat him with antibiotics for presumed cellulitis of his left lower extremity. Since he has an appointment in the morning with Dr. Caceres in the morning, have him keep that appointment and help monitor his renal function and INR while on antibiotic. Check xray to see what his bones look like from the several month long wound/callous to his Left great toe. Progress Note #3: Time: 21:04 Progress Note As he has no pain or signs of infection at the great toe but has changes to the bone at this area it could be more related to the initial injury from several months ago. Will treat with antibiotics and have him monitor this with the clinic. If he worsens or is not improving then he might need to have IV antibiotics chcf or see about admit for surgical debridement or IV antibiotics but He does not have redness, pain, swelling or drainage from the great toe or foot currently. Treat with rocephin here and keflex at home since he has taken those previously. Diagnostic Imaging Diagonstic Imaging: Xray Plain Films/CT/US/NM/MRI: other (left foot) Comments [facility] [place], [place] NAME: JAYSON PAUL [facility] REC#: [id number] PT STATUS: DEP ER : 1945 PHYSICIAN: BETO CALI MD ADMIT DATE: 10/09/20/ER FS Signed Date of Exam:10/09/20 FOOT 3 VIEW LEFT EXAM: Left foot radiograph. EXAM DATE: 10/09/2020. COMPARISON: None. HISTORY: Injury to the tip of the 1st digit. TECHNIQUE: Three views of the left foot. FINDINGS: No acute fracture or dislocation. There is an appearance of osseous erosion of the distal tip of the 1st distal phalanx. There is soft tissue swelling of the left 1st digit. Degenerative changes are seen throughout the foot with mild osseous demineralization. Small anterior and posterior calcaneal enthesophytes are present. Vascular calcifications are seen. IMPRESSION: Erosion of the distal tip of the left 1st digit distal phalanx which could be seen with osteomyelitis if there is underlying infectious process at this location. Recommend correlation with physical exam. Dictated by: Dictated on workstation # [id number] Dict: 10/09/202121 Trans: 10/09/202201 [facility] [id number] Interpreted by: MARTHA MYERS DO Electronically signed by: MARTHA MYERS DO 10/09/202201 Departure Impression Primary Impression: Left leg cellulitis Additional Impression: Abrasion, left great toe, sequela Disposition: 01 HOME, SELF-CARE Condition: Stable Departure-Patient Inst. Decision time for Depature: 21:16 Referrals: ALIRIO CACERES MD (PCP/Family) Primary Care Physician Patient Instructions: Fever, Adult (DC), Cellulitis (Skin Infection), Adult (DC), Toe Injury (DC) Add. Discharge Instructions: Take full course of antibiotics. Follow up with Dr. Caceres as scheduled at 1115 am. Have him follow your INR while on antibiotics and help manage your cellulitis infection in your leg. Take 650 mg of Acetaminophen every 4-6 hours as needed for temperature over 101 F. Try to elevate your leg when you can to help with swelling and pain. All discharge instructions reviewed with patient and/or family. Voiced understanding. Scripts Cephalexin (Cephalexin) 500 Mg Tablet 500 MG PO TID for cellulitis for 10 Days, #30 TAB 0 Refills Prov: BETO CALI MD 10/09/20 BETO CALI MD Oct 09, 2020 20:24
[2020-10-09 20:26] LABS: BASOPHILS % (AUTO) 0 % (0-10); EOSINOPHILS # (AUTO) 0.1 10^3/uL (0.0-0.3); EOSINOPHILS % (AUTO) 1 % (0-10); HEMATOCRIT 32 % (40-54); HEMOGLOBIN 10.2 G/DL (13.3-17.7); LYMPHOCYTES # (AUTO) 0.6 X 10^3 (1.0-4.0); LYMPHOCYTES % (AUTO) 7 % (12-44); MEAN CORPUSCULAR HEMOGLOBIN 29 PG (25-34); MEAN CORPUSCULAR HGB CONC 32 G/DL (32-36); MEAN CORPUSCULAR VOLUME 93 FL (80-99); MEAN PLATELET VOLUME 9.8 FL (7.4-10.4); MONOCYTES # (AUTO) 0.2 X 10^3 (0.0-1.0); MONOCYTES % (AUTO) 2 % (0-12); NEUTROPHILS # (AUTO) 8.6 X 10^3 (1.8-7.8); NEUTROPHILS % (AUTO) 90 % (42-75); PLATELET COUNT 112 10^3/uL (130-400); WHITE BLOOD COUNT 9.5 10^3/uL (4.3-11.0)
[2020-10-09 20:39] LABS: BACTERIA,URINE NEGATIVE /HPF; BILIRUBIN,URINE NEGATIVE (NEGATIVE); CLARITY,URINE CLEAR; COLOR,URINE YELLOW; GLUCOSE, URINE (UA) NEGATIVE (NEGATIVE); KETONES,URINE NEGATIVE (NEGATIVE); LEUKOCYTE ESTERASE ,URINE NEGATIVE (NEGATIVE); NITRITE,URINE NEGATIVE (NEGATIVE); PH,URINE 5.5 (5-9); PROTEIN,URINE 2+ (NEGATIVE); WBC,URINE 0-2 /HPF
[2020-10-09 20:40] LABS: AMORPHOUS SEDIMENT,UR LARGE AMOR URATES /LPF; GRANULAR CASTS,URINE 0-2 /LPF; HYALINE CASTS, URINE 0-2 /LPF
[2020-10-09 20:43] LABS: ALBUMIN 3.7 GM/DL (3.2-4.5); BILIRUBIN,TOTAL 0.5 MG/DL (0.1-1.0); CALCIUM 8.2 MG/DL (8.5-10.1); CREATININE SERUM 2.07 MG/DL (0.60-1.30); POTASSIUM 4.5 MMOL/L (3.6-5.0); TOTAL PROTEIN 6.2 GM/DL (6.4-8.2)
[2020-10-09] MEDS ORDERED: cefTRIAXone FOR IV USE 1,000 MG in WATER (STERILE) FOR INJECTION 10 ML IV STA (21:14)
[2020-10-09 21:18] LABS: EOSINOPHILS % (MANUAL) 1 %; LYMPHOCYTES % (MANUAL) 11 %; MONOCYTES % (MANUAL) 1 %; NEUTROPHILS % (MANUAL) 87 %
[2020-10-09] MEDS ORDERED: CEPH500T PO (21:19)
--- NOTE | 2020-10-09 21:25 | Diagnostic Imaging Report ---
EXAM: Left foot radiograph. EXAM DATE: 10/09/2020. COMPARISON: None. HISTORY: Injury to the tip of the 1st digit. TECHNIQUE: Three views of the left foot. FINDINGS: No acute fracture or dislocation. There is an appearance of osseous erosion of the distal tip of the 1st distal phalanx. There is soft tissue swelling of the left 1st digit. Degenerative changes are seen throughout the foot with mild osseous demineralization. Small anterior and posterior calcaneal enthesophytes are present. Vascular calcifications are seen. IMPRESSION: Erosion of the distal tip of the left 1st digit distal phalanx which could be seen with osteomyelitis if there is underlying infectious process at this location. Recommend correlation with physical exam. Dictated by: Dictated on workstation # [id number]
[2020-10-09 21:30] VITALS: BP 121/51
== END 2020-10-09 21:30 | disposition home or self-care (01) ==
LOC: EDUNIT# 19:56 → ER FS 19:59
DX: S90.41 Abrasion of toe (principal); L03.116 Cellulitis of left lower limb; N40.0 Benign prostatic hyperplasia without lower urinary tract symptoms; G89.29 Other chronic pain; M54.9 Dorsalgia, unspecified; Z85.038 Personal history of other malignant neoplasm of large intestine; Z85.118 Personal history of other malignant neoplasm of bronchus and lung; Z85.528 Personal history of other malignant neoplasm of kidney; Z87.891 Personal history of nicotine dependence; Z88.0 Allergy status to penicillin; Z79.891 Long term (current) use of opiate analgesic; W23 Caught, crushed, jammed or pinched in or between objects
CPT/HCPCS: 36415; 73630; 80053; 81000; 83605; 85007; 85027; 86141; 87040; 87077

== ENCOUNTER 2020-10-11 11:15 | Outpatient (RCR) | payer MEDICARE, OTHER ==
[~2020-10-11] VITALS: Ht 185 cm; Wt 78.1 kg
[2020-10-11] MEDS ORDERED: PRED10TA22 PO (13:56)
[2020-10-11] MEDS ORDERED: WRF2.5T PO (13:56)
== END 2020-10-11 14:10 | disposition home or self-care (01) ==
LOC: PREOP 11:15
PROVIDERS: ATTEND Podiatrist Foot & Ankle Surgery
DX: Z01.818 Encounter for other preprocedural examination (principal)

== ENCOUNTER → 2020-10-12 | Outpatient (CLI) | payer MEDICARE, OTHER ==
[~2020-10-12] MED LIST changes: +PRED10TA22 PO; +WRF2.5T PO
== END ==
LOC: LAB FS 10:10
PROVIDERS: ATTEND Podiatrist Foot & Ankle Surgery
DX: Z01.812 Encounter for preprocedural laboratory examination (principal); Z20.828 Contact with and (suspected) exposure to other viral communicable diseases
CPT/HCPCS: 87635

== ENCOUNTER 2020-10-14 11:11 | Day surgery (SDC) | payer MEDICARE, OTHER ==
[2020-10-14] VITALS (7 sets, daily range): BP systolic 125–148; BP diastolic 64–76
[~2020-10-14] VITALS: Ht 185 cm; Wt 78.1 kg
[2020-10-14] MEDS ORDERED: PROPOFOL INJECTION 50 ML IV ONE ×2 (11:53→13:59)
[2020-10-14] MEDS ORDERED: MIDAZOLAM 2 MG/2 ML (VERSED) VIAL ONE (11:54)
[2020-10-14] MEDS ORDERED: HYDROCORTISONE 100 MG/2 ML (Solu-CORTEF) VIAL ONE (12:03)
[2020-10-14 12:25] LABS: INR 1.4 (0.8-1.4); PROTHROMBIN TIME PATIENT 17.7 SEC (12.2-14.7)
[2020-10-14] MEDS ORDERED: VANCOMYCIN INJECTION 1,000 MG in NS (IVPB) 250 ML IV NR (12:30)
[2020-10-14] MEDS ORDERED: LACTATED RINGERS 1,000 ML IV PRN (12:30)
[2020-10-14] MEDS ORDERED: BUPIVACAINE 0.5% 30 ML (SENSORCAINE) VIAL ONE (12:45)
[2020-10-14] MEDS ORDERED: LIDOCAINE 1% INJ 20 ML 20 ML VIAL ONE (12:46)
--- NOTE | 2020-10-14 13:05 | Progress Note-Pre Operative ---
Pre-Operative Progress Note H&P Reviewed The H&P was reviewed, patient examined and no changes noted. Date Seen by Provider: Oct 14, 2020 Time Seen by Provider: 13:05 Date H&P Reviewed: Oct 14, 2020 Time H&P Reviewed: 13:05 Pre-Operative Diagnosis: Osteomyelitis left hallux MAR GASTELUM DPEdmar Oct 14, 2020 13:05
--- NOTE | 2020-10-14 14:09 | Progress Note-Post Operative ---
Post-Operative Progess Note Surgeon (s)/Panel Cutter (s) Surgeon MAR GASTELUM DPM Panel Cutter: none Pre-Operative Diagnosis Osteomyelitis left hallux Post-Operative Diagnosis Same Procedure & Operative Findings Date of Procedure 10/14/20 Procedure Performed/Findings Partial amputation of the left hallux Anesthesia Type MAC Estimated Blood Loss Estimated blood loss (mL): Minimal Specimens/Packing Specimens Removed left hallux distal phalanx Packing: none MAR GASTELUM DPM Oct 14, 2020 14:09
[2020-10-14] MEDS ORDERED: HYDROmorphone 2 MG/ML VIAL (DILAUDID) IV ONE (14:15)
[2020-10-14] MEDS ORDERED: LACTATED RINGERS 1,000 ML IV SCH (14:15)
[2020-10-14] MEDS ORDERED: HYDROcodone/APAP 5 MG/325 MG (LORTAB) TAB PO PRN (14:15)
[2020-10-14] MEDS ORDERED: ACHD5005 PO (14:17)
--- NOTE | 2020-10-14 14:34 | Anesthesia-General Post-Op ---
MAC Patient Condition Mental Status/LOC: Same as Preop Cardiovascular: Satisfactory Nausea/Vomiting: Absent Respiratory: Satisfactory Pain: Controlled Complications: Absent Post Op Complications Complications None Follow Up Care/Instructions Patient Instructions None needed. Anesthesiology Discharge Order Discharge Order Patient is doing well, no complaints, stable vital signs, no apparent adverse anesthesia problems. No complications reported per nursing. MELCHOR HUGHES CRNA Oct 14, 2020 14:34
--- NOTE | 2020-10-14 14:51 | Physical Therapy Progress Note ---
Therapy Progress Note PT visited with patient. He has established FWW and no steps in home. Patient is PWB left foot with surgical shoe in place. Patient and family feel comfortable with LOF. No PT indicated. 1 visit ([id number]) ROB NEGRETE PT Oct 14, 2020 14:51
--- NOTE | 2020-10-16 01:38 | OPERATIVE REPORT ---
DATE OF SERVICE: 10/14/2020 SURGEON: Sybil Gastelum DPM. PREOPERATIVE DIAGNOSIS: Osteomyelitis, left hallux. POSTOPERATIVE DIAGNOSIS: Osteomyelitis, left hallux. WOUND CLASS: Contaminated. ANESTHESIA: Monitored anesthesia care. HEMOSTASIS: Pneumatic ankle tourniquet at 250 mmHg. INDICATIONS: This 75-year-old male presented to my office complaining of chronic wound to the left great toe. X-rays were taken in the office, which showed significant osseous destruction to the distal aspect of the distal phalanx of the left hallux. Risks and benefits of the amputation were discussed at length as well as other options such as long-term IV antibiotics; however, we have to do a bone biopsy anyway. The patient opted to have an amputation of the hallux today after risks and complications were again discussed. No guarantees were extended to the patient and he is willing to proceed. DESCRIPTION OF PROCEDURE: The patient was brought back to the operating table, placed in secure supine position. Appropriate timeout was performed. The left first ray was anesthetized utilizing 20 mL of 1:1 mixture of 1% Xylocaine, 0.5% Marcaine injected in a Barksdlae block. A pneumatic ankle tourniquet was placed on left lower extremity over several layers of padding. The left foot was then prepped and draped in normal sterile manner. The left foot was then elevated, allowed to exsanguinate, after which the tourniquet was inflated to 250 mmHg. Attention was then directed to the left hallux where an incision was created and two semi elliptical incisions. The first incision started centrally at the lateral aspect of the interphalangeal joint extending slightly anteriorly and superiorly across the dorsal aspect of the digit and it met up with the medial aspect of the interphalangeal joint area. A second incision was started in the same location to the lateral aspect of the hallux extending distally and then plantarly creating a plantar flap. The incision was also joint to the medial aspect of the interphalangeal joint extending distally again creating a plantar flap. The distal phalanx was then sharply debrided from the plantar flap and the specimen was sent for gross and microscopic evaluation. The distal phalanx was disarticulated at the interphalangeal joint utilizing sharp dissection. It should be noted that there is an incision to the dorsal aspect of the distal left hallux, after was disarticulated. There is quite a bit of purulent discharge as a rongeur was utilized to take a bone sample and this was sent for culture and sensitivity. The wound was then inspected and there was no necrosis or purulent issues to what remained of the left hallux. Two liters of normal saline was then utilized for power irrigation to the area. After a power irrigation, a swab culture was taken prior to closure. The distal aspect of the proximal phalanx was modified to reduce pressure points. Utilizing a power sagittal saw and 45-degree cut was performed from distal superior to plantar posterior at the head of the proximal phalanx. This area was further contoured and smoothed with a hand rasp. The extensor and flexor tendons were cut as proximally as possible. The area was flushed once again and then closure was performed. The tourniquet was dropped, after which active bleeders were identified and cauterized. Next, a 4-0 Prolene was utilized for simple interrupted type stitch for closure. Excellent cap refill time to the plantar flap of the amputation site. Postoperative dressing consisted of Betadine soaked Adaptic, sterile 4 x 4, sterile Kerlix all secured with Coban wrap. The patient tolerated the anesthesia and procedure well, was transported from the operating room to the recovery area with vital signs stable and vascular status intact to all digits of the left foot. He is to follow up in my office in 10 days' period of time or sooner if necessary. In the meantime, he is to continue with his oral antibiotic and reduce weightbearing. He will utilize a surgical splint shoe with crutches or walker. Job ID: [id number] DocumentID: [id number] Dictated Date: 10/15/2020 19:32:28 Landscape Contractor Date: 10/16/2020 01:38:26 Dictated By: SYBIL GASTELUM DPM
== END 2020-10-14 15:50 ==
LOC: SDC 11:11
PROVIDERS: ATTEND Podiatrist Foot & Ankle Surgery
DX: M86.8X7 Other osteomyelitis, ankle and foot (principal); J44.9 Chronic obstructive pulmonary disease, unspecified; M06.9 Rheumatoid arthritis, unspecified; G62.9 Polyneuropathy, unspecified; N40.0 Benign prostatic hyperplasia without lower urinary tract symptoms; I12.9 Hypertensive chronic kidney disease with stage 1 through stage 4 chronic kidney disease, or unspecified chronic kidney disease; E78.5 Hyperlipidemia, unspecified; N18.4 Chronic kidney disease, stage 4 (severe); I82.513 Chronic embolism and thrombosis of femoral vein, bilateral; C18.9 Malignant neoplasm of colon, unspecified; L03.116 Cellulitis of left lower limb; Z79.01 Long term (current) use of anticoagulants; Z79.899 Other long term (current) drug therapy; Z88.0 Allergy status to penicillin
CPT/HCPCS: 36415; 85610; 87070; 87075; 87077; 87081; 87101; 87186; 87205

== ENCOUNTER 2020-11-24 09:16 | Emergency (ER) | payer MEDICARE, OTHER ==
[~2020-11-24] VITALS: Ht 185.4 cm; Wt 78.6 kg
[2020-11-24] MEDS ORDERED: LORazepam INJ 2 MG/ML (ATIVAN) VIAL IVP STA (09:28)
[2020-11-24] MEDS ORDERED: RT-ALBUTEROL/IPRATROPIUM 3 ML (DUONEB) VIAL INH STA (09:28)
[2020-11-24] MEDS ORDERED: FUROSEMIDE 40 MG/4 ML INJ (LASIX) IVP STA (09:31)
--- NOTE | 2020-11-24 09:33 | ED Dyspnea ---
General Stated Complaint: SOB; CHEST PAIN Source of Information: Patient History of Present Illness Date Seen by Provider: Nov 24, 2020 Time Seen by Provider: 09:16 Initial Comments 75-year-old male presenting by private vehicle to the emergency department with complaints of shortness of breath and pressure in his chest. He states this started about 30-40 minutes prior to arriving in the ED. he appears anxious and is hyperventilating. He feels like he can't catch his breath. He states he has been coughing off and on and occasionally will bring up thick sputum. He denies any fever or chills. He does have a history of kidney cancer that had metastasized to his lungs and colon. He reports being seen yesterday at the pulmonology and cancer doctors in [place] at [facility]. Reportedly they did x-rays and CT scans and he was told that the cancer and nodules in his lungs were stable. He has a history of blood clots and takes anticoagulation chronically. Allergies and Home Medications Allergies Coded Allergies: Penicillins (Verified Allergy, Intermediate, 10/11/20) EYES SWELLED SHUT Home Medications Acetaminophen 500 Mg Tablet, 500 MG PO Q6H PRN for PAIN-MILD (1-4), (Reported) Amlodipine Besylate 10 Mg Tablet, 10 MG PO HS, (Reported) Ferrous Sulfate 325 Mg Tablet, 325 MG PO BID, (Reported) Furosemide 40 Mg Tablet, 40 MG PO DAILY Prescribed by: BETO HAILEYART on 11/24/20 1133 Hydrocodone/Acetaminophen 1 Each Tablet, 1 EACH PO Q4H PRN for PAIN-MODERATE (5- 7) Prescribed by: MAR GASTELUM on 10/14/20 1417 Hydroxychloroquine Sulfate 200 Mg Tablet, 200 MG PO BID, (Reported) Levofloxacin 750 Mg Tablet, 750 MG PO Q48H Prescribed by: BETO Tabor ENYART on 11/24/20 1133 Meclizine HCl 25 Mg Tablet, 25 MG PO Q8H Prescribed by: TOMMIE JARAMILLO on 07/23/20 1557 Melatonin 10 Mg Tablet, 10 MG PO HS PRN for SLEEP, (Reported) Multivitamin 1 Each Tablet, 1 TAB PO DAILY, (Reported) Prednisone 10 Mg Tab.ds.pk, 15 MG PO Q48H, (Reported) Take 6 tabs(60mg)daily,decrease by 1 tab(10MG)daily. Sodium Bicarbonate 650 Mg Tablet, 650 MG PO HS PRN for LOOSE STOOLS, (Reported) Temazepam 15 Mg Capsule, 15 MG PO HS PRN for SLEEP, (Reported) Warfarin Sodium 2.5 Mg Tablet, 2.5 MG PO DAILY, (Reported) Patient Home Medication List Home Medication List Reviewed: Yes Review of Systems Review of Systems Constitutional: No chills, No fever EENTM: nose congestion; No epistaxis Respiratory: cough; No hemoptysis; phlegm, short of breath; No stridor, No wheezing Cardiovascular: chest pain (pressure in chest) Gastrointestinal: no symptoms reported Genitourinary: no symptoms reported Musculoskeletal: no symptoms reported Skin: no symptoms reported Psychiatric/Neurological: Anxiety Hematologic/Lymphatic: Blood Clots (taking Warfarin), Easy Bleeding (taking warfarin), Easy Bruising (taking warfarin) Past Kshqffr-Zqxycb-Diafrg Hx Past Med/Social Hx: Reviewed Nursing Past Med/Soc Hx Patient Social History Former Smoker, Quit: Apr 20, 2010 2nd Hand Smoke Exposure: Yes Recent Hopitalizations: No Immunizations Up To Date Date of Pneumonia Vaccine: Aug 15, 2020 Date of Influenza Vaccine: Aug 15, 2020 Seasonal Allergies Seasonal Allergies: No Past Medical History Surgeries: Yes (COLECTOMY WITH ILEOSTOMY 1973, SPINAL FUSION, KIDNEY STONE) Abdominal (removal of kidney cancer and colon resection), Nephrectomy Respiratory: Yes Pulmonary Embolism Currently Using CPAP: No Currently Using BIPAP: No Cardiac: Yes Deep Vein Thrombosis Neurological: Yes Neuropathy Sexually Transmitted Disease: No HIV/AIDS: No Genitourinary: Yes (RENAL INSUFF.) Benign Prostatic Hyperpl, Kidney Stones, Renal Failure Gastrointestinal: Yes (COLECTOMY WITH ILEOSTOMY) Polyps Musculoskeletal: Yes Degenerate Disk Disease, Rheumatoid Arthritis, Chronic Back Pain Endocrine: No HEENT: Yes (GLASSES, DENTURES) Loss of Vision: Denies Hearing Impairment: Hard of Hearing Cancer: Yes Lung, Colon, Kidney Did You Recieve Any Treatments: Yes What Type of Treatment Did You: Chemotherapy Psychosocial: No Integumentary: Yes (VERY SENSITIVE SKIN) Blood Disorders: No Adverse Reaction/Blood Tranf: No (N/A) Family Medical History Patient reports no known family medical history. Physical Exam Vital Signs Vital Signs - First Documented 11/24/20 09:18 Temp 37.1 Pulse 89 Resp 30 B/P (MAP) 145/65 (91) Pulse Ox 97 O2 Delivery Room Air Capillary Refill : Height, Weight, BMI Height: '" Weight: lbs. oz. kg; 22.81 BMI Method: General Appearance: WD/WN, Anxious, Severe Distress (anxious and hyperventilating) HEENT: Pharynx Normal Neck: Full Range of Motion, Non Tender, Supple Respiratory: Chest Non Tender, Accessory Muscle Use, Decreased Breath Sounds, Respiratory Distress (hyperventilating); No Stridor, No Wheezing Cardiovascular: Regular Rate, Rhythm, Normal Peripheral Pulses, Other (2+ pitting edema in BLE that pt reports is stable and chronic) Gastrointestinal: Normal Bowel Sounds, No Pulsatile Mass, Non Tender, Soft Rectal: Deferred Extremity: Normal Capillary Refill, Non Tender, Pedal Edema (2+ pitting edema to BLE that pt reports is stable and chronic) Neurologic/Psychiatric: Alert, Oriented x3, 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 Norm as Tested, Other (anxious) Skin: Normal Color, Warm/Dry Focused Exam Lactate Level 11/24/20 09:30: Lactic Acid Level 2.80*H Lactic Acid Level Laboratory Tests Test 11/24/20 09:30 Lactic Acid Level 2.80 MMOL/L (0.50-2.00) *H Progress/Results/Core Measures Results/Orders Lab Results Laboratory Tests Test 11/24/20 09:30 11/24/20 09:35 Range/Units White Blood Count 7.7 4.3-11.0 10^3/uL Red Blood Count 3.69 L 4.35-5.85 10^6/uL Hemoglobin 10.6 L 13.3-17.7 G/DL Hematocrit 34 L 40-54 % Mean Corpuscular Volume 92 80-99 FL Mean Corpuscular Hemoglobin 29 25-34 PG Mean Corpuscular Hemoglobin Concent 31 L 32-36 G/DL Red Cell Distribution Width 15.5 H 10.0-14.5 % Platelet Count 133 130-400 10^3/uL Mean Platelet Volume 10.0 7.4-10.4 FL Immature Granulocyte % (Auto) 1 % Neutrophils (%) (Auto) 45 42-75 % Lymphocytes (%) (Auto) 44 12-44 % Monocytes (%) (Auto) 8 0-12 % Eosinophils (%) (Auto) 2 0-10 % Basophils (%) (Auto) 0 0-10 % Neutrophils # (Auto) 3.5 1.8-7.8 X 10^3 Lymphocytes # (Auto) 3.3 1.0-4.0 X 10^3 Monocytes # (Auto) 0.6 0.0-1.0 X 10^3 Eosinophils # (Auto) 0.2 0.0-0.3 10^3/uL Basophils # (Auto) 0.0 0.0-0.1 10^3/uL Immature Granulocyte # (Auto) 0.1 0.0-0.1 10^3/uL Prothrombin Time 26.8 H 12.2-14.7 SEC INR Comment 2.5 H 0.8-1.4 Activated Partial Thromboplast Time 36 H 24-35 SEC Sodium Level 139 135-145 MMOL/L Potassium Level 4.8 3.6-5.0 MMOL/L Chloride Level 107 98-107 MMOL/L Carbon Dioxide Level 19 L 21-32 MMOL/L Anion Gap 13 5-14 MMOL/L Blood Urea Nitrogen 46 H 7-18 MG/DL Creatinine 2.41 H 0.60-1.30 MG/DL Estimat Glomerular Filtration Rate 26 BUN/Creatinine Ratio 19 Glucose Level 123 H 70-105 MG/DL Lactic Acid Level 2.80 *H 0.50-2.00 MMOL/L Calcium Level 8.6 8.5-10.1 MG/DL Corrected Calcium 8.7 8.5-10.1 MG/DL Magnesium Level 2.1 1.6-2.4 MG/DL Total Bilirubin 0.3 0.1-1.0 MG/DL Aspartate Amino Transf (AST/SGOT) 28 5-34 U/L Alanine Aminotransferase (ALT/SGPT) 18 0-55 U/L Alkaline Phosphatase 116 40-136 U/L Troponin I < 0.30 <0.30 NG/ML C-Reactive Protein 0.59 H <0.50 MG/DL Pro-B-Type Natriuretic Peptide 38088.0 H <75.0 PG/ML Total Protein 6.2 L 6.4-8.2 GM/DL Albumin 3.9 3.2-4.5 GM/DL Blood Gas Puncture Site rt radial Blood Gas Patient Temperature 37.1 Arterial Blood pH 7.36 L 7.37-7.43 Arterial Blood Partial Pressure CO2 33 L 35-45 MMHG Arterial Blood Partial Pressure O2 57 L 79-93 MMHG Arterial Blood HCO3 19 L 23-27 MMOL/L Arterial Blood Total CO2 19.6 L 21.0-31.0 MMOL/L Arterial Blood Oxygen Saturation 88 L 94-100 % Arterial Blood Base Excess -6.0 L -2.5-2.5 MMOL/L Juan Francisco Test OK Blood Gas Ventilator Setting NO Blood Gas Inspired Oxygen ROOM AIR My Orders Orders - BETO CALI MD Cbc With Automated Diff (11/24/20 09:26) Comprehensive Metabolic Panel (11/24/20:) Chest 1 View Ap/Pa Only (11/24/20:) Magnesium (11/24/20:) Ekg Tracing (11/24/20:) O2 (11/24/20:) Ed Iv/Invasive Line Start (11/24/20:) Monitor-Rhythm Ecg Trace Only (11/24/20:) Crp Fs (11/24/20:26) Arterial Blood Gas (11/24/20:26) Troponin I Fs (11/24/20:26) Probnp Fs (11/24/20:26) Albuterol/Ipra Inhalation Soln (Duoneb I (11/24/20 09:28) Svn Small Volume Nebulizer (11/24/20 09:28) Lorazepam Injection (Ativan Injection) (11/24/20 09:28) Protime With Inr (11/24/20 09:31) Partial Thromboplastin Time (11/24/20 09:31) Furosemide Injection (Lasix Injection) (11/24/20 09:31) Blood Culture (11/24/20 09:46) Lactic Acid Analyzer (11/24/20 09:46) Levofloxacin Tablet (Levaquin Tablet) (11/24/20 11:25) Coronavirus Sars-Cov-2 So 2019 (11/24/20 11:39) Vital Signs/I&O 11/24/20 09:18 Temp 37.1 Pulse 89 Resp 30 B/P (MAP) 145/65 (91) Pulse Ox 97 O2 Delivery Room Air Progress Progress Note #1: Progress Note try to reassure patient to help calm down. Ordered blood gases as well as basic labs, electrocardiogram, cardiac enzymes, chest x-ray and sputum culture if he coughs anything up. We'll try a breathing treatment to see if that helps with his breathing. Will also order a dose of Ativan to see if that helps with his anxiety. With him having only 1 kidney and a history of fluid build up and BLE edema will give IV Lasix to try and promote diuresis in case fluid overload is causing his difficulty breathing. ECG shows sinus rhythm with LBBB that appears stable from prior telemetry monitoring. Progress Note #2: Time: 10:14 Progress Note CXR shows RLL infiltrate or atelectasis. He has an elevated Lactic acid of 2.8. CBC appears stable without elevation of WBC count and has chronic anemia. ABG shows pH 7.36/pCO2 33/pO2 57. Progress Note #3: Progress Note His lactic acid is likely due to his hyperventilation. Comparing the CXR from today to the report of CT from yesterday sounds like he has new infection on top of his edema and effusion. He does have a greatly elevated proBNP to go with CHF. Pt reports he is feeling better with treatment in the ED, even before any treatment he was improving just with calming down in the ED as he was very anxious. reviewed with pt that he would need increased lasix for a few days as well as treatment for pneumonia. Since his oxygen saturation has always maintained at a high level on room air, I felt he was ok with admit or treatment at home for this. Pt opted to try treating at home with increased lasix for a few days and antibiotic for pneumonia. Counseled on monitoring his INR and Kidney function while on treatment. Recheck with labs next week or return if worsens over the weekend. Initial ECG Impression Date: Nov 24, 2020 Initial ECG Impression Time: 09:27 Initial ECG Rate: 94 Initial ECG Rhythm: Normal Sinus Initial ECG Comparisson: Unchanged Comment sinus rhythm with a heart rate of 94 bpm. SD interval 185 ms. There is no acute ST elevation but he does have a left bundle-branch block. QT interval 419 ms with a QTc interval 525 ms. this appears similar to telemetry tracing in the system Diagnostic Imaging Diagonstic Imaging: Xray Plain Films/CT/US/NM/MRI: chest Comments [facility] [place], [place] NAME: [facility] REC#: [id number] PT STATUS: REG ER : 1945 PHYSICIAN: BETO CALI MD ADMIT DATE: 11/24/20/ER FS Signed Date of Exam:11/24/20 CHEST 1 VIEW AP/PA ONLY INDICATION: Shortness of breath and chest pressure. FINDINGS: There is cardiomegaly and mild venous congestion. There is right basilar atelectasis and/or pneumonitis. There is a right pleural effusion. There is no pneumothorax. The mediastinum is unremarkable. IMPRESSION: 1. Right basilar atelectasis and/or pneumonitis and a right pleural fusion. 2. Cardiomegaly and central pulmonary venous congestion. Dictated by: Dictated on workstation # [id number] Dict: 11/24/20 0952 Trans: 11/24/[address] [place] [address] [id number] Interpreted by: YUKI SORENSEN MD Electronically signed by: YUKI SORENSEN MD 11/24/20 1007 Departure Impression Primary Impression: Right lower lobe pneumonitis Qualified Codes: J18.9 - Pneumonia, unspecified organism Additional Impressions: Pleural effusion due to CHF (congestive heart failure) Acute exacerbation of CHF (congestive heart failure) Qualified Codes: I50.9 - Heart failure, unspecified Sepsis Qualified Codes: A41.9 - Sepsis, unspecified organism Disposition: 01 HOME, SELF-CARE Condition: Improved Departure-Patient Inst. Decision time for Depature: 11:34 Referrals: ALIRIO CACERES MD (PCP/Family) Primary Care Physician Patient Instructions: Pneumonia, Adult ED, Heart Failure, Adult (DC), Pleural Effusion (DC) Add. Discharge Instructions: Take increased dose of Lasix 40 mg daily for next 5 days. Take antibiotic every 48 hours (every other day) for next 10 days to treat for pneumonia. Next dose would be SaturdayNovember 26. Levaquin 750 mg every 48 hours. Check back with clinic because the antibiotic will raise your INR. Also your kidney function will need rechecked because the extra diuretic and antibiotic both can have an effect on your kidney function. Follow up with clinic on Saturday or Saturday for lab recheck and to see how you are doing. If worsening symptoms before then return or seek medical care. Scripts Furosemide (Furosemide) 40 Mg Tablet 40 MG PO DAILY for edema for 5 Days, #5 TAB 0 Refills Prov: BETO CALI MD 11/24/20 Levofloxacin (Levofloxacin) 750 Mg Tablet 750 MG PO Q48H for pneumonia for 10 Days, #4 TAB 0 Refills Prov: BETO CALI MD 11/24/20 BETO CALI MD Nov 24, 2020 09:33
--- NOTE | 2020-11-24 09:40 | NUR ---
Silvia CHUA spoke with Sandhya faulkner and updated.
[2020-11-24 09:45] LABS: ABG OXYGEN SATURATION 88 % (94-100); ABG PCO2 33 MMHG (35-45); ABG PH 7.36 (7.37-7.43); ABG PO2 57 MMHG (79-93); ABG TCO2 19.6 MMOL/L (21.0-31.0)
[2020-11-24 09:46] LABS: ALLENS TEST OK; INSPIRED O2 ROOM AIR; PATIENT TEMP 37.1; VENTILATOR NO
[2020-11-24 09:47] LABS: HEMATOCRIT 34 % (40-54); HEMOGLOBIN 10.6 G/DL (13.3-17.7); MEAN CORPUSCULAR HEMOGLOBIN 29 PG (25-34); MEAN CORPUSCULAR HGB CONC 31 G/DL (32-36); MEAN CORPUSCULAR VOLUME 92 FL (80-99); NEUTROPHILS % (AUTO) 45 % (42-75); PLATELET COUNT 133 10^3/uL (130-400); WHITE BLOOD COUNT 7.7 10^3/uL (4.3-11.0)
[2020-11-24 09:48] LABS: BASOPHILS % (AUTO) 0 % (0-10); EOSINOPHILS # (AUTO) 0.2 10^3/uL (0.0-0.3); EOSINOPHILS % (AUTO) 2 % (0-10); LYMPHOCYTES # (AUTO) 3.3 X 10^3 (1.0-4.0); LYMPHOCYTES % (AUTO) 44 % (12-44); MONOCYTES # (AUTO) 0.6 X 10^3 (0.0-1.0); MONOCYTES % (AUTO) 8 % (0-12); NEUTROPHILS # (AUTO) 3.5 X 10^3 (1.8-7.8)
--- NOTE | 2020-11-24 09:55 | Diagnostic Imaging Report ---
INDICATION: Shortness of breath and chest pressure. FINDINGS: There is cardiomegaly and mild venous congestion. There is right basilar atelectasis and/or pneumonitis. There is a right pleural effusion. There is no pneumothorax. The mediastinum is unremarkable. IMPRESSION: 1. Right basilar atelectasis and/or pneumonitis and a right pleural fusion. 2. Cardiomegaly and central pulmonary venous congestion. Dictated by: Dictated on workstation # [id number]
--- NOTE | 2020-11-24 09:55 | NUR ---
Request made to Sandhya Vega to get pt's records at home of his [facility] work up given to them yesterday.
[2020-11-24 10:12] LABS: BUN/CREATININE RATIO 19; CARBON DIOXIDE 19 MMOL/L (21-32); CHLORIDE 107 MMOL/L (98-107); CREATININE SERUM 2.41 MG/DL (0.60-1.30); GFR ESTIMATED 26; POTASSIUM 4.8 MMOL/L (3.6-5.0); SODIUM 139 MMOL/L (135-145)
[2020-11-24 10:13] LABS: ALANINE AMINOTRANSFERASE 18 U/L (0-55); ALBUMIN 3.9 GM/DL (3.2-4.5); ALKALINE PHOSPHATASE 116 U/L (40-136); BILIRUBIN,TOTAL 0.3 MG/DL (0.1-1.0); CALCIUM 8.6 MG/DL (8.5-10.1); GLUCOSE 123 MG/DL (70-105); MAGNESIUM 2.1 MG/DL (1.6-2.4); TOTAL PROTEIN 6.2 GM/DL (6.4-8.2)
--- NOTE | 2020-11-24 10:15 | NUR ---
Records from [facility] given to ER to view, Dr Breen reviewing.
[2020-11-24 10:16] LABS: INR 2.5 (0.8-1.4); PROTHROMBIN TIME PATIENT 26.8 SEC (12.2-14.7)
--- NOTE | 2020-11-24 11:05 | NUR ---
Spoke with dgt and told Dr is going into speak with patient on options for CHF and early pneumonia for the choice of home for tx as stable SaO2 and labs. Pt will be offered admission if he feels his breathing is not baseleine.
[2020-11-24] MEDS ORDERED: LEVOFLOXACIN 500 MG TAB (LEVAQUIN) PO STA (11:25)
[2020-11-24] MEDS ORDERED: LEVO750T39 PO (11:33)
[2020-11-24] MEDS ORDERED: FURO40TA4 PO (11:33)
[2020-11-24 11:45] VITALS: BP 147/60
--- NOTE | 2020-11-24 11:45 | NUR ---
Reviewed discharge instructions with dgt at the car when transferring pt. Pt does not need the next Levaquin till Saturday11/26/20. Pt already had an increase of Lasix today. Increase Lasix daily x 5 days
--- NOTE | 2020-11-24 11:45 | NUR ---
Patient discharged to home after review of home discharge instructions and patient receiving his Levaquin dose. Pt did not get 2nd BC completed as add'l attempt needed and pt declining the need of admission. Dr Breen reports it is fine to not do a further venipuncture.
== END 2020-11-24 11:45 | disposition home or self-care (01) ==
LOC: EDUNIT# 09:16 → ER FS 09:20
DX: J18.1 Lobar pneumonia, unspecified organism (principal); I50.9 Heart failure, unspecified; A41.9 Sepsis, unspecified organism; F41.9 Anxiety disorder, unspecified; G89.29 Other chronic pain; M54.9 Dorsalgia, unspecified; Z85.118 Personal history of other malignant neoplasm of bronchus and lung; Z88.0 Allergy status to penicillin; Z87.891 Personal history of nicotine dependence; Z20.828 Contact with and (suspected) exposure to other viral communicable diseases; Z85.038 Personal history of other malignant neoplasm of large intestine; Z85.528 Personal history of other malignant neoplasm of kidney; Z86.711 Personal history of pulmonary embolism; Z86.718 Personal history of other venous thrombosis and embolism; Z79.52 Long term (current) use of systemic steroids; Z79.01 Long term (current) use of anticoagulants
CPT/HCPCS: 36415; 71045; 80053; 82805; 83605; 83735; 83880; 84484; 85025; 85610; 85730; 86141; 87040; 93005; 93041; 94640; 99285; U0002; 87635

== ENCOUNTER → 2020-12-19 | Outpatient (CLI) | payer MEDICARE, OTHER ==
[~2020-12-19] MED LIST changes: +FURO40TA4 PO; +LEVO750T39 PO
--- NOTE | 2020-12-19 11:09 | Diagnostic Imaging Report ---
INDICATION: Shortness of air. History of lung cancer and pleural effusions. COMPARISON: 11/24/2020 FINDINGS: Frontal and lateral radiograph views of the chest were obtained and again show small left basilar effusion and mild to moderate right basilar effusion. Right basilar effusion is likely partially loculated, as it does extend along the lateral margins of the right lower chest. There is associated patchy airspace disease in the right lower lung. No pneumothorax is seen on either side. Overall, aeration is stable. Cardiac silhouette and pulmonary vasculature stable as well. Osseous structures show no acute adverse interval change. IMPRESSION: 1. Moderate right-sided pleural effusion, which may be loculated. Associated patchy atelectasis and/or infiltrate is also noted within the right lung base. 2. Trace left basilar effusion Dictated by: Dictated on workstation # [id number]
== END ==
LOC: RAD FS 10:21
PROVIDERS: ATTEND Family Medicine
DX: J90 Pleural effusion, not elsewhere classified (principal); Z85.118 Personal history of other malignant neoplasm of bronchus and lung
CPT/HCPCS: 71046

== ENCOUNTER 2020-12-30 14:02 | Inpatient (IN) | payer MEDICARE, OTHER ==
[~2020-12-30] VITALS: Ht 185 cm; Wt 74.5 kg
[2020-12-30 15:03] LABS: HEMATOCRIT 33 % (40-54); HEMOGLOBIN 10.4 G/DL (13.3-17.7); MEAN CORPUSCULAR HEMOGLOBIN 29 PG (25-34); MEAN CORPUSCULAR HGB CONC 31 G/DL (32-36); MEAN CORPUSCULAR VOLUME 92 FL (80-99); PLATELET COUNT 135 10^3/uL (130-400)
[2020-12-30 15:04] LABS: BASOPHILS % (AUTO) 0 % (0-10); EOSINOPHILS # (AUTO) 0.2 10^3/uL (0.0-0.3); EOSINOPHILS % (AUTO) 4 % (0-10); LYMPHOCYTES # (AUTO) 1.1 X 10^3 (1.0-4.0); LYMPHOCYTES % (AUTO) 21 % (12-44); MEAN PLATELET VOLUME 9.6 FL (7.4-10.4); MONOCYTES # (AUTO) 0.4 X 10^3 (0.0-1.0); MONOCYTES % (AUTO) 9 % (0-12); NEUTROPHILS # (AUTO) 3.3 X 10^3 (1.8-7.8); NEUTROPHILS % (AUTO) 66 % (42-75)
[2020-12-30 15:12] LABS: INR 2.5 (0.8-1.4); PROTHROMBIN TIME PATIENT 26.8 SEC (12.2-14.7)
[2020-12-30 15:21] LABS: BILIRUBIN,TOTAL 0.4 MG/DL (0.1-1.0); BUN/CREATININE RATIO 17; CARBON DIOXIDE 22 MMOL/L (21-32); CHLORIDE 116 MMOL/L (98-107); CREATININE SERUM 2.38 MG/DL (0.60-1.30); GFR ESTIMATED 27; GLUCOSE 90 MG/DL (70-105); POTASSIUM 4.5 MMOL/L (3.6-5.0); SODIUM 145 MMOL/L (135-145)
[2020-12-30 15:22] LABS: ALANINE AMINOTRANSFERASE 18 U/L (0-55); ALBUMIN 3.7 GM/DL (3.2-4.5); ALKALINE PHOSPHATASE 106 U/L (40-136)
--- NOTE | 2020-12-30 15:35 | Diagnostic Imaging Report ---
CT CHEST WO TECHNIQUE: Multiple contiguous axial images were obtained through the chest without the use of intravenous contrast. All CT scans use one or more of the following dose optimizing techniques: automated exposure control, MA and/or KvP adjustment based on a patient size and exam type, or iterative reconstruction. INDICATION: Lung cancer, shortness of air. COMPARISON: CT abdomen and pelvis of 09/05/2020. FINDINGS: Lungs and airway: No endoluminal nodule within the trachea. Peribronchial thickening is present in the right middle and lower lobes. There is also some interlobular septal thickening within the lung bases, greater on the right. Dependent groundglass opacities within the right lower lobe are present. Calcified left lower lobe pulmonary granulomas are present. Pleura: [id number]-[id number] right pleural effusion has features of partial loculation. Trace left pleural effusion does not appear loculated. No pneumothorax. Heart and mediastinum: No supraclavicular or axillary lymphadenopathy. No mediastinal or hilar lymphadenopathy. Calcified lymph nodes within the mediastinum and hilum are due to old granulomatous infection. Heart is upper limits of normal in size. No pericardial effusion. Extensive atherosclerotic plaquing is present throughout the aorta. Upper abdomen: Calcified splenic granulomas. Cholecystectomy. Scattered areas of presumed fat necrosis in the right upper quadrant of the abdomen are stable in appearance. Musculoskeletal: No lytic or blastic lesions. IMPRESSION: 1. [id number]-[id number] right pleural effusion is partially loculated and has increased since CT abdomen and pelvis of 09/05/2020. This is most likely due to fluid overload versus parapneumonic effusion. Follow-up to resolution is advised to exclude the possibility of malignant effusion. 2. Smooth interstitial thickening in the lung bases is most likely due to pulmonary edema. Resolving infection could also give this appearance, but is less likely. 3. No intrathoracic lymphadenopathy. Dictated by: Dictated on workstation # [id number]
--- NOTE | 2020-12-30 17:27 | ED General ---
General Chief Complaint: Respiratory Problems Stated Complaint: SOB Nursing Triage Note: Patient reports he has lung cancer that has been stable without any treatment for 4 years. He reports he had pneumonia diagnosed in mid-November and just finished a second round of oral antibiotics. He reports he felt well yesterday and throughout the night. Reports he checked his oxygen saturations this morning and his oximeter was reading 85%. He reports that he wears 2 liters of oxygen continuously at home. Nursing Sepsis Screen: No Definite Risk Source of Information: Patient Exam Limitations: No Limitations History of Present Illness Date Seen by Provider: Dec 30, 2020 Time Seen by Provider: 15:00 Initial Comments Patient is a 75-year-old male with history of lung cancer congestive heart failure COPD who presents with worsening shortness of breath with dyspnea and mild chest pressure worse with exertion. States he wears 2 L of oxygen on a as needed basis. Symptoms began this morning upon waking. He reports chronic nonproductive cough but denies fever chills nausea vomiting and sweats. He denies increased leg pain or swelling. Previous history of DVT and PE. He is currently anticoagulated on Coumadin and denies missed doses or recent subtherapeutic level. Patient was evaluated yesterday at his physician and states he walked around all yesterday without difficulty. Denies history of CAD. No other acute symptoms or complaints. Patient is not currently on chemotherapy and declined chemotherapy for treatment of his cancer years ago due to concerns for quality of life. Timing/Duration: 4-6 Hours Severity: Moderate Modifying Factors: improves with Movement Associated Systoms: Other Allergies and Home Medications Allergies Coded Allergies: Penicillins (Verified Allergy, Intermediate, 10/11/20) EYES SWELLED SHUT Home Medications Acetaminophen 500 Mg Tablet, 500 MG PO Q6H PRN for PAIN-MILD (1-4), (Reported) Amlodipine Besylate 10 Mg Tablet, 10 MG PO HS, (Reported) Ferrous Sulfate 325 Mg Tablet, 325 MG PO BID, (Reported) Furosemide 40 Mg Tablet, 40 MG PO DAILY Prescribed by: BETO CALI on 11/24/20 1133 Hydrocodone/Acetaminophen 1 Each Tablet, 1 EACH PO Q4H PRN for PAIN-MODERATE (5- 7) Prescribed by: MAR GASTELUM on 10/14/20 1417 Hydroxychloroquine Sulfate 200 Mg Tablet, 200 MG PO BID, (Reported) Levofloxacin 750 Mg Tablet, 750 MG PO Q48H Prescribed by: BETO CALI on 11/24/20 1133 Meclizine HCl 25 Mg Tablet, 25 MG PO Q8H Prescribed by: TOMMIE JARAMILLO on 07/23/20 1557 Melatonin 10 Mg Tablet, 10 MG PO HS PRN for SLEEP, (Reported) Multivitamin 1 Each Tablet, 1 TAB PO DAILY, (Reported) Prednisone 10 Mg Tab.ds.pk, 15 MG PO Q48H, (Reported) Take 6 tabs(60mg)daily,decrease by 1 tab(10MG)daily. Sodium Bicarbonate 650 Mg Tablet, 650 MG PO HS PRN for LOOSE STOOLS, (Reported) Temazepam 15 Mg Capsule, 15 MG PO HS PRN for SLEEP, (Reported) Warfarin Sodium 2.5 Mg Tablet, 2.5 MG PO DAILY, (Reported) Patient Home Medication List Home Medication List Reviewed: Yes Review of Systems Review of Systems Constitutional: see HPI EENTM: see HPI Respiratory: see HPI Cardiovascular: see HPI Gastrointestinal: see HPI Genitourinary: see HPI Musculoskeletal: see HPI Skin: see HPI Psychiatric/Neurological: See HPI Hematologic/Lymphatic: See HPI Immunological/Allergic: see HPI All Other Systems Reviewed Negative Unless Noted: Yes Past Ijezrvc-Gpcnqm-Juexlp Hx Past Med/Social Hx: Reviewed Nursing Past Med/Soc Hx Patient Social History Alcohol Use: Occasionally Uses Alcohol Beverage of Choice: Beer Smoking Status: Former Smoker Former Smoker, Quit: Apr 20, 2010 2nd Hand Smoke Exposure: Yes Recent Infectious Disease Expo: No Recent Hopitalizations: No Immunizations Up To Date Date of Pneumonia Vaccine: Aug 15, 2020 Date of Influenza Vaccine: Aug 15, 2020 Seasonal Allergies Seasonal Allergies: No Past Medical History Surgeries: Yes (COLECTOMY WITH ILEOSTOMY 1973, SPINAL FUSION, KIDNEY STONE) Abdominal, Nephrectomy Respiratory: Yes Pulmonary Embolism Currently Using CPAP: No Currently Using BIPAP: No Cardiac: Yes Deep Vein Thrombosis Neurological: Yes Neuropathy Sexually Transmitted Disease: No HIV/AIDS: No Genitourinary: Yes (RENAL INSUFF.) Benign Prostatic Hyperpl, Kidney Stones, Renal Failure Gastrointestinal: Yes (COLECTOMY WITH ILEOSTOMY) Polyps Musculoskeletal: Yes Degenerate Disk Disease, Rheumatoid Arthritis, Chronic Back Pain Endocrine: No HEENT: Yes (GLASSES, DENTURES) Loss of Vision: Denies Hearing Impairment: Hard of Hearing Cancer: Yes Lung, Colon, Kidney Did You Recieve Any Treatments: Yes What Type of Treatment Did You: Chemotherapy Psychosocial: No Integumentary: Yes (VERY SENSITIVE SKIN) Blood Disorders: No Adverse Reaction/Blood Tranf: No (N/A) Family Medical History Patient reports no known family medical history. Physical Exam Vital Signs Vital Signs - First Documented 12/30/20 14:06 Temp 36.7 Pulse 77 Resp 21 B/P (MAP) 141/87 (105) Pulse Ox 96 O2 Delivery Room Air Capillary Refill : Less Than 3 Seconds Height, Weight, BMI Height: '" Weight: lbs. oz. kg; 23.00 BMI Method: General Appearance: No Apparent Distress Eyes: Bilateral Eye Normal Inspection, Bilateral Eye PERRL, Bilateral Eye EOMI HEENT: PERRL/EOMI, Pharynx Normal, Moist Mucous Membranes Neck: Full Range of Motion, Normal Inspection, Supple Respiratory: Decreased Breath Sounds, Other Cardiovascular: Regular Rate, Rhythm Gastrointestinal: Non Tender, Soft Back: Other (No leg pain or swelling.) Neurologic/Psychiatric: Alert, Oriented x3 Skin: Normal Color Lymphatic: No Adenopathy Focused Exam Sepsis Stage: Ruled Out Progress/Results/Core Measures Suspected Sepsis Recent Fever Within 48 Hours: No Infection Criteria Present: Documented Infection New/Unexplained Altered Menta: No Sepsis Screen: No Definite Risk SIRS Temperature: Pulse: 77 Respiratory Rate: 21 Laboratory Tests 12/30/20 14:40: White Blood Count 5.0 Blood Pressure 141 /87 Mean: 105 Laboratory Tests 12/30/20 14:40: Creatinine 2.38H, INR Comment 2.5H, Platelet Count 135, Total Bilirubin 0.4 Results/Orders Lab Results Laboratory Tests Test 12/30/20 14:40 Range/Units White Blood Count 5.0 4.3-11.0 10^3/uL Red Blood Count 3.61 L 4.35-5.85 10^6/uL Hemoglobin 10.4 L 13.3-17.7 G/DL Hematocrit 33 L 40-54 % Mean Corpuscular Volume 92 80-99 FL Mean Corpuscular Hemoglobin 29 25-34 PG Mean Corpuscular Hemoglobin Concent 31 L 32-36 G/DL Red Cell Distribution Width 14.9 H 10.0-14.5 % Platelet Count 135 130-400 10^3/uL Mean Platelet Volume 9.6 7.4-10.4 FL Immature Granulocyte % (Auto) 1 % Neutrophils (%) (Auto) 66 42-75 % Lymphocytes (%) (Auto) 21 12-44 % Monocytes (%) (Auto) 9 0-12 % Eosinophils (%) (Auto) 4 0-10 % Basophils (%) (Auto) 0 0-10 % Neutrophils # (Auto) 3.3 1.8-7.8 X 10^3 Lymphocytes # (Auto) 1.1 1.0-4.0 X 10^3 Monocytes # (Auto) 0.4 0.0-1.0 X 10^3 Eosinophils # (Auto) 0.2 0.0-0.3 10^3/uL Basophils # (Auto) 0.0 0.0-0.1 10^3/uL Immature Granulocyte # (Auto) 0.0 0.0-0.1 10^3/uL Prothrombin Time 26.8 H 12.2-14.7 SEC INR Comment 2.5 H 0.8-1.4 Sodium Level 145 135-145 MMOL/L Potassium Level 4.5 3.6-5.0 MMOL/L Chloride Level 116 H 98-107 MMOL/L Carbon Dioxide Level 22 21-32 MMOL/L Anion Gap 7 5-14 MMOL/L Blood Urea Nitrogen 40 H 7-18 MG/DL Creatinine 2.38 H 0.60-1.30 MG/DL Estimat Glomerular Filtration Rate 27 BUN/Creatinine Ratio 17 Glucose Level 90 70-105 MG/DL Calcium Level 9.0 8.5-10.1 MG/DL Corrected Calcium 9.2 8.5-10.1 MG/DL Total Bilirubin 0.4 0.1-1.0 MG/DL Aspartate Amino Transf (AST/SGOT) 27 5-34 U/L Alanine Aminotransferase (ALT/SGPT) 18 0-55 U/L Alkaline Phosphatase 106 40-136 U/L Troponin I < 0.30 <0.30 NG/ML Pro-B-Type Natriuretic Peptide 10169.0 H <75.0 PG/ML Total Protein 6.0 L 6.4-8.2 GM/DL Albumin 3.7 3.2-4.5 GM/DL My Orders Orders - DAI WATSON DO Cbc With Automated Diff (12/30/20 14:26) Comprehensive Metabolic Panel (12/30/20 14:26) Troponin I Fs (12/30/20 14:26) Probnp Fs (12/30/20 14:26) Ct Chest Wo (12/30/20 14:26) Protime With Inr (12/30/20 14:26) Continuous Ekg Monitoring (12/30/20 14:26) Ekg Tracing (12/30/20 14:45) Furosemide Injection (Lasix Injection) (12/30/20 17:30) Vital Signs/I&O 12/30/20 14:06 Temp 36.7 Pulse 77 Resp 21 B/P (MAP) 141/87 (105) Pulse Ox 96 O2 Delivery Room Air Capillary Refill : Less Than 3 Seconds Blood Pressure Mean: 105 Departure Communication (Admissions) Patients with congestive heart failure. Currently pain-free with rest. Patient is therapeutic on Coumadin. Doubt PE given that his symptoms appear to be exertional in nature. IV Lasix given. Moderate sized loculated effusion noted to be present on CT scan thought to be enlarged from previous study. Will admit to the [facility] hospitalist service for further evaluation and treatment. Dr. Jaime agrees to admit. Impression Primary Impression: Dyspnea Additional Impressions: Acute exacerbation of CHF (congestive heart failure) Pleural effusion Disposition: ADMITTED INPATIENT Condition: Stable Admissions Decision to Admit Reason: Admit from ER (General) Decision to Admit/Date: Dec 30, 2020 Time/Decision to Admit Time: 17:26 Transfer Transfer Reason: Exceeds level of care Departure-Patient Inst. Referrals: ALIRIO CACERES MD (PCP/Family) Primary Care Physician DAI WATSON DO Dec 30, 2020 17:27
[2020-12-30] MEDS ORDERED: FUROSEMIDE 40 MG/4 ML INJ (LASIX) IVP ONE (17:30)
[2020-12-30 19:00] VITALS: BP 162/91
[2020-12-30] MEDS ORDERED: ACETAMINOPHEN 500 MG TAB (TYLENOL) ONE (20:14)
[2020-12-30] MEDS: ACETAMINOPHEN 500 MG TAB (TYLENOL) PO PRN (20:20)
[2020-12-30 23:10] VITALS: BP 156/68
[2020-12-31 03:05] VITALS: BP 159/79
[2020-12-31 03:27] LABS: BASOPHILS % (AUTO) 0 % (0-10); EOSINOPHILS # (AUTO) 0.2 10^3/uL (0.0-0.3); EOSINOPHILS % (AUTO) 4 % (0-10); HEMATOCRIT 32 % (40-54); LYMPHOCYTES # (AUTO) 1.1 10^3/uL (1.0-4.0); LYMPHOCYTES % (AUTO) 25 % (12-44); MEAN CORPUSCULAR HEMOGLOBIN 29 pg (25-34); MEAN CORPUSCULAR HGB CONC 31 g/dL (32-36); MEAN CORPUSCULAR VOLUME 91 fL (80-99); MEAN PLATELET VOLUME 9.8 fL (9.0-12.2); MONOCYTES # (AUTO) 0.4 10^3/uL (0.0-1.0); MONOCYTES % (AUTO) 9 % (0-12); NEUTROPHILS # (AUTO) 2.9 10^3/uL (1.8-7.8); NEUTROPHILS % (AUTO) 62 % (42-75); PLATELET COUNT 118 10^3/uL (130-400); WHITE BLOOD COUNT 4.6 10^3/uL (4.3-11.0)
[2020-12-31 03:41] LABS: ALBUMIN 3.3 GM/DL (3.2-4.5); POTASSIUM 4.2 MMOL/L (3.6-5.0)
[2020-12-31 03:42] LABS: CALCIUM 8.3 MG/DL (8.5-10.1)
[2020-12-31 03:43] LABS: TOTAL PROTEIN 5.7 GM/DL (6.4-8.2)
[2020-12-31 03:45] LABS: BILIRUBIN,TOTAL 0.8 MG/DL (0.1-1.0)
[2020-12-31 03:47] LABS: CREATININE SERUM 2.29 MG/DL (0.60-1.30)
[2020-12-31] MEDS: FUROSEMIDE 40 MG/4 ML INJ (LASIX) IVP SCH ×2 (07:24→16:30)
--- NOTE | 2020-12-31 07:29 | Diagnostic Imaging Report ---
EXAMINATION: Portable erect AP chest at 2:48 AM INDICATION: CHF exacerbation FINDINGS: The suspected loculated effusion involving the right lung base seen on the prior exam of 12/19/2020 is again evident and perhaps slightly smaller. The right lower lobe itself also seems better aerated although there is still some residual alveolar/interstitial pulmonary infiltrates noted. There is also less fluid in the left lung base than noted on the prior exam. The upper lungs are generally clear. The mediastinum is not widened. The osseous structures are intact. IMPRESSION: The appearance of the chest has improved since the prior exam as the amount of fluid in both lung bases has decreased and the right lower lobe does seem better aerated. There is still a moderate amount of loculated fluid present in the right lower lobe, however. A follow-up study would be recommended for continued evaluation. Dictated by: Dictated on workstation # [id number]
[2020-12-31 07:32] VITALS: BP 166/71
--- NOTE | 2020-12-31 10:10 | History & Physical-Hospitalist ---
History of Present Illness HPI/Chief Complaint Patient is a 75-year-old male with history of lung cancer congestive heart failure COPD who presents with worsening shortness of breath with dyspnea and mild chest pressure worse with exertion. States he wears 2 L of oxygen on a as needed basis. Symptoms began this morning upon waking. He reports chronic nonproductive cough but denies fever chills nausea vomiting and sweats. He denies increased leg pain or swelling. Previous history of DVT and PE. He is currently anticoagulated on Coumadin and denies missed doses or recent subtherapeutic level. Patient was evaluated yesterday at his physician and states he walked around all yesterday without difficulty. Denies history of CAD. No other acute symptoms or complaints. Patient is not currently on chemotherapy and declined chemotherapy for treatment of his cancer years ago due to concerns for quality of life. Upon my arrival the patient reported no shortness of breath at rest. He stated that his symptoms began on 24 November when he woke up in the morning. He had felt well in the and actually went to see his oncologist in [place] whom he follows for lung cancer that is apparently been stable having been diagnosed 4 years ago and not receiving any current chemotherapy as noted above. Patient denies night sweats chills fever has been therapeutically anticoagulated for recurrent DVT and at least one episode of pulmonary embolism in the past. His cancer on the right side of his lung was complicated by apparent malignant pleural effusion and required an indwelling catheter for drainage for several months that it has been out for several years now. He denied any associated chest pain. He has no known history of coronary artery d isease but he reports he has had several TIAs in the past when he was off of Coumadin. He has had no lasting neurologic sequela from this. He denies night sweats chills fever change in appetite or weight. Date Seen 12/31/20 Time Seen by a Provider: 10:00 Attending Physician Brittny Preston MD PCP Derrick Ferguson MD Referring Physician Date of Admission Dec 30, 2020 at 18:50 Home Medications & Allergies Home Medications Reviewed patient Home Medication Reconciliation performed by pharmacy medication reconciliations medical instrument technician and/or nursing. Patients Allergies have been reviewed. Allergies Allergies Coded Allergies Penicillins (Verified Allergy, Intermediate, 10/11/20) EYES SWELLED SHUT Past Rkrnxwq-Dypzuh-Mtsbdh Hx Past Med/Social Hx: Reviewed Nursing Past Med/Soc Hx, Reviewed and Corrections made Patient Social History Alcohol Use: Occasionally Uses Alcohol Beverage of Choice: Beer Recreational Drug Use: No Smoking Status: Former Smoker Former Smoker, Quit: Apr 20, 2010 2nd Hand Smoke Exposure: Yes Recent Foreign Travel: No Contact w/other who traveled: No Recent Hopitalizations: No Recent Infectious Disease Expo: No Immunizations Up To Date Date of Pneumonia Vaccine: Aug 15, 2020 Date of Influenza Vaccine: Aug 11, 2020 Seasonal Allergies Seasonal Allergies: No Past Medical History Surgeries: Abdominal, Nephrectomy Respiratory: COPD, Pulmonary Embolism Currently Using CPAP: No Currently Using BIPAP: No Cardiac: Deep Vein Thrombosis Neurological: Neuropathy Sexually Transmitted Disease: No HIV/AIDS: No Genitourinary: Benign Prostatic Hyperpl, Kidney Stones, Renal Failure Gastrointestinal: Polyps Musculoskeletal: Degenerate Disk Disease, Rheumatoid Arthritis, Chronic Back Pain Loss of Vision: Denies Hearing Impairment: Hard of Hearing Cancer: Lung, Colon, Kidney Did You Recieve Any Treatments: Yes What Type of Treatment Did You: Chemotherapy History of Blood Disorders: No Adverse Reaction to Blood Solares: No (N/A) Family History Patient reports no known family medical history. Review of Systems Constitutional: see HPI Physical Exam Physical Exam Vital Signs Vital Signs - First Documented 12/30/20 12/30/20 14:06 19:00 Temp 36.7 Pulse 77 Resp 21 B/P (MAP) 141/87 (105) Pulse Ox 96 O2 Delivery Room Air O2 Flow Rate 2.00 Capillary Refill : Less Than 3 Seconds Height, Weight, BMI Height: '" Weight: lbs. oz. kg; 21.76 BMI Method: General Appearance: No Apparent Distress Respiratory: Chest Non Tender, No Accessory Muscle Use, No Respiratory Distress, Other (Dry sounding rales in the right base and right midlung feel left chest clear) Cardiovascular: Regular Rate, Rhythm, No JVD, Systolic Murmur (Soft 1-2 over 6 heard best in the left lower sternal border no evidence for pulses parvus or tardus), Gallop/S4 Gastrointestinal: Normal Bowel Sounds, No Organomegaly, No Pulsatile Mass, Non Tender, Soft Extremity: Other (2+ edema on the left to the upper tibia 1+ on the right with bilateral chronic venous insufficiency changes no ulceration noted.) Results Results/Procedures Labs Laboratory Tests 12/30/20 14:40 2/20/21 02:55 Patient resulted labs reviewed. Assessment/Plan Admission Diagnosis 1. Probable congestive heart failure will obtain echocardiography for further investigation and evaluation of LV function mild troponin elevation with no evidence for acute ischemia on ECG most likely represents type II infarct continue to monitor conservatively considering age and medical comorbidities. 2. Chronic right lung changes likely due to combination of lung cancer and need for past chest tube drainage actually slightly improved we will continue Lasix thus far today's fluid deficit is 1500cc. 3. Stage IV chronic renal disease no change overnight continue diuretic therapy. 4. Anemia of chronic renal disease. With a hemoglobin of 10 not likely low enough to contribute to current symptoms. 5. 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 Admission Status: Inpatient Order (span 2 midnights) Reason for Inpatient Admission: See admission diagnosis BRITTNY PRESTON MD Dec 31, 2020 10:10
[2020-12-31 11:01] VITALS: BP 143/77
--- NOTE | 2020-12-31 14:26 | Consultation-Cardiology ---
HPI-Cardiology Cardiology Consultation: Date of Consultation 12/31/20 Date of Admission Attending Physician Filiberto Jaime MD Admitting Physician Derrick Ferguson MD Consulting Physician Edmar KELLOGG MD HPI: Time Seen by a Provider: 14:19 Chief Complaint: Shortness of breath This is a 75-year-old gentleman who does not follow with cardiology. He has history of renal cancer, lung cancer for which he took chemotherapy for 8 months 3-4 years ago. Possible history of COPD. Previous smoker but quit 10-11 years ago. His also had significant pleural effusion on the right side requiring multiple pleurocentesis, followed by an indwelling catheter for a few months. Unclear history of DVT/PE/TIAs. He is on Coumadin. According to the patient for a month or so he has been having shortness of breath. He also has mild chest pressure. He wears 2 L of oxygen on a when necessary basis. Improved shortness of breath when I saw him. Review of Systems-Cardiology Review of Systems Constitutional: As described under HPI; No As described under HPI, No no symptoms reported, No chills, No fever, No lightheadedness Eyes: No As described under HPI, No no symptoms reported, No blindness, No blurred vision, No contact lenses, No drainage, No decreased acuity, No foreign body sensation, No pain, No vision change Ears/Nose/Throat: No As described under HPI, No no symptoms reported, No chronic hearing loss, No ear discharge, No ear pain, No nasal drainage, No ulcerations Respiratory: No no symptoms reported; As described under HPI; No As described under HPI, No cough; orthopnea; No shortness of breath, No SOB with excertion Cardiovascular: No no symptoms reported; As described under HPI; No As described under HPI, No chest pain, No edema, No irregular heart rate, No lightheadedness, No palpitations Gastrointestinal: No no symptoms reported, No As described under HPI, No abdomen distended, No abdominal pain, No blood streaked bowels, No constipation, No diarrhea, No nausea, No vomiting, No stool coloration changes Genitourinary: No As described under HPI, No burning, No dysuria, No discharge, No frequency, No flank pain, No hematuria, No urgency Skin: No rash, No skin related problems, No ulcerations Psychiatric/Neurological: No anxiety, No depression, No seizure, No focal weakness, No syncope Hematologic: No bleeding abnormalities All Other Systems Reviewed Negative Unless Noted: Yes OEL-Jkvamf-Focdfo Hx Patient Social History Smoking Status: Former Smoker 2nd Hand Smoke Exposure: Yes Have you traveled recently?: No Pt feels they are or have been: No Immunizations Up To Date Date of Pneumonia Vaccine: Aug 15, 2020 Date of Influenza Vaccine: Aug 11, 2020 Past Medical History PMH As described under Assessment. Family Medical History Family History: Patient reports no known family medical history. Allergies and Home Medications Allergies Coded Allergies: Penicillins (Verified Allergy, Intermediate, 10/11/20) EYES SWELLED SHUT Home Medications Acetaminophen 500 Mg Tablet, 500 MG PO Q6H PRN for PAIN-MILD (1-4), (Reported) Amlodipine Besylate 10 Mg Tablet, 10 MG PO HS, (Reported) Ferrous Sulfate 325 Mg Tablet, 325 MG PO BID, (Reported) Furosemide 40 Mg Tablet, 40 MG PO DAILY Prescribed by: BETO CALI on 11/24/20 1133 Hydrocodone/Acetaminophen 1 Each Tablet, 1 EACH PO Q4H PRN for PAIN-MODERATE (5- 7) Prescribed by: MAR GASTELUM on 10/14/20 1417 Hydroxychloroquine Sulfate 200 Mg Tablet, 200 MG PO BID, (Reported) Levofloxacin 750 Mg Tablet, 750 MG PO Q48H Prescribed by: BETO CALI on 11/24/20 1133 Meclizine HCl 25 Mg Tablet, 25 MG PO Q8H Prescribed by: TOMMIE JARAMILLO on 07/23/20 1557 Melatonin 10 Mg Tablet, 10 MG PO HS PRN for SLEEP, (Reported) Multivitamin 1 Each Tablet, 1 TAB PO DAILY, (Reported) Prednisone 10 Mg Tab.ds.pk, 15 MG PO Q48H, (Reported) Take 6 tabs(60mg)daily,decrease by 1 tab(10MG)daily. Sodium Bicarbonate 650 Mg Tablet, 650 MG PO HS PRN for LOOSE STOOLS, (Reported) Temazepam 15 Mg Capsule, 15 MG PO HS PRN for SLEEP, (Reported) Warfarin Sodium 2.5 Mg Tablet, 2.5 MG PO DAILY, (Reported) Patient Home Medication List Home Medication List Reviewed: Yes Physical Exam-Cardiology Physical Exam Vital Signs/I&O 12/31/20 12/31/20 12/31/2021 03:05 07:00 07:32 07:39 Temp 36.3 36.4 Pulse 70 72 78 Resp 16 20 B/P (MAP) 159/79 (105) 166/71 (102) Pulse Ox 97 98 98 O2 Delivery Nasal Cannula Nasal Cannula Nasal Cannula O2 Flow Rate 2.00 2.00 2.00 12/31/20 12/31/20 11:01 12:39 Temp 36.4 Pulse 74 71 Resp 20 B/P (MAP) 143/77 (99) Pulse Ox 100 O2 Delivery Nasal Cannula O2 Flow Rate 2.00 12/31/20 00:00 Intake Total 200 ml Output Total 800 ml Balance -600 ml Capillary Refill : Less Than 3 Seconds Constitutional: appears stated age, AAO x 3; No apparent distress; well-devel oped, well-nourished HEENT: PERRL; No discharge; hearing is well preserved, oral hygience is good; No ulceration, No xanthelasmas are seen Neck: No carotid bruit; carotid pulses are 2 + bilaterally Respiratory: chest is bilaterally symmetric, lungs clear to auscultation Cardiovascular: regular rate-rhythm, S1 and S2, systolic murmur Gastrointestinal: soft, audible bowel sounds; No spleenomegaly Rectal: deferred Extremities: normal range of motion, non-tender, normal inspection; No clubbing, No cyanosis; no lower extremity edema bilateral; No significant edema Neurologic/Psychiatric: no motor/sensory deficits, alert, normal mood/affect, oriented x 3, power is 5/5 both on sides Skin: normal color; No rash, No ulcerations Data Review Labs Laboratory Tests 12/30/20 14:40: White Blood Count 5.0, Red Blood Count 3.61L, Hemoglobin 10.4L, Hematocrit 33L, Mean Corpuscular Volume 92, Mean Corpuscular Hemoglobin 29, Mean Corpuscular Hemoglobin Concent 31L, Red Cell Distribution Width 14.9H, Platelet Count 135, Mean Platelet Volume 9.6, Immature Granulocyte % (Auto) 1, Neutrophils (%) (Auto) 66, Lymphocytes (%) (Auto) 21, Monocytes (%) (Auto) 9, Eosinophils (%) (Auto) 4, Basophils (%) (Auto) 0, Neutrophils # (Auto) 3.3, Lymphocytes # (Auto) 1.1, Monocytes # (Auto) 0.4, Eosinophils # (Auto) 0.2, Basophils # (Auto) 0.0, Immature Granulocyte # (Auto) 0.0, Prothrombin Time 26.8H, INR Comment 2.5H, Sodium Level 145, Potassium Level 4.5, Chloride Level 116H, Carbon Dioxide Level 22, Anion Gap 7, Blood Urea Nitrogen 40H, Creatinine 2.38H, Estimat Glomerular Filtration Rate 27, BUN/Creatinine Ratio 17, Glucose Level 90, Calcium Level 9.0, Corrected Calcium 9.2, Total Bilirubin 0.4, Aspartate Amino Transf (AST/SGOT) 27, Alanine Aminotransferase (ALT/SGPT) 18, Alkaline Phosphatase 106, Troponin I < 0.30, Pro-B-Type Natriuretic Peptide 65713.0H, Total Protein 6.0L, Albumin 3.7 12/31/20 02:55: White Blood Count 4.6, Red Blood Count 3.49L, Hemoglobin 10.0L, Hematocrit 32L, Mean Corpuscular Volume 91, Mean Corpuscular Hemoglobin 29, Mean Corpuscular Hemoglobin Concent 31L, Red Cell Distribution Width 14.6H, Platelet Count 118L, Mean Platelet Volume 9.8, Immature Granulocyte % (Auto) 0, Neutrophils (%) (Auto) 62, Lymphocytes (%) (Auto) 25, Monocytes (%) (Auto) 9, Eosinophils (%) (Auto) 4, Basophils (%) (Auto) 0, Neutrophils # (Auto) 2.9, Lymphocytes # (Auto) 1.1, Monocytes # (Auto) 0.4, Eosinophils # (Auto) 0.2, Basophils # (Auto) 0.0, Immature Granulocyte # (Auto) 0.0, Sodium Level 142, Potassium Level 4.2, Chloride Level 113H, Carbon Dioxide Level 18L, Anion Gap 11, Blood Urea Nitrogen 39H, Creatinine 2.29H, Estimat Glomerular Filtration Rate 28, BUN/Creatinine Ratio 17, Glucose Level 73, Calcium Level 8.3L, Corrected Calcium 8.9, Total Bilirubin 0.8, Aspartate Amino Transf (AST/SGOT) 28, Alanine Aminotransferase (ALT/SGPT) 21, Alkaline Phosphatase 85, Total Protein 5.7L, Albumin 3.3, B-Type Natriuretic Peptide 1877.7H A/P-Cardiology Assessment/Admission Diagnosis Newly diagnosed acute systolic congestive heart failure, Mild aortic stenosis, [id number] aortic regurgitation, Acute kidney injury, COPD, History of lung cancer, Pleural effusion Plan Complicated patient with multiple medical and cardiac issues. Newly diagnosed acute systolic congestive heart failure, echocardiogram shows EF of 30-35 percent. Mild aortic stenosis. Mild to moderate aortic regurgitation. I discussed with the patient. LifeVest is recommended for primary prevention of sudden cardiac . Continue treatment of congestive heart failure with Lasix. Cardiomyopathy treatment with beta malcolm and vasodilators. We may not be able to give Giorgi inhibitors due to acute kidney injury. Patient may need coronary evaluation, however coronary angiography is deferred due to acute kidney injury. Mild Aortic stenosis/mild to moderate aortic regurgitation: No active issues. Acute kidney injury, defer to Dr. Jaime. COPD, on oxygen. History of lung cancer, Pleural effusion, loculated pleural effusion on CT. Defer to Dr. Jaime. Thank you for your consultation. Please call me if you have any questions. Alley Kellogg MD, FACP, FACC, FSCAI, FHRS, CCDS Interventional Cardiology Cardiac Electrophysiology Vascular Medicine and Endovascular Interventions Edmar KELLOGG MD Dec 31, 2020 14:26
[2020-12-31 15:42] VITALS: BP 147/67
[2020-12-31 19:35] VITALS: BP 154/73
[2020-12-31] MEDS: ACETAMINOPHEN 500 MG TAB (TYLENOL) PO PRN (19:37)
[2020-12-31 23:48] VITALS: BP 139/57
[2021-01-01] VITALS (7 sets, daily range): BP systolic 73–142; BP diastolic 56–72
[2021-01-01] MEDS: FUROSEMIDE 40 MG/4 ML INJ (LASIX) IVP SCH (06:51)
[2021-01-01 08:55] LABS: POTASSIUM 3.8 MMOL/L (3.6-5.0)
[2021-01-01 08:56] LABS: CALCIUM 8.1 MG/DL (8.5-10.1)
[2021-01-01 09:00] LABS: CREATININE SERUM 2.75 MG/DL (0.60-1.30)
[2021-01-01] MEDS: CARVEDILOL 3.125 MG (COREG) TABLET PO SCH ×2 (10:13→20:41)
[2021-01-01] MEDS ORDERED: CARV3.122 PO (11:42)
[2021-01-01] MEDS ORDERED: warFARin 10 MG (COUMADIN) TAB PO ONE (11:45)
--- NOTE | 2021-01-01 11:52 | Progress Note - Hospitalist ---
Subjective HPI/CC On Admission Date Seen by Provider: Jan 01, 2021 Time Seen by Provider: 09:45 Patient is a 75-year-old male with history of lung cancer congestive heart failure COPD who presents with worsening shortness of breath with dyspnea and mild chest pressure worse with exertion. States he wears 2 L of oxygen on a as needed basis. Symptoms began this morning upon waking. He reports chronic nonproductive cough but denies fever chills nausea vomiting and sweats. He denies increased leg pain or swelling. Previous history of DVT and PE. He is currently anticoagulated on Coumadin and denies missed doses or recent aparicio btherapeutic level. Patient was evaluated yesterday at his physician and states he walked around all yesterday without difficulty. Denies history of CAD. No other acute symptoms or complaints. Patient is not currently on chemotherapy and declined chemotherapy for treatment of his cancer years ago due to concerns for quality of life. Upon my arrival the patient reported no shortness of breath at rest. He stated that his symptoms began on 24 November when he woke up in the morning. He had fe lt well in the and actually went to see his oncologist in [place] whom he follows for lung cancer that is apparently been stable having been diagnosed 4 years ago and not receiving any current chemotherapy as noted above. Patient denies night sweats chills fever has been therapeutically anticoagulated for recurrent DVT and at least one episode of pulmonary embolism in the past. His cancer on the right side of his lung was complicated by apparent malignant pleural effusion and required an indwelling catheter for drainage for several months that it has been out for several years now. He denied any associated chest pain. He has no known history of coronary artery disease but he reports he has had several TIAs in the past when he was off of Coumadin. He has had no lasting neurologic sequela from this. He denies night sweats chills fever change in appetite or weight. Subjective/Events-last exam Patient denies orthopnea PND and reports less pedal edema than his usual baseline. He has had no chest discomfort denies lightheadedness when he gets up still feels little more winded when going to the bathroom and back and is noted some decrease in stream over baseline he has not been able to void yet this morning but denies any abdominal or suprapubic pain. Objective Exam Vital Signs Vital Signs Date Time Temp Pulse Resp B/P (MAP) Pulse Ox O2 Delivery O2 Flow Rate FiO2 01/01/21 11:18 36.8 71 20 112/72 (85) 97 Room Air 01/01/21 08:09 2.00 Capillary Refill : Less Than 3 Seconds General Appearance: No Apparent Distress Respiratory: No Accessory Muscle Use, No Respiratory Distress, Other (Few dry sounding rales in the right base chest otherwise clear.) Cardiovascular: Regular Rate, Rhythm, No Edema, No Gallop, No JVD, No Murmur, Normal Peripheral Pulses Extremity: Other (1+ edema left trace on the right decrease from yesterday.) Results/Procedures Lab Laboratory Tests 01/01/21 08:39 Patient resulted labs reviewed. Assessment/Plan Assessment and Plan Assess & Plan/Chief Complaint 1. Probable congestive heart failure Echocardiography revealed moderate global LV dysfunction with an estimated ejection fraction of 30 to 35% with pulmonary artery pressure estimated at 30 to 35 mmHg with normal-appearing RV function. Congestive heart failure is compensated but the patient's creatinine did bump up a little bit to 2.5 his baseline appears to be around 2. He is not a candidate for MALICK inhibitor therapy due to his renal dysfunction so this has been discontinued will add carvedilol 3.125 mg twice daily hold IV Lasix today but he will likely need oral Lasix at home and early follow-up. As he is drinking is alert I do not have problems after Dr. Evans's evaluation for discharge this afternoon if the patient is feeling well and not having difficulty with carvedilol. Mild troponin elevation with no evidence for acute ischemia on ECG most likely represents type II infarct continue to monitor conservatively considering age and medical comorbidities. 2. Chronic right lung changes likely due to combination of lung cancer and need for past chest tube drainage actually slightly improved we will continue Lasix thus far today's fluid deficit is 1500cc. 3. Stage IV chronic renal disease See above. 4. Anemia of chronic renal disease. With a hemoglobin of 10 not likely low enough to contribute to current symptoms. 5. Status post colectomy many years ago for hereditary polyposis syndrome [facility] reported history of colon cancer done prophylactically. BRITTNY PRESTON MD Jan 01, 2021 11:52
[2021-01-01] MEDS ORDERED: REGADENOSON 0.4 MG/5 ML SYR (LEXISCAN) IV ONE (12:45)
--- NOTE | 2021-01-01 13:41 | Cardiology Progress Note ---
Cardiology SOAP Progress Note Subjective: no cardiac complaints. Objective: I&O/Vital Signs 01/01/21 01/01/21 01/01/21 01/01/21 04:55 07:00 08:00 08:09 Temp 37.3 36.8 Pulse 70 68 75 Resp 19 14 B/P (MAP) 142/70 (94) 137/62 (87) Pulse Ox 97 99 99 O2 Delivery Nasal Cannula Nasal Cannula Nasal Cannula O2 Flow Rate 2.00 2.00 2.00 01/01/21 01/01/21 11:18 12:45 Temp 36.8 Pulse 71 71 Resp 20 B/P (MAP) 112/72 (85) Pulse Ox 97 O2 Delivery Room Air 01/01/21 00:00 Intake Total 750 ml Output Total 1400 ml Balance -650 ml Constitutional: appears stated age, AAO x 3; No apparent distress; well- developed, well-nourished Respiratory: chest is bilaterally symmetric, lungs clear to auscultation Cardiovascular: regular rate-rhythm, S1 and S2, systolic murmur Gastrointestional: soft, audible bowel sounds; No spleenomegaly Extremities: normal range of motion, non-tender, normal inspection; No clubbing, No cyanosis; no lower extremity edema bilateral; No significant edema Neurologic/Psychiatric: no motor/sensory deficits, alert, normal mood/affect, oriented x 3, power is 5/5 both on sides Skin: normal color; No rash, No ulcerations Results/Procedures: Labs Laboratory Tests 01/01/21 08:39: Sodium Level 140, Potassium Level 3.8, Chloride Level 107, Carbon Dioxide Level 19L, Anion Gap 14, Blood Urea Nitrogen 47H, Creatinine 2.75#H, Estimat Glomerular Filtration Rate 23, BUN/Creatinine Ratio 17, Glucose Level 81, Calcium Level 8.1L A/P: Assessment/Dx: Newly diagnosed acute systolic congestive heart failure, Mild aortic stenosis, [id number] aortic regurgitation, Acute kidney injury, COPD, History of lung cancer, Pleural effusion Plan: Complicated patient with multiple medical and cardiac issues. Newly diagnosed acute systolic congestive heart failure, echocardiogram shows EF of 30-35 percent. Mild aortic stenosis. Mild to moderate aortic regurgitation. I discussed with the patient. LifeVest is recommended for primary prevention of sudden cardiac . Continue treatment of congestive heart failure with Lasix. Cardiomyopathy treatment with beta malcolm and vasodilators (can add either nitrates or low-dose hydralazine). We may not be able to give Giorgi inhibitors due to acute kidney injury. Patient may need coronary evaluation, however coronary angiography is deferred due to acute kidney injury. worsening acute kidney injury, we will schedule nuclear stress test. Mild Aortic stenosis/mild to moderate aortic regurgitation: No active issues. Acute kidney injury, defer to Dr. Jaime. COPD, on oxygen. History of lung cancer, Pleural effusion, loculated pleural effusion on CT. Defer to Dr. Jaime. Thank you for your consultation. Please call me if you have any questions. Alley Evans MD, FACP, FACC, FSCAI, FHRS, CCDS Interventional Cardiology Cardiac Electrophysiology Vascular Medicine and Endovascular Interventions Edmar EVANS MD Jan 01, 2021 13:41
[2021-01-01] MEDS: ISOSORBIDE MONONITRATE 60 MG (IMDUR) TAB PO SCH (14:11)
[2021-01-02] VITALS (7 sets, daily range): BP systolic 99–145; BP diastolic 64–90
[2021-01-02] MEDS ORDERED: NS IV 500 ML 500 ML IV SCH (00:15)
[2021-01-02 04:13] LABS: POTASSIUM 3.9 MMOL/L (3.6-5.0)
[2021-01-02 04:14] LABS: CALCIUM 7.8 MG/DL (8.5-10.1)
[2021-01-02 04:19] LABS: CREATININE SERUM 3.29 MG/DL (0.60-1.30)
--- NOTE | 2021-01-02 10:15 | Cardiology Progress Note ---
Subjective Date Seen by Provider: Jan 02, 2021 Time Seen by Provider: 10:12 Subjective/Events-last exam Patient was seen at bedside, laying down comfortably, feeling better. Breathing better. Review of Systems General: No Chills, No Night Sweats; Fatigue; No Malaise, No Appetite, No Other HEENT: No Head Aches, No Visual Changes, No Eye Pain, No Ear Pain, No Dysphas ia, No Sinus Congestion, No Post Nasal Drip, No Sore Throat, No Other Pulmonary: Dyspnea; No Cough, No Pleuritic Chest Pain, No Other Cardiovascular: No: Chest Pain, Palpitations, Orthopnea, Paroxysmal Noc. Dyspnea, Edema, Lt Headedness, Other Objective-Cardiology Exam Last Set of Vital Signs Vital Signs 01/02/21 08:00 Temp 37.0 Pulse 68 Resp 18 B/P (MAP) 118/64 (82) Pulse Ox 99 O2 Delivery Nasal Cannula O2 Flow Rate 2.00 Capillary Refill : Less Than 3 Seconds I&O Intake and Output 01/02/21 00:00 Intake Total 850 ml Output Total 1125 ml Balance -275 ml Intake Oral 850 ml Output Urine Total 1125 ml # Voids 2 # Bowel Movements 2 General: Alert, Oriented X3, Cooperative HEENT: Atraumatic, PERRLA Neck: Supple, No JVD, No Thyromegaly Lungs: Clear to Auscultation, Normal Air Movement Heart: Regular Rate, Normal S1, Normal S2, No Murmurs Abdomen: Normal Bowel Sounds, Soft, No Tenderness, No Hepatosplenomegaly, No Masses Extremities: No Clubbing, No Cyanosis, No Edema, Normal Pulses, No Tenderness/Swelling Skin: No Rashes, No Breakdown, No Significant Lesion Neuro: Normal Gait, Normal Speech, Strength at 5/5 X4 Ext, Normal Tone, Sensation Intact Psych/Mental Status: Mental Status NL, Mood NL Results Lab Laboratory Tests 01/02/21 03:39 A/P-Cardiology Admission Diagnosis Congestive heart failure, acute left ventricular systolic dysfunction Acute renal failure Acute exacerbation of COPD Aortography stenosis Assessment/Plan Congestive heart failure, acute left ventricular systolic dysfunction with ejection fraction 30-35 percent, mild aortic stenosis, mild to moderate aortic regurgitation. Patient has a LifeVest at this point. Workup for the etiology of his heart failure is in progress, he is scheduled for stress test today at noon. We'll continue monitoring Mild aortic valve stenosis is mild to moderate aortic regurgitation. Continue to monitor Pleural effusion, loculated by CT. Managed by primary care team Acute renal insufficiency, history of chronic renal failure, worsening renal function, continue to monitor closely COPD, oxygen dependent History of renal cell carcinoma, history of lung cancer, patient received chemotherapy in 2014, he reported that he stopped the chemotherapy in 2014 and does not recall having any recurrent of his malignancy Patient is unable to tolerate MALICK inhibitor and/or ARB and/or Aldactone due to renal failure, might not tolerate aggressive diuresis Patient is unable to tolerate beta malcolm due to hypotension ELLIOT LOPEZ MD Jan 02, 2021 10:15
[2021-01-02] MEDS ORDERED: CATHETER FLUSH 10 ML SYR IV PRN (11:00)
[2021-01-02] MEDS ORDERED: MELA5TAB14 PO (11:03)
[2021-01-02] MEDS ORDERED: PRED5TAB PO (11:03)
[2021-01-02] MEDS ORDERED: FURO40TA4 PO (11:03)
--- NOTE | 2021-01-02 11:18 | Progress Note - Hospitalist ---
RALPH MERRILL,[facility] [place] 01/02/21 1118: Subjective HPI/CC On Admission Date Seen by Provider: Jan 02, 2021 Time Seen by Provider: 10:50 Patient is a 75-year-old male with history of lung cancer congestive heart failu re COPD who presents with worsening shortness of breath with dyspnea and mild chest pressure worse with exertion. States he wears 2 L of oxygen on a as needed basis. Symptoms began this morning upon waking. He reports chronic nonproductive cough but denies fever chills nausea vomiting and sweats. He denies increased leg pain or swelling. Previous history of DVT and PE. He is currently anticoagulated on Coumadin and denies missed doses or recent subtherapeutic level. Patient was evaluated yesterday at his physician and states he walked around all yesterday without difficulty. Denies history of CAD. No other acute symptoms or complaints. Patient is not currently on chemotherapy and declined chemotherapy for treatment of his cancer years ago due to concerns for quality of life. Upon my arrival the patient reported no shortness of breath at rest. He stated that his symptoms began on 24 November when he woke up in the morning. He had felt well in the and actually went to see his oncologist in [place] whom he follows for lung cancer that is apparently been stable having been diagnosed 4 years ago and not receiving any current chemotherapy as noted above. Patient denies night sweats chills fever has been therapeutically anticoagulated for recurrent DVT and at least one episode of pulmonary embolism in the past. His cancer on the right side of his lung was complicated by apparent malignant pleural effusion and required an indwelling catheter for drainage for several months that it has been out for several years now. He denied any associated chest pain. He has no known history of coronary artery disease but he reports he has had several TIAs in the past when he was off of Coumadin. He has had no lasting neurologic sequela from this. He denies night sweats chills fever change in appetite or weight. Subjective/Events-last exam Mr Hansen feels good this morning and denies CP/SOB/fevers/chills. He endorses back tenderness off the midline just below the 12th rib on the right. Otherwise he is eager to return home. Objective Exam Vital Signs Vital Signs Date Time Temp Pulse Resp B/P (MAP) Pulse Ox O2 Delivery O2 Flow Rate FiO2 2/22/21 08:00 Nasal Cannula 2.00 01/02/21 08:00 37.0 68 18 118/64 (82) 99 Capillary Refill : Less Than 3 Seconds General Appearance: No Apparent Distress Respiratory: Chest Non Tender, Lungs Clear, Normal Breath Sounds Cardiovascular: Regular Rate, Rhythm, No Edema Back: Normal Inspection, No Vertebral Tenderness, CVA Tenderness (R) Extremity: Normal Capillary Refill, No Calf Tenderness Results/Procedures Lab Laboratory Tests 01/02/21 03:39 Patient resulted labs reviewed. Imaging: Reviewed Imaging Report Radiology NAME: JAYSON HANSEN [facility] REC#: [id number] PT STATUS: ADM IN : 1945 PHYSICIAN: BRITTNY PRESTON MD ADMIT DATE: 12/30/20/[facility] Signed Date of Exam:12/31/20 CHEST 1 VIEW, AP/PA ONLY EXAMINATION: Portable erect AP chest at 2:48 AM INDICATION: CHF exacerbation FINDINGS: The suspected loculated effusion involving the right lung base seen on the prior exam of 12/19/2020 is again evident and perhaps slightly smaller. The right lower lobe itself also seems better aerated although there is still some residual alveolar/interstitial pulmonary infiltrates noted. There is also less fluid in the left lung base than noted on the prior exam. The upper lungs are generally clear. The mediastinum is not widened. The osseous structures are intact. IMPRESSION: The appearance of the chest has improved since the prior exam as the amount of fluid in both lung bases has decreased and the right lower lobe does seem better aerated. There is still a moderate amount of loculated fluid present in the right lower lobe, however. A follow-up study would be recommended for continued evaluation. Dictated by: Dictated on workstation # [id number] Dict: 12/31/20 0458 Trans: 12/31/20 1541 LIBBY [id number] Interpreted by: STELLA VARGHESE MD Electronically signed by: STELLA VARGHESE MD 12/31/20 1546 Assessment/Plan Assessment and Plan Assess & Plan/Chief Complaint 1. CHF Exacerbation -Cardiology following -LifeVest -Lasix -Carvedilol -Isosorbide mononitrate -May need coronary angiography, delay for now 2. Stage IV CKD -IVF -Not a candidate for MALICK inhibitor 3. 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 Lung Cancer -No longer receiving chemotherapy NOHEMI VASQUEZ DO 01/03/21 0530: Subjective Subjective/Events-last exam Pt is dong okay but appears to have elevated creatinine of 3.29 due to diuresis Cardiology has seen him At home on O2 chronically Stress test today Presented to the ER with SOB and never had any heart problems before Have chronic kidney disease Elevated BNP noted Echocardiogram shows moderate aortic stenosis with ejection fraction of 35% Review of Systems General: Fatigue, Malaise Neurological: Weakness Objective Exam General Appearance: No Apparent Distress, WD/WN, Chronically ill Respiratory: No Accessory Muscle Use, No Respiratory Distress, Crackles Cardiovascular: Regular Rate, Rhythm Neurologic/Psychiatric: Alert, Oriented x3, No Motor/Sensory Deficits, Normal Mood/Affect Assessment/Plan Assessment and Plan Assess & Plan/Chief Complaint Monitor creat IRF PT OT O2 Supervisory-Addendum Brief Verification & Attestation Participated in pt care: history, MDM, physical Personally performed: exam, history, MDM, supervision of care Care discussed with: Medical Student Procedures: n/a Results interpretation: Verified all documentation Verification and Attestation of Medical Student E/M Service A medical student performed and documented this service in my presence. I reviewed and verified all information documented by the medical student and made modifications to such information, when appropriate. I personally performed the physical exam and medical decision making. Nohemi Vasquez, Jan 03, 2021,05:28 RALPH MERRILL,MED STUDEN Jan 02, 2021 11:18 NOHEMI VASQUEZ DO Jan 03, 2021 05:30
[2021-01-02] MEDS ORDERED: WRF2.5T PO (11:24)
[2021-01-02] MEDS ORDERED: REGADENOSON 0.4 MG/5 ML SYR (LEXISCAN) IV ONE (11:43)
[2021-01-02] MEDS: ISOSORBIDE MONONITRATE 60 MG (IMDUR) TAB PO SCH (13:29)
--- NOTE | 2021-01-02 14:43 | Occupational Therapy Eval ---
OT Evaluation-General/PLF Medical Diagnosis Admission Date Dec 30, 2020 at 18:50 Medical Diagnosis: CHF, PE Onset Date: Dec 30, 2020 Therapy Diagnosis Therapy Diagnosis: Decreased ADL status Precautions Precautions/Isolations: Fall Prevention, Standard Precautions Weight Bear Status Weight Bearing Restriction: Full Weight Bearing Referral Physician: Raz Earl Reason: Activity Tolerance, Self Care, Evaluation/Treatment, Strengthening/ROM Medical History Pertinent Medical History: HTN Additional Medical History Lung ca, renal ca, CHF, COPD, DVT, PE, TIAs, neuropathy, renal failure, DDD, RA, CBP Current History Pt admits with SOB/ dyspnea/ increased chest pressure with exertion. Reviewed History: Yes Social History Home: Single Level Current Living Status: Children (daughter) Entry Into Home: Stairs With Railing Steps Into Home: 2 Steps Inside Home: 0 ADL-Prior Level of Function SCALE: Activities may be completed with or without assistive devices. 1-Fkyntiicsw-lpfdzwr completes the activity by him/herself with no assistance from a helper. 5-Set-up or Clean-up Assistance-helper sets up or cleans up; patient completes activity. [place] assists only prior to or following the activity. 4-Supervision or Touching Assistance-helper provides verbal cues and/or touching/steadying and/or contact guard assistance as patient completes activity. Assistance may be provided throughout the activity or intermittently. 3-Partial/Moderate Assistance-helper does LESS THAN HALF the effort. [place] lifts, holds or supports trunk or limbs, but provides less than half the effort. 2-Substantial/Maximal Assistance-helper does MORE THAN HALF the effort. [place] lifts or holds trunk or limbs and provides more than half the effort. 0-Xbrvbuzdc-ggxepq does ALL the effort. Patient does none of the effort to complete the activity. Or, the assistance of 2 or more helpers is required for the patient to complete the activity. If activity was not attempted, code reason: 7-Patient Refused. 9-Not Applicable-not attempted and the patient did not perform the activity before the current illness, exacerbation or injury. 10-Not Attempted due to Environmental Limitations-(lack of equipment, weather restraints, etc.). 88-Not Attempted due to Medical Conditions or Safety Concerns. ADL PLOF Comments Pt IND within the home with use of SPC (daughter assists with cooking/ cleaning), drives. Self Care: Independent Functional Cognition: Independent DME/Equipment: Bath Chair, Grab Bars, Shower DME/Equipment Comments multiple hip surgeries, hip kit. Occupation: retired Drive Self: Yes OT Current Status Subjective Pt AxO, seen walking to bathroom without AD/ assist. Pt is assisted to bathroom with SBA. Sits on standard toilet, toilets with SUP, returns with SUP. Pt denies pain, agrees to tx. Mental Status/Objective Patient Orientation: Person, Place, Situation, Normal For Age Attachments: Telemetry Current Glasses/Contacts: Yes Hearing Aids: No Dentures/Partials: Yes Hand Dominance: Right Upper Extremity ROM WFL BUE Upper Extremity Coordination WFL BUE Upper Extremity Sensation WFL BUE per pt Upper Extremity Strength WFL BUE (4+/5) ADL-Treatment Eating (QC): 6 Oral Hygiene (QC): 6 Lower Body Dressing (QC): 4 On/Off Footwear (QC): 4 Toileting Hygiene (QC): 4 (SUP, though IND.) Other Treatments Pt completes ambulation without AD to toilet. Completes toileting/ toilet hygiene IND. Returns to room, sits in recliner. MMT/ ROM completes WFL. Pt lives with daughter, states IND with ADLs though has some difficulty with socks/ pants at times. Pt educated to utilize hip kit at home, pt is familiar with hip kit. Pt educated on good ability, no OT needs at this time as pt at [facility] (SUP/ SBA utilized during evaluation, though able to complete with use of SPC and AE). Pt denies needs, left with PT end of session. Education OT Patient Education: Correct positioning, Modified ADL techniques, Progress toward Goal/Update tx plan, Purpose of tx/functional activities, Safety issues, Transfer techniques, Use of adapted equipment Teaching Recipient: Patient Teaching Methods: Demonstration, Discussion Response to Teaching: Verbalize Understanding, Return Demonstration OT Permit Coordinator Goals [facility] Goals 1=Demonstrate adherence to instructed precautions during ADL tasks. 2=Patient will verbalize/demonstrate understanding of assistive devices/modifications for ADL. 3=Patient will improve strength/tolerance for activity to enable patient to perform ADL's. OT Education/Plan Problem List/Assessment Assessment: No Skilled OT Needs ID'd Discharge Recommendations Plan/Recommendations: Discharge/Goals Met Therapy Discharge Recommendati: Intermittent Supervision, Home & Family Treatment Plan/Plan of Care Treatment,Training & Education: Yes Patient would benefit from OT for education, treatment and training to promote independence in ADL's, mobility, safety and/or upper extremity function for ADL's. Plan of Care: OTHER (eval and d/c.) Treatment Duration: Jan 02, 2021 Frequency: 1 time per week (eval and d/c.) Time/GCodes Start Time: 14:23 Stop Time: 14:32 Total Time Billed (hr/min): 9 Billed Treatment Time 1, EVL (9) d/c, pt at [facility] with ADLs. NATHALY ANDRADE OTR Jan 02, 2021 14:43
--- NOTE | 2021-01-02 15:05 | Physical Therapy Evaluation ---
PT Evaluation-General Medical Diagnosis Admission Date Dec 30, 2020 at 18:50 Medical Diagnosis: CHF, PE Onset Date: Dec 30, 2020 Therapy Diagnosis Therapy Diagnosis: debility Precautions Precautions/Isolations: Fall Prevention, Standard Precautions Referral Physician: Raz Reason for Referral: Evaluation/Treatment Medical History Pertinent Medical History: COPD, HTN, Renal Insufficiency Additional Medical History lung cancer/PE/DVT Current History ER secondary to SOA Reviewed History: Yes Social History Home: Single Level Current Living Status: Children (daughter) Entry Into Home: Stairs With Railing PT Steps Into Home: 2 PT Steps Inside Home: 0 Prior Prior Level of Function SCALE: Activities may be completed with or without assistive devices. 1-Sqlpjzewfn-phenrrk completes the activity by him/herself with no assistance from a helper. 5-Set-up or Clean-up Assistance-helper sets up or cleans up; patient completes activity. [place] assists only prior to or following the activity. 4-Supervision or Touching Assistance-helper provides verbal cues and/or touching/steadying and/or contact guard assistance as patient completes activity. Assistance may be provided throughout the activity or intermittently. 3-Partial/Moderate Assistance-helper does LESS THAN HALF the effort. [place] lifts, holds or supports trunk or limbs, but provides less than half the effort. 2-Substantial/Maximal Assistance-helper does MORE THAN HALF the effort. [place] lifts or holds trunk or limbs and provides more than half the effort. 7-Hkgqvsoij-ejactu does ALL the effort. Patient does none of the effort to complete the activity. Or, the assistance of 2 or more helpers is required for the patient to complete the activity. If activity was not attempted, code reason: 7-Patient Refused. 9-Not Applicable-not attempted and the patient did not perform the activity before the current illness, exacerbation or injury. 10-Not Attempted due to Environmental Limitations-(lack of equipment, weather restraints, etc.). 88-Not Attempted due to Medical Conditions or Safety Concerns. Bed Mobility: 6 Transfers (B,C,W/C): 6 Gait: 6 Stairs: 6 Indoor Mobility (Ambulation): Independent Stairs: Independent Prior Devices Use: Other-see list below Prior Device Use: cane PT Evaluation-Current Subjective Patient up in room independently upon entry. Objective Patient Orientation: Normal For Age ROM/Strength ROM Lower Extremities bilateral LE WFL Strength Lower Extremities 4/5 grossly bilateral LE Integumentary/Posture Integumentary refer to nursing notes Bowel Incontinence: No Bladder Incontinence: No Posture slightly kyphotic Neuromuscular (Tone, Coordination, Reflexes) grossly intact Sensory Vision: Wears Glasses Hand Dominance: Right Transfers Sit to Stand (QC): 6 Toilet Transfer (QC): 6 Gait Does the Patient Walk?: Yes Mode of Locomotion: Walk Anticipated Mode of Locomotion: Walk Walk 10 feet (QC): 6 Walk 50 ft with 2 Turns(QC): 6 Walk 150 ft (QC): 6 Distance: 275' Gait Assistive Device: Cane Single Point Comments/Gait Description safe and functional with no deviation Balance Sitting Static: Normal Sitting Dynamic: Normal Standing Static: Normal Standing Dynamic: Normal Assessment/Needs 75 y.o. male, is currently at [facility] with all gross motor skills and does not require skilled therapy intervention. Rehab Potential: Fair PT Plan Treatment/Plan Treatment Plan: Discontinue PT, goals met Treatment Duration: Jan 02, 2021 Frequency: 1 time per week Estimated Hrs Per Day: .25 hour per day Patient and/or Family Agrees t: Yes Discharge Recommendations Therapy Discharge Recommendati: Home & Family Time/GCodes Time In: 1430 Time Out: 1440 Total Billed Treatment Time: 10 Total Billed Treatment 1 visit EVMod 10 min ROB NEGRETE PT Jan 02, 2021 15:05
--- NOTE | 2021-01-02 16:37 | Cardiology Stress Test Report ---
Stress Test Report Date of Procedure/Referring: Date of Procedure: Jan 02, 2021 PCP Filiberto Jaime MD Admitting Physician Derrick Ferguson MD Indications: Congestive heart failure Baseline Heart Rate: 70 Baseline Blood Pressure: Blood Pressure Systolic: 140 Blood Pressure Diastolic: 87 Baseline Vitals Vital Signs Date Time Temp Pulse Resp B/P (MAP) Pulse Ox O2 Delivery O2 Flow Rate FiO2 12/30/20 14:06 36.7 77 21 141/87 (105) 96 Room Air 12/30/20 19:00 2.00 Baseline EKG: Baseline EKG: sinus rhythm, left bundle branch block Summary After explaining the procedure to the patient, he signed a consent and then brought to the stress nuclear laboratory. Patient received 0.4 mg Lexiscan for stress test, ECG, heart rate and blood pressure were monitored continuously. Resting and stress dose of radio tracer were injected, imaging was acquired and reviewed in short axis, horizontal long axis and vertical long axis views. TID: 1.15 SSS: 14 SDS: 2 EF: 20 1. Patient tolerated Lexiscan well 2. Baseline left bundle branch block persisted during test 3. Decreased uptake involving the whole inferior wall and inferoapex and true apex with subtle reversibility 4. Dilated left ventricle with severe diffuse left ventricular hypokinesia, EF 20 percent ELLIOT LOPEZ MD Jan 02, 2021 4:37 pm
[2021-01-02] MEDS: warFARin 5 MG (COUMADIN) TAB PO SCH (18:02)
[2021-01-03 03:15] VITALS: BP 135/55
[2021-01-03] MEDS: MELATONIN 10 MG TABLET PO PRN (03:16)
[2021-01-03 04:41] LABS: BASOPHILS % (AUTO) 0 % (0-10); EOSINOPHILS # (AUTO) 0.2 10^3/uL (0.0-0.3); EOSINOPHILS % (AUTO) 4 % (0-10); HEMATOCRIT 31 % (40-54); HEMOGLOBIN 10.1 g/dL (13.3-17.7); LYMPHOCYTES # (AUTO) 1.3 10^3/uL (1.0-4.0); LYMPHOCYTES % (AUTO) 27 % (12-44); MEAN CORPUSCULAR HEMOGLOBIN 29 pg (25-34); MEAN CORPUSCULAR HGB CONC 32 g/dL (32-36); MEAN CORPUSCULAR VOLUME 89 fL (80-99); MONOCYTES # (AUTO) 0.6 10^3/uL (0.0-1.0); MONOCYTES % (AUTO) 12 % (0-12); NEUTROPHILS # (AUTO) 2.6 10^3/uL (1.8-7.8); NEUTROPHILS % (AUTO) 56 % (42-75); PLATELET COUNT 121 10^3/uL (130-400); WHITE BLOOD COUNT 4.7 10^3/uL (4.3-11.0)
[2021-01-03 04:53] LABS: ALBUMIN 3.3 GM/DL (3.2-4.5); POTASSIUM 3.8 MMOL/L (3.6-5.0)
[2021-01-03 04:54] LABS: CALCIUM 7.9 MG/DL (8.5-10.1)
[2021-01-03 04:56] LABS: TOTAL PROTEIN 5.6 GM/DL (6.4-8.2)
[2021-01-03 04:57] LABS: BILIRUBIN,TOTAL 0.5 MG/DL (0.1-1.0)
[2021-01-03 04:59] LABS: CREATININE SERUM 3.02 MG/DL (0.60-1.30)
[2021-01-03 08:00] VITALS: BP 125/72
[2021-01-03] MEDS: ISOSORBIDE MONONITRATE 60 MG (IMDUR) TAB PO SCH (09:01)
--- NOTE | 2021-01-03 11:31 | Progress Note - Hospitalist ---
DESIRAERALPH Tabor,[facility] 01/03/21 1131: Subjective HPI/CC On Admission Date Seen by Provider: Jan 03, 2021 Time Seen by Provider: 09:00 Patient is a 75-year-old male with history of lung cancer congestive heart failu re COPD who presents with worsening shortness of breath with dyspnea and mild chest pressure worse with exertion. States he wears 2 L of oxygen on a as needed basis. Symptoms began this morning upon waking. He reports chronic nonproductive cough but denies fever chills nausea vomiting and sweats. He denies increased leg pain or swelling. Previous history of DVT and PE. He is currently anticoagulated on Coumadin and denies missed doses or recent subtherapeutic level. Patient was evaluated yesterday at his physician and states he walked around all yesterday without difficulty. Denies history of CAD. No other acute symptoms or complaints. Patient is not currently on chemotherapy and declined chemotherapy for treatment of his cancer years ago due to concerns for quality of life. Upon my arrival the patient reported no shortness of breath at rest. He stated that his symptoms began on 24 November when he woke up in the morning. He had felt well in the and actually went to see his oncologist in [place] whom he follows for lung cancer that is apparently been stable having been diagnosed 4 years ago and not receiving any current chemotherapy as noted above. Patient denies night sweats chills fever has been therapeutically anticoagulated for recurrent DVT and at least one episode of pulmonary embolism in the past. His cancer on the right side of his lung was complicated by apparent malignant pleural effusion and required an indwelling catheter for drainage for several months that it has been out for several years now. He denied any associated chest pain. He has no known history of coronary artery disease but he reports he has had several TIAs in the past when he was off of Coumadin. He has had no lasting neurologic sequela from this. He denies night sweats chills fever change in appetite or weight. Subjective/Events-last exam He reports feeling well this am and denies fever/chills/CP/SOB/abd pain/dysuria. Endorses continued low back pain on the right below the 12th rib that is unchanged from yesterday. He states that he wants to go home. Review of Systems General: No Chills HEENT: No Head Aches Pulmonary: No Dyspnea Cardiovascular: No: Chest Pain, Edema Gastrointestinal: No: Nausea, Vomiting, Abdominal Pain Genitourinary: No Dysuria Musculoskeletal: back pain Objective Exam Vital Signs Vital Signs Date Time Temp Pulse Resp B/P (MAP) Pulse Ox O2 Delivery O2 Flow Rate FiO2 01/03/21 08:00 37.0 71 18 125/72 (89) 99 Room Air 01/02/21 08:00 2.00 Capillary Refill : Less Than 3 Seconds General Appearance: No Apparent Distress Respiratory: Chest Non Tender, Lungs Clear, Normal Breath Sounds Cardiovascular: Regular Rate, Rhythm, No Edema Gastrointestinal: Non Tender Rectal: Deferred Back: Normal Inspection, CVA Tenderness (R) Extremity: Normal Capillary Refill, No Calf Tenderness, No Pedal Edema Neurologic/Psychiatric: Alert Results/Procedures Lab Laboratory Tests 01/03/21 04:18 Patient resulted labs reviewed. Assessment/Plan Assessment and Plan Assess & Plan/Chief Complaint 1. CHF Exacerbation -Cardiology following -LifeVest -Holding Carvedilol -Isosorbide mononitrate -May need coronary angiography, defer to cardiology 2. Stage IV CKD -Not a candidate for MALICK inhibitor 3. 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 Lung Cancer -No longer receiving chemotherapy NOHEMI VASQUEZ DO 01/04/21 0541: Subjective Subjective/Events-last exam Pt doing pretty well Not an inpatient rehab candidate due to baseline level of functioning Creatinine 3.02 Cardiology would like to perform a cardiac catheterization tomorrow Ostomy is working very well Overall doing pretty well and navigating pretty well Review of Systems General: Fatigue Assessment/Plan Assessment and Plan Assess & Plan/Chief Complaint Cath Monitor creat Supervisory-Addendum Brief Verification & Attestation Participated in pt care: history, MDM, physical Personally performed: exam, history, MDM, supervision of care Care discussed with: Medical Student Procedures: n/a Results interpretation: Verified all documentation Verification and Attestation of Medical Student E/M Service A medical student performed and documented this service in my presence. I reviewed and verified all information documented by the medical student and made modifications to such information, when appropriate. I personally performed the physical exam and medical decision making. Nohemi Vasquez, Jan 04, 2021,05:40 RALPH MERRILLMED YANCY Jan 03, 2021 11:31 NOHEMI VASQUEZ DO Jan 04, 2021 05:41
[2021-01-03 12:00] VITALS: BP 99/67
--- NOTE | 2021-01-03 12:47 | Cardiology Progress Note ---
Subjective Date Seen by Provider: Jan 03, 2021 Time Seen by Provider: 08:00 Subjective/Events-last exam patient was seen at bedside, laying down comfortably, no nuchal pain, still having shortness of breath Review of Systems General: No Chills, No Night Sweats; Fatigue, Malaise; No Appetite, No Other HEENT: No Head Aches, No Visual Changes, No Eye Pain, No Ear Pain, No Dysphasia, No Sinus Congestion, No Post Nasal Drip, No Sore Throat, No Other Pulmonary: Dyspnea; No Cough, No Pleuritic Chest Pain, No Other Cardiovascular: No: Chest Pain, Palpitations, Orthopnea, Paroxysmal Noc. Dyspnea, Edema, Lt Headedness, Other Objective-Cardiology Exam Last Set of Vital Signs Vital Signs 01/03/21 12:33 Pulse 69 Capillary Refill : Less Than 3 Seconds I&O Intake and Output 01/03/21 00:00 Intake Total 830 ml Output Total 75 ml Balance 755 ml Intake Oral 330 ml IV Total 500 ml Output Urine Total 75 ml # Voids 4 # Bowel Movements 2 General: Alert, Oriented X3, Cooperative HEENT: Atraumatic, PERRLA Neck: Supple, No JVD, No Thyromegaly Lungs: Normal Air Movement, Other (bilateral rhonchi) Heart: Regular Rate, Normal S1, Normal S2, No Murmurs Abdomen: Normal Bowel Sounds, Soft, No Tenderness, No Hepatosplenomegaly, No Masses Extremities: No Clubbing, No Cyanosis, No Edema, Normal Pulses, No Tenderness/Swelling Skin: No Rashes, No Breakdown, No Significant Lesion Neuro: Normal Gait, Normal Speech, Strength at 5/5 X4 Ext, Normal Tone, Sensation Intact Psych/Mental Status: Mental Status NL, Mood NL Results Lab Laboratory Tests 01/03/21 04:18 A/P-Cardiology Admission Diagnosis Congestive heart failure, acute left ventricular systolic dysfunction Acute renal failure Acute exacerbation of COPD Aortography stenosis Assessment/Plan Congestive heart failure, acute left ventricular systolic dysfunction with ejection fraction 30-35 percent, mild aortic stenosis, mild to moderate aortic regurgitation. Patient has a LifeVest at this point. has an abnormal stress test with fixed defect at the inferior wall and inferoapex. Probably ischemic cardiomyopathy with old myocardial infarction. I recommend a cardiac catheterization, I will start with aggressive IV fluid hydration and instructed him to drink large amount of fluid today and will evaluate creatinine level in the morning for possible cardiac catheterization if his creatinine is better. Acute on chronic renal failure, history of renal cell carcinoma and lung cancer, was on chemotherapy. Starting IV fluid and monitor renal function Mild aortic valve stenosis is mild to moderate aortic regurgitation. Continue to monitor Pleural effusion, loculated by CT. Managed by primary care team Acute renal insufficiency, history of chronic renal failure, worsening renal function, continue to monitor closely COPD, oxygen dependent History of renal cell carcinoma, history of lung cancer, patient received chemotherapy in 2014, he reported that he stopped the chemotherapy in 2014 and does not recall having any recurrent of his malignancy Patient is unable to tolerate MALICK inhibitor and/or ARB and/or Aldactone due to renal failure, might not tolerate aggressive diuresis Patient is unable to tolerate beta malcolm due to hypotension ELLIOT LOPEZ MD Jan 03, 2021 12:47
[2021-01-03] MEDS: NS IV 1000 ML 1,000 ML IV SCH ×2 (13:15→23:00)
[2021-01-03 16:00] VITALS: BP 103/70
[2021-01-03] MEDS: warFARin 5 MG (COUMADIN) TAB PO SCH (17:32)
[2021-01-03] MEDS ORDERED: ACETAMINOPHEN 500 MG TAB (TYLENOL) PO PRN (20:30)
[2021-01-03] MEDS ORDERED: NON-FORMULARY MEDICATION 1 EA EA (Melatonin 5 MG) PO PRN (20:30)
[2021-01-03] MEDS ORDERED: TEMAZEPAM 15 MG (RESTORIL) CAP PO PRN (20:30)
[2021-01-03] MEDS: SODIUM BICARBONATE 650 MG TABLET (NON-FORMULARY) PO SCH (22:14)
[2021-01-03] MEDS ORDERED: HYDROXYCHLOROQUINE 200 MG (PLAQUENIL) TAB PO ONE (23:07)
[2021-01-04] VITALS (8 sets, daily range): BP systolic 111–153; BP diastolic 51–85
[2021-01-04] MEDS: MELATONIN 10 MG TABLET PO PRN (00:47)
[2021-01-04 02:50] LABS: BASOPHILS % (AUTO) 0 % (0-10); EOSINOPHILS # (AUTO) 0.2 10^3/uL (0.0-0.3); EOSINOPHILS % (AUTO) 5 % (0-10); HEMATOCRIT 29 % (40-54); HEMOGLOBIN 9.3 g/dL (13.3-17.7); LYMPHOCYTES # (AUTO) 1.2 10^3/uL (1.0-4.0); LYMPHOCYTES % (AUTO) 31 % (12-44); MEAN CORPUSCULAR HEMOGLOBIN 29 pg (25-34); MEAN CORPUSCULAR HGB CONC 33 g/dL (32-36); MEAN CORPUSCULAR VOLUME 88 fL (80-99); MEAN PLATELET VOLUME 10.5 fL (9.0-12.2); MONOCYTES # (AUTO) 0.5 10^3/uL (0.0-1.0); MONOCYTES % (AUTO) 12 % (0-12); NEUTROPHILS % (AUTO) 51 % (42-75); PLATELET COUNT 116 10^3/uL (130-400)
[2021-01-04 03:03] LABS: INR 2.2 (0.8-1.4)
[2021-01-04 03:05] LABS: ALBUMIN 3.2 GM/DL (3.2-4.5); POTASSIUM 3.9 MMOL/L (3.6-5.0)
[2021-01-04 03:06] LABS: CALCIUM 7.9 MG/DL (8.5-10.1)
[2021-01-04 03:08] LABS: TOTAL PROTEIN 5.5 GM/DL (6.4-8.2)
[2021-01-04 03:10] LABS: BILIRUBIN,TOTAL 0.5 MG/DL (0.1-1.0)
[2021-01-04 03:11] LABS: CREATININE SERUM 2.6 MG/DL (0.60-1.30)
[2021-01-04] MEDS: NS IV 1000 ML 1,000 ML IV SCH ×2 (08:31→17:48)
[2021-01-04] MEDS: ISOSORBIDE MONONITRATE 60 MG (IMDUR) TAB PO SCH (08:31)
[2021-01-04] MEDS: SODIUM BICARBONATE 650 MG TABLET (NON-FORMULARY) PO SCH ×2 (08:31→19:57)
[2021-01-04] MEDS: predniSONE 5 MG TAB PO SCH (08:57)
--- NOTE | 2021-01-04 10:40 | Cardiology Progress Note ---
Subjective Date Seen by Provider: Jan 04, 2021 Time Seen by Provider: 10:39 Subjective/Events-last exam Patient sitting up in bed, no new complaints. Denies any chest pain. Objective-Cardiology Exam Last Set of Vital Signs Vital Signs 01/04/21 01/04/21 12:00 12:41 Temp 36.2 Pulse 81 Resp 18 B/P (MAP) 142/67 (92) Pulse Ox 99 O2 Delivery Room Air Capillary Refill : Less Than 3 Seconds I&O Intake and Output 01/04/21 00:00 Intake Total 650 ml Balance 650 ml Intake Oral 650 ml # Voids 7 General: Alert, Oriented X3, Cooperative HEENT: Atraumatic, PERRLA Neck: Supple, No JVD, No Thyromegaly Lungs: Normal Air Movement, Other (bilateral rhonchi) Heart: Regular Rate, Normal S1, Normal S2, No Murmurs Abdomen: Normal Bowel Sounds, Soft, No Tenderness, No Hepatosplenomegaly, No Masses Extremities: No Clubbing, No Cyanosis, No Edema, Normal Pulses, No Tenderness/Swelling Skin: No Rashes, No Breakdown, No Significant Lesion Neuro: Normal Gait, Normal Speech, Strength at 5/5 X4 Ext, Normal Tone, Sensation Intact Psych/Mental Status: Mental Status NL, Mood NL Results Lab Laboratory Tests 01/04/21 02:30 A/P-Cardiology Admission Diagnosis Congestive heart failure, acute left ventricular systolic dysfunction Acute renal failure Acute exacerbation of COPD Aortography stenosis Assessment/Plan Congestive heart failure, acute left ventricular systolic dysfunction with ejection fraction 30-35 percent, mild aortic stenosis, mild to moderate aortic regurgitation. Patient has a LifeVest at this point. has an abnormal stress test with fixed defect at the inferior wall and inferoapex. Probably ischemic cardiomyopathy with old myocardial infarction. I recommend a cardiac catheterization, I will continue with aggressive IV fluid hydration and instructed him to drink large amount of fluid today and will evaluate creatinine level in the morning for possible cardiac catheterization if his creatinine is better. Acute on chronic renal failure, history of renal cell carcinoma and lung cancer, was on chemotherapy. Starting IV fluid and monitor renal function Mild aortic valve stenosis is mild to moderate aortic regurgitation. Continue t o monitor Pleural effusion, loculated by CT. Managed by primary care team Acute renal insufficiency, history of chronic renal failure, worsening renal function, continue to monitor closely COPD, oxygen dependent History of renal cell carcinoma, history of lung cancer, patient received chemotherapy in 2015, he reported that he stopped the chemotherapy in 2015 and does not recall having any recurrent of his malignancy Patient is unable to tolerate MALICK inhibitor and/or ARB and/or Aldactone due to renal failure, might not tolerate aggressive diuresis Patient is unable to tolerate beta malcolm due to hypotension Patient was seen and evaluated with Marcy, examination performed, management plan was discussed, agree with the current scribed note, I made few changes to the note using Italic font Patient was seen at bedside sitting comfortably Discussed with him the management plan, I decided to postpone the cardiac catheterization today due to his poor kidney function I will continue with aggressive IV fluid hydration and repeat creatinine tomorrow, I am hopeful that I will be able to proceed with the procedure tomorrow if his creatinine level is somewhat better. I discussed with him the stress test findings Continue to monitor today. MARCY NORTON Jan 04, 2021 10:40 ELLIOT LOPEZ MD Jan 04, 2021 15:04
--- NOTE | 2021-01-04 11:38 | Progress Note - Hospitalist ---
RALPH MERRILL,[facility] 01/04/21 1138: Subjective HPI/CC On Admission Date Seen by Provider: Jan 04, 2021 Time Seen by Provider: 09:50 Patient is a 75-year-old male with history of lung cancer congestive heart failu re COPD who presents with worsening shortness of breath with dyspnea and mild chest pressure worse with exertion. States he wears 2 L of oxygen on a as needed basis. Symptoms began this morning upon waking. He reports chronic nonproductive cough but denies fever chills nausea vomiting and sweats. He denies increased leg pain or swelling. Previous history of DVT and PE. He is currently anticoagulated on Coumadin and denies missed doses or recent subtherapeutic level. Patient was evaluated yesterday at his physician and states he walked around all yesterday without difficulty. Denies history of CAD. No other acute symptoms or complaints. Patient is not currently on chemotherapy and declined chemotherapy for treatment of his cancer years ago due to concerns for quality of life. Upon my arrival the patient reported no shortness of breath at rest. He stated that his symptoms began on 24 November when he woke up in the morning. He had felt well in the and actually went to see his oncologist in [place] whom he follows for lung cancer that is apparently been stable having been diagnosed 4 years ago and not receiving any current chemotherapy as noted above. Patient denies night sweats chills fever has been therapeutically anticoagulated for recurrent DVT and at least one episode of pulmonary embolism in the past. His cancer on the right side of his lung was complicated by apparent malignant pleural effusion and required an indwelling catheter for drainage for several months that it has been out for several years now. He denied any associated chest pain. He has no known history of coronary artery disease but he reports he has had several TIAs in the past when he was off of Coumadin. He has had no lasting neurologic sequela from this. He denies night sweats chills fever change in appetite or weight. Subjective/Events-last exam Feels good this morning but frustrated about not going for cardiac cath. Wants to go home. Denies fever/chills/CP/SOB/abd pain. Review of Systems General: No Chills Pulmonary: No Dyspnea Cardiovascular: No: Chest Pain Gastrointestinal: No: Nausea, Vomiting, Abdominal Pain Genitourinary: No Dysuria Objective Exam Vital Signs Vital Signs Date Time Temp Pulse Resp B/P (MAP) Pulse Ox O2 Delivery O2 Flow Rate FiO2 01/04/21 08:00 99 Room Air 01/04/21 07:58 36.8 64 16 153/68 (96) 01/02/21 08:00 2.00 Capillary Refill : Less Than 3 Seconds General Appearance: No Apparent Distress Respiratory: Chest Non Tender, Lungs Clear, Normal Breath Sounds Cardiovascular: Regular Rate, Rhythm, No Edema Gastrointestinal: Non Tender Back: CVA Tenderness (R) Extremity: Normal Inspection, No Pedal Edema Neurologic/Psychiatric: Alert Results/Procedures Lab Laboratory Tests 01/04/21 02:30 Patient resulted labs reviewed. Assessment/Plan Assessment and Plan Assess & Plan/Chief Complaint 1. CHF Exacerbation -Cardiology following, cardiac catheterization but not today d/t elevated creatinine -LifeVest -Holding Carvedilol -Isosorbide mononitrate 2. Stage IV CKD -Not a candidate for MALICK inhibitor -IVF 3. 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 Lung Cancer -No longer receiving chemotherapy 5. Metabolic Acidosis -Given sodium bicarb PO VASQUEZ,NOHEMI DO 01/05/21 0501: Subjective Subjective/Events-last exam Pt doing a bit better but frustrated since he had diuresis that was required due to volume overload of CHF but increased his creatinine to 3.2 now it is 2.6 given gentle IV fluid but cardiac catheterization will not be able to be performed today Given Prednisone 15mg daily and Plaquenil will be restarted for his arthritis Pt denies any other significant problems Review of Systems General: Fatigue Objective Exam General Appearance: No Apparent Distress, WD/WN, Chronically ill Respiratory: Lungs Clear Cardiovascular: Regular Rate, Rhythm Neurologic/Psychiatric: Alert, Oriented x3, No Motor/Sensory Deficits, Normal Mood/Affect Assessment/Plan Assessment and Plan Assess & Plan/Chief Complaint Life vest Monitor creatinine Supervisory-Addendum Brief Verification & Attestation Participated in pt care: history, MDM, physical Personally performed: exam, history, MDM, supervision of care Care discussed with: Medical Student Procedures: n/a Results interpretation: Verified all documentation Verification and Attestation of Medical Student E/M Service A medical student performed and documented this service in my presence. I reviewed and verified all information documented by the medical student and made modifications to such information, when appropriate. I personally performed the physical exam and medical decision making. Nohemi Vasquez, Jan 05, 2021,05:00 RALPH MERRILL,MED STUDEN Jan 04, 2021 11:38 NOHEMI VASQUEZ DO Jan 05, 2021 05:01
[2021-01-04] MEDS: warFARin 5 MG (COUMADIN) TAB PO SCH (17:48)
[2021-01-04] MEDS: HYDROXYCHLOROQUINE 200 MG (PLAQUENIL) TAB PO SCH (19:56)
[2021-01-05] VITALS (11 sets, daily range): BP systolic 118–181; BP diastolic 64–85
[2021-01-05] MEDS: NS IV 1000 ML 1,000 ML IV SCH ×4 (03:27→22:35)
[2021-01-05 05:56] LABS: ALBUMIN 2.9 GM/DL (3.2-4.5); POTASSIUM 3.6 MMOL/L (3.6-5.0)
[2021-01-05 05:57] LABS: BASOPHILS % (AUTO) 0 % (0-10); EOSINOPHILS # (AUTO) 0.1 10^3/uL (0.0-0.3); EOSINOPHILS % (AUTO) 3 % (0-10); HEMATOCRIT 27 % (40-54); HEMOGLOBIN 8.5 g/dL (13.3-17.7); LYMPHOCYTES % (AUTO) 24 % (12-44); MEAN CORPUSCULAR HEMOGLOBIN 29 pg (25-34); MEAN CORPUSCULAR HGB CONC 32 g/dL (32-36); MEAN CORPUSCULAR VOLUME 90 fL (80-99); MEAN PLATELET VOLUME 10.5 fL (9.0-12.2); MONOCYTES # (AUTO) 0.4 10^3/uL (0.0-1.0); MONOCYTES % (AUTO) 10 % (0-12); NEUTROPHILS # (AUTO) 2.6 10^3/uL (1.8-7.8); NEUTROPHILS % (AUTO) 64 % (42-75); PLATELET COUNT 105 10^3/uL (130-400); WHITE BLOOD COUNT 4.1 10^3/uL (4.3-11.0)
[2021-01-05 05:58] LABS: CALCIUM 7.2 MG/DL (8.5-10.1)
[2021-01-05 05:59] LABS: TOTAL PROTEIN 4.9 GM/DL (6.4-8.2)
[2021-01-05 06:01] LABS: BILIRUBIN,TOTAL 0.3 MG/DL (0.1-1.0)
[2021-01-05 06:02] LABS: CREATININE SERUM 1.89 MG/DL (0.60-1.30)
[2021-01-05 06:04] LABS: INR 2.7 (0.8-1.4); PROTHROMBIN TIME PATIENT 29.1 SEC (12.2-14.7)
[2021-01-05] MEDS ORDERED: LIDOCAINE 1% INJ 20 ML 20 ML VIAL ONE (07:23)
[2021-01-05] MEDS ORDERED: fentaNYL INJECTION 100 MCG/2 ML AMP ONE (07:24)
[2021-01-05] MEDS ORDERED: HEParin (CATH LAB) 2,000 ML IV ONE (07:24)
[2021-01-05] MEDS ORDERED: MIDAZOLAM 5 MG/5 ML (VERSED) VIAL ONE (07:24)
[2021-01-05] MEDS ORDERED: NS IV 1000 ML 0 ML ONE (07:24)
[2021-01-05] MEDS ORDERED: HEParin 1000 UNIT/ML (10ML VIAL) FOR BOLUS ONE (07:26)
[2021-01-05] MEDS ORDERED: NITRO DRIP 25000 MCG/D5W 0 ML IV ONE (07:26)
[2021-01-05] MEDS ORDERED: VERAPAMIL 5 MG/2 ML (CALAN) VIAL IV ONE (07:26)
--- NOTE | 2021-01-05 08:11 | Cardiac Procedure Note-CS/ASA ---
Pre-Procedure Note Pre-Op Procedure Note H&P Reviewed The H&P was reviewed, patient examined and no changes noted. Date H&P Reviewed: Jan 05, 2021 Time H&P Reviewed: 08:11 Conscious Sedation Pre-Proced Time 08:11 ASA Score 3 For ASA 3 and 4: Consider anesthesia and medical clearance. Also, for patients with a history of failed moderate sedation consider anesthesia. Airway Lungs Heart ASA score ASA 1: a normal healthy patient ASA 2: a patient with a mild systemic disease (mid diabetes, controlled hypertension, obesity x ASA 3: a patient with a severe systemic disease that limits activity (angina, COPD, prior Myocardial infarction) ASA 4: a patient with an incapacitating disease that is a constant threat to life (CHF, renal failure) ASA 5: a moribund patient not expected to survive 24 hrs. (ruptured aneurysm) ASA 6: a declared brain- patient whose organs are being harvested. For emergent operations, add the letter E after the classification Mallampati Classification Grade 3 Sedation Plan Analgesia, Amnesia, Plan communicated to team members, Discussed options with patient/fam, Discussed risks with patient/fam The patient is an appropriate candidate to undergo the planned procedure, sedation, and anesthesia. The patient immediately re-assessed prior to indication. ELLIOT LOPEZ MD Jan 05, 2021 8:11 am
[2021-01-05] MEDS ORDERED: PATIENT MAY USE OWN MEDS, ALL PO SCH (08:15)
--- NOTE | 2021-01-05 08:15 | Cardiac Cath Report ---
Cardiac Cath Report Physician (s)/Principal Archaeologist (s) Physician ELLIOT LOPEZ MD Pre-Procedure Diagnosis Pre-Procedure Diagnosis: coronary artery disease Post-Procedure Note Procedure Start Date: Jan 05, 2021 Name of Procedure: Left heart catheterization Findings/Procedure Note PROCEDURE NOTE: 75 years old gentleman with severe cardiomyopathy, abnormal stress test suggestive of coronary artery disease, scheduled for cardiac catheterization possible PTCA. After explaining the procedure to the patient, all pros and cons were explained, all questions were answered. The patient signed the consent and then he was placed on the cardiac catheterization laboratory. Groin was prepped SL fashion local anesthesia was used. Sheath placed in the right femoral artery. [place] right and left catheter were used to access the coronary system. [place] right catheter was advanced to the left ventricular cavity, pressure was measured, pullback LV to aorta was done Left ventriculogram was not done, pressure was measured At the end of the procedure the sheath was removed. Closure device was used FINDINGS: Hemodynamics LV 136/15, end-diastolic pressure of 15 Aorta 131/58 mean of 82 ANATOMY: Left Main is free of obstructive disease Left Anterior Descending has mild disease nonobstructive disease Left Circumflex is occluded at the ostium, collateral filling a moderate size obtuse marginal/ramus intermedius branch Right Coronory Artery is dominant artery with no obstructive disease filling the left circumflex retrograde LV Gram was not done, pressure was measured CONCLUSION: 1. 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 Normal left ventricular end-diastolic pressure, no significant gradient across the aortic valve DISCUSSION AND RECOMMENDATION: Medical therapy is recommended, patient has a fixed defect with chronic total occlusion, no intervention is warranted Anesthesia Type: Conscious Sedation Estimated blood loss (mL): 25 ml Contrast Amount: 31 ml Total Radiation Dose: 253 mGy Post-Procedure Diagnosis Post-operative diagnosis: Coronary artery disease Congestive heart failure, chronic compensated left ventricular systolic dysfunction, ischemic cardiomyopathy Chronic renal insufficiency Hypertension ELLIOT LOPEZ MD Jan 05, 2021 8:15 am
--- NOTE | 2021-01-05 08:19 | Cardiology Progress Note ---
Subjective Date Seen by Provider: Jan 05, 2021 Time Seen by Provider: 08:16 Subjective/Events-last exam Patient was seen at bedside, feeling better. No new complaint, Review of Systems General: No Chills, No Night Sweats, No Fatigue, No Malaise, No Appetite, No Other HEENT: No Head Aches, No Visual Changes, No Eye Pain, No Ear Pain, No Dysphasia, No Sinus Congestion, No Post Nasal Drip, No Sore Throat, No Other Pulmonary: No Dyspnea, No Cough, No Pleuritic Chest Pain, No Other Cardiovascular: No: Chest Pain, Palpitations, Orthopnea, Paroxysmal Noc. Dyspnea, Edema, Lt Headedness, Other Objective-Cardiology Exam Last Set of Vital Signs Vital Signs 01/05/21 03:24 Temp 36.8 Pulse 72 Resp 18 B/P (MAP) 151/67 (95) Pulse Ox 99 O2 Delivery Room Air Capillary Refill : Less Than 3 Seconds I&O Intake and Output 01/04/21 23:59 Intake Total 800 ml Balance 800 ml Intake Oral 800 ml # Voids 8 # Bowel Movements 1 General: Alert, Oriented X3, Cooperative HEENT: Atraumatic, PERRLA Neck: Supple, No JVD, No Thyromegaly Lungs: Normal Air Movement, Other (bilateral rhonchi) Heart: Regular Rate, Normal S1, Normal S2, No Murmurs Abdomen: Normal Bowel Sounds, Soft, No Tenderness, No Hepatosplenomegaly, No Masses Extremities: No Clubbing, No Cyanosis, No Edema, Normal Pulses, No Tenderness/Swelling Skin: No Rashes, No Breakdown, No Significant Lesion Neuro: Normal Gait, Normal Speech, Strength at 5/5 X4 Ext, Normal Tone, Sensation Intact Psych/Mental Status: Mental Status NL, Mood NL Results Lab Laboratory Tests 01/05/21 05:20 A/P-Cardiology Admission Diagnosis Congestive heart failure, acute left ventricular systolic dysfunction Acute renal failure Acute exacerbation of COPD Aortography stenosis Assessment/Plan Congestive heart failure, acute left ventricular systolic dysfunction with ejection fraction 30-35 percent, mild aortic stenosis, mild to moderate aortic regurgitation. Patient has a LifeVest at this point. Coronary artery disease, has an abnormal stress test with fixed defect at the inferior wall and inferoapex. Cardiac catheterization was carried out on January 05, 2021 showing chronic total occlusion of the circumflex artery/ramus intermedius artery with collateral from the right and the left system otherwise nonobstructive disease, medical therapy is recommended no intervention is recommended Acute on chronic renal failure, history of renal cell carcinoma and lung cancer, was on chemotherapy. Renal function were better, cardiac catheterization was carried out using 31 mL of contrast. Mild aortic valve stenosis is mild to moderate aortic regurgitation. No significant pressure gradient during pullback from LV to aorta Pleural effusion, loculated by CT. Managed by primary care team Acute renal insufficiency, history of chronic renal failure, worsening renal function, continue to monitor closely COPD, oxygen dependent History of renal cell carcinoma, history of lung cancer, patient received chemo therapy in 2015, he reported that he stopped the chemotherapy in 2015 and does not recall having any recurrent of his malignancy Patient is unable to tolerate MALICK inhibitor and/or ARB and/or Aldactone due to renal failure, might not tolerate aggressive diuresis Patient is unable to tolerate beta malcolm due to hypotension Chronic coumadinization, followed by primary care physician ELLIOT LOPEZ MD Jan 05, 2021 8:19 am
[2021-01-05] MEDS: HYDROXYCHLOROQUINE 200 MG (PLAQUENIL) TAB PO SCH ×2 (09:51→22:05)
[2021-01-05] MEDS: ISOSORBIDE MONONITRATE 60 MG (IMDUR) TAB PO SCH (09:51)
[2021-01-05] MEDS: SODIUM BICARBONATE 650 MG TABLET (NON-FORMULARY) PO SCH ×2 (09:53→22:04)
--- NOTE | 2021-01-05 11:10 | Progress Note - Hospitalist ---
RALPH MERRILL,[facility] 01/05/21 1110: Subjective HPI/CC On Admission Date Seen by Provider: Jan 05, 2021 Time Seen by Provider: 09:40 Patient is a 75-year-old male with history of lung cancer congestive heart failu re COPD who presents with worsening shortness of breath with dyspnea and mild chest pressure worse with exertion. States he wears 2 L of oxygen on a as needed basis. Symptoms began this morning upon waking. He reports chronic nonproductive cough but denies fever chills nausea vomiting and sweats. He denies increased leg pain or swelling. Previous history of DVT and PE. He is currently anticoagulated on Coumadin and denies missed doses or recent subtherapeutic level. Patient was evaluated yesterday at his physician and states he walked around all yesterday without difficulty. Denies history of CAD. No other acute symptoms or complaints. Patient is not currently on chemotherapy and declined chemotherapy for treatment of his cancer years ago due to concerns for quality of life. Upon my arrival the patient reported no shortness of breath at rest. He stated that his symptoms began on 24 November when he woke up in the morning. He had felt well in the and actually went to see his oncologist in [place] whom he follows for lung cancer that is apparently been stable having been diagnosed 4 years ago and not receiving any current chemotherapy as noted above. Patient denies night sweats chills fever has been therapeutically anticoagulated for recurrent DVT and at least one episode of pulmonary embolism in the past. His cancer on the right side of his lung was complicated by apparent malignant pleural effusion and required an indwelling catheter for drainage for several months that it has been out for several years now. He denied any associated chest pain. He has no known history of coronary artery disease but he reports he has had several TIAs in the past when he was off of Coumadin. He has had no lasting neurologic sequela from this. He denies night sweats chills fever change in appetite or weight. Subjective/Events-last exam Tired this am s/p cardiac catheterization w/o intervention. Denies CP/SOB/abdominal pain. Review of Systems General: No Chills Pulmonary: No Dyspnea Cardiovascular: No: Chest Pain Gastrointestinal: No: Abdominal Pain Objective Exam Vital Signs Vital Signs Date Time Temp Pulse Resp B/P (MAP) Pulse Ox O2 Delivery O2 Flow Rate FiO2 2/25/21 11:05 36.5 72 50 145/74 (97) 100 Room Air 01/02/21 08:00 2.00 Capillary Refill : Less Than 3 Seconds General Appearance: No Apparent Distress Respiratory: Chest Non Tender, Lungs Clear, Normal Breath Sounds Cardiovascular: Regular Rate, Rhythm, No Edema, No Murmur Gastrointestinal: Non Tender Rectal: Deferred Extremity: No Pedal Edema Neurologic/Psychiatric: Alert Results/Procedures Lab Laboratory Tests 01/05/21 05:20 Patient resulted labs reviewed. Assessment/Plan Assessment and Plan Assess & Plan/Chief Complaint 1. CHF Exacerbation -Cardiology following, cardiac catheterization shows circumflex occlusion, no intervention -LifeVest -Holding Carvedilol -Isosorbide mononitrate 2. Stage IV CKD -Not a candidate for MALICK inhibitor -IVF 3. 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 Lung Cancer -No longer receiving chemotherapy 5. Metabolic Acidosis -Given sodium bicarb PO NOHEMI VASQUEZ DO 01/06/21 0509: Subjective Subjective/Events-last exam Patient doing well Fatigue noted Will plan on DC tomorrow Creat improved Review of Systems General: Fatigue Objective Exam General Appearance: No Apparent Distress, WD/WN Respiratory: Chest Non Tender, Lungs Clear, Normal Breath Sounds, No Accessory Muscle Use, No Respiratory Distress Cardiovascular: Regular Rate, Rhythm, No Edema, No Gallop, No JVD, No Murmur, Normal Peripheral Pulses Neurologic/Psychiatric: Alert, Oriented x3, No Motor/Sensory Deficits, Normal Mood/Affect Assessment/Plan Assessment and Plan Assess & Plan/Chief Complaint Life vest DC tomorrow PT OT Supervisory-Addendum Brief Verification & Attestation Participated in pt care: history, MDM, physical Personally performed: exam, history, MDM, supervision of care Care discussed with: Medical Student Procedures: n/a Results interpretation: Verified all documentation Verification and Attestation of Medical Student E/M Service A medical student performed and documented this service in my presence. I reviewed and verified all information documented by the medical student and made modifications to such information, when appropriate. I personally performed the physical exam and medical decision making. Nohemi Vasquez, Jan 06, 2021,05:08 RALPH MERRILL,MED STUD Jan 05, 2021 11:10 NOHEMI VASQUEZ DO Jan 06, 2021 05:09
[2021-01-05] MEDS: warFARin 5 MG (COUMADIN) TAB PO SCH (18:46)
[2021-01-05] MEDS: MELATONIN 10 MG TABLET PO PRN (22:05)
[2021-01-06] VITALS: BP 135/68
[2021-01-06 03:07] LABS: MEAN PLATELET VOLUME 10.2 fL (9.0-12.2); WHITE BLOOD COUNT 4.2 10^3/uL (4.3-11.0)
[2021-01-06 03:28] LABS: POTASSIUM 4.1 MMOL/L (3.6-5.0)
[2021-01-06 03:29] LABS: CALCIUM 7.7 MG/DL (8.5-10.1)
[2021-01-06 03:34] LABS: CREATININE SERUM 1.96 MG/DL (0.60-1.30)
[2021-01-06 04:00] VITALS: BP 155/80
[2021-01-06 08:03] VITALS: BP 149/81
[2021-01-06] MEDS: SODIUM BICARBONATE 650 MG TABLET (NON-FORMULARY) PO SCH (08:07)
[2021-01-06] MEDS: predniSONE 5 MG TAB PO SCH (08:08)
[2021-01-06] MEDS: ISOSORBIDE MONONITRATE 60 MG (IMDUR) TAB PO SCH (08:08)
[2021-01-06] MEDS: HYDROXYCHLOROQUINE 200 MG (PLAQUENIL) TAB PO SCH (08:08)
[2021-01-06] MEDS: NS IV 1000 ML 1,000 ML IV SCH (08:12)
--- NOTE | 2021-01-06 10:34 | Cardiology Progress Note ---
Subjective Date Seen by Provider: Jan 06, 2021 Time Seen by Provider: 10:33 Subjective/Events-last exam Patient is sitting in bed, feeling well. No new complaint. Had mild back pain. Review of Systems General: No Chills, No Night Sweats, No Fatigue, No Malaise, No Appetite, No Other HEENT: No Head Aches, No Visual Changes, No Eye Pain, No Ear Pain, No Dysphasia, No Sinus Congestion, No Post Nasal Drip, No Sore Throat, No Other Pulmonary: No Dyspnea, No Cough, No Pleuritic Chest Pain, No Other Cardiovascular: No: Chest Pain, Palpitations, Orthopnea, Paroxysmal Noc. Dyspnea, Edema, Lt Headedness, Other Objective-Cardiology Exam Last Set of Vital Signs Vital Signs 01/06/21 01/06/21 08:03 08:30 Temp 36.3 Pulse 77 Resp 20 B/P (MAP) 149/81 (103) Pulse Ox 96 O2 Delivery Room Air Capillary Refill : Less Than 3 Seconds I&O Intake and Output 01/06/21 00:00 Intake Total 2000 ml Output Total 1000 ml Balance 1000 ml Intake Oral 1000 ml IV Total 1000 ml Stool Total 1000 ml # Voids 7 # Bowel Movements 2 General: Alert, Oriented X3, Cooperative HEENT: Atraumatic, PERRLA Neck: Supple, No JVD, No Thyromegaly Lungs: Normal Air Movement, Other (bilateral rhonchi) Heart: Regular Rate, Normal S1, Normal S2, No Murmurs Abdomen: Normal Bowel Sounds, Soft, No Tenderness, No Hepatosplenomegaly, No Masses Extremities: No Clubbing, No Cyanosis, No Edema, Normal Pulses, No Tenderness/Swelling Skin: No Rashes, No Breakdown, No Significant Lesion Neuro: Normal Gait, Normal Speech, Strength at 5/5 X4 Ext, Normal Tone, Sensation Intact Psych/Mental Status: Mental Status NL, Mood NL Results Lab Laboratory Tests 01/06/21 02:47 A/P-Cardiology Admission Diagnosis Congestive heart failure, acute left ventricular systolic dysfunction Acute renal failure Acute exacerbation of COPD Aortography stenosis Assessment/Plan Congestive heart failure, acute left ventricular systolic dysfunction with ejection fraction 30-35 percent, mild aortic stenosis, mild to moderate aortic regurgitation. Patient has a LifeVest at this point. Coronary artery disease, has an abnormal stress test with fixed defect at the inferior wall and inferoapex. 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 If the IV fluid, no significant change in his kidney function. Okay for discharge Mild aortic valve stenosis is mild to moderate aortic regurgitation. No significant pressure gradient during pullback from LV to aorta Pleural effusion, loculated by CT. Managed by primary care team Acute renal insufficiency, history of chronic renal failure, worsening renal function, continue to monitor closely COPD, oxygen dependent History of renal cell carcinoma, history of lung cancer, patient received chemotherapy in 2015, he reported that he stopped the chemotherapy in 2014 and does not recall having any recurrent of his malignancy Patient is unable to tolerate MALICK inhibitor and/or ARB and/or Aldactone due to renal failure, might not tolerate aggressive diuresis Patient is unable to tolerate beta malcolm due to hypotension Chronic coumadinization, followed by primary care physician Les for discharge from cardiology standpoint ELLIOT LOPEZ MD Jan 06, 2021 10:34 am
[2021-01-06] MEDS ORDERED: ISOS60TA63 PO (10:36)
--- NOTE | 2021-01-06 10:36 | Discharge Inst-Post CATH ---
Discharge Inst-CATH/EP Problems Reviewed?: Yes Post Cardiac Cath/EP D/C Inst Follow Up/Plan Appointment with Dr. Raygoza's office in one to 2 weeks <b>CARDIAC CATH/EP PROCEDURE DISCHARGE INSTRUCTIONS</b> ACTIVITY * Go Home directly and rest. * Limit activity of the leg (or wrist if it was used) for 7 days including a erobics, swimming, jogging, bicycling, etc. * Restrict stair-climbing for 7 days if possible, if not, climb up with your non-cath leg, then bring together on the same step. * Avoid lifting, pushing, pulling or excessive movement of the affected extre mity for 7 days. * Customary sexual activity may be resumed after 2 days-use caution not to use a position that strains or causes pain to the affected extremity. * No driving for 24 hours. * NO SMOKING. * Avoid straining for bowel movements for 7 days. * Gentle walking on level ground is allowed. * Returning to work will depend on the type of procedure and the results. Your d octor will discuss this with you. CALL YOUR DOCTOR FOR ANY OF THE FOLLOWING: *If bleeding from the puncture site occurs- Apply gentle pressure to site with clean cloth and call your doctor or EMS. * If a knot or lump forms under the skin, increases in size, or causes pain. * If bruising appears to be worsening or moving further down your leg instead of disappearing. * Temperature above 101 F. CARE OF YOUR GROIN INCISION; * Bruising or purple discoloration of the skin near the puncture site is common. * You may shower only, no bathtub bathing for 5 days. Be careful to avoid slipping as your leg may feel stiff. * If a closure device was used on your femoral artery, please see the attached guide regarding care of the device and your leg. * Leave dressing on FOR 24 hours. CARE OF YOUR WRIST INCISION; * Bruising or purple discoloration of the skin near the puncture site is common. * You may shower. * DO NOT submerge wrist. * Leave dressing on FOR 24 hours. ELLIOT RAYGOZA MD Jan 06, 2021 10:36 am
[2021-01-06 11:10] VITALS: BP 149/72
--- NOTE | 2021-01-06 11:39 | D/C HH Face to Face Order ---
D/C Face to Face Orders Reconcile Patient Problems Problems Reviewed?: Yes Instructions for Patient Home Health Patient Instructions/FollowUp: Dr Ferguson 1 week Physician to follow Patient: [facility] Discharge Diet for Home: Cardiac Diet, Low Sodium Diet Patient Problems: CHF Patient Data-Allergies,Ht & Wt Patient Allergies: Coded Allergies: Penicillins (Verified Allergy, Intermediate, 10/11/20) EYES SWELLED SHUT Home Health Need/Face to Face Date of Face to Face: Jan 06, 2021 Clinical Findings: Generalized weakness and fatigue, Instability, Muscle weakness, Shortness of breath, Unsteady gait I have seen Pt [id number]: Yes Discharged To: Home Diagnosis/Conditions: CHF Patient is Homebound due to: Huber fall risk due to instabilty, Muscle weakness Homebound Status Due to the above stated illness, injury or surgical procedure (medical condition or diagnosis) and associated clinical findings, the patient is homebound because of his/her inability to leave home except with aid of a supportive device and/or person AND leaving the home requires a considerable and taxing effort or is medically contraindicated. Pt req the following assistanc: [facility] Nursing Orders Home Health Services Order: Nursing Services, Industrial Custodian-Evaluate & Treat, Physical Therapy-Evaluate & Treat Home Health Infusion Therapy Line Start Date: Jan 04, 2021 Certify Stmt I certify that this patient is under my care and that I, a nurse practitioner or a physician; a records management assistant working with me, had a face to face encounter that - meets the physician face to face encounter requirements with this patient as dated. RUBI VASQUEZ DO Jan 06, 2021 11:38
--- NOTE | 2021-01-06 11:39 | Discharge Summary ---
Discharge Summary Hospital Course Was the Problem List Reviewed?: Yes Problems/Dx: (1) Acute exacerbation of CHF (congestive heart failure) Status: Acute (2) Pleural effusion Status: Acute (3) Dyspnea Status: Acute (4) Pleural effusion due to CHF (congestive heart failure) Status: Acute Hospital Course Date of Admission: Dec 30, 2020 at 18:50 Admission Diagnosis : Family Physician/Provider: Derrick Ferguson MD Date of Discharge: 01/06/21 Discharge Diagnosis: New onset CHF, CAD no stent required due to collateral supply on cath, O2 dependence Hospital Course: Lengthy course after admitted for new onset CHF placed on aggressive diuresis regimen which resulted in elevated creatinine with acute on chronic kidney disease who he sees Nephrology at . ECHO revealed low EF so life vest arranged and placed on patient. Cardiac cath performed and revealed CAD but collateral supply so no stent required. Renal function returned back to baseline with gentle IVF and patient was DC in improved condition. Labs and Pending Lab Test: Laboratory Tests 01/06/21 02:47: White Blood Count 4.2L, Red Blood Count 3.08L, Hemoglobin 9.0L, Hematocrit 28L, Mean Corpuscular Volume 90, Mean Corpuscular Hemoglobin 29, Mean Corpuscular Hemoglobin Concent 33, Red Cell Distribution Width 14.4, Platelet Count 104L, Mean Platelet Volume 10.2, Sodium Level 141, Potassium Level 4.1, Chloride Level 118H, Carbon Dioxide Level 14L, Anion Gap 9, Blood Urea Nitrogen 35H, Creatinine 1.96H, Estimat Glomerular Filtration Rate 33, BUN/Creatinine Ratio 18, Glucose Level 82, Calcium Level 7.7L Home Meds Active Isosorbide Mononitrate ER (Isosorbide Mononitrate) 60 Mg Tab 60 Mg PO DAILY Carvedilol 3.125 Mg Tablet 3.125 Mg PO BID 30 Days Reported Warfarin Sodium 2.5 Mg Tablet 10 Mg PO MON,FRI Prednisone 5 Mg Tablet 15 Mg PO Q48H TAKES 3 (5MG) TABS Furosemide 40 Mg Tablet 40 Mg PO Q48H Melatonin 5 Mg Tablet 5 Mg PO HS PRN Warfarin Sodium 2.5 Mg Tablet 5 Mg PO SUN,TUE,WE,NATHANIEL,SAT Temazepam 15 Mg Capsule 15 Mg PO HS PRN Sodium Bicarbonate 650 Mg Tablet 1,950 Mg PO BID TAKES 3 (650MG) TABS Multivitamins (Multivitamin) 1 Each Tablet 1 Tab PO DAILY Hydroxychloroquine Sulfate 200 Mg Tablet 200 Mg PO BID Ferrous Sulfate 325 Mg Tablet 325 Mg PO BID Amlodipine Besylate 10 Mg Tablet 10 Mg PO HS Tylenol Extra Strength (Acetaminophen) 500 Mg Tablet 500 Mg PO Q6H PRN Assessment/Pt Instructions [facility] 1 week Discharge Planning: <30 minutes discharge planning Discharge Instructions Discharge Diet: Low Sodium Diet, Cardiac Diet Activity as Tolerated: Yes Discharge Physical Examination Vital Signs Vital Signs Date Time Temp Pulse Resp B/P (MAP) Pulse Ox O2 Delivery O2 Flow Rate FiO2 01/06/21 11:10 36.6 73 18 149/72 (97) 96 Room Air 01/02/21 08:00 2.00 General Appearance: No Apparent Distress, WD/WN, Chronically ill Respiratory: Lungs Clear Cardiovascular: Regular Rate, Rhythm Neurologic/Psychiatric: Alert, Oriented x3, No Motor/Sensory Deficits, Normal Mood/Affect Allergies: Coded Allergies: Penicillins (Verified Allergy, Intermediate, 10/11/20) EYES SWELLED SHUT Discharge Summary Date of Admission Dec 30, 2020 at 18:50 Date of Discharge Discharge Date: Jan 06, 2021 Admission Diagnosis 1. Probable congestive heart failure will obtain echocardiography for further investigation and evaluation of LV function mild troponin elevation with no evidence for acute ischemia on ECG most likely represents type II infarct continue to monitor conservatively considering age and medical comorbidities. 2. Chronic right lung changes likely due to combination of lung cancer and need for past chest tube drainage actually slightly improved we will continue Lasix thus far today's fluid deficit is 1500cc. 3. Stage IV chronic renal disease no change overnight continue diuretic therapy. 4. Anemia of chronic renal disease. With a hemoglobin of 10 not likely low enough to contribute to current symptoms. 5. 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 Discharge Diagnosis Life vest DC tomorrow PT OT RUBI VASQUEZ DO Jan 06, 2021 11:39
--- NOTE | 2021-01-10 03:19 | Physician Query Clarification ---
PQ-Intro New Diagnosis Admission/Discharge Admission Date: Dec 30, 2020 at 18:50 Discharge Date: Jan 06, 2021 at 13:22 RUBI Hernandez DO The medical record reflects the following clinical scenario: History/Risk Factors: 75 y/o male patient admitted for new onset CHF placed on aggressive diuresis regimen. Buddy Muñoz, 01/06: Probable Congestive heart failure will obtain echocardiography fo r further investigation and evaluation of LV function mild troponin elevation with no evidence for acute ischemia on ECG most likely represents type II infarct continue to monitor conservatively considering age and medical comorbidities. Clinical Findings: Troponin-< 0.30 Treatment:Lasix IV, Nitroglycerin Question: What condition best reflects the above clinical scenario? Please document a response in the Progress Noter or Discharge Summary. 1. Type II NH 2. Elevated troponin only 3. Other, with explanation of the clinical findings. 4. Clinically undetermined, no explanation for the clinical findings. PHYSICIAN RESPONSE What condition reflects above: 1 Please remember a lack of response to the above will prompt a phone page by [facility]/Coding staff. In responding to this query, please exercise your independent professional judgment. The purpose of this communication is to more accurately reflect the complexity of your patients condition. The fact that a question is asked does not imply that any particular answer is desired or expected. Thank you for your timely response to this clarification. Requestors name: [ ] Phone # [ ] THIS PHYSICIAN QUERY FORM IS A PERMANENT PART OF THE MEDICAL RECORD CAPO KIM Jan 10, 2021 03:19 RUBI VASQUEZ DO Jan 10, 2021 05:10
== END 2021-01-06 13:22 | disposition home or self-care (01) | DRG 280 ==
LOC: EDUNIT# 14:02 → ER FS 14:04 → CSD 18:50
PROVIDERS: ADMIT Internal Medicine; ATTEND Internal Medicine
PROC: 4A023N7 Measurement of Cardiac Sampling and Pressure, Left Heart, Percutaneous Approach (ICD-10-PCS; principal; 2021-01-05)
PROC: B2111ZZ Fluoroscopy of Multiple Coronary Arteries using Low Osmolar Contrast (ICD-10-PCS; 2021-01-05)
DX: I13.0 Hypertensive heart and chronic kidney disease with heart failure and stage 1 through stage 4 chronic kidney disease, or unspecified chronic kidney disease (principal); I50.21 Acute systolic (congestive) heart failure; I21.A1 Myocardial infarction type 2; C34.90 Malignant neoplasm of unspecified part of unspecified bronchus or lung; N18.4 Chronic kidney disease, stage 4 (severe); N17.9 Acute kidney failure, unspecified; J44.1 Chronic obstructive pulmonary disease with (acute) exacerbation; E87.2 Acidosis; I42.9 Cardiomyopathy, unspecified; N40.0 Benign prostatic hyperplasia without lower urinary tract symptoms; M06.9 Rheumatoid arthritis, unspecified; G89.29 Other chronic pain; M54.9 Dorsalgia, unspecified; I25.10 Atherosclerotic heart disease of native coronary artery without angina pectoris; I35.0 Nonrheumatic aortic (valve) stenosis; I95.9 Hypotension, unspecified; D63.1 Anemia in chronic kidney disease; Z86.718 Personal history of other venous thrombosis and embolism; Z86.711 Personal history of pulmonary embolism; Z88.0 Allergy status to penicillin; Z87.891 Personal history of nicotine dependence; Z85.038 Personal history of other malignant neoplasm of large intestine; Z90.49 Acquired absence of other specified parts of digestive tract; Z99.81 Dependence on supplemental oxygen; Z92.21 Personal history of antineoplastic chemotherapy; I25.2 Old myocardial infarction
CPT/HCPCS: 36415; 71045; 71250; 78452; 80048; 80053; 83880; 84484; 85025; 85027; 85610; 93005; 93017; 93320; 93458; 94760; 96374

== ENCOUNTER → 2021-01-12 | Outpatient (CLI) | payer MEDICARE, OTHER ==
--- NOTE | 2021-01-06 11:53 | Progress Note ---
RALPH MERRILL,[employer] STUD 01/06/21 1153: Progress Note HOSPITAL COURSE Mr. Hansen is a 73 yo man with PMH of metastatic RCC s/p partial nephrectomy and chemotherapy who presented to the ED on 12/30 with worsening SOB & chest pressure with exertion upon awakening. ED labs revealed BUN 40, Cr 2.38, BNP 1877.7, and a slightly elevated troponin indicating acute CHF and CXR showed a small loculated pleural effusion on the right so he was admitted to the floor & cardiology was consulted. 12/31 CXR showed some improvement with decreased fluid at the lung bases and an echo showed EF 30-35% with mild-moderate AR confirming Dx of CHF. A stress test on 01/02 showed LBBB with decreased uptake of the whole inferior wall and part of the apex with severe hypokinesia of the LV. Cardiac catheterization was planned for 01/04 but continued elevation of his Creatinine at 3.29 => 3.02 => 2.60 caused delay until 01/05 when cardiac cath showed complete blockage of the circumflex artery with adequate collaterals so that no intervention was performed & minimal contrast used. He was kept overnight to monitor his kidney function & pain levels but felt fine the morning of 01/06 with a Cr of 1.96 and was discharged. NOHEMI VASUQEZ DO 01/07/21 0711: Supervisory-Addendum Brief Verification & Attestation Participated in pt care: history, MDM, physical Personally performed: exam, history, MDM, supervision of care Care discussed with: Medical Student Procedures: n/a Results interpretation: Verified all documentation Verification and Attestation of Medical Student E/M Service A medical student performed and documented this service in my presence. I reviewed and verified all information documented by the medical student and made modifications to such information, when appropriate. I personally performed the physical exam and medical decision making. Nohemi Vasquez, Jan 07, 2021,07:11 RALPH MERRILL,MED STUDEN Jan 06, 2021 11:53 NOHEMI VASQUEZ DO Jan 07, 2021 07:11
[~2021-01-12] MED LIST changes: +CARV3.122 PO; +CATHETER FLUSH 10 ML SYR IV PRN; +ISOS60TA63 PO; +MELA5TAB14 PO
--- NOTE | 2021-01-16 11:00 | STRESS TEST ---
DATE OF SERVICE: 01/12/2021 RESTING AND REDISTRIBUTION STUDY REFERRING PHYSICIAN: Dr. Ferguson. In summary, the patient was injected with 3.05 mCi of thallium-201 and the resting images were acquired. Then, the patient received an additional dose after 24 hours for redistribution with 1.07 mCi of thallium-201, the resting and stress images were acquired and reviewed in the short axis, horizontal long axis, and vertical long axis views. Review of the images showed total infarction of the apex, mild reversibility in the anteroapical segment, mild reversibility at the inferoapical segment and inferior wall and inferior septum. 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 Job ID: [id number] DocumentID: [id number] Dictated Date: 01/16/2021 10:37:38 Telegraphic Instrument Supervisor Date: 01/16/2021 10:59:20 Dictated By: ELLIOT LOPEZ MD
== END ==
LOC: CARD 09:00
PROVIDERS: ATTEND Physician Assistant
DX: I25.10 Atherosclerotic heart disease of native coronary artery without angina pectoris (principal)
CPT/HCPCS: 78452; 93017; A9502

== ENCOUNTER 2021-01-13 07:25 | Emergency (ER) | payer MEDICARE, OTHER ==
[~2021-01-13 07:25] MED LIST changes: -CATHETER FLUSH 10 ML SYR IV PRN
[2021-01-13 07:47] VITALS: BP 152/94
--- NOTE | 2021-01-13 07:48 | ED Lower Extremity ---
General Chief Complaint: Lower Extremity Stated Complaint: WOUND CHECK Source: patient Exam Limitations: no limitations History of Present Illness Date Seen by Provider: Jan 13, 2021 Time Seen by Provider: 07:40 Initial Comments 75-year-old male presents with bruising of his right thigh and concern that it was more than he expected after his recent heart catheterization last week. Denies any significant swelling, throbbing, fever or chills. Denies any redness in the area or significant tenderness. Has a follow-up this morning with a cashier tube room at 8:30 AM. Also with some concern of some low back pain with movement, denies any injury. No radiation of pain, no swelling of extremities and no weakness. Denies any difficulty urinating or blood in his urine. Denies any abdominal pain, nausea vomiting, constipation or diarrhea. Allergies and Home Medications Allergies Coded Allergies: Penicillins (Verified Allergy, Intermediate, 10/11/20) EYES SWELLED SHUT Home Medications Acetaminophen 500 Mg Tablet, 500 MG PO Q6H PRN for PAIN-MILD (1-4), (Reported) Carvedilol 3.125 Mg Tablet, 3.125 MG PO BID Prescribed by: BRITTNY PRESTON on 01/01/21 1142 Furosemide 40 Mg Tablet, 40 MG PO Q48H, (Reported) Hydroxychloroquine Sulfate 200 Mg Tablet, 200 MG PO BID, (Reported) Isosorbide Mononitrate 60 Mg Tab, 60 MG PO DAILY Prescribed by: ELLIOT LOPEZ on 01/06/21 1036 Melatonin 5 Mg Tablet, 5 MG PO HS PRN for SLEEP, (Reported) Multivitamin 1 Each Tablet, 1 TAB PO DAILY, (Reported) Prednisone 5 Mg Tablet, 15 MG PO Q48H, (Reported) TAKES 3 (5MG) TABS Sodium Bicarbonate 650 Mg Tablet, 1,950 MG PO BID, (Reported) TAKES 3 (650MG) TABS Temazepam 15 Mg Capsule, 15 MG PO HS PRN for SLEEP, (Reported) Warfarin Sodium 2.5 Mg Tablet, 5 MG PO SUN,E,WE,NATHANIEL,SAT, (Reported) Warfarin Sodium 2.5 Mg Tablet, 10 MG PO MON,FRI, (Reported) Patient Home Medication List Home Medication List Reviewed: Yes Review of Systems Constitutional: No fever, No malaise, No weakness EENTM: no symptoms reported Respiratory: No cough, No short of breath Cardiovascular: No chest pain, No edema, No palpitations, No syncope, No vascular heart diseas Gastrointestinal: No abdominal pain, No loss of appetite, No nausea, No vomiting Genitourinary: No frequency, No hematuria, No incontinence, No pain Musculoskeletal: No back pain, No joint pain; muscle pain (low back on right) Skin: No pruritus, No rash; other (bruising right thigh) Psychiatric/Neurological: Denies Numbness, Denies Paresthesia Past Iwwekxb-Ieqbhs-Olwxia Hx Past Med/Social Hx: Reviewed Nursing Past Med/Soc Hx Patient Social History Alcohol Use: Occasionally Uses Number of Drinks Today: AA Alcohol Beverage of Choice: Beer Smoking Status: Never a Smoker Former Smoker, Quit: Apr 20, 2010 2nd Hand Smoke Exposure: Yes Recent Hopitalizations: No Immunizations Up To Date Date of Pneumonia Vaccine: Aug 15, 2020 Date of Influenza Vaccine: Aug 11, 2020 Seasonal Allergies Seasonal Allergies: No Past Medical History Surgeries: Yes (COLECTOMY WITH ILEOSTOMY 1973, SPINAL FUSION, KIDNEY STONE) Abdominal, Nephrectomy Respiratory: Yes Pulmonary Embolism Currently Using CPAP: No Currently Using BIPAP: No Cardiac: Yes Deep Vein Thrombosis Neurological: Yes Neuropathy Sexually Transmitted Disease: No HIV/AIDS: No Genitourinary: Yes (RENAL INSUFF.) Benign Prostatic Hyperpl, Kidney Stones, Renal Failure Gastrointestinal: Yes (COLECTOMY WITH ILEOSTOMY) Polyps Musculoskeletal: Yes Degenerate Disk Disease, Rheumatoid Arthritis, Chronic Back Pain Endocrine: No HEENT: Yes (GLASSES, DENTURES) Loss of Vision: Denies Hearing Impairment: Hard of Hearing Cancer: Yes Lung, Colon, Kidney Did You Recieve Any Treatments: Yes What Type of Treatment Did You: Chemotherapy Psychosocial: No Integumentary: Yes (VERY SENSITIVE SKIN) Blood Disorders: No Adverse Reaction/Blood Tranf: No (N/A) Family Medical History Patient reports no known family medical history. Physical Exam Vital Signs Capillary Refill : Height, Weight, BMI Height: '" Weight: lbs. oz. kg; 21.76 BMI Method: General Appearance: WD/WN, no apparent distress Cardiovascular: regular rate, rhythm, no edema Respiratory: chest non-tender, lungs clear Gastrointestinal: non tender, soft Back: normal inspection, no CVA tenderness, no vertebral tenderness, muscle spasm (minor- Right lumbar paraspinal) Neurologic/Tendon: normal sensation, normal motor functions Neurologic/Psychiatric: no motor/sensory deficits, alert, normal mood/affect, oriented x 3 Skin: warm/dry; No cyanosis; ecchymosis (right medial thigh without loculation or firmness. (Not inappropriate for post cath)); No mottled, No rash Lymphatic: no adenopathy Departure Impression Primary Impression: Hematoma Additional Impression: Low back strain Qualified Codes: S39.012A - Strain of muscle, fascia and tendon of lower back, initial encounter Disposition: HOME, SELF-CARE Condition: Stable Departure-Patient Inst. Decision time for Depature: 07:46 Referrals: ALIRIO CACERES MD (PCP/Family) Primary Care Physician Patient Instructions: Taking Care of Bruises, Back Muscle Strain Add. Discharge Instructions: Keep your follow up appointment with Cardiology scheduled this morning. See Dr Caceres next week if your back pain is not improving. All discharge instructions reviewed with patient and/or family. Voiced understanding. TOMMIE JARAMILLO DO Jan 13, 2021 07:48
== END 2021-01-13 07:50 | disposition home or self-care (01) ==
LOC: EDUNIT# 07:25 → ER FS 07:29
DX: S39.012A Strain of muscle, fascia and tendon of lower back, initial encounter (principal); S70.11XA Contusion of right thigh, initial encounter; Z88.0 Allergy status to penicillin; Z87.891 Personal history of nicotine dependence; Z85.118 Personal history of other malignant neoplasm of bronchus and lung; Z85.528 Personal history of other malignant neoplasm of kidney; Z85.038 Personal history of other malignant neoplasm of large intestine; Z86.718 Personal history of other venous thrombosis and embolism; Z86.711 Personal history of pulmonary embolism; Z79.01 Long term (current) use of anticoagulants; Z79.52 Long term (current) use of systemic steroids; X58.XXXA Exposure to other specified factors, initial encounter
CPT/HCPCS: 99283

== ENCOUNTER 2021-01-16 08:59 | Emergency (ER) | payer MEDICARE, OTHER ==
--- NOTE | 2021-01-16 09:02 | ED Cardiac General ---
History of Present Illness General Stated Complaint: UPPER BACK PAIN | LOW O2 History of Present Illness Date Seen by Provider: Jan 16, 2021 Time Seen by Provider: 09:10 Initial Comments 75-year-old male presents with right sided mid back pain. Is has been present for a couple weeks. He has tried a little Tylenol. The pain is worse in the morning when he gets up and gets better as he moves around. There is some mild pain with rotation and any movement. There are some mild pain with palpation. He has no chest pain, no new shortness of breath, no fevers chills or urinary symptoms. Allergies and Home Medications Allergies Coded Allergies: Penicillins (Verified Allergy, Intermediate, 10/11/20) EYES SWELLED SHUT Home Medications Acetaminophen 500 Mg Tablet, 500 MG PO Q6H PRN for PAIN-MILD (1-4), (Reported) Carvedilol 3.125 Mg Tablet, 3.125 MG PO BID Prescribed by: BRITTNY PRESTON on 01/01/21 1142 Furosemide 40 Mg Tablet, 40 MG PO Q48H, (Reported) Hydroxychloroquine Sulfate 200 Mg Tablet, 200 MG PO BID, (Reported) Isosorbide Mononitrate 60 Mg Tab, 60 MG PO DAILY Prescribed by: ELLIOT LOPEZ on 01/06/21 1036 Melatonin 5 Mg Tablet, 5 MG PO HS PRN for SLEEP, (Reported) Multivitamin 1 Each Tablet, 1 TAB PO DAILY, (Reported) Prednisone 5 Mg Tablet, 15 MG PO Q48H, (Reported) TAKES 3 (5MG) TABS Sodium Bicarbonate 650 Mg Tablet, 1,950 MG PO BID, (Reported) TAKES 3 (650MG) TABS Temazepam 15 Mg Capsule, 15 MG PO HS PRN for SLEEP, (Reported) Warfarin Sodium 2.5 Mg Tablet, 5 MG PO SUN,TUE,WE,NATHANIEL,SAT, (Reported) Warfarin Sodium 2.5 Mg Tablet, 10 MG PO MON,FRI, (Reported) Patient Home Medication List Home Medication List Reviewed: Yes Review of Systems Review of Systems Constitutional: No chills, No fever Respiratory: Denies Cough, Denies Wheezing Cardiovascular: Denies Chest Pain, Denies Irregular Heart Rate Gastrointestinal: Denies Abdominal Pain, Denies Nausea, Denies Vomiting Genitourinary: Denies Burning, Denies Frequency Musculoskeletal: see HPI, back pain Skin: no symptoms reported Psychiatric/Neurological: No Symptoms Reported Endocrine: No Symptoms Reported Hematologic/Lymphatic: No Symptoms Reported Past Oncdssk-Yzgnit-Yemucj Hx Past Med/Social Hx: Reviewed Nursing Past Med/Soc Hx Physical Exam Vital Signs Vital Signs - First Documented 01/16/21 09:07 Temp 37.7 Pulse 83 Resp 22 B/P (MAP) 146/61 (89) Pulse Ox 96 Capillary Refill : Height, Weight, BMI Height: '" Weight: lbs. oz. kg; BMI Method: General Appearance: No Apparent Distress, WD/WN HEENT: TMs Normal, Normal ENT Inspection Respiratory: Lungs Clear, Normal Breath Sounds Cardiovascular: Regular Rate, Rhythm, No Edema Gastrointestinal: Non Tender, Soft Extremity: Normal Capillary Refill, Normal Inspection, Other (Mild tenderness to palpation mid back, symptoms reproduced pain) Neurologic/Psychiatric: Alert, Oriented x3, Normal Mood/Affect, caustic strength inspector II-XII Norm as Tested Skin: Normal Color, Warm/Dry Progress/Results/Core Measures Results/Orders My Orders Orders - ANGELA ASENCIO DO Chest Pa/Lat (2 View) (01/16/21 09:14) Thoracic Spine 2 View Only (01/16/21 09:14) Ketorolac Injection (Toradol Injection) (01/16/21 09:14) Vital Signs/I&O 01/16/21 09:07 Temp 37.7 Pulse 83 Resp 22 B/P (MAP) 146/61 (89) Pulse Ox 96 Progress Progress Note : Time: 10:24 Progress Note Patient symptoms are very consistent with a musculoskeletal type pain. His pain improved with the Toradol shot. He is still has known pleural effusion/loculated mass in his right lower lung. He needs the follow-up with his primary care provider for further and continued evaluation. Recommend he use Tylenol ibuprofen, warm moist heat and topical lidocaine for pain control. Patient stable and discharged home Departure Impression Primary Impression: Thoracic back sprain Qualified Codes: S23.9XXA - Sprain of unspecified parts of thorax, initial encounter Disposition: 01 HOME, SELF-CARE Condition: Stable Departure-Patient Inst. Patient Instructions: Muscle Strain (DC), Muscle and Bone Pain (DC) Add. Discharge Instructions: Tylenol or ibuprofen every 4 hours as needed for pain Warm moist heat to affected area 2-3 times daily 4% topical lidocaine with menthol to affected area as directed on package Follow-up with your primary care care provider this week for continued care Emergency department focuses on treating and ruling out life-threatening diseases. Whenever possible, a diagnosis is given. However, most patients are given an impression based on their history, physical exam, and workup during your brief time in the ER. Information about probable diagnosis and other educational material has been provided. Please take the time to read and understand this information. It is very important that you follow up with a physician as discussed during the visit today. Failure to adhere to your follow-up instructions may lead to severe disability, injury, or so please make sure to keep your appointments or obtain one as requested. Please keep in mind the emergency department is not designed to your primary care or "family doctor" and nonurgent issues are best evaluated by an outpatient physician ANGELA ASENCIO DO Jan 16, 2021 09:02
[2021-01-16] MEDS ORDERED: KETOROLAC 30 MG/ML VIAL IM STA (09:14)
--- NOTE | 2021-01-16 10:27 | Diagnostic Imaging Report ---
CLINICAL INDICATION: Patient with right mid and lower back pain. EXAMS: 1: Chest x-ray, PA and lateral views. 2: X-ray of the thoracic spine, 3 views. COMPARISON: Portable chest x-ray dated 12/31/2020. CT scan of the chest without contrast dated 12/30/2020. FINDINGS: CHEST X-RAY: Again noted is a small to moderate sized loculated fluid collection along the right lower hemithorax/right lung base region which appears slightly decreased in size compared to the prior study. There is development of a small left pleural effusion in the interim. There is slight progression of groundglass opacification and curvilinear opacities involving the right midlung field and right lung base which may represent atelectasis and/or infiltrate. Calcified granulomas in left lung base are again seen. The lungs are otherwise clear. Stable calcified granuloma in the perihilar and mediastinal regions. There is cardiomegaly noted. There is no significant pulmonary vascular congestion. THORACIC SPINE: There are moderately hypertrophic spurs seen throughout the thoracic spine. There is slight right curvature of the thoracic spine. There is no gross acute fracture or destructive process, as visualized. Of note, part of the upper thoracic spine is obscured on the lateral view due to overlapping anatomical structures. IMPRESSION: 1: There is a small to moderate sized loculated right pleural effusion involving the right lung base which appears to have slightly decreased in the interim. 2: There is slight progression of groundglass opacification and curvilinear opacities in the right midlung field and right lung base region which may represent atelectasis and/or infiltrate. 3: There is interval development of a small left pleural effusion. 4: Stable cardiomegaly with no significant pulmonary vascular congestion. 5: Again seen is calcified granulomatous disease of the lung and mediastinal regions. Dictated by: Dictated on workstation # [id number]
[2021-01-16 10:29] VITALS: BP 136/71
== END 2021-01-16 10:29 | disposition home or self-care (01) ==
LOC: EDUNIT# 08:59 → ER FS 09:02
DX: S23.3XXA Sprain of ligaments of thoracic spine, initial encounter (principal); Z88.0 Allergy status to penicillin; Z79.01 Long term (current) use of anticoagulants; Z79.52 Long term (current) use of systemic steroids; X58.XXXA Exposure to other specified factors, initial encounter
CPT/HCPCS: 71046; 72070

== ENCOUNTER 2021-01-28 08:45 | Emergency (ER) | payer MEDICARE, OTHER ==
[~2021-01-28] VITALS: Ht 185.5 cm; Wt 78.5 kg
[2021-01-28 09:12] LABS: BASOPHILS % (AUTO) 0 % (0-10); EOSINOPHILS # (AUTO) 0.1 10^3/uL (0.0-0.3); EOSINOPHILS % (AUTO) 2 % (0-10); HEMATOCRIT 32 % (40-54); HEMOGLOBIN 9.7 G/DL (13.3-17.7); LYMPHOCYTES # (AUTO) 1.3 X 10^3 (1.0-4.0); LYMPHOCYTES % (AUTO) 23 % (12-44); MEAN CORPUSCULAR HEMOGLOBIN 29 PG (25-34); MEAN CORPUSCULAR HGB CONC 31 G/DL (32-36); MEAN CORPUSCULAR VOLUME 93 FL (80-99); MEAN PLATELET VOLUME 9.9 FL (7.4-10.4); MONOCYTES # (AUTO) 0.4 X 10^3 (0.0-1.0); MONOCYTES % (AUTO) 7 % (0-12); NEUTROPHILS # (AUTO) 3.8 X 10^3 (1.8-7.8); NEUTROPHILS % (AUTO) 68 % (42-75); PLATELET COUNT 114 10^3/uL (130-400); WHITE BLOOD COUNT 5.7 10^3/uL (4.3-11.0)
--- NOTE | 2021-01-28 09:27 | ED Respiratory ---
General Chief Complaint: Respiratory Problems Stated Complaint: SOA Nursing Triage Note: Patient reports he has lung cancer, cardiac history (wearing a life vest, recent heart cath) and renal insufficiency. Patient reports he went to bed feeling well/normal yesterday, states he woke this morning with shortness of breath and called 911. Patient states he wears oxygen at night with a nasal cannula, EMS reports patient had his nasal cannula in place on their arrival, but that the oxygen tank was empty. Source: patient, EMS Exam Limitations: clinical condition History of Present Illness Date Seen by Provider: Jan 28, 2021 Timing/Duration: just prior to arrival, constant Modifying Factors: Improves With Oxygen Associated Symptoms: cough; No fever/chills; shortness of breath This 75 y/o male former smoker arrived by EMS from his local residence w/ report of dyspnea at rest during the night when his home oxygen bottle reportedly became empty. He has some mild dry cough and labored respirations and EMS reports they did not do pulse oximetry at scene but did give "duoneb" treatment w/o much change in condition though he seemed less anxious on oxygen en route. 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 He denies any known COVID exposure and denies chest pain. He reports feeling thirsty and has decreased urine output and denies ever being on dialysis despite a hx of anemia and chronic renal insufficiency. He also denies any recent medication changes or any fever. He is on chronic coumadin therapy. Allergies and Home Medications Allergies Coded Allergies: Penicillins (Verified Allergy, Intermediate, 10/11/20) EYES SWELLED SHUT Home Medications Acetaminophen 500 Mg Tablet, 500 MG PO Q6H PRN for PAIN-MILD (1-4), (Reported) Carvedilol 3.125 Mg Tablet, 3.125 MG PO BID Prescribed by: BRITTNY JAIME on 01/01/21 1142 Furosemide 40 Mg Tablet, 40 MG PO Q48H, (Reported) Hydroxychloroquine Sulfate 200 Mg Tablet, 200 MG PO BID, (Reported) Isosorbide Mononitrate 60 Mg Tab, 60 MG PO DAILY Prescribed by: ELLIOT LOPEZ on 01/06/21 1036 Melatonin 5 Mg Tablet, 5 MG PO HS PRN for SLEEP, (Reported) Multivitamin 1 Each Tablet, 1 TAB PO DAILY, (Reported) Prednisone 5 Mg Tablet, 15 MG PO Q48H, (Reported) TAKES 3 (5MG) TABS Sodium Bicarbonate 650 Mg Tablet, 1,950 MG PO BID, (Reported) TAKES 3 (650MG) TABS Temazepam 15 Mg Capsule, 15 MG PO HS PRN for SLEEP, (Reported) Warfarin Sodium 2.5 Mg Tablet, 5 MG PO SUN,TUE,WE,NATHANIEL,SAT, (Reported) Warfarin Sodium 2.5 Mg Tablet, 10 MG PO MON,SAT, (Reported) Review of Systems Review of Systems Constitutional: No fever; malaise EENTM: see HPI Respiratory: cough; No hemoptysis; short of breath Cardiovascular: No chest pain; edema (mild, chronic); No syncope Gastrointestinal: No abdominal pain, No vomiting Genitourinary: decreased output Musculoskeletal: no symptoms reported Skin: dryness, other (ecchymoses, bruisses easily) Psychiatric/Neurological: Anxiety Hematologic/Lymphatic: Easy Bruising Immunological/Allergic: no symptoms reported Past Daqykfe-Zfxxcc-Qrjhyw Hx Patient Social History Alcohol Use: Occasionally Uses Number of Drinks Today: AA Alcohol Beverage of Choice: Beer Smoking Status: Former Smoker Former Smoker, Quit: Apr 20, 2010 2nd Hand Smoke Exposure: Yes Recent Infectious Disease Expo: No Recent Hopitalizations: No Immunizations Up To Date Date of Pneumonia Vaccine: Aug 15, 2020 Date of Influenza Vaccine: Aug 11, 2020 Seasonal Allergies Seasonal Allergies: No Past Medical History Surgeries: Yes (COLECTOMY WITH ILEOSTOMY 1973, SPINAL FUSION, KIDNEY STONE) Abdominal (past laparotomy "pre-cancer"), Nephrectomy Respiratory: Yes Pulmonary Embolism Currently Using CPAP: No Currently Using BIPAP: No Cardiac: Yes Deep Vein Thrombosis Neurological: Yes Neuropathy Sexually Transmitted Disease: No HIV/AIDS: No Genitourinary: Yes (RENAL INSUFF.) Benign Prostatic Hyperpl, Kidney Stones, Renal Failure (not on dialysis) Gastrointestinal: Yes (COLECTOMY WITH ILEOSTOMY) Polyps Musculoskeletal: Yes Degenerate Disk Disease, Rheumatoid Arthritis, Chronic Back Pain Endocrine: No HEENT: Yes (GLASSES, DENTURES) Loss of Vision: Denies Hearing Impairment: Hard of Hearing Cancer: Yes Lung, Colon, Kidney Did You Recieve Any Treatments: Yes What Type of Treatment Did You: Chemotherapy Psychosocial: No Integumentary: Yes (VERY SENSITIVE SKIN) Blood Disorders: No Adverse Reaction/Blood Tranf: No (N/A) Family Medical History Patient reports no known family medical history. Physical Exam Vital Signs - First Documented 01/28/21 08:56 Temp 37.4 Pulse 86 Resp 25 B/P (MAP) 181/77 (111) Pulse Ox 97 O2 Delivery Nasal Cannula O2 Flow Rate 3.00 Capillary Refill : Less Than 3 Seconds Height: '" Weight: lbs. oz. kg; 22.00 BMI Method: General Appearance: mild distress HEENT: No scleral icterus (R); other (somewhat dry tongue) Neck: supple Respiratory: decreased breath sounds, accessory muscle use; No rales, No stridor, No wheezing Cardiovascular: no gallop, no murmur Gastrointestinal: non tender, soft, other (healed midline surgical scar) Extremities: non-tender, pedal edema (modest, chronic) Neurologic/Psychiatric: alert, oriented x 3 Skin: cool; No diaphoresis, No jaundice, No mottled; other (diffuse ecchymoses all extremities; chronic venous stasis LEs) Progress/Results/Core Measures Suspected Sepsis Recent Fever Within 48 Hours: No Infection Criteria Present: Suspected New Infection New/Unexplained Altered Menta: No Sepsis Screen: No Definite Risk Within 3hrs of presentation: Other (Resting quietly; VS improved; SpO2 good on 2L; awating transfer) SIRS Temperature: Pulse: 86 Respiratory Rate: 25 Laboratory Tests 01/28/21 09:06: White Blood Count 5.7 Blood Pressure 181 /77 Mean: 111 Laboratory Tests 01/28/21 09:06: Creatinine 2.50H, INR Comment 1.5H, Platelet Count 114L, Total Bilirubin 0.4 Results/Orders Lab Results Laboratory Tests Test 01/28/21 09:06 Range/Units White Blood Count 5.7 4.3-11.0 10^3/uL Red Blood Count 3.39 L 4.35-5.85 10^6/uL Hemoglobin 9.7 L 13.3-17.7 G/DL Hematocrit 32 L 40-54 % Mean Corpuscular Volume 93 80-99 FL Mean Corpuscular Hemoglobin 29 25-34 PG Mean Corpuscular Hemoglobin Concent 31 L 32-36 G/DL Red Cell Distribution Width 14.7 H 10.0-14.5 % Platelet Count 114 L 130-400 10^3/uL Mean Platelet Volume 9.9 7.4-10.4 FL Immature Granulocyte % (Auto) 0 % Neutrophils (%) (Auto) 68 42-75 % Lymphocytes (%) (Auto) 23 12-44 % Monocytes (%) (Auto) 7 0-12 % Eosinophils (%) (Auto) 2 0-10 % Basophils (%) (Auto) 0 0-10 % Neutrophils # (Auto) 3.8 1.8-7.8 X 10^3 Lymphocytes # (Auto) 1.3 1.0-4.0 X 10^3 Monocytes # (Auto) 0.4 0.0-1.0 X 10^3 Eosinophils # (Auto) 0.1 0.0-0.3 10^3/uL Basophils # (Auto) 0.0 0.0-0.1 10^3/uL Immature Granulocyte # (Auto) 0.0 0.0-0.1 10^3/uL Prothrombin Time 18.6 H 12.2-14.7 SEC INR Comment 1.5 H 0.8-1.4 Sodium Level 140 135-145 MMOL/L Potassium Level 4.7 3.6-5.0 MMOL/L Chloride Level 106 98-107 MMOL/L Carbon Dioxide Level 23 21-32 MMOL/L Anion Gap 11 5-14 MMOL/L Blood Urea Nitrogen 34 H 7-18 MG/DL Creatinine 2.50 H 0.60-1.30 MG/DL Estimat Glomerular Filtration Rate 25 BUN/Creatinine Ratio 14 Glucose Level 120 H 70-105 MG/DL Calcium Level 8.4 L 8.5-10.1 MG/DL Corrected Calcium 8.8 8.5-10.1 MG/DL Total Bilirubin 0.4 0.1-1.0 MG/DL Aspartate Amino Transf (AST/SGOT) 28 5-34 U/L Alanine Aminotransferase (ALT/SGPT) 18 0-55 U/L Alkaline Phosphatase 125 40-136 U/L Troponin I < 0.30 <0.30 NG/ML Pro-B-Type Natriuretic Peptide 22006.0 H <75.0 PG/ML Total Protein 5.9 L 6.4-8.2 GM/DL Albumin 3.5 3.2-4.5 GM/DL My Orders Orders - KATHE CASTRO MD Cbc With Automated Diff (01/28/21 08:55) Comprehensive Metabolic Panel (01/28/21 08:55) Chest 1 View Ap/Pa Only (01/28/21 08:55) Ekg Tracing (01/28/21 08:55) O2 (01/28/21 08:55) Ed Iv/Invasive Line Start (01/28/21 08:55) Monitor-Rhythm Ecg Trace Only (01/28/21 08:55) Probnp Fs (01/28/21 08:55) Troponin I Fs (01/28/21 08:57) Protime With Inr (01/28/21 09:36) Vital Signs/I&O 01/28/21 01/28/21 08:56 09:18 Temp 37.4 Pulse 86 Resp 25 B/P (MAP) 181/77 (111) Pulse Ox 97 97 O2 Delivery Nasal Cannula Nasal Cannula O2 Flow Rate 3.00 3.00 Capillary Refill : Less Than 3 Seconds Blood Pressure Mean: 111 ECG Initial ECG Impression Date: Jan 28, 2021 Initial ECG Impression Time: 09:15 Initial ECG Rate: 82 Initial ECG Rhythm: Normal Sinus Initial ECG Intervals: QRS (wide w/ LBBB pattern and PVC and diffuse NST/ST changes) Initial ECG Comparisson: No Previous ECG Available Consults Consults : Consulting Physician: BRITTNY JAIME MD Consults Notes I spoke w/ Dr Jaime who verbally accepted patient to transfer to [facility] on condition that I discuss it w/ Cardiology first; I then spoke w/ Dr Gastelum who recommends transfer to facility w/ nephrology available for consultation due to elevated Pro-BNP in setting of worsening renal function (Cr increased from 1.9 to 2.5 range). Patient prefers to go to where he has multiple specialty docs that know him. Transfer of Care Transfer of Care Time: 11:55 Care transferred to: Dr Rohini Mcintyre @ [facility]; awaiting room asignment at this time Departure Transfer Transfer Reason: Exceeds level of care (PCP wants cardiology; local Cardio wants renal; patient wants ) Time Spoke to Accepting Phy: 11:55 (Dr Mcintyre at accepts @ 11:55) Transfer Progress Notes Patient has stable VS and resting quietly on 2L O2 (home amount); diuretic for elevated ProBNP withheld at this time due to worsening renal function; ABx not indicated Transfer Time: 12:05 Transfer Facility: [facility] Method of Transfer: EMS Departure-Patient Inst. Referrals: ALIRIO CACERES MD (PCP/Family) Primary Care Physician Patient Instructions: CHF, Chronic Obstructive Pulmonary Disease (COPD) (DC) KATHE CASTRO MD Jan 28, 2021 09:27
[2021-01-28 09:31] LABS: ALANINE AMINOTRANSFERASE 18 U/L (0-55); ALBUMIN 3.5 GM/DL (3.2-4.5); ALKALINE PHOSPHATASE 125 U/L (40-136); BILIRUBIN,TOTAL 0.4 MG/DL (0.1-1.0); BUN/CREATININE RATIO 14; CALCIUM 8.4 MG/DL (8.5-10.1); CARBON DIOXIDE 23 MMOL/L (21-32); CHLORIDE 106 MMOL/L (98-107); GFR ESTIMATED 25; GLUCOSE 120 MG/DL (70-105); POTASSIUM 4.7 MMOL/L (3.6-5.0); SODIUM 140 MMOL/L (135-145); TOTAL PROTEIN 5.9 GM/DL (6.4-8.2)
--- NOTE | 2021-01-28 09:43 | Diagnostic Imaging Report ---
INDICATION: Shortness of breath. Comparison is made with the prior study from January 162020. FINDINGS: Chronic pulmonary interstitial changes are again demonstrated within the lungs without evidence of hyperinflation and diaphragmatic flattening. The patient loculated right-sided pleural collection and small left-sided pleural collection are not significantly changed. Enlargement of the cardiac silhouette is stable. There are no findings of a pneumothorax. The central pulmonary vascularity appears appropriate. Multiple calcified granulomas are again noted within the chest. IMPRESSION: 1. Chronic pulmonary interstitial disease and hyperinflation with no significant interval change in a loculated right and small left pleural effusion. Heart size remains prominent but stable. Central pulmonary vascularity appears appropriate. Evidence of prior granulomatous exposure with calcified granulomas within the lungs and calcified hilar lymph nodes again noted. Dictated by: Dictated on workstation # [id number]
[2021-01-28 09:53] LABS: INR 1.5 (0.8-1.4); PROTHROMBIN TIME PATIENT 18.6 SEC (12.2-14.7)
[2021-01-28 13:24] VITALS: BP 145/59
== END 2021-01-28 13:20 | disposition short-term general hospital (02) ==
LOC: EDUNIT# 08:45 → ER FS 08:47
DX: R06.02 Shortness of breath (principal); R05 Cough; I87.8 Other specified disorders of veins; R58 Hemorrhage, not elsewhere classified; G89.29 Other chronic pain; M54.9 Dorsalgia, unspecified; Z87.891 Personal history of nicotine dependence; Z79.01 Long term (current) use of anticoagulants; Z99.81 Dependence on supplemental oxygen; Z88.0 Allergy status to penicillin; Z77.22 Contact with and (suspected) exposure to environmental tobacco smoke (acute) (chronic); Z86.718 Personal history of other venous thrombosis and embolism; Z85.118 Personal history of other malignant neoplasm of bronchus and lung; Z79.899 Other long term (current) drug therapy
CPT/HCPCS: 36415; 71045; 80053; 83880; 84484; 85025; 85610; 93005; 93041

== ENCOUNTER 2021-03-04 19:55 | Emergency (ER) | payer MEDICARE, OTHER ==
--- NOTE | 2021-03-04 20:07 | ED Dyspnea ---
General Stated Complaint: SOB History of Present Illness Date Seen by Provider: Mar 04, 2021 Time Seen by Provider: 20:03 Initial Comments 76 yo male presents with sob. pt reports that over the last couple days, he has been getting more winded with activity. that notices in the morning he feels like his oxygen is low. Patient has a history of pleural effusion and is curious if that may have returned. He has a chronic cough but no increased cough. Patient wears chronic oxygen. He is supposed to wear it at night but has not been because he can keep it on. Patient reports he has a cheap pulse ox at home and it seems to be low in the mornings. He denies any fevers or chills. Timing/Duration: 1/2 Hour Allergies and Home Medications Allergies Coded Allergies: Penicillins (Verified Allergy, Intermediate, 10/11/20) EYES SWELLED SHUT Home Medications Acetaminophen 500 Mg Tablet, 500 MG PO Q6H PRN for PAIN-MILD (1-4), (Reported) Carvedilol 3.125 Mg Tablet, 3.125 MG PO BID Prescribed by: BRITTNY PRESTON on 01/01/21 1142 Furosemide 40 Mg Tablet, 40 MG PO Q48H, (Reported) Hydroxychloroquine Sulfate 200 Mg Tablet, 200 MG PO BID, (Reported) Isosorbide Mononitrate 60 Mg Tab, 60 MG PO DAILY Prescribed by: ELLIOT LOPEZ on 01/06/21 1036 Melatonin 5 Mg Tablet, 5 MG PO HS PRN for SLEEP, (Reported) Multivitamin 1 Each Tablet, 1 TAB PO DAILY, (Reported) Prednisone 5 Mg Tablet, 15 MG PO Q48H, (Reported) TAKES 3 (5MG) TABS Sodium Bicarbonate 650 Mg Tablet, 1,950 MG PO BID, (Reported) TAKES 3 (650MG) TABS Temazepam 15 Mg Capsule, 15 MG PO HS PRN for SLEEP, (Reported) Warfarin Sodium 2.5 Mg Tablet, 5 MG PO SUN,E,WE,NATHANIEL,SAT, (Reported) Warfarin Sodium 2.5 Mg Tablet, 10 MG PO MON,FRI, (Reported) Patient Home Medication List Home Medication List Reviewed: Yes Review of Systems Review of Systems Constitutional: No chills, No fever EENTM: no symptoms reported Respiratory: No cough (Chronic); dyspnea on exertion, short of breath; No wheezing Cardiovascular: No chest pain, No palpitations Gastrointestinal: No abdominal pain, No nausea, No vomiting Musculoskeletal: no symptoms reported Skin: no symptoms reported Psychiatric/Neurological: No Symptoms Reported Endocrine: No Symptoms Reported Hematologic/Lymphatic: No Symptoms Reported Past Sazzhzy-Twhcvo-Krkvtg Hx Past Med/Social Hx: Reviewed Nursing Past Med/Soc Hx Patient Social History Alcohol Beverage of Choice: Beer Former Smoker, Quit: Apr 20, 2010 2nd Hand Smoke Exposure: Yes Recent Hopitalizations: No Immunizations Up To Date Date of Pneumonia Vaccine: Aug 15, 2020 Date of Influenza Vaccine: Aug 11, 2020 Seasonal Allergies Seasonal Allergies: No Past Medical History Surgeries: Yes (COLECTOMY WITH ILEOSTOMY 1973, SPINAL FUSION, KIDNEY STONE) Abdominal, Nephrectomy Respiratory: Yes Pulmonary Embolism Currently Using CPAP: No Currently Using BIPAP: No Cardiac: Yes Deep Vein Thrombosis Neurological: Yes Neuropathy Sexually Transmitted Disease: No HIV/AIDS: No Genitourinary: Yes (RENAL INSUFF.) Benign Prostatic Hyperpl, Kidney Stones, Renal Failure Gastrointestinal: Yes (COLECTOMY WITH ILEOSTOMY) Polyps Musculoskeletal: Yes Degenerate Disk Disease, Rheumatoid Arthritis, Chronic Back Pain Endocrine: No HEENT: Yes (GLASSES, DENTURES) Loss of Vision: Denies Hearing Impairment: Hard of Hearing Cancer: Yes Lung, Colon, Kidney Did You Recieve Any Treatments: Yes What Type of Treatment Did You: Chemotherapy Psychosocial: No Integumentary: Yes (VERY SENSITIVE SKIN) Blood Disorders: No Adverse Reaction/Blood Tranf: No (N/A) Family Medical History Patient reports no known family medical history. Physical Exam Vital Signs Vital Signs - First Documented 03/04/21 19:57 Temp 37.6 Pulse 76 Resp 18 B/P (MAP) 144/68 (93) Pulse Ox 97 O2 Delivery Nasal Cannula O2 Flow Rate 2.00 Capillary Refill : Height, Weight, BMI Height: '" Weight: lbs. oz. kg; 22.00 BMI Method: General Appearance: No Apparent Distress, Thin HEENT: PERRL/EOMI Neck: Non Tender, Supple Respiratory: Lungs Clear, Decreased Breath Sounds (Mild diffuse); No Wheezing Cardiovascular: Regular Rate, Rhythm, No Edema Gastrointestinal: Non Tender, Soft Extremity: Normal Capillary Refill Neurologic/Psychiatric: Alert, Oriented x3, No Motor/Sensory Deficits, Normal Mood/Affect Progress/Results/Core Measures Results/Orders Lab Results Laboratory Tests Test 03/04/21 20:09 Range/Units White Blood Count 4.6 4.3-11.0 10^3/uL Red Blood Count 3.07 L 4.35-5.85 10^6/uL Hemoglobin 8.8 L 13.3-17.7 G/DL Hematocrit 28 L 40-54 % Mean Corpuscular Volume 91 80-99 FL Mean Corpuscular Hemoglobin 29 25-34 PG Mean Corpuscular Hemoglobin Concent 31 L 32-36 G/DL Red Cell Distribution Width 16.6 H 10.0-14.5 % Platelet Count 115 L 130-400 10^3/uL Mean Platelet Volume 9.9 7.4-10.4 FL Immature Granulocyte % (Auto) 0 % Neutrophils (%) (Auto) 72 42-75 % Lymphocytes (%) (Auto) 19 12-44 % Monocytes (%) (Auto) 8 0-12 % Eosinophils (%) (Auto) 0 0-10 % Basophils (%) (Auto) 0 0-10 % Neutrophils # (Auto) 3.3 1.8-7.8 X 10^3 Lymphocytes # (Auto) 0.9 L 1.0-4.0 X 10^3 Monocytes # (Auto) 0.4 0.0-1.0 X 10^3 Eosinophils # (Auto) 0.0 0.0-0.3 10^3/uL Basophils # (Auto) 0.0 0.0-0.1 10^3/uL Immature Granulocyte # (Auto) 0.0 0.0-0.1 10^3/uL Sodium Level 142 135-145 MMOL/L Potassium Level 5.0 3.6-5.0 MMOL/L Chloride Level 113 H 98-107 MMOL/L Carbon Dioxide Level 20 L 21-32 MMOL/L Anion Gap 9 5-14 MMOL/L Blood Urea Nitrogen 29 H 7-18 MG/DL Creatinine 2.13 H 0.60-1.30 MG/DL Estimat Glomerular Filtration Rate 30 BUN/Creatinine Ratio 14 Glucose Level 106 H 70-105 MG/DL Calcium Level 8.3 L 8.5-10.1 MG/DL Corrected Calcium 9.0 8.5-10.1 MG/DL Magnesium Level 1.7 1.6-2.4 MG/DL Total Bilirubin 0.8 0.1-1.0 MG/DL Aspartate Amino Transf (AST/SGOT) 29 5-34 U/L Alanine Aminotransferase (ALT/SGPT) 30 0-55 U/L Alkaline Phosphatase 108 40-136 U/L Total Protein 5.2 L 6.4-8.2 GM/DL Albumin 3.1 L 3.2-4.5 GM/DL My Orders Orders - ASENCIOANGELITAANGELA L DO Chest Pa/Lat (2 View) (03/04/21 20:08) Cbc With Automated Diff (03/04/21 20:08) Comprehensive Metabolic Panel (03/04/21 20:08) Magnesium (03/04/21 20:08) Probnp Fs (03/04/21 20:08) Ed Iv/Invasive Line Start (03/04/21 20:12) Vital Signs/I&O 03/04/21 03/04/21 19:57 20:55 Temp 37.6 37.6 Pulse 76 76 Resp 18 18 B/P (MAP) 144/68 (93) 144/68 (93) Pulse Ox 97 97 O2 Delivery Nasal Cannula Nasal Cannula O2 Flow Rate 2.00 2.00 Diagnostic Imaging Diagonstic Imaging: Xray Plain Films/CT/US/NM/MRI: chest Comments Date of Exam:03/04/21 CHEST PA/LAT (2 VIEW) INDICATION: Dyspnea. COMPARISON: 01/28/2021. FINDINGS: Right pleural effusion decreased from prior. Severe COPD and fibrotic lung disease, chronic. Subpulmonic effusion on the left, unchanged. Heart is enlarged but decreased from prior. There has been no adverse development. IMPRESSION: Resolving right lung infiltrate. Reduction in pleural fluid on the right. Background emphysematous and fibrotic lung disease, chronic. No adverse interval development. Departure Impression Primary Impression: Dyspnea Qualified Codes: R06.00 - Dyspnea, unspecified Additional Impression: Pleural effusion due to CHF (congestive heart failure) Disposition: 01 HOME, SELF-CARE Condition: Stable Departure-Patient Inst. Referrals: ALIRIO CACERES MD (PCP/Family) Primary Care Physician Patient Instructions: CHF Add. Discharge Instructions: Start your furosemide as previously prescribed for the next 3 days. Follow-up with your primary care provider early next week for recheck Scripts Albuterol Sulfate (Albuterol Sulfate) 2.5 Mg/3 Ml Vial.neb 2.5 MG INH Q4H PRN for WHEEZING, #50 EA 1 Refill Prov: ANGELA ASENCIO DO 03/04/21 ANGELA ASENCIO DO Mar 04, 2021 20:07
[2021-03-04 20:15] LABS: WHITE BLOOD COUNT 4.6 10^3/uL (4.3-11.0)
[2021-03-04 20:16] LABS: BASOPHILS % (AUTO) 0 % (0-10); EOSINOPHILS % (AUTO) 0 % (0-10); HEMATOCRIT 28 % (40-54); HEMOGLOBIN 8.8 G/DL (13.3-17.7); LYMPHOCYTES # (AUTO) 0.9 X 10^3 (1.0-4.0); LYMPHOCYTES % (AUTO) 19 % (12-44); MEAN CORPUSCULAR HEMOGLOBIN 29 PG (25-34); MEAN CORPUSCULAR HGB CONC 31 G/DL (32-36); MEAN CORPUSCULAR VOLUME 91 FL (80-99); MEAN PLATELET VOLUME 9.9 FL (7.4-10.4); MONOCYTES # (AUTO) 0.4 X 10^3 (0.0-1.0); MONOCYTES % (AUTO) 8 % (0-12); NEUTROPHILS # (AUTO) 3.3 X 10^3 (1.8-7.8); NEUTROPHILS % (AUTO) 72 % (42-75); PLATELET COUNT 115 10^3/uL (130-400)
[2021-03-04 20:36] LABS: BILIRUBIN,TOTAL 0.8 MG/DL (0.1-1.0); CALCIUM 8.3 MG/DL (8.5-10.1); CREATININE SERUM 2.13 MG/DL (0.60-1.30)
[2021-03-04 20:37] LABS: ALBUMIN 3.1 GM/DL (3.2-4.5); TOTAL PROTEIN 5.2 GM/DL (6.4-8.2)
[2021-03-04 20:46] LABS: MAGNESIUM 1.7 MG/DL (1.6-2.4)
--- NOTE | 2021-03-04 20:47 | Diagnostic Imaging Report ---
INDICATION: Dyspnea. COMPARISON: 01/28/2021. FINDINGS: Right pleural effusion decreased from prior. Severe COPD and fibrotic lung disease, chronic. Subpulmonic effusion on the left, unchanged. Heart is enlarged but decreased from prior. There has been no adverse development. IMPRESSION: Resolving right lung infiltrate. Reduction in pleural fluid on the right. Background emphysematous and fibrotic lung disease, chronic. No adverse interval development. Dictated by: Dictated on workstation # [id number]
[2021-03-04 20:55] VITALS: BP 144/68
[2021-03-04] MEDS ORDERED: ALBU2.5V4 INH (21:01)
== END 2021-03-04 20:56 | disposition home or self-care (01) ==
LOC: EDUNIT# 19:55 → ER FS 19:58
DX: R06.00 Dyspnea, unspecified (principal); J91.8 Pleural effusion in other conditions classified elsewhere; Z87.891 Personal history of nicotine dependence; Z86.711 Personal history of pulmonary embolism; Z86.718 Personal history of other venous thrombosis and embolism; Z85.118 Personal history of other malignant neoplasm of bronchus and lung; Z79.01 Long term (current) use of anticoagulants; Z79.52 Long term (current) use of systemic steroids; Z88.0 Allergy status to penicillin
CPT/HCPCS: 36415; 71046; 80053; 83735; 83880; 85025

== ENCOUNTER 2021-03-20 10:31 | Emergency (ER) | payer MEDICARE, OTHER ==
[~2021-03-20] VITALS: Ht 187 cm; Wt 75.0 kg
[~2021-03-20 10:31] MED LIST changes: +ALBU2.5V4 INH
[2021-03-20] MEDS ORDERED: RT-ALBUTEROL/IPRATROPIUM 3 ML (DUONEB) VIAL INH ONE (11:00)
[2021-03-20 11:08] LABS: BASOPHILS % (AUTO) 0 % (0-10); EOSINOPHILS % (AUTO) 0 % (0-10); HEMATOCRIT 29 % (40-54); HEMOGLOBIN 9.1 G/DL (13.3-17.7); LYMPHOCYTES % (AUTO) 6 % (12-44); MEAN CORPUSCULAR HEMOGLOBIN 29 PG (25-34); MEAN CORPUSCULAR HGB CONC 31 G/DL (32-36); MEAN CORPUSCULAR VOLUME 93 FL (80-99); MEAN PLATELET VOLUME 10.7 FL (7.4-10.4); MONOCYTES % (AUTO) 3 % (0-12); NEUTROPHILS % (AUTO) 91 % (42-75); PLATELET COUNT 139 10^3/uL (130-400); WHITE BLOOD COUNT 6.7 10^3/uL (4.3-11.0)
[2021-03-20 11:09] LABS: LYMPHOCYTES # (AUTO) 0.4 X 10^3 (1.0-4.0); MONOCYTES # (AUTO) 0.2 X 10^3 (0.0-1.0); NEUTROPHILS # (AUTO) 6.1 X 10^3 (1.8-7.8)
[2021-03-20 11:13] LABS: INR 2.1 (0.8-1.4); PROTHROMBIN TIME PATIENT 23.9 SEC (12.2-14.7)
[2021-03-20 11:17] LABS: ABG BASE EXCESS -2.2 MMOL/L (-2.5-2.5); ABG PCO2 29 MMHG (35-45); ABG PH 7.46 (7.37-7.43); ABG PO2 72 MMHG (79-93); ABG TCO2 21.5 MMOL/L (21.0-31.0)
[2021-03-20 11:18] LABS: ABG OXYGEN SATURATION 95 % (94-100)
[2021-03-20 11:19] LABS: ALLENS TEST OK; INSPIRED O2 2L; VENTILATOR NO
[2021-03-20 11:20] LABS: PATIENT TEMP 37.4
--- NOTE | 2021-03-20 11:20 | Diagnostic Imaging Report ---
INDICATION: Shortness of breath and chest tightness. TIME OF EXAM: 10:55 a.m. COMPARISON: Correlation is made with prior chest from 03/04/2021. FINDINGS: The heart size is stable. There is a [id number] left pleural effusion, similar to perhaps slightly increased when compared with prior exam. There is a small right pleural effusion as well, unchanged. Areas of bibasilar atelectasis or infiltrate are noted. There are calcified lymph nodes in the tesha bilaterally, consistent with prior granulomatous exposure. Mid and upper lung bethea are clear. There is no pneumothorax. IMPRESSION: Bilateral effusions, left greater. Left basilar effusion may be slightly increased when compared with prior chest radiograph from 03/04/2021. Dictated by: Dictated on workstation # [id number]
[2021-03-20 11:31] LABS: CALCIUM 8.4 MG/DL (8.5-10.1); CREATININE SERUM 2.38 MG/DL (0.60-1.30); POTASSIUM 4.8 MMOL/L (3.6-5.0)
[2021-03-20 11:32] LABS: ALBUMIN 3.5 GM/DL (3.2-4.5); BILIRUBIN,TOTAL 0.9 MG/DL (0.1-1.0); TOTAL PROTEIN 6.1 GM/DL (6.4-8.2)
[2021-03-20 11:42] LABS: BAND NEUTROPHILS 3 %; BASOPHILS % (MANUAL) 0 %; EOSINOPHILS % (MANUAL) 0 %; LYMPHOCYTES % (MANUAL) 6 %; MONOCYTES % (MANUAL) 2 %; NEUTROPHILS % (MANUAL) 89 %
--- NOTE | 2021-03-20 12:06 | ED General ---
General Chief Complaint: Respiratory Problems Stated Complaint: SOB Nursing Triage Note: PT REPORTS DYSPNEA WITH EXERTION SINCE SATURDAY. PT DOES NOT USE HIS PRESCRIBED OXYGEN LIKE HE SHOULD. Nursing Sepsis Screen: No Definite Risk Source of Information: Patient Exam Limitations: No Limitations History of Present Illness Date Seen by Provider: March 20, 2021 Time Seen by Provider: 10:35 Initial Comments Patient is a 76-year-old male with history of COPD, lung cancer renal cancer who presents with shortness of breath. Patient states symptoms have worsened over the past 48 but have showed overall improvement this morning. He states he is short of breath when he is not wearing his oxygen and when he exerts himself. After exerting himself, the patient will place his oxygen on and reports quick recovery. Denies chest pain chest tightness, leg pain and swelling. History of DVT and PE. Patient is currently anticoagulated on Coumadin. No fever chills, nausea vomiting or sweats. Patient does not use his albuterol inhaler due to concern for possible side effects. He states that he is concerned that it could cause an arrhythmia. No other acute symptoms or complaints. Patient is accompanied at bedside by his family member. Timing/Duration: 2-3 Days Severity: Mild Modifying Factors: improves with Other Associated Systoms: Other Allergies and Home Medications Allergies Coded Allergies: Penicillins (Verified Allergy, Intermediate, 10/11/20) EYES SWELLED SHUT Home Medications Acetaminophen 500 Mg Tablet, 500 MG PO Q6H PRN for PAIN-MILD (1-4), (Reported) Albuterol Sulfate 2.5 Mg/3 Ml Vial.neb, 2.5 MG INH Q4H PRN for WHEEZING Prescribed by: ANGELA ASENCIO on 03/04/212100 Carvedilol 3.125 Mg Tablet, 3.125 MG PO BID Prescribed by: BRITTNY PRESTON on 01/01/21 1142 Furosemide 40 Mg Tablet, 40 MG PO Q48H, (Reported) Hydroxychloroquine Sulfate 200 Mg Tablet, 200 MG PO BID, (Reported) Isosorbide Mononitrate 60 Mg Tab, 60 MG PO DAILY Prescribed by: ELLIOT LOPEZ on 01/06/21 1036 Melatonin 5 Mg Tablet, 5 MG PO HS PRN for SLEEP, (Reported) Multivitamin 1 Each Tablet, 1 TAB PO DAILY, (Reported) Prednisone 5 Mg Tablet, 15 MG PO Q48H, (Reported) TAKES 3 (5MG) TABS Sodium Bicarbonate 650 Mg Tablet, 1,950 MG PO BID, (Reported) TAKES 3 (650MG) TABS Temazepam 15 Mg Capsule, 15 MG PO HS PRN for SLEEP, (Reported) Warfarin Sodium 2.5 Mg Tablet, 5 MG PO SUN,TUE,WE,NATHANIEL,SAT, (Reported) Warfarin Sodium 2.5 Mg Tablet, 10 MG PO MON,FRI, (Reported) Patient Home Medication List Home Medication List Reviewed: Yes Review of Systems Review of Systems Constitutional: see HPI EENTM: see HPI Respiratory: see HPI Cardiovascular: see HPI Gastrointestinal: see HPI Genitourinary: see HPI Musculoskeletal: see HPI Skin: see HPI Psychiatric/Neurological: See HPI Hematologic/Lymphatic: See HPI Immunological/Allergic: see HPI All Other Systems Reviewed Negative Unless Noted: Yes Past Dsixzgb-Kkgvco-Nxqqoc Hx Past Med/Social Hx: Reviewed Nursing Past Med/Soc Hx Patient Social History Alcohol Use: Denies Use Number of Drinks Today: AA Alcohol Beverage of Choice: Beer Smoking Status: Former Smoker Type Used: Cigars, Cigarettes Former Smoker, Quit: Apr 20, 2010 2nd Hand Smoke Exposure: Yes Recent Infectious Disease Expo: No Recent Hopitalizations: No Immunizations Up To Date Date of Pneumonia Vaccine: Aug 15, 2020 Date of Influenza Vaccine: Aug 11, 2020 Seasonal Allergies Seasonal Allergies: No Past Medical History Surgeries: Yes (COLECTOMY WITH ILEOSTOMY 1973, SPINAL FUSION, KIDNEY STONE) Abdominal, Nephrectomy Respiratory: Yes Pulmonary Embolism Currently Using CPAP: No Currently Using BIPAP: No Cardiac: Yes Deep Vein Thrombosis Neurological: Yes Neuropathy Sexually Transmitted Disease: No HIV/AIDS: No Genitourinary: Yes (RENAL INSUFF.) Benign Prostatic Hyperpl, Kidney Stones, Renal Failure Gastrointestinal: Yes (COLECTOMY WITH ILEOSTOMY) Polyps Musculoskeletal: Yes Degenerate Disk Disease, Rheumatoid Arthritis, Chronic Back Pain Endocrine: No HEENT: Yes (GLASSES, DENTURES) Loss of Vision: Denies Hearing Impairment: Hard of Hearing Cancer: Yes Lung, Colon, Kidney Did You Recieve Any Treatments: Yes What Type of Treatment Did You: Chemotherapy Psychosocial: No Integumentary: Yes (VERY SENSITIVE SKIN) Blood Disorders: No Adverse Reaction/Blood Tranf: No (N/A) Family Medical History Patient reports no known family medical history. Physical Exam Vital Signs Vital Signs - First Documented 03/20/21 10:31 Temp 37.4 Pulse 76 Resp 22 B/P (MAP) 133/53 (79) Pulse Ox 95 O2 Delivery Room Air Capillary Refill : Less Than 3 Seconds Height, Weight, BMI Height: '" Weight: lbs. oz. kg; 21.00 BMI Method: General Appearance: No Apparent Distress, WD/WN Eyes: Bilateral Eye Normal Inspection, Bilateral Eye PERRL, Bilateral Eye EOMI HEENT: PERRL/EOMI, TMs Normal, Pharynx Normal, Moist Mucous Membranes Neck: Full Range of Motion, Normal Inspection, Supple Respiratory: Decreased Breath Sounds, Rhonci, Wheezing Cardiovascular: Regular Rate, Rhythm, Extra Beats, Other Gastrointestinal: Non Tender, Soft Extremity: No Calf Tenderness Neurologic/Psychiatric: Alert, Oriented x3, Normal Mood/Affect, com writer II-XII Norm as Tested Skin: Normal Color, Warm/Dry Focused Exam Sepsis Stage: Ruled Out Lactate Level 03/20/21 10:40: Lactic Acid Level 1.57 Lactic Acid Level Laboratory Tests Test 03/20/21 10:40 Lactic Acid Level 1.57 MMOL/L (0.50-2.00) Progress/Results/Core Measures Suspected Sepsis Recent Fever Within 48 Hours: No Infection Criteria Present: None New/Unexplained Altered Menta: No Sepsis Screen: No Definite Risk SIRS Temperature: Pulse: 76 Respiratory Rate: 22 Laboratory Tests 03/20/21 10:40: White Blood Count 6.7 Blood Pressure 133 /53 Mean: 79 03/20/21 10:40: Lactic Acid Level 1.57 Laboratory Tests 03/20/21 10:40: Creatinine 2.38H, INR Comment 2.1H, Platelet Count 139, Total Bilirubin 0.9 Results/Orders Lab Results Laboratory Tests Test 03/20/21 10:03 03/20/21 10:40 Range/Units Blood Gas Puncture Site RT BRONCAL Blood Gas Patient Temperature 37.4 Arterial Blood pH 7.46 H 7.37-7.43 Arterial Blood Partial Pressure CO2 29 L 35-45 MMHG Arterial Blood Partial Pressure O2 72 L 79-93 MMHG Arterial Blood HCO3 21 L 23-27 MMOL/L Arterial Blood Total CO2 21.5 21.0-31.0 MMOL/L Arterial Blood Oxygen Saturation 95 94-100 % Arterial Blood Base Excess -2.2 -2.5-2.5 MMOL/L Juan Francisco Test OK Blood Gas Ventilator Setting NO Blood Gas Inspired Oxygen 2L White Blood Count 6.7 4.3-11.0 10^3/uL Red Blood Count 3.16 L 4.35-5.85 10^6/uL Hemoglobin 9.1 L 13.3-17.7 G/DL Hematocrit 29 L 40-54 % Mean Corpuscular Volume 93 80-99 FL Mean Corpuscular Hemoglobin 29 25-34 PG Mean Corpuscular Hemoglobin Concent 31 L 32-36 G/DL Red Cell Distribution Width 16.0 H 10.0-14.5 % Platelet Count 139 130-400 10^3/uL Mean Platelet Volume 10.7 H 7.4-10.4 FL Immature Granulocyte % (Auto) 0 % Neutrophils (%) (Auto) 91 H 42-75 % Lymphocytes (%) (Auto) 6 L 12-44 % Monocytes (%) (Auto) 3 0-12 % Eosinophils (%) (Auto) 0 0-10 % Basophils (%) (Auto) 0 0-10 % Neutrophils # (Auto) 6.1 1.8-7.8 X 10^3 Lymphocytes # (Auto) 0.4 L 1.0-4.0 X 10^3 Monocytes # (Auto) 0.2 0.0-1.0 X 10^3 Eosinophils # (Auto) 0.0 0.0-0.3 10^3/uL Basophils # (Auto) 0.0 0.0-0.1 10^3/uL Immature Granulocyte # (Auto) 0.0 0.0-0.1 10^3/uL Neutrophils % (Manual) 89 % Lymphocytes % (Manual) 6 % Monocytes % (Manual) 2 % Eosinophils % (Manual) 0 % Basophils % (Manual) 0 % Band Neutrophils 3 % Prothrombin Time 23.9 H 12.2-14.7 SEC INR Comment 2.1 H 0.8-1.4 Activated Partial Thromboplast Time 54 H 24-35 SEC Sodium Level 139 135-145 MMOL/L Potassium Level 4.8 3.6-5.0 MMOL/L Chloride Level 108 H 98-107 MMOL/L Carbon Dioxide Level 23 21-32 MMOL/L Anion Gap 8 5-14 MMOL/L Blood Urea Nitrogen 36 H 7-18 MG/DL Creatinine 2.38 H 0.60-1.30 MG/DL Estimat Glomerular Filtration Rate 27 BUN/Creatinine Ratio 15 Glucose Level 138 H 70-105 MG/DL Lactic Acid Level 1.57 0.50-2.00 MMOL/L Calcium Level 8.4 L 8.5-10.1 MG/DL Corrected Calcium 8.8 8.5-10.1 MG/DL Total Bilirubin 0.9 0.1-1.0 MG/DL Aspartate Amino Transf (AST/SGOT) 26 5-34 U/L Alanine Aminotransferase (ALT/SGPT) 26 0-55 U/L Alkaline Phosphatase 120 40-136 U/L Troponin I < 0.30 <0.30 NG/ML Pro-B-Type Natriuretic Peptide 85464.0 H <75.0 PG/ML Total Protein 6.1 L 6.4-8.2 GM/DL Albumin 3.5 3.2-4.5 GM/DL My Orders Orders - DAI WATSON DO Cbc With Automated Diff (03/20/21 10:55) Comprehensive Metabolic Panel (03/20/21 10:55) Blood Culture (03/20/21 10:55) Sputum Culture (03/20/21 10:55) Urinalysis (03/20/21 10:55) Protime With Inr (03/20/21 10:55) Partial Thromboplastin Time (03/20/21 10:55) Chest 1 View Ap/Pa Only (03/20/21 10:55) Ed Iv/Invasive Line Start (03/20/21 10:55) Ed Iv/Invasive Line Start (03/20/21 10:55) Vital Signs Adult Sepsis Patie Q15M (03/20/21 10:55) O2 (03/20/21 10:55) Remove Rings In Anticipation O (03/20/21 10:55) Lactic Acid Analyzer (03/20/21 10:55) Arterial Blood Gas (03/20/21 10:55) Albuterol/Ipra Inhalation Soln (Duoneb I (03/20/21 11:00) Svn Small Volume Nebulizer (03/20/21 10:58) Manual Differential (03/20/21 10:40) Probnp Fs (03/20/21 11:44) Troponin I Fs (03/20/21 11:44) Furosemide Injection (Lasix Injection) (03/20/21 12:45) Medications Given in ED Current Medications Medications Dose Ordered Sig/Darin Route Start Time Stop Time Status Last Admin Dose Admin Albuterol/ Ipratropium 6 ml ONCE ONCE INH 03/20/21 11:00 03/20/21 11:01 DC 03/20/21 11:09 6 ML Furosemide 40 mg ONCE ONCE IVP 03/20/21 12:45 03/20/21 12:46 DC 03/20/21 12:40 40 MG Vital Signs/I&O 03/20/21 03/20/21 03/20/21 10:31 11:06 13:13 Temp 37.4 36.2 Pulse 76 72 Resp 22 18 B/P (MAP) 133/53 (79) 105/62 Pulse Ox 95 95 99 O2 Delivery Room Air Room Air Room Air Capillary Refill : Less Than 3 Seconds Blood Pressure Mean: 79 Departure Communication (Admissions) EKG 510/21, 10: 39, sinus rhythm, rate 72, l left atrial enlargement, eft bundle branch block, occasional ectopy, no acute ST-T wave changes, QTC 465. Chest x-ray: Stable from previous exam Patient with advanced lung disease COPD lung cancer medically noncompliant. He only wears oxygen when he feels like it or when he is finished exerting himself to aid in his recovery and stopped taking Lasix as after his most recent hospital admission. He is quite loquacious in the emergency department and took his oxygen off during the stay with O2 saturations of 92% on room air after receiving Combivent breathing treatment. Labs show elevation in BNP and slight worsening of effusions on chest x-ray. Recommend patient resuming his breathing treatments and Lasix per previous schedule PCP and pulmonology follow-up. Return precautions reviewed. Patient verbalizes understanding agreement discharge instructions prior to departure. Impression Primary Impression: COPD (chronic obstructive pulmonary disease) Additional Impressions: Congestive heart failure Noncompliance Disposition: HOME, SELF-CARE Condition: Stable Departure-Patient Inst. Referrals: ALIRIO CACERES MD (PCP/Family) Primary Care Physician Patient Instructions: Chronic Obstructive Pulmonary Disease (COPD) (DC), Heart Failure, Adult Add. Discharge Instructions: Please use Combivent inhaler twice daily and resume Lasix 40 mg daily for the next 5 days. Wear your oxygen with exertion and at nighttime and as needed while at rest. Follow-up with your PCP in 5 days for further recommendations. In the meantime if you develop new or worsening symptoms, return to the ED. All discharge instructions reviewed with patient and/or family. Voiced understanding. Scripts Albuterol/Ipratropium (Combivent Respimat Inhal Jackson) 4 Gm Aero 2 PUFF IH Q12H, #1 INH Prov: DAI WATSON DO 03/20/21 DAI WATSON DO March 20, 2021 12:06
[2021-03-20] MEDS ORDERED: FUROSEMIDE 40 MG/4 ML INJ (LASIX) IVP ONE (12:45)
[2021-03-20 13:13] VITALS: BP 105/62
[2021-03-20] MEDS ORDERED: IPRA4AER IH (13:18)
== END 2021-03-20 13:20 | disposition home or self-care (01) ==
LOC: EDUNIT# 10:31 → ER FS 10:33
DX: J44.9 Chronic obstructive pulmonary disease, unspecified (principal); I50.9 Heart failure, unspecified; Z91.19 Patient's noncompliance with other medical treatment and regimen; Z88.0 Allergy status to penicillin; Z86.711 Personal history of pulmonary embolism; Z86.718 Personal history of other venous thrombosis and embolism; Z85.118 Personal history of other malignant neoplasm of bronchus and lung; Z87.891 Personal history of nicotine dependence; Z79.01 Long term (current) use of anticoagulants; Z79.52 Long term (current) use of systemic steroids
CPT/HCPCS: 36415; 71045; 80053; 82805; 83605; 83880; 84484; 85007; 85027; 85610; 85730; 87040; 93005

== ENCOUNTER → 2021-03-31 | Outpatient (CLI) | payer MEDICARE, OTHER ==
[~2021-03-31] MED LIST changes: +IPRA4AER IH
[2021-03-31 16:10] LABS: ALBUMIN 3.4 GM/DL (3.2-4.5); BILIRUBIN,TOTAL 0.5 MG/DL (0.1-1.0); CALCIUM 8.6 MG/DL (8.5-10.1); CREATININE SERUM 2.43 MG/DL (0.60-1.30); POTASSIUM 4.5 MMOL/L (3.6-5.0); TOTAL PROTEIN 5.9 GM/DL (6.4-8.2)
== END ==
LOC: LAB FS 15:29
PROVIDERS: ATTEND Internal Medicine Critical Care Medicine
DX: N18.4 Chronic kidney disease, stage 4 (severe) (principal); Z79.899 Other long term (current) drug therapy
CPT/HCPCS: 36415; 80053

== ENCOUNTER → 2021-04-03 | Outpatient (CLI) | payer MEDICARE, OTHER | LOC: CARD 10:17 | PROVIDERS: ATTEND Internal Medicine Cardiovascular Disease | DX: I11.9 Hypertensive heart disease without heart failure (principal); I08.3 Combined rheumatic disorders of mitral, aortic and tricuspid valves | CPT/HCPCS: 93306 ==

== ENCOUNTER → 2021-04-06 | Outpatient (CLI) | payer MEDICARE, OTHER ==
[2021-04-06 09:21] LABS: ALBUMIN 3.2 GM/DL (3.2-4.5); BILIRUBIN,TOTAL 0.5 MG/DL (0.1-1.0); CALCIUM 8.5 MG/DL (8.5-10.1); CREATININE SERUM 2.21 MG/DL (0.60-1.30); POTASSIUM 4.5 MMOL/L (3.6-5.0); TOTAL PROTEIN 5.7 GM/DL (6.4-8.2)
== END ==
LOC: LAB FS 08:30
PROVIDERS: ATTEND Internal Medicine Critical Care Medicine
DX: N18.4 Chronic kidney disease, stage 4 (severe) (principal); Z79.899 Other long term (current) drug therapy
CPT/HCPCS: 36415; 80053

== ENCOUNTER → 2021-04-13 | Outpatient (CLI) | payer MEDICARE, OTHER ==
[2021-04-13 09:22] LABS: ALBUMIN 3.3 GM/DL (3.2-4.5); BILIRUBIN,TOTAL 0.4 MG/DL (0.1-1.0); CALCIUM 8.2 MG/DL (8.5-10.1); CREATININE SERUM 2.25 MG/DL (0.60-1.30); POTASSIUM 4.1 MMOL/L (3.6-5.0); TOTAL PROTEIN 5.8 GM/DL (6.4-8.2)
== END ==
LOC: LAB FS 08:36
PROVIDERS: ATTEND Internal Medicine Critical Care Medicine
DX: N18.4 Chronic kidney disease, stage 4 (severe) (principal); Z79.899 Other long term (current) drug therapy
CPT/HCPCS: 36415; 80053

== ENCOUNTER → 2021-04-20 | Outpatient (CLI) | payer MEDICARE, OTHER ==
[2021-04-20 09:33] LABS: POTASSIUM 4.4 MMOL/L (3.6-5.0)
[2021-04-20 09:34] LABS: BILIRUBIN,TOTAL 0.3 MG/DL (0.1-1.0); CALCIUM 8.6 MG/DL (8.5-10.1); CREATININE SERUM 2.74 MG/DL (0.60-1.30)
[2021-04-20 09:35] LABS: ALBUMIN 3.5 GM/DL (3.2-4.5)
== END ==
LOC: LAB FS 08:27
PROVIDERS: ATTEND Internal Medicine Critical Care Medicine
DX: N18.4 Chronic kidney disease, stage 4 (severe) (principal)
CPT/HCPCS: 36415; 80053

== ENCOUNTER → 2021-04-27 | Outpatient (CLI) | payer MEDICARE, OTHER ==
[2021-04-27 09:42] LABS: POTASSIUM 4.1 MMOL/L (3.6-5.0)
[2021-04-27 09:43] LABS: CREATININE SERUM 2.64 MG/DL (0.60-1.30)
[2021-04-27 09:45] LABS: ALBUMIN 3.5 GM/DL (3.2-4.5); BILIRUBIN,TOTAL 0.4 MG/DL (0.1-1.0); CALCIUM 8.5 MG/DL (8.5-10.1)
== END ==
LOC: LAB FS 08:55
PROVIDERS: ATTEND Internal Medicine Critical Care Medicine
DX: N18.4 Chronic kidney disease, stage 4 (severe) (principal); Z79.899 Other long term (current) drug therapy
CPT/HCPCS: 36415; 80053

== ENCOUNTER → 2021-05-04 | Outpatient (CLI) | payer MEDICARE, OTHER ==
[2021-05-04 11:39] LABS: ALBUMIN 3.5 GM/DL (3.2-4.5); BILIRUBIN,TOTAL 0.4 MG/DL (0.1-1.0); CALCIUM 8.4 MG/DL (8.5-10.1); CREATININE SERUM 2.39 MG/DL (0.60-1.30); POTASSIUM 4.3 MMOL/L (3.6-5.0); TOTAL PROTEIN 5.9 GM/DL (6.4-8.2)
== END ==
LOC: LAB FS 10:35
PROVIDERS: ATTEND Internal Medicine Critical Care Medicine
DX: N18.4 Chronic kidney disease, stage 4 (severe) (principal); Z79.899 Other long term (current) drug therapy
CPT/HCPCS: 36415; 80053

== ENCOUNTER → 2021-05-04 | Outpatient (CLI) | payer MEDICARE, OTHER | LOC: LAB FS 10:30 | PROVIDERS: ATTEND Internal Medicine Nephrology | DX: N20.0 Calculus of kidney (principal) | CPT/HCPCS: 36415; 84550 ==

== ENCOUNTER → 2021-05-11 | Outpatient (CLI) | payer MEDICARE, OTHER ==
[2021-05-11 10:50] LABS: BILIRUBIN,TOTAL 0.5 MG/DL (0.1-1.0); CALCIUM 8.4 MG/DL (8.5-10.1); CREATININE SERUM 2.63 MG/DL (0.60-1.30); POTASSIUM 4.3 MMOL/L (3.6-5.0)
[2021-05-11 10:51] LABS: ALBUMIN 3.5 GM/DL (3.2-4.5); TOTAL PROTEIN 5.8 GM/DL (6.4-8.2)
== END ==
LOC: LAB FS 09:32
PROVIDERS: ATTEND Internal Medicine Critical Care Medicine
DX: N18.4 Chronic kidney disease, stage 4 (severe) (principal); Z79.899 Other long term (current) drug therapy
CPT/HCPCS: 36415; 80053

== ENCOUNTER → 2021-05-18 | Outpatient (CLI) | payer MEDICARE, OTHER ==
[2021-05-18 10:10] LABS: POTASSIUM 4.2 MMOL/L (3.6-5.0)
[2021-05-18 10:11] LABS: ALBUMIN 3.5 GM/DL (3.2-4.5); BILIRUBIN,TOTAL 0.4 MG/DL (0.1-1.0); CALCIUM 8.2 MG/DL (8.5-10.1); CREATININE SERUM 2.26 MG/DL (0.60-1.30); TOTAL PROTEIN 5.4 GM/DL (6.4-8.2)
== END ==
LOC: LAB FS 09:02
PROVIDERS: ATTEND Internal Medicine Critical Care Medicine
DX: N18.4 Chronic kidney disease, stage 4 (severe) (principal); Z79.899 Other long term (current) drug therapy
CPT/HCPCS: 36415; 80053

== ENCOUNTER 2021-05-23 17:34 | Emergency (ER) | payer MEDICARE, OTHER ==
[~2021-05-23] VITALS: Ht 185 cm; Wt 72.5 kg
[2021-05-23] MEDS ORDERED: NS IV 1000 ML 1,000 ML IV STA ×2 (18:37→20:33)
--- NOTE | 2021-05-23 18:37 | ED Dyspnea ---
General Chief Complaint: Respiratory Problems Stated Complaint: SOB; COVID+ Nursing Triage Note: PT BROUGHT TO ED BY DAUGHTER. PT REPORTS DAUGHTER IS CONCERNED ABOUT LOW BP AND SOB. PT REPORTS BEING COVID + AND IS ON DAY 9 OF SYMPTOMS. Source of Information: Patient History of Present Illness Date Seen by Provider: May 23, 2021 Time Seen by Provider: 17:38 Initial Comments 76-year-old male presenting with complaints of increased shortness of breath and cough. He was diagnosed with Covid on Saturday. He does have the vaccination for Covid but has been having increased shortness of breath and cough. He has had symptoms for over 9 days now. He does have nebulizer treatments and medicine he takes at home but continued to feel short of breath. The pulse ox he was using at home was reading in the 80s. He was brought in by his daughter because they were concerned about the oxygen saturation and his blood pressure being low at home. He follows with providers out of [facility]. He states if he needs to be admitted that he would want to be admitted at . He feels short of breath with exertion but improves with rest. He has also just felt weak overall. Timing/Duration: Other (worsening in the last few days but over 9 days of symptoms) Severity: Moderate Associated Symptoms: Cough, Fever, Lightheadedness, Weakness Allergies and Home Medications Allergies Coded Allergies: Penicillins (Verified Allergy, Intermediate, 10/11/20) EYES SWELLED SHUT Home Medications Acetaminophen 500 Mg Tablet, 500 MG PO Q6H PRN for PAIN-MILD (1-4), (Reported) Albuterol Sulfate 2.5 Mg/3 Ml Vial.neb, 2.5 MG INH Q4H PRN for WHEEZING Prescribed by: ANGELA ASENCIO on 03/04/212100 Albuterol/Ipratropium 4 Gm Aero, 2 PUFF IH Q12H Prescribed by: DAI WATSON on 03/20/21 1318 Carvedilol 3.125 Mg Tablet, 3.125 MG PO BID Prescribed by: BRITTNY PRESTON on 01/01/21 1142 Furosemide 40 Mg Tablet, 40 MG PO Q48H, (Reported) Hydroxychloroquine Sulfate 200 Mg Tablet, 200 MG PO BID, (Reported) Isosorbide Mononitrate 60 Mg Tab, 60 MG PO DAILY Prescribed by: ELLIOT LOPEZ on 01/06/21 1036 Melatonin 5 Mg Tablet, 5 MG PO HS PRN for SLEEP, (Reported) Multivitamin 1 Each Tablet, 1 TAB PO DAILY, (Reported) Prednisone 5 Mg Tablet, 15 MG PO Q48H, (Reported) TAKES 3 (5MG) TABS Sodium Bicarbonate 650 Mg Tablet, 1,950 MG PO BID, (Reported) TAKES 3 (650MG) TABS Temazepam 15 Mg Capsule, 15 MG PO HS PRN for SLEEP, (Reported) Warfarin Sodium 2.5 Mg Tablet, 5 MG PO SUN,E,,NATHANIEL,SAT, (Reported) Warfarin Sodium 2.5 Mg Tablet, 10 MG PO MON,FRI, (Reported) Patient Home Medication List Home Medication List Reviewed: Yes Review of Systems Review of Systems Constitutional: chills, dizziness, fever, malaise EENTM: no symptoms reported Respiratory: see HPI, cough, dyspnea on exertion, phlegm (thick colored), short of breath; No stridor; wheezing Cardiovascular: No chest pain Gastrointestinal: No nausea, No vomiting Genitourinary: no symptoms reported Musculoskeletal: no symptoms reported Skin: no symptoms reported Psychiatric/Neurological: Weakness Past Piqexky-Ijkgba-Xvadvf Hx Patient Social History Tobacco Use?: No Substance use?: No Alcohol Use?: No Immunizations Up To Date First/Initial COVID19 Vaccinat: 12/01 Seasonal Allergies Seasonal Allergies: No Past Medical History Surgeries: Yes (COLECTOMY WITH ILEOSTOMY 1973, SPINAL FUSION, KIDNEY STONE) Abdominal, Nephrectomy Respiratory: Yes Pulmonary Embolism Currently Using CPAP: No Currently Using BIPAP: No Cardiac: Yes Deep Vein Thrombosis Neurological: Yes Neuropathy Sexually Transmitted Disease: No HIV/AIDS: No Genitourinary: Yes (RENAL INSUFF.) Benign Prostatic Hyperpl, Kidney Stones, Renal Failure Gastrointestinal: Yes (COLECTOMY WITH ILEOSTOMY) Polyps Musculoskeletal: Yes Degenerate Disk Disease, Rheumatoid Arthritis, Chronic Back Pain Endocrine: No HEENT: Yes (GLASSES, DENTURES) Loss of Vision: Denies Hearing Impairment: Hard of Hearing Cancer: Yes Lung, Colon, Kidney Did You Recieve Any Treatments: Yes What Type of Treatment Did You: Chemotherapy Psychosocial: No Integumentary: Yes (VERY SENSITIVE SKIN) Blood Disorders: No Adverse Reaction/Blood Tranf: No (N/A) Family Medical History Patient reports no known family medical history. Physical Exam Vital Signs Vital Signs - First Documented 05/23/21 17:50 Temp 36.5 Pulse 55 Resp 22 B/P (MAP) 95/44 (61) Pulse Ox 95 O2 Delivery Room Air Capillary Refill : Less Than 3 Seconds Height, Weight, BMI Height: '" Weight: lbs. oz. kg; 21.00 BMI Method: General Appearance: No Apparent Distress, Chronically ill Neck: Full Range of Motion, Normal Inspection, Non Tender Respiratory: Chest Non Tender, No Accessory Muscle Use, No Respiratory Distress, Decreased Breath Sounds Cardiovascular: Normal Peripheral Pulses, Bradycardia Gastrointestinal: Normal Bowel Sounds, No Pulsatile Mass, Non Tender, Soft Rectal: Deferred Extremity: Normal Capillary Refill, Normal Inspection, Pedal Edema (1+ pitting BLE up to his knees) Neurologic/Psychiatric: Alert, Oriented x3 Skin: Warm/Dry, Ecchymosis (diffuse areas of bruising in various stages of healing), Pallor Focused Exam Sepsis Stage: Ruled Out Reason for ruling out sepsis: no definite acute infection Possible Source: Pulmonary Lactate Level 05/23/21 18:03: Lactic Acid Level 2.32*H 05/23/21 19:55: Lactic Acid Level 0.96 Time of Focused Exam: 19:00 Respiratory: Chest Non Tender, No Accessory Muscle Use, No Respiratory Distress, Decreased Breath Sounds Cardiovascular: Normal Peripheral Pulses, Bradycardia Capillary Refill: Less Than 3 Seconds Peripheral Pulses: 2+ Carotid (R), 2+ Carotid (L), 2+ Radial Pulses (R), 2+ Ra dial Pulses (L) Skin: warm/dry, pallor Lactic Acid Level Laboratory Tests Test 05/23/21 18:03 05/23/21 19:55 Lactic Acid Level 2.32 MMOL/L (0.50-2.00) *H 0.96 MMOL/L (0.50-2.00) Within 3hrs of presentation: Admin fluids, Blood cultures prior to ABX's, Focus exam, Lactate level Progress/Results/Core Measures Results/Orders Lab Results Laboratory Tests Test 05/23/21 18:03 05/23/21 18:09 05/23/21 19:55 Range/Units White Blood Count 2.5 L 4.3-11.0 10^3/uL Red Blood Count 3.60 L 4.35-5.85 10^6/uL Hemoglobin 10.1 L 13.3-17.7 G/DL Hematocrit 32 L 40-54 % Mean Corpuscular Volume 89 80-99 FL Mean Corpuscular Hemoglobin 28 25-34 PG Mean Corpuscular Hemoglobin Concent 32 32-36 G/DL Red Cell Distribution Width 16.1 H 10.0-14.5 % Platelet Count 56 L 130-400 10^3/uL Mean Platelet Volume 12.7 H 7.4-10.4 FL Immature Granulocyte % (Auto) 0 % Neutrophils (%) (Auto) 62 42-75 % Lymphocytes (%) (Auto) 33 12-44 % Monocytes (%) (Auto) 6 0-12 % Eosinophils (%) (Auto) 0 0-10 % Basophils (%) (Auto) 0 0-10 % Neutrophils # (Auto) 1.6 L 1.8-7.8 X 10^3 Lymphocytes # (Auto) 0.8 L 1.0-4.0 X 10^3 Monocytes # (Auto) 0.1 0.0-1.0 X 10^3 Eosinophils # (Auto) 0.0 0.0-0.3 10^3/uL Basophils # (Auto) 0.0 0.0-0.1 10^3/uL Immature Granulocyte # (Auto) 0.0 0.0-0.1 10^3/uL Neutrophils % (Manual) 61 % Lymphocytes % (Manual) 25 % Monocytes % (Manual) 6 % Metamyelocytes % 2 % Band Neutrophils 6 % Platelet Estimate DECREASED Percent Immature Platelet Fraction 5.1 0.0-7.6 % Poikilocytosis MODERATE Anisocytosis SLIGHT Elliptocytes MODERATE Schistocytes SLIGHT Blood Morphology Comment ABNORMAL Prothrombin Time 17.8 H 12.2-14.7 SEC INR Comment 1.4 0.8-1.4 Activated Partial Thromboplast Time 46 H 24-35 SEC D-Dimer 1.80 H 0.00-0.49 UG/ML Sodium Level 134 L 135-145 MMOL/L Potassium Level 4.9 3.6-5.0 MMOL/L Chloride Level 98 98-107 MMOL/L Carbon Dioxide Level 19 L 21-32 MMOL/L Anion Gap 17 H 5-14 MMOL/L Blood Urea Nitrogen 77 H 7-18 MG/DL Creatinine 4.12 #H 0.60-1.30 MG/DL Estimat Glomerular Filtration Rate 14 BUN/Creatinine Ratio 19 Glucose Level 134 H 70-105 MG/DL Lactic Acid Level 2.32 *H 0.96 0.50-2.00 MMOL/L Calcium Level 7.7 L 8.5-10.1 MG/DL Corrected Calcium 8.1 L 8.5-10.1 MG/DL Total Bilirubin 0.7 0.1-1.0 MG/DL Aspartate Amino Transf (AST/SGOT) 84 H 5-34 U/L Alanine Aminotransferase (ALT/SGPT) 41 0-55 U/L Alkaline Phosphatase 90 40-136 U/L Troponin I < 0.30 <0.30 NG/ML C-Reactive Protein 7.33 H <0.50 MG/DL Total Protein 6.1 L 6.4-8.2 GM/DL Albumin 3.5 3.2-4.5 GM/DL Smear Scan YES Blood Gas Puncture Site RT. RADIAL Blood Gas Patient Temperature 36.5 Arterial Blood pH 7.31 *L 7.37-7.43 Arterial Blood Partial Pressure CO2 35 35-45 MMHG Arterial Blood Partial Pressure O2 58 L 79-93 MMHG Arterial Blood HCO3 18 L 23-27 MMOL/L Arterial Blood Total CO2 18.7 L 21.0-31.0 MMOL/L Arterial Blood Oxygen Saturation 87 L 94-100 % Arterial Blood Base Excess -7.8 L -2.5-2.5 MMOL/L Juan Francisco Test YES-POS Blood Gas Ventilator Setting NO Blood Gas Inspired Oxygen ROOM AIR My Orders Orders - BETO CALI MD Monitor-Rhythm Ecg Trace Only (05/23/21 18:22) Ed Iv/Invasive Line Start (05/23/21 18:) Cbc With Automated Diff (05/23/21 18:) Comprehensive Metabolic Panel (05/23/21 18:22) Crp Fs (05/23/21 18:22) Troponin I Fs (05/23/21 18:22) Protime With Inr (05/23/21 18:) Partial Thromboplastin Time (05/23/21 18:) Ekg Tracing (05/23/21 18:) Arterial Blood Gas (05/23/21 18:22) Blood Culture (05/23/21 18:23) Lactic Acid Analyzer (05/23/21 18:) Fibrin Degradation Products (05/23/21 18:) Ns Iv 1000 Ml (Sodium Chloride 0.9%) (05/23/21 18:37) Ns Iv 1000 Ml (Sodium Chloride 0.9%) (05/23/21 18:39) Chest 1 View Ap/Pa Only (05/23/21 19:02) Manual Differential (05/23/21 18:03) Ns Iv 1000 Ml (Sodium Chloride 0.9%) (05/23/21 20:33) Vital Signs/I&O 05/23/21 05/23/21 05/23/21 05/23/21 17:50 18:45 18:52 19:07 Temp 36.5 Pulse 55 56 55 52 Resp 22 B/P (MAP) 95/44 (61) 95/44 (61) 107/54 (71) 87/42 (57) Pulse Ox 95 95 100 O2 Delivery Room Air Room Air 05/23/21 05/23/21 05/23/21 05/23/21 19:21 19:45 20:00 20:15 Pulse 52 51 53 57 Resp 16 19 20 B/P (MAP) 101/49 (66) 91/42 (58) 89/54 (66) 108/49 (68) Pulse Ox 100 99 100 100 O2 Delivery Room Air Room Air 05/23/21 20:30 Pulse 54 Resp 20 B/P (MAP) 108/51 (70) Pulse Ox 100 O2 Delivery Room Air Blood Pressure Mean: 61 Progress Progress Note #1: Progress Note check labs, ECG, CXR, Blood gas. For his low blood pressure give IVF. Oxygen saturation is mid 90s on room air. Progress Note #2: Progress Note Labs show mild decrease in the white blood cell count to 2.5. His hemoglobin is chronically low with baseline anemia hemoglobin 10.1. His platelets are low at 56. He has acute on chronic kidney injury with creatinine up to 4.1 and BUN up to 77. His initial lactic acid was 2.32. His chest x-ray showed chronic scarring and changes. He had no effusion. His blood pressure was improving with a liter bolus of fluids. He remained alert and appropriate during this entire time. Although his ABG initially was showing a pH of 7.31, PCO2 35, PO2 58 with an 87% oxygen saturation on room air he has been satting in the mid 90s to 100% with a good waveform. With his acute kidney injury and hypotension so this may be related back to dehydration and not drinking enough on top of his underlying chronic kidney disease but unable to say how much might also be relat ed to his Covid infection. 1951 call placed to [facility] transfer center and spoke with HARSHIL Peralta. However due to the patient being Covid positive and currently having no Covid beds they were unable to take the patient due to capacity. Discussed with the patient and the nurses checked with his daughter as well. Advised that he still needed admission and monitoring about his kidney function to ensure that it was improving and that he was not being over hydrated. He may still need additional treatment for the Covid infection but currently he seems to be stable from a pulmonary standpoint. He was agreeable to go to another facility in [place] but expressed his desire to still go to since all of his records were there. I advised him that I did call their first but unfortunately they had no beds available. 2019 call placed to [facility] access [email or web address]. Keyla RN stated that Covid positive patients from outside of the [facility] system were being admitted to [facility] however they were at capacity and not accepting patients currently. She stated that she could check with [place] and see if they had any bed avail ability. In the meantime she advised to continue to call work on finding placement. 2024 call placed to [facility] transfer center and they requested facesheet and will call back to speak with the transfer doctor. 2028 HARSHIL Ramires, from [facility] [place] called back and stated the patient was accepted to [facility] in [place], [place]. Dr. Eugene accepting physician Initial ECG Impression Date: May 23, 2021 Initial ECG Impression Time: 18:38 Initial ECG Rate: 49 Initial ECG Rhythm: S.Drake Initial ECG Comparisson: Unchanged Comment Sinus bradycardia with heart rate 49 bpm and the level branch block. UT interval 180 ms. QT interval 574 ms with a QTc interval [address] elevation. Appears stable from prior tracings. Diagnostic Imaging Diagonstic Imaging: Xray Plain Films/CT/US/NM/MRI: chest Comments [facility] [place], [place] NAME: JAYSON PAUL MED REC#: [id number] PT STATUS: REG ER : 1945 PHYSICIAN: BETO CALI MD ADMIT DATE: 05/23/21/ER FS Signed Date of Exam:05/23/21 CHEST 1 VIEW AP/PA ONLY INDICATION: Covid-19 positive. TIME OF EXAM: 6:57 PM Correlation is made with prior chest from 03/20/2021. Heart is enlarged but stable. There appears to be chronic pleural thickening or pleural fluid in the bases. There may be some new infiltrate in the right base since prior chest radiograph. The left base appears to be stable. Mid and upper lung bethea are stable. There is no pneumothorax. IMPRESSION: Chronic basilar changes. There may be some new superimposed infiltrate in the right base since exam from 03/20/2021. Dictated by: Dictated on workstation # [id number] Dict: 05/23/211919 Trans: 05/23/211924 [facility] [id number] Interpreted by: NITIN CARR MD Electronically signed by: NITIN CARR MD 05/23/211924 Reviewed: Reviewed by Me Departure Impression Primary Impression: Svker-hr-tbdaxut kidney injury Qualified Codes: N17.9 - Acute kidney failure, unspecified; N18.4 - Chronic kidney disease, stage 4 (severe) Additional Impressions: COVID-19 virus infection Hypotension Qualified Codes: I95.9 - Hypotension, unspecified Disposition: 02 XFER SHT-TRM HOSP Condition: Stable Transfer Transfer Reason: Exceeds level of care (Needs Nephrology, Pulmonology) Time Spoke to Accepting Phy: 20:36 Transfer Progress Notes Spoke with Dr. Eugene at [facility] and he accepted pt for transfer for continued treatment of hypotension, acute on chronic kidney injury and Covid 19 virus infection. Transfer Facility: [facility] Method of Transfer: EMS Departure-Patient Inst. Referrals: ALIRIO CACERES MD (PCP/Family) Primary Care Physician BETO CALI MD May 23, 2021 18:37
[2021-05-23] MEDS ORDERED: NS IV 1000 ML 1,000 ML ONE (18:39)
[2021-05-23 18:44] LABS: ABG BASE EXCESS -7.8 MMOL/L (-2.5-2.5); ABG PCO2 35 MMHG (35-45); ABG PH 7.31 (7.37-7.43); ABG PO2 58 MMHG (79-93); ABG TCO2 18.7 MMOL/L (21.0-31.0)
[2021-05-23 18:45] LABS: ABG OXYGEN SATURATION 87 % (94-100); ALLENS TEST YES-POS; INSPIRED O2 ROOM AIR; VENTILATOR NO
[2021-05-23 18:46] LABS: PATIENT TEMP 36.5
[2021-05-23 19:00] LABS: HEMATOCRIT 32 % (40-54); HEMOGLOBIN 10.1 G/DL (13.3-17.7); MEAN CORPUSCULAR HEMOGLOBIN 28 PG (25-34); MEAN CORPUSCULAR HGB CONC 32 G/DL (32-36); MEAN CORPUSCULAR VOLUME 89 FL (80-99); WHITE BLOOD COUNT 2.5 10^3/uL (4.3-11.0)
[2021-05-23 19:01] LABS: BASOPHILS % (AUTO) 0 % (0-10); EOSINOPHILS % (AUTO) 0 % (0-10); LYMPHOCYTES % (AUTO) 33 % (12-44); MEAN PLATELET VOLUME 12.7 FL (7.4-10.4); MONOCYTES % (AUTO) 6 % (0-12); NEUTROPHILS % (AUTO) 62 % (42-75); PLATELET COUNT 56 10^3/uL (130-400)
[2021-05-23 19:02] LABS: LYMPHOCYTES # (AUTO) 0.8 X 10^3 (1.0-4.0); MONOCYTES # (AUTO) 0.1 X 10^3 (0.0-1.0); NEUTROPHILS # (AUTO) 1.6 X 10^3 (1.8-7.8); SMEAR SCAN COMMENT YES
[2021-05-23 19:09] LABS: BAND NEUTROPHILS 6 %; LYMPHOCYTES % (MANUAL) 25 %; METAMYELOCYTES % 2 %; MONOCYTES % (MANUAL) 6 %; NEUTROPHILS % (MANUAL) 61 %
[2021-05-23 19:10] LABS: ANISOCYTOSIS SLIGHT; ELLIPT/OVALOCYTES MODERATE; PLATELET ESTIMATE DECREASED; POIKILOCYTOSIS MODERATE; RBC MORPH ABNORMAL
[2021-05-23 19:11] LABS: SCHISTOCYTES SLIGHT
[2021-05-23 19:12] LABS: ALKALINE PHOSPHATASE 90 U/L (40-136); BILIRUBIN,TOTAL 0.7 MG/DL (0.1-1.0); BUN/CREATININE RATIO 19; CALCIUM 7.7 MG/DL (8.5-10.1); CARBON DIOXIDE 19 MMOL/L (21-32); CHLORIDE 98 MMOL/L (98-107); CREATININE SERUM 4.12 MG/DL (0.60-1.30); GFR ESTIMATED 14; GLUCOSE 134 MG/DL (70-105); POTASSIUM 4.9 MMOL/L (3.6-5.0); SODIUM 134 MMOL/L (135-145)
[2021-05-23 19:13] LABS: ALANINE AMINOTRANSFERASE 41 U/L (0-55); ALBUMIN 3.5 GM/DL (3.2-4.5); TOTAL PROTEIN 6.1 GM/DL (6.4-8.2)
--- NOTE | 2021-05-23 19:24 | Diagnostic Imaging Report ---
INDICATION: Covid-19 positive. TIME OF EXAM: 6:57 PM Correlation is made with prior chest from 03/20/2021. Heart is enlarged but stable. There appears to be chronic pleural thickening or pleural fluid in the bases. There may be some new infiltrate in the right base since prior chest radiograph. The left base appears to be stable. Mid and upper lung bethea are stable. There is no pneumothorax. IMPRESSION: Chronic basilar changes. There may be some new superimposed infiltrate in the right base since exam from 03/20/2021. Dictated by: Dictated on workstation # [id number]
[2021-05-23 19:35] LABS: INR 1.4 (0.8-1.4); PROTHROMBIN TIME PATIENT 17.8 SEC (12.2-14.7)
[2021-05-23 21:41] VITALS: BP 116/55
== END 2021-05-23 21:36 | disposition short-term general hospital (02) ==
LOC: EDUNIT# 17:34 → ER FS 17:38
DX: U07.1 COVID-19 (principal); N17.9 Acute kidney failure, unspecified; N18.9 Chronic kidney disease, unspecified; I95.9 Hypotension, unspecified; D63.1 Anemia in chronic kidney disease; D69.6 Thrombocytopenia, unspecified; G89.29 Other chronic pain; M54.9 Dorsalgia, unspecified; Z79.899 Other long term (current) drug therapy
CPT/HCPCS: 36415; 71045; 80053; 82805; 83605; 84484; 85007; 85027; 85379; 85610; 85730; 86141; 87040; 93005; 93041

== ENCOUNTER 2021-05-27 11:32 | Emergency (ER) | payer MEDICARE, OTHER ==
[~2021-05-27] VITALS: Ht 185 cm; Wt 72.5 kg
--- NOTE | 2021-05-27 12:32 | ED Respiratory ---
General Chief Complaint: Respiratory Problems Stated Complaint: ALTERED MENTAL STATUS | SOB History of Present Illness Date Seen by Provider: May 27, 2021 Time Seen by Provider: 12:20 Initial Comments 76-year-old male presents by EMS with shortness of air and hypoxia. Was discharged home yesterday from [facility]..... Admitted with respiratory problems and "Covid" as well as chronic kidney disease. On arrival, EMS states his sats were 70% on 2 L nasal cannula, however patient was breathing through his mouth and not his nose. A non-rebreather mask with 10 L of oxygen was applied and on arrival his oxygen saturations were 90%..... now back down 6 L Patient states he is tired, not sure he wants to keep doing this and is not sure that he wants to have CPR or be intubated....discussed w myself on arrival Allergies and Home Medications Allergies Coded Allergies: Penicillins (Verified Allergy, Intermediate, 10/11/20) EYES SWELLED SHUT Home Medications Acetaminophen 500 Mg Tablet, 500 MG PO Q6H PRN for PAIN-MILD (1-4), (Reported) Albuterol Sulfate 2.5 Mg/3 Ml Vial.neb, 2.5 MG INH Q4H PRN for WHEEZING Prescribed by: ANGELA ASENCIO on 03/04/212100 Albuterol/Ipratropium 4 Gm Aero, 2 PUFF IH Q12H Prescribed by: DAI WATSON on 03/20/21 1318 Carvedilol 3.125 Mg Tablet, 3.125 MG PO BID Prescribed by: BRITTNY PRESTON on 01/01/21 1142 Furosemide 40 Mg Tablet, 40 MG PO Q48H, (Reported) Hydroxychloroquine Sulfate 200 Mg Tablet, 200 MG PO BID, (Reported) Isosorbide Mononitrate 60 Mg Tab, 60 MG PO DAILY Prescribed by: ELLIOT LOPEZ on 01/06/21 1036 Melatonin 5 Mg Tablet, 5 MG PO HS PRN for SLEEP, (Reported) Multivitamin 1 Each Tablet, 1 TAB PO DAILY, (Reported) Prednisone 5 Mg Tablet, 15 MG PO Q48H, (Reported) TAKES 3 (5MG) TABS Sodium Bicarbonate 650 Mg Tablet, 1,950 MG PO BID, (Reported) TAKES 3 (650MG) TABS Temazepam 15 Mg Capsule, 15 MG PO HS PRN for SLEEP, (Reported) Warfarin Sodium 2.5 Mg Tablet, 5 MG PO SUN,TUE,WE,NATHANIEL,SAT, (Reported) Warfarin Sodium 2.5 Mg Tablet, 10 MG PO MON,FRI, (Reported) Patient Home Medication List Home Medication List Reviewed: Yes Review of Systems Review of Systems Constitutional: malaise, weakness Respiratory: cough, short of breath Cardiovascular: No chest pain, No edema, No syncope Gastrointestinal: No abdominal pain; loss of appetite; No vomiting Skin: change in color (EMS states very cyanotic on arrival, better color after oxygenation) Psychiatric/Neurological: Denies Headache, Denies Seizure; Weakness Past Aeuotui-Rvkubc-Xqfzmu Hx Seasonal Allergies Seasonal Allergies: No Past Medical History Surgeries: Yes (COLECTOMY WITH ILEOSTOMY 1973, SPINAL FUSION, KIDNEY STONE) Abdominal, Nephrectomy Respiratory: Yes Pulmonary Embolism Currently Using CPAP: No Currently Using BIPAP: No Cardiac: Yes Deep Vein Thrombosis Neurological: Yes Neuropathy Sexually Transmitted Disease: No HIV/AIDS: No Genitourinary: Yes (RENAL INSUFF.) Benign Prostatic Hyperpl, Kidney Stones, Renal Failure Gastrointestinal: Yes (COLECTOMY WITH ILEOSTOMY) Polyps Musculoskeletal: Yes Degenerate Disk Disease, Rheumatoid Arthritis, Chronic Back Pain Endocrine: No HEENT: Yes (GLASSES, DENTURES) Loss of Vision: Denies Hearing Impairment: Hard of Hearing Cancer: Yes Lung, Colon, Kidney Did You Recieve Any Treatments: Yes What Type of Treatment Did You: Chemotherapy Psychosocial: No Integumentary: Yes (VERY SENSITIVE SKIN) Blood Disorders: No Adverse Reaction/Blood Tranf: No (N/A) Family Medical History Patient reports no known family medical history. Physical Exam Vital Signs - First Documented 05/27/21 05/27/21 12:15 15:05 Temp 35.9 Pulse 72 Resp 35 B/P (MAP) 131/94 (106) Pulse Ox 97 O2 Delivery Non Rebreather O2 Flow Rate 4.00 Capillary Refill : Height: '" Weight: lbs. oz. kg; 21.00 BMI Method: General Appearance: no apparent distress, cachetic Eyes: Bilateral Eye PERRL, Bilateral Eye EOMI HEENT: PERRL/EOMI, normal ENT inspection Neck: non-tender, supple Respiratory: chest non-tender, normal breath sounds, no accessory muscle use, other (tachypneic) Cardiovascular: no JVD, bradycardia Gastrointestinal: non tender, soft Extremities: non-tender, no pedal edema Neurologic/Psychiatric: no motor/sensory deficits Skin: warm/dry Focused Exam Lactate Level 05/27/21 12:29: Lactic Acid Level 2.09*H 05/27/21 14:34: Lactic Acid Level 1.78 Lactic Acid Level Laboratory Tests Test 05/27/21 12:29 05/27/21 14:34 Lactic Acid Level 2.09 MMOL/L (0.50-2.00) *H 1.78 MMOL/L (0.50-2.00) Progress/Results/Core Measures Suspected Sepsis SIRS Temperature: Pulse: Respiratory Rate: Laboratory Tests 05/27/21 12:29: White Blood Count 5.0 Blood Pressure / Mean: 05/27/21 12:29: Lactic Acid Level 2.09*H 05/27/21 14:34: Lactic Acid Level 1.78 Laboratory Tests 05/27/21 12:29: Creatinine 2.71#H, INR Comment 4.6H, Platelet Count 66L, Total Bilirubin 0.9 Results/Orders Lab Results Laboratory Tests Test 05/27/21 12:29 05/27/21 12:30 05/27/21 14:34 Range/Units White Blood Count 5.0 4.3-11.0 10^3/uL Red Blood Count 3.87 L 4.35-5.85 10^6/uL Hemoglobin 10.8 L 13.3-17.7 G/DL Hematocrit 34 L 40-54 % Mean Corpuscular Volume 87 80-99 FL Mean Corpuscular Hemoglobin 28 25-34 PG Mean Corpuscular Hemoglobin Concent 32 32-36 G/DL Red Cell Distribution Width 15.7 H 10.0-14.5 % Platelet Count 66 L 130-400 10^3/uL Mean Platelet Volume 13.2 H 7.4-10.4 FL Immature Granulocyte % (Auto) 0 % Neutrophils (%) (Auto) 89 H 42-75 % Lymphocytes (%) (Auto) 8 L 12-44 % Monocytes (%) (Auto) 3 0-12 % Eosinophils (%) (Auto) 0 0-10 % Basophils (%) (Auto) 0 0-10 % Neutrophils # (Auto) 4.5 1.8-7.8 X 10^3 Lymphocytes # (Auto) 0.4 L 1.0-4.0 X 10^3 Monocytes # (Auto) 0.1 0.0-1.0 X 10^3 Eosinophils # (Auto) 0.0 0.0-0.3 10^3/uL Basophils # (Auto) 0.0 0.0-0.1 10^3/uL Immature Granulocyte # (Auto) 0.0 0.0-0.1 10^3/uL Neutrophils % (Manual) 85 % Lymphocytes % (Manual) 12 % Monocytes % (Manual) 2 % Band Neutrophils 1 % Platelet Estimate DECREASED Percent Immature Platelet Fraction 6.4 0.0-7.6 % Poikilocytosis MODERATE Tear Drop Cells SLIGHT Elliptocytes MODERATE Schistocytes SLIGHT Blood Morphology Comment ABNORMAL Prothrombin Time 42.9 H 12.2-14.7 SEC INR Comment 4.6 H 0.8-1.4 Activated Partial Thromboplast Time 56 H 24-35 SEC D-Dimer 2.46 H 0.00-0.49 UG/ML Sodium Level 139 135-145 MMOL/L Potassium Level 4.7 3.6-5.0 MMOL/L Chloride Level 105 98-107 MMOL/L Carbon Dioxide Level 21 21-32 MMOL/L Anion Gap 13 5-14 MMOL/L Blood Urea Nitrogen 78 H 7-18 MG/DL Creatinine 2.71 #H 0.60-1.30 MG/DL Estimat Glomerular Filtration Rate 23 BUN/Creatinine Ratio 29 Glucose Level 89 70-105 MG/DL Lactic Acid Level 2.09 *H 1.78 0.50-2.00 MMOL/L Calcium Level 8.0 L 8.5-10.1 MG/DL Corrected Calcium 8.5 8.5-10.1 MG/DL Total Bilirubin 0.9 0.1-1.0 MG/DL Aspartate Amino Transf (AST/SGOT) 86 H 5-34 U/L Alanine Aminotransferase (ALT/SGPT) 46 0-55 U/L Alkaline Phosphatase 103 40-136 U/L Troponin I < 0.30 <0.30 NG/ML Total Protein 6.0 L 6.4-8.2 GM/DL Albumin 3.4 3.2-4.5 GM/DL Blood Gas Puncture Site RT. RADIAL Blood Gas Patient Temperature 35.9 Arterial Blood pH 7.44 H 7.37-7.43 Arterial Blood Partial Pressure CO2 29 L 35-45 MMHG Arterial Blood Partial Pressure O2 60 L 79-93 MMHG Arterial Blood HCO3 20 L 23-27 MMOL/L Arterial Blood Total CO2 20.6 L 21.0-31.0 MMOL/L Arterial Blood Oxygen Saturation 92 L 94-100 % Arterial Blood Base Excess -3.4 L -2.5-2.5 MMOL/L Juan Francisco Test YES-POS Blood Gas Ventilator Setting NO Blood Gas Inspired Oxygen 10L My Orders Orders - TOMMIE JARAMILLO DO Ed Iv/Invasive Line Start (05/27/21 12:15) Chest 1 View Ap/Pa Only (05/27/21 12:15) Cbc With Automated Diff (05/27/21 12:15) Comprehensive Metabolic Panel (05/27/21 12:15) Troponin I Fs (05/27/21 12:15) Partial Thromboplastin Time (05/27/21 12:15) Protime With Inr (05/27/21 12:15) Procalcitonin (Pct) (05/27/21 12:15) Arterial Blood Gas (05/27/21 12:15) Blood Culture (05/27/21 12:15) Fibrin Degradation Products (05/27/21 12:15) Lactic Acid Analyzer (05/27/21 12:15) Blood Culture (05/27/21 12:31) Manual Differential (05/27/21 12:29) Vital Signs/I&O 05/27/21 05/27/21 12:15 15:05 Temp 35.9 35.7 Pulse 72 85 Resp 35 32 B/P (MAP) 131/94 (106) 93/62 (106) Pulse Ox 97 96 O2 Delivery Non Rebreather OxyMask O2 Flow Rate 4.00 Capillary Refill : Progress Note : Time: 13:25 Progress Note patient remarkably improved on Oxygen with mask (primary mouth breather). Dialing down oxygen from [facility] to regular mask and pt maintaining sats 95% on 4 liters. Resting comfortably, no distress. Reviewed labs, compared to recent lab values. CXR without significant or worsening changes. REassurance given to pt and family regarding pt status and recommendations to start Hospice care or significant increased level of home health care. Diagnostic Imaging Diagonstic Imaging: Xray Plain Films/CT/US/NM/MRI: chest Comments COMPARISON: 05/23/2021. FINDINGS: There is stable cardiomegaly with central pulmonary vascular congestion and likely interstitial edema. The interstitial prominence is increased in the left perihilar region. Small pleural effusions are seen bilaterally. No evidence of pneumothorax. No acute osseous abnormalities. IMPRESSION: 1. Unchanged cardiomegaly and central pulmonary vascular congestion with increasing interstitial edema in the left perihilar region. 2. Stable small pleural effusions. Dictated by: Dictated on workstation # [id number] Dict: 05/27/21 1350 Trans: 05/27/21 1356 [facility] [id number] Interpreted by: SAVI VALDIVIA DO Electronically signed by: SAVI VALDIVIA DO 05/27/21 1356 Departure Impression Primary Impression: Hypoxia Additional Impression: CKD (chronic kidney disease) Qualified Codes: N18.9 - Chronic kidney disease, unspecified Disposition: 01 HOME, SELF-CARE Condition: Improved Departure-Patient Inst. Decision time for Depature: 13:27 Referrals: ALIRIO CACERES MD (PCP/Family) Primary Care Physician Patient Instructions: Oxygen Therapy, Adult (DC) Add. Discharge Instructions: Call your PCP to arrange for Home Health care and to consider Hospice care. Please make sure you are keeping your oxygen mask over both your nose and mouth at all times All discharge instructions reviewed with patient and/or family. Voiced u nderstanding. TOMMIE JARAMILLO DO May 27, 2021 12:32
[2021-05-27 12:53] LABS: ABG BASE EXCESS -3.4 MMOL/L (-2.5-2.5); ABG OXYGEN SATURATION 92 % (94-100); ABG PCO2 29 MMHG (35-45); ABG PH 7.44 (7.37-7.43); ABG PO2 60 MMHG (79-93); ABG TCO2 20.6 MMOL/L (21.0-31.0); ALLENS TEST YES-POS
[2021-05-27 12:54] LABS: INSPIRED O2 10L; PATIENT TEMP 35.9; VENTILATOR NO
[2021-05-27 12:57] LABS: HEMATOCRIT 34 % (40-54); HEMOGLOBIN 10.8 G/DL (13.3-17.7); MEAN CORPUSCULAR HEMOGLOBIN 28 PG (25-34); MEAN CORPUSCULAR VOLUME 87 FL (80-99)
[2021-05-27 12:58] LABS: MEAN CORPUSCULAR HGB CONC 32 G/DL (32-36); PLATELET COUNT 66 10^3/uL (130-400)
[2021-05-27 13:11] LABS: BASOPHILS % (AUTO) 0 % (0-10); EOSINOPHILS % (AUTO) 0 % (0-10); FIBRIN DEGRADATION PRODUCTS 2.46 UG/ML (0.00-0.49); INR 4.6 (0.8-1.4); LYMPHOCYTES % (AUTO) 8 % (12-44); MEAN PLATELET VOLUME 13.2 FL (7.4-10.4); MONOCYTES % (AUTO) 3 % (0-12); NEUTROPHILS # (AUTO) 4.5 X 10^3 (1.8-7.8); NEUTROPHILS % (AUTO) 89 % (42-75); PROTHROMBIN TIME PATIENT 42.9 SEC (12.2-14.7)
[2021-05-27 13:12] LABS: LYMPHOCYTES # (AUTO) 0.4 X 10^3 (1.0-4.0); MONOCYTES # (AUTO) 0.1 X 10^3 (0.0-1.0)
[2021-05-27 13:16] LABS: BAND NEUTROPHILS 1 %; LYMPHOCYTES % (MANUAL) 12 %; MONOCYTES % (MANUAL) 2 %; NEUTROPHILS % (MANUAL) 85 %
[2021-05-27 13:17] LABS: PLATELET ESTIMATE DECREASED; POIKILOCYTOSIS MODERATE; RBC MORPH ABNORMAL
[2021-05-27 13:18] LABS: ELLIPT/OVALOCYTES MODERATE; SCHISTOCYTES SLIGHT; TEAR DROP CELLS SLIGHT
[2021-05-27 13:21] LABS: ALANINE AMINOTRANSFERASE 46 U/L (0-55); ALKALINE PHOSPHATASE 103 U/L (40-136); BILIRUBIN,TOTAL 0.9 MG/DL (0.1-1.0); BUN/CREATININE RATIO 29; CARBON DIOXIDE 21 MMOL/L (21-32); CHLORIDE 105 MMOL/L (98-107); CREATININE SERUM 2.71 MG/DL (0.60-1.30); GFR ESTIMATED 23; GLUCOSE 89 MG/DL (70-105); POTASSIUM 4.7 MMOL/L (3.6-5.0); SODIUM 139 MMOL/L (135-145)
[2021-05-27 13:22] LABS: ALBUMIN 3.4 GM/DL (3.2-4.5)
--- NOTE | 2021-05-27 13:54 | Diagnostic Imaging Report ---
EXAMINATION: Chest 1 view HISTORY: Shortness of breath. COMPARISON: 05/23/2021. FINDINGS: There is stable cardiomegaly with central pulmonary vascular congestion and likely interstitial edema. The interstitial prominence is increased in the left perihilar region. Small pleural effusions are seen bilaterally. No evidence of pneumothorax. No acute osseous abnormalities. IMPRESSION: 1. Unchanged cardiomegaly and central pulmonary vascular congestion with increasing interstitial edema in the left perihilar region. 2. Stable small pleural effusions. Dictated by: Dictated on workstation # [id number]
[2021-05-27 15:05] VITALS: BP 93/62
== END 2021-05-27 15:05 | disposition home or self-care (01) ==
LOC: EDUNIT# 11:32 → ER FS 12:15
DX: R09.02 Hypoxemia (principal); N18.9 Chronic kidney disease, unspecified; Z86.711 Personal history of pulmonary embolism; Z86.718 Personal history of other venous thrombosis and embolism; Z79.01 Long term (current) use of anticoagulants; Z79.52 Long term (current) use of systemic steroids
CPT/HCPCS: 36415; 71045; 80053; 82805; 83605; 84145; 84484; 85007; 85027; 85379; 85610; 85730; 87040

== ENCOUNTER 2021-05-29 08:47 | Emergency (ER) | payer MEDICARE, OTHER ==
[~2021-05-29] VITALS: Ht 182 cm; Wt 80.0 kg
--- NOTE | 2021-05-29 08:53 | ED Dyspnea ---
General Stated Complaint: SOB History of Present Illness Date Seen by Provider: May 29, 2021 Time Seen by Provider: 08:55 Initial Comments 76-year-old male presents with dyspnea. Patient has had multiple repeat visits recently due to the feeling of dyspnea. Patient has known lung cancer and is on home O2. Patient oxygen frequently comes off. Patient was seen here 2 days ago and sent home with recommendations for hospice. Patient also has no chronic kidney failure. Patient normally on 6 L home O2. EMS reports that when they got there his oxygen was slightly low but improved with oxygen. Upon arrival, patient's oxygen was in the upper 90s on 10 L. We immediately lowered it to 5 L and it remained in the mid 90s. Patient describes a feeling of air hunger. Patient has a chronic cough. Patient also has known COPD and emphysema. Patient recently got over Covid 19 infection. Allergies and Home Medications Allergies Coded Allergies: Penicillins (Verified Allergy, Intermediate, 10/11/20) EYES SWELLED SHUT Home Medications Acetaminophen 500 Mg Tablet, 500 MG PO Q6H PRN for PAIN-MILD (1-4), (Reported) Albuterol Sulfate 2.5 Mg/3 Ml Vial.neb, 2.5 MG INH Q4H PRN for WHEEZING Prescribed by: ANGELA ASENCIO on 03/04/21 2101 Albuterol/Ipratropium 4 Gm Aero, 2 PUFF IH Q12H Prescribed by: DAI WATSON on 03/20/21 1318 Carvedilol 3.125 Mg Tablet, 3.125 MG PO BID Prescribed by: BRITTNY PRESTON on 01/01/21 1142 Furosemide 40 Mg Tablet, 40 MG PO Q48H, (Reported) Hydroxychloroquine Sulfate 200 Mg Tablet, 200 MG PO BID, (Reported) Isosorbide Mononitrate 60 Mg Tab, 60 MG PO DAILY Prescribed by: ELLIOT LOPEZ on 01/06/21 1036 Melatonin 5 Mg Tablet, 5 MG PO HS PRN for SLEEP, (Reported) Multivitamin 1 Each Tablet, 1 TAB PO DAILY, (Reported) Prednisone 5 Mg Tablet, 15 MG PO Q48H, (Reported) TAKES 3 (5MG) TABS Sodium Bicarbonate 650 Mg Tablet, 1,950 MG PO BID, (Reported) TAKES 3 (650MG) TABS Temazepam 15 Mg Capsule, 15 MG PO HS PRN for SLEEP, (Reported) Warfarin Sodium 2.5 Mg Tablet, 5 MG PO SUN,TUE,WE,NATHANIEL,SAT, (Reported) Warfarin Sodium 2.5 Mg Tablet, 10 MG PO MON,FRI, (Reported) Patient Home Medication List Home Medication List Reviewed: Yes Review of Systems Review of Systems Constitutional: No chills, No fever Respiratory: cough, short of breath Cardiovascular: No chest pain, No palpitations Gastrointestinal: no symptoms reported Genitourinary: no symptoms reported Musculoskeletal: no symptoms reported Skin: no symptoms reported Psychiatric/Neurological: No Symptoms Reported Endocrine: No Symptoms Reported Past Iwettkh-Lyckvr-Urgvdp Hx Seasonal Allergies Seasonal Allergies: No Past Medical History Surgery/Hospitalization HX: recent COVID, COPD, Cancer kidney and lung, ARF Surgeries: Yes (COLECTOMY WITH ILEOSTOMY 1973, SPINAL FUSION, KIDNEY STONE) Abdominal, Nephrectomy Respiratory: Yes Pulmonary Embolism Currently Using CPAP: No Currently Using BIPAP: No Cardiac: Yes Deep Vein Thrombosis Neurological: Yes Neuropathy Sexually Transmitted Disease: No HIV/AIDS: No Genitourinary: Yes (RENAL INSUFF.) Benign Prostatic Hyperpl, Kidney Stones, Renal Failure Gastrointestinal: Yes (COLECTOMY WITH ILEOSTOMY) Polyps Musculoskeletal: Yes Degenerate Disk Disease, Rheumatoid Arthritis, Chronic Back Pain Endocrine: No HEENT: Yes (GLASSES, DENTURES) Loss of Vision: Denies Hearing Impairment: Hard of Hearing Cancer: Yes Lung, Colon, Kidney Did You Recieve Any Treatments: Yes What Type of Treatment Did You: Chemotherapy Psychosocial: No Integumentary: Yes (VERY SENSITIVE SKIN) Blood Disorders: No Adverse Reaction/Blood Tranf: No (N/A) Family Medical History Patient reports no known family medical history. Physical Exam Vital Signs Vital Signs - First Documented 05/29/21 08:55 Temp 36.8 Pulse 63 Resp 24 B/P (MAP) 104/44 (64) Pulse Ox 95 O2 Delivery Non Rebreather O2 Flow Rate 5.00 Capillary Refill : Height, Weight, BMI Height: '" Weight: lbs. oz. kg; 21.00 BMI Method: General Appearance: Cachetic, Other (Chronically ill) Neck: Non Tender Respiratory: No Respiratory Distress, Accessory Muscle Use, Decreased Breath Sounds (Mild diffuse) Cardiovascular: Regular Rate, Rhythm, No Edema Gastrointestinal: Non Tender, Soft Extremity: Normal Range of Motion, No Pedal Edema Neurologic/Psychiatric: Alert, Normal Mood/Affect Progress/Results/Core Measures Results/Orders Lab Results Laboratory Tests Test 05/29/21 09:10 Range/Units White Blood Count 3.4 L 4.3-11.0 10^3/uL Red Blood Count 3.73 L 4.35-5.85 10^6/uL Hemoglobin 10.2 L 13.3-17.7 G/DL Hematocrit 32 L 40-54 % Mean Corpuscular Volume 86 80-99 FL Mean Corpuscular Hemoglobin 27 25-34 PG Mean Corpuscular Hemoglobin Concent 31 L 32-36 G/DL Red Cell Distribution Width 15.6 H 10.0-14.5 % Platelet Count 54 L 130-400 10^3/uL Mean Platelet Volume 11.1 H 7.4-10.4 FL Immature Granulocyte % (Auto) 0 % Neutrophils (%) (Auto) 84 H 42-75 % Lymphocytes (%) (Auto) 13 12-44 % Monocytes (%) (Auto) 4 0-12 % Eosinophils (%) (Auto) 0 0-10 % Basophils (%) (Auto) 0 0-10 % Neutrophils # (Auto) 2.9 1.8-7.8 X 10^3 Lymphocytes # (Auto) 0.4 L 1.0-4.0 X 10^3 Monocytes # (Auto) 0.1 0.0-1.0 X 10^3 Eosinophils # (Auto) 0.0 0.0-0.3 10^3/uL Basophils # (Auto) 0.0 0.0-0.1 10^3/uL Immature Granulocyte # (Auto) 0.0 0.0-0.1 10^3/uL Percent Immature Platelet Fraction 4.2 0.0-7.6 % Prothrombin Time 46.4 *H 12.2-14.7 SEC INR Comment 5.1 *H 0.8-1.4 Activated Partial Thromboplast Time 81 H 24-35 SEC Sodium Level 142 135-145 MMOL/L Potassium Level 3.8 3.6-5.0 MMOL/L Chloride Level 106 98-107 MMOL/L Carbon Dioxide Level 24 21-32 MMOL/L Anion Gap 12 5-14 MMOL/L Blood Urea Nitrogen 73 H 7-18 MG/DL Creatinine 2.73 H 0.60-1.30 MG/DL Estimat Glomerular Filtration Rate 23 BUN/Creatinine Ratio 27 Glucose Level 101 70-105 MG/DL Calcium Level 8.1 L 8.5-10.1 MG/DL Magnesium Level 2.5 H 1.6-2.4 MG/DL My Orders Orders - ANGELA ASENCIO DO Basic Metabolic Panel (05/29/21 09:04) Cbc With Automated Diff (05/29/21 09:04) Magnesium (05/29/21 09:04) Protime With Inr (05/29/21 09:04) Partial Thromboplastin Time (05/29/21 09:04) Ekg Tracing (05/29/21 09:04) O2 (05/29/21 09:04) Monitor-Rhythm Ecg Trace Only (05/29/21 09:04) Albuterol/Ipra Inhalation Soln (Duoneb I (05/29/21 09:15) Svn Small Volume Nebulizer (05/29/21 09:04) Morphine Injection (Morphine Injection (05/29/21 09:04) Medications Given in ED Current Medications Medications Dose Ordered Sig/Darin Route Start Time Stop Time Status Last Admin Dose Admin Albuterol/ Ipratropium 3 ml ONCE ONCE INH 05/29/21 09:15 05/29/21 09:16 DC 05/29/21 09:17 3 ML Vital Signs/I&O 05/29/21 08:55 Temp 36.8 Pulse 63 Resp 24 B/P (MAP) 104/44 (64) Pulse Ox 95 O2 Delivery Non Rebreather O2 Flow Rate 5.00 Progress Progress Note : Time: 09:40 Progress Note Patient's son and daughter arrived. After discussion with family and patient it was determined that patient's best course would be hospice due to his current me dical diagnosis and condition. We did call and discussed with hospitalist who will see him today and get him started. I believe that this is the best option for him at this time for his comfort at this stage of end-of-life. Patient to be discharged back home with hospice care. Initial ECG Impression Date: May 29, 2021 Initial ECG Impression Time: 09:04 Initial ECG Rate: 62 Initial ECG Rhythm: Normal Sinus Initial ECG Intervals LBBB Initial ECG Impression: Nonspecific Changes Departure Impression Primary Impression: CKD (chronic kidney disease) Qualified Codes: N18.9 - Chronic kidney disease, unspecified Additional Impressions: Hypoxia Lung cancer Qualified Codes: C34.90 - Malignant neoplasm of unspecified part of unspecified bronchus or lung Encounter for hospice care discussion Disposition: 01 HOME, SELF-CARE Condition: Stable Departure-Patient Inst. Referrals: ALIRIO CACERES MD (PCP/Family) Primary Care Physician Patient Instructions: Palliative Care Add. Discharge Instructions: Follow-up with your primary care provider as needed ANGELA ASENCIO DO May 29, 2021 08:53
[2021-05-29] MEDS ORDERED: morphine INJ 10 MG/ML 1ML (SYR OR VIAL) IVP STA (09:04)
[2021-05-29] MEDS ORDERED: RT-ALBUTEROL/IPRATROPIUM 3 ML (DUONEB) VIAL INH ONE (09:15)
[2021-05-29 09:25] LABS: HEMATOCRIT 32 % (40-54); HEMOGLOBIN 10.2 G/DL (13.3-17.7); MEAN CORPUSCULAR HEMOGLOBIN 27 PG (25-34); MEAN CORPUSCULAR HGB CONC 31 G/DL (32-36); MEAN CORPUSCULAR VOLUME 86 FL (80-99); MEAN PLATELET VOLUME 11.1 FL (7.4-10.4); NEUTROPHILS % (AUTO) 84 % (42-75); PLATELET COUNT 54 10^3/uL (130-400); WHITE BLOOD COUNT 3.4 10^3/uL (4.3-11.0)
[2021-05-29 09:26] LABS: BASOPHILS % (AUTO) 0 % (0-10); EOSINOPHILS % (AUTO) 0 % (0-10); LYMPHOCYTES # (AUTO) 0.4 X 10^3 (1.0-4.0); LYMPHOCYTES % (AUTO) 13 % (12-44); MONOCYTES # (AUTO) 0.1 X 10^3 (0.0-1.0); MONOCYTES % (AUTO) 4 % (0-12); NEUTROPHILS # (AUTO) 2.9 X 10^3 (1.8-7.8)
[2021-05-29 09:36] LABS: INR 5.1 (0.8-1.4); PROTHROMBIN TIME PATIENT 46.4 SEC (12.2-14.7)
[2021-05-29 09:46] LABS: CALCIUM 8.1 MG/DL (8.5-10.1); CREATININE SERUM 2.73 MG/DL (0.60-1.30); MAGNESIUM 2.5 MG/DL (1.6-2.4); POTASSIUM 3.8 MMOL/L (3.6-5.0)
[2021-05-29 11:14] VITALS: BP 92/54
== END 2021-05-29 10:57 | disposition home or self-care (01) ==
LOC: EDUNIT# 08:47 → ER FS 08:48
DX: C34.90 Malignant neoplasm of unspecified part of unspecified bronchus or lung (principal); N18.9 Chronic kidney disease, unspecified; J43.9 Emphysema, unspecified; G89.29 Other chronic pain; M54.9 Dorsalgia, unspecified; Z99.81 Dependence on supplemental oxygen; Z86.16 Personal history of COVID-19; Z86.711 Personal history of pulmonary embolism; Z85.528 Personal history of other malignant neoplasm of kidney; Z85.038 Personal history of other malignant neoplasm of large intestine; Z79.52 Long term (current) use of systemic steroids; Z79.01 Long term (current) use of anticoagulants; Z79.899 Other long term (current) drug therapy; Z71.89 Other specified counseling
CPT/HCPCS: 36415; 80048; 83735; 85025; 85610; 85730; 93005; 93041